=== PATIENT | female | born 2005 | race Caucasian/White ===

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

== ENCOUNTER 2023-01-18 20:36 | Emergency (ER) | payer MEDICAID, SELFPAY ==
[2023-01-18 20:41] VITALS: BP 126/71; PULSE 97; RESP 16; TEMP 36.7; O2SAT 99; BMI 34.4
--- NOTE | 2023-01-18 20:59 | W.ED.FEMALGU ---
HPI - Female Genitourinary General: Chief complaint: Urogenital-Female Stated complaint: vaginal cramping, bleeding Time Seen by Provider: 01/18/23 20:55 History of Present Illness: 17-year-old female comes in today with complaints of pelvic pain with the start of her period. Patient states last menstrual cycle was in September. Patient has been seen by her primary care 2 times and was awaiting a ultrasound next week. Patient reports that she started having vaginal cramping today with mild bleeding. Patient was concerned that she may have an ovarian cyst and has come into the emergency department. Patient appears in mild to moderate pain. Patient appears nontoxic. Patient reports no chronic medical problems. Patient takes no routine medicines except sertraline. Associated symptoms: Deny headache(s) or nausea Review of Systems General: Reports: 10 or more systems reviewed and unremarkable except in HPI and below Const: Denies: fever(s) Card: Denies: chest pain Resp: Denies: dyspnea GI: Reports: diarrhea and constipation; Denies: nausea or vomiting : Reports: vaginal bleeding and pelvic pain Neuro: Denies: headache(s) PFSH ED PFSH: Medical History No pertinent family history Painful orthopaedic hardware Social History Smoking and tobacco status: never smoked Physical Exam Const: COMMON NORMALS: alert HENMT: COMMON NORMALS: normocephalic HEAD & SCALP: normocephalic Neck/C-Spine: COMMON NORMALS: full ROM Resp: COMMON NORMALS: normal respiratory effort and clear to auscultation bilaterally AUSCULTATION: clear to auscultation bilaterally Cardio: COMMON NORMALS: regular rate and regular rhythm RATE: regular rate RHYTHM: regular rhythm GI: COMMON NORMALS: Soft to palpation PALPATION: Yes Soft to palpation : COMMON NORMALS: Yes no CVA tenderness BLADDER/KIDNEY EXAM: Yes no CVA tenderness Back/Pelvis: COMMON NORMALS: no CVA tenderness Extremity: COMMON NORMALS: full ROM Neuro: SENSORIUM/ORIENTATION: Yes alert Skin: COMMON NORMALS: turgor normal GENERAL SKIN EXAM: turgor normal Course Vital Signs: Vital signs: Vital Signs Temperature 98.1 F 01/18/23 20:41 Pulse Rate 60 01/18/23 23:33 Respiratory Rate 17 01/18/23 23:33 Blood Pressure 114/73 01/18/23 23:33 Pulse Oximetry 98 01/18/23 23:33 Oxygen Delivery Me thod Room Air 01/18/23 23:33 MDM - Female Medical Decision Making Patient comes in today for complaints of lower abdominal pain with the start of her period. On exam abdomen soft nontender, bowel sounds are normal. Patient reports low back pain. No CVA tenderness. Vital signs are normal. Differential diagnosis includes but not limited to ovarian cyst, ectopic , dysmenorrhea, miscarriage, urinary tract infection. Laboratory values were unremarkable. Ultrasound the pelvis noted good blood flow to all ovaries with multiple follicles. Patient was given 50 mg of ketorolac with minimal relief of pain she was then also given 1 hydrocodone 5 mg tablet for further pain relief. Patient was prescribed naproxen 500 mg twice a day for pain and discomfort. Patient was recommended to follow-up with primary care or return to the ER for worsening symptoms such as fever or significant increase in blood flow. Patient stated understanding and agreed to plan. Lab Data 01/18/23 21: Radiology Impressions Pelvis Ultrasound 01/18/23 22:21 IMPRESSION: Ovaries demonstrate color blood flow bilaterally with ovarian follicles. Laboratory Results WBC 13.0 10^3/uL (4.5-13.0) 01/18/23: RBC 4.82 10^6/uL (4.1-5.3) 01/18/23: Hgb 13.7 g/dL (11.5-15.3) 01/18/23: Hct 42.7 % (37.0-47.0) 01/18/23 21: MCV 88.6 fl (81-99) 01/18/23 21: MCH 28.4 pg (28.0-34.0) 01/18/23: MCHC 32.1 g/dL (30.0-36.0) 01/18/23: RDW 13.2 % (12.1-15.1) 01/18/23: Plt Count 391 10^3/cmm (130-400) 01/18/23 21: MPV 9.2 fL (7.4-10.4) 01/18/23: Neut % (Auto) 48.0 % 01/18/23 21: Lymph % (Auto) 41.5 % 01/18/23 21: [place] % (Auto) 7.1 % 01/18/23: Eos % (Auto) 2.8 % 01/18/23: Baso % (Auto) 0.4 % 01/18/23: Neut # (Auto) 6.22 10^3/uL (1.8-8.0) 01/18/23: Lymph # (Auto) 5.4 10^3/uL (1.5-6.5) 01/18/23 21: [place] # (Auto) 0.9 10^3/uL (0.2-0.9) 01/18/23: Eos # (Auto) 0.4 10^3/uL (0.0-0.8) 01/18/23: Baso # (Auto) 0.1 10^3/uL (0.0-0.1) 01/18/23: Nucleated RBC % (auto) 0 % 01/18/23: Nucleated RBCs # 0.0 /100WBC 01/18/23 21: HCG, Qual Negative (Negative) 01/18/23 21: Urine Color Yellow (Yellow) 01/18/23 22:02 Urine Appearance Clear (CLEAR) 01/18/23 22:02 Urine pH 5 (5-7) 01/18/23 22:02 Ur Specific [place] 1.020 (1.005-1.030) 01/18/23 22:02 Urine Protein Neg (Negative) 01/18/23 22:02 Urine Glucose (UA) Norm (Normal) 01/18/23 22:02 Urine Ketones Negative (Negative) 01/18/23 22:02 Urine Blood 3+ (Negative) H 01/18/23 22:02 Urine Nitrate Negative (Negative) 01/18/23 22:02 Urine Bilirubin Neg (Negative) 01/18/23 22:02 Urine Urobilinogen Neg mg/dL (Negative) 01/18/23 22:02 Ur Leukocyte Esterase Negative (Negative) 01/18/23 22:02 Urine RBC 5-10 /hpf (0-2) H 01/18/23 22:02 Urine WBC None /hpf (0-5) 01/18/23 22:02 Ur Squamous Epith Cells 0-4 /hpf (0-5) H 01/18/23 22:02 Amorphous Sediment Not Reportable 01/18/23 22:02 Urine Bacteria 2+ /hpf (NONE) H 01/18/23 22:02 Urine Mucus 3+ /hpf 01/18/23 22:02 Discharge Plan Discharge Patient Disposition: Home Clinical Impression: Ovarian cyst Qualifiers: Laterality: bilateral Qualified Code(s): N83.201 - Unspecified ovarian cyst, right side Condition: Stable Prescriptions: New naproxen 500 mg tablet 500 mg PO BID PRN (Reason: pain) Qty: 20 0RF Discharge Orders: Discharge ED (Routine); Ordered 01/18/23 Ordered By: Carlos Henson Referrals: David Zhou DO [Primary Care Provider] - Discharge Diet: Usual diet Discharge Activity: Increase activity as tolerated Patient Instructions: Ovarian Cyst (ED) Activity Restrictions/Additional Instructions: Activity as tolerated. Drink plenty of water and fluids. Use acetaminophen and naproxen to help control pain. Take naproxen 500 mg twice a day for better pain control. Use Tylenol for breakthrough pain. Follow-up with primary care or specialist for further evaluation and treatment. Coding Level of Care Code ED Emergency Crew Supervisor for Edy Reeves
[2023-01-18 21:13] VITALS: BP 129/70
[2023-01-18 21:41] LABS: Basophils # 0.1 10^3/uL (0.0-0.1); Basophils % 0.4 %; Eosinophils # 0.4 10^3/uL (0.0-0.8); Eosinophils % 2.8 %; Hematocrit 42.7 % (37.0-47.0); Hemoglobin 13.7 g/dL (11.5-15.3); Lymphocytes # 5.4 10^3/uL (1.5-6.5); Lymphocytes % 41.5 %; Mean Corpuscular HGB Conc 32.1 g/dL (30.0-36.0); Mean Corpuscular Hemoglobin 28.4 pg (28.0-34.0); Mean Corpuscular Volume 88.6 fl (81-99); Mean Platelet Volume 9.2 fL (7.4-10.4); Monocytes # 0.9 10^3/uL (0.2-0.9); Monocytes % 7.1 %; Neutrophils # 6.22 10^3/uL (1.8-8.0); Nucleated Red Blood Cells % 0 %; Platelet Count 391 10^3/cmm (130-400); Red Blood Count 4.82 10^6/uL (4.1-5.3); Red Cell Distribution Width 13.2 % (12.1-15.1)
[2023-01-18] MEDS: ketorolac 30 mg/mL INJ 15 MG IVP (21:53)
[2023-01-18 22:08] LABS: HCG, Serum Qual Negative (Negative)
[2023-01-18 22:12] LABS: Slide Review Slide Review Perform
[2023-01-18 22:16] LABS: Add Urine Microscopic? YES; Bilirubin Urine Neg (Negative); Blood Urine 3+ (Negative); Glucose Urine UA Norm (Normal); Ketones Urine Negative (Negative); Leukocyte Esterase Urine Negative (Negative); Nitrate Urine Negative (Negative); Protein Urine Neg (Negative); Urine Appearance Clear (CLEAR); Urine Color Yellow (Yellow); Urobilinogen Urine Neg (Negative); pH Urine 5 (5-7)
[2023-01-18 22:17] LABS: Add Urine Culture? No; Bacteria Urine 2+ /hpf; Mucus Urine 3+ /hpf; Squamous Epithelial Cell Urine 0-4 /hpf (0-5)
--- NOTE | 2023-01-18 22:21 | USR_ITS ---
PROCEDURE INFORMATION: Exam: US Nonobstetric Pelvis; Complete Exam date and time: 01/18/2023 10:32 PM Age: 17 years old Clinical indication: Patient HX: Bilateral pelvic pain x 12 hours. Nulligravida. History of irregular menses x 1 yr. Lmp 10/07/2022; Additional info: R/O torsion, ovarian cyst LABS AND CLINICAL REPORTS: Serum Choriogonadotropin (HCG): 0 mIU/mL Last menstrual period start date: 10/07/2022 TECHNIQUE: Imaging protocol: Transabdominal pelvic nonobstetric ultrasound. Complete exam. Real time ultrasound with image documentation. COMPARISON: No relevant prior studies available. FINDINGS: Uterus: Uterus measures 6.7 cm x 5 cm x 3.2 cm. Right ovary/adnexa: Right ovary measures 4.9 cm x 4.2 cm x 2.4 cm. Right ovarian volume is 25.9 mL. Right ovary 2.7 cm dominant follicle with several additional follicles.. Color blood flow seen in the right ovary. Left ovary/adnexa: Left ovary measures 3.9 cm x 2.9 cm x 1.8 cm. Left ovarian volume is 10.8 mL. Color blood flow seen in the left ovary. Several left ovarian follicles. Intraperitoneal space: No intraperitoneal fluid. Urinary bladder: Normal. US/US pelvic complete* [id number] IMPRESSION: Ovaries demonstrate color blood flow bilaterally with ovarian follicles.
[2023-01-18 23:33] VITALS: BP 114/73; PULSE 60; RESP 17; O2SAT 98
[2023-01-18] MEDS: HYDROcodone-acetaminophen 5-325 mg Tablet 1 TAB PO (23:56)
[2023-01-18 23:57] VITALS: BP 114/73; PULSE 64; RESP 18; O2SAT 97
== END 2023-01-18 23:59 | disposition home or self-care (01) ==
PROVIDERS: Emergency Medicine; Emergency Provider Nurse Practitioner Family; PCP Electrodiagnostic Medicine
DX: N83.201 Unspecified ovarian cyst, right side (principal)
CPT/HCPCS: 36415; 76856; 81001; 84703; 85025; 96374; 99284; J1885

== ENCOUNTER 2023-07-23 11:52 | Emergency (ER) | payer SELFPAY ==
[2023-07-23 12:01] VITALS: BP 125/84; PULSE 86; RESP 16; TEMP 37.1; O2SAT 98; BMI 34.4
--- NOTE | 2023-07-23 13:29 | PC.PHAR ---
pt states she dced her zoloft 50mg daily about 3-4 weeks ago ext shows last filled 07/08/23 30d/s
[2023-07-23 13:30] VITALS: BP 106/74; PULSE 76; RESP 16; O2SAT 98
[2023-07-23 15:00] VITALS: BP 121/75; PULSE 81; RESP 18; O2SAT 98
--- NOTE | 2023-07-23 17:34 | W.ED.PREGNAN ---
HPI - General: Chief complaint: OB/Uterine Contractions Stated complaint: abd pain, vaginal bleeding Time Seen by Provider: 07/23/23 12:45 History of Present Illness: This patient is a 17-year-old white female who presents [facility] to the ER with vaginal bleeding. Patient states she woke up with bleeding this morning. She states she is . She had a positive home test about 3 to 4 weeks ago. Her first OB appointment is not until August 01. She has had some pelvic cramping as well. She has no chronic medical problems. No past surgical history. Related Data: : 1 Review of Systems General: Reports: 10 or more systems reviewed and unremarkable except in HPI and below : Reports: vaginal bleeding and pelvic pain PFSH ED PFSH: Medical History No pertinent family history Painful orthopaedic hardware Family History Father Colon cancer Mother Hyperlipidemia Hypertension Diabetes Denies family history of Ovarian cancer Heart disease Breast cancer Uterine cancer Thyroid disease Stroke Social History Smoking and tobacco/nicotine status: never used tobacco/nicotine Female Reproductive History: : 1 Physical Exam Const: COMMON NORMALS: no acute distress, patient oriented x3 and no limitations GENERAL APPEARANCE: cooperative and comfortable HENMT: COMMON NORMALS: normocephalic, atraumatic, Normal nasal mucous membranes and turbinates present, moist oral mucous membranes and oropharynx normal HEAD & SCALP: normal to inspection, normocephalic and atraumatic FACE & SINUS: normal facial exam NOSE: Normal nasal mucous membranes and turbinates present Eye: COMMON NORMALS: Equal, round and reactive pupils present, EOMs intact bilaterally and conjunctivae normal GENERAL EYE: appearance normal, both eyes and all related structures CONJUNCTIVA: Yes conjunctivae normal PUPIL: Yes Equal, round and reactive pupils present Neck/C-Spine: COMMON NORMALS: supple and no JVD Chest: COMMONS NORMALS: normal inspection of the chest Resp: COMMON NORMALS: normal respiratory effort and clear to auscultation bilaterally AUSCULTATION: clear to auscultation bilaterally Cardio: COMMON NORMALS: no JVD, regular rate, regular rhythm, No gallops present (Cardio), No murmurs present (Cardio) and No rub (Cardio) RATE: regular rate RHYTHM: regular rhythm GI: COMMON NORMALS: Normal to inspection, nondistended, normoactive bowel sounds present, Soft to palpation and non-tender AUSCULTATION: Yes normoactive bowel sounds PALPATION: Yes Soft to palpation : COMMON NORMALS: Yes no CVA tenderness BLADDER/KIDNEY EXAM: Yes no CVA tenderness Back/Pelvis: COMMON NORMALS: no CVA tenderness and thoracic and lumbar spine normal to inspection Extremity: COMMON NORMALS: normal to inspection Neuro: COMMON NORMALS: patient oriented x3 and CN's II-XII intact bilaterally Psych: COMMON NORMALS: mental status grossly normal, Normal thought process present and cooperative THOUGHT PROCESS: Normal thought process present Skin: COMMON NORMALS: no rashes or lesions noted, turgor normal and no jaundice GENERAL SKIN EXAM: no rashes or lesions noted and turgor normal Course Vital Signs: Vital signs: Vital Signs Temperature 98.8 F 07/23/23 12:01 Pulse Rate 76 07/23/23 13:30 Respiratory Rate 16 07/23/23 13:30 Blood Pressure 106/74 07/23/23 13:30 Pulse Oximetry 98 07/23/23 13:30 Oxygen Delivery Me thod Room Air 07/23/23 13:30 MDM - OB/Uterine Contractions Medical Decision Making Quantitative hCG was 1. Discussed with patient that she is either not , extremely early or may be she has had a miscarriage. I recommended she follow-up with OB or primary care physician in 2 to 3 days for recheck of quantitative hCG. She was discharged in stable condition. Lab Data Laboratory Results Ser , Semi-Qnt 1.00 mIU/mL 07/23/23 14:15 No radiology studies performed this visit Discharge Plan Discharge Patient Disposition: Home Clinical Impression: Vaginal bleeding Condition: Stable Prescriptions: No Action Multivitamins 28 mg iron- 800 mcg Tablet 2 tab PO BEDTIME Discharge Orders: Discharge ED (Routine); Ordered 07/23/23 Ordered By: Janes Valente Referrals: David Zhou DO [Primary Care Provider] - 1-3 days Patient Instructions: Miscarriage (ED) Coding Level of Care Code ED Aws Solution Architect for Chg Leandro
== END 2023-07-23 15:24 | disposition home or self-care (01) ==
PROVIDERS: Emergency Provider Emergency Medicine; PCP Electrodiagnostic Medicine
DX: N93.9 Abnormal uterine and vaginal bleeding, unspecified (principal)
CPT/HCPCS: 84702; 99283

== ENCOUNTER 2024-12-01 10:47 | Outpatient (CLI) | payer MEDICAID, SELFPAY ==
[2024-12-01 10:50] VITALS: RESP 16; BMI 32.2
[2024-12-01 11:01] VITALS: BP 124/77; PULSE 115
[2024-12-01 11:16] VITALS: BP 113/66; PULSE 102
[2024-12-01 11:20] VITALS: BP 113/66; PULSE 102; RESP 16; O2SAT 98
== END 2024-12-01 11:23 | disposition home or self-care (01) ==
LOC: OPOB 10:48 → OBGYN 10:49
PROVIDERS: Absent Provider Family Medicine; PCP Electrodiagnostic Medicine; Visit Provider Family Medicine
DX: O36.8190 Decreased fetal movements, unspecified trimester, not applicable or unspecified (principal); Z3A.00 Weeks of gestation of pregnancy not specified
CPT/HCPCS: 99211

== ENCOUNTER 2024-12-28 19:56 | Outpatient (CLI) | payer MEDICAID, SELFPAY ==
[2024-12-28 20:12] VITALS: BP 118/67; PULSE 118
[2024-12-28 20:15] VITALS: BMI 33.9
[2024-12-28 20:26] VITALS: BP 113/67; PULSE 91
[2024-12-28 20:41] VITALS: BP 116/75; PULSE 88
[2024-12-28 20:50] VITALS: BP 118/75; PULSE 76; PULSE 78; RESP 16; TEMP 36.3; O2SAT 97
[2024-12-28 20:55] LABS: Nitrazine Paper, PH Negative
== END 2024-12-28 20:55 | disposition home or self-care (01) ==
LOC: OPOB 19:56 → OBGYN 19:57
PROVIDERS: PCP Electrodiagnostic Medicine; Visit Provider Family Medicine
DX: O26.859 Spotting complicating pregnancy, unspecified trimester (principal); Z3A.00 Weeks of gestation of pregnancy not specified; N89.8 Other specified noninflammatory disorders of vagina
CPT/HCPCS: 59025; 83986; 99211

== ENCOUNTER 2025-01-15 18:38 | Observation (INO) | payer MEDICAID, SELFPAY ==
--- OUTSIDE RECORDS SUMMARY | 2020-09-08 03:00 | XMS_ITS | Continuity of Care Document ---
Author Organization [facility] Address [address] [id number] [address] Phone Care Team Providers Care Tool Inspector Name Role Phone Jordan Warren DDS Unavailable Unavailabl e Allergies, Adverse Reactions, Alerts Substance Reaction Status Criticality No Known Allergies Active No Inform ation Medications Medication Instructions Dosage Effective Dates (start - stop) Status Comments ibuprofen 800 mg tablet take 1 tablet by oral route 3 times every day with food 800 MG - Active Anti-inflammator y caused by Oral Surgery, Do not used more than 3000mg per day. Peridex 0.12 % mouthwash place 15 milliliter by mucous membrane route 2 times every day in the mouth (after meals), swish in mouth for 30 seconds then spit out 15.00 milliliter - Active Antimicrobial mouth rinse after Oral Surgery. start using after 2nd day of surgery. clonazepam 1 mg tablet Take 1 (one) tablet 1 (one) hour prior to procedure. - Active Percocet 5 mg-325 mg tablet take 1 (one) tablet by oral route 1 (one) hour prior to procedure. Take 1 (one) tab q6h PRN pain after surgery. - Active Procedures Procedure Date Removal Of Impacted Tooth Completely Bony Removal Of Impacted Tooth Completely Bony Removal Of Impacted Tooth Completely Bony Removal Of Impacted Tooth Completely Bony Non-Intravenous Conscious Sedation Aug-3 EDR Approval Note Limited Oral Evaluation Problem Focused EDR Approval Note Advance Directives Directive Yes / No Effective Date File Name No Information Encounters Encounter Description Practice Location Reason(s) For Visit Diagnoses Date Provider Providers Copied on Encounter [facility], [id number], [id number], tel:[phone] [facility] Encounter for dental exam and cleaning w/o abnormal findings Kelvin Ortega. [address] [place] [address], [id number], [place]. tel:[phone] Referring Provider: Jordan Warren, [address] [place] [address], [facility]. tel:[phone] [facility], [id number], [id number], tel:[phone] [facility] Encounter for dental exam and cleaning w/o abnormal findings Kelvin Ortega. [address] [place] [address], [address], [place]. tel:[phone] Referring Provider: Jordan Warren, [address] [place] [address], [facility]. tel:[phone] Family History Family Member Type Diagnosis Age At Onset No Information Payers Payer name Insurance type Covered libertarian ID Authorramiroa kallieangela(s) D [facility] [id number] Social History Type Description Quantity Date Captured Comments Alcohol Use Details No Caffeine Use Details Unknown Tobacco Use Status No Information Smoking Status No Information Sex Female Sexual Orientation Decline To Specify Gender Identity Female Chief Complaint And Reason For Visit No Information Reason For Referral Reason For Referral No Information History Of Present Illness Encounter Date Complaint History Of Prese nt Illness No Information Functional Status Date Functional Assessmen t No Information Instructions Date Instruction Additional Infor mation Lifestyle education Related to D ental Examination Lifestyle education Related to D ental Examination Assessments Type Assessment Date No Information Patient Care Teams Name Effective Dates (start - stop) Status Members No Information
[2025-01-15] VITALS (7 sets, daily range): BP systolic 102–131; BP diastolic 60–83; PULSE 59–93; RESP 14–17; TEMP 36.7; O2SAT 97–100
--- NOTE | 2025-01-15 18:43 | ECG_ITS ---
[facility] Test Date: 2025-01-15 Pat Name: Humphrey Alvarenga Department: Room: 263 Gender: Female X Ray Physician: : 2005 Requested By: Randell Rivas Order Number: [id number] Mike MD: Quiana Merino M.D. Measurements Intervals [place] Rate: 85 P: 22 VT: 117 QRS: 70 QRSD: 90 T: -10 QT: 327 QTc: 390 Interpretive Statements SINUS RHYTHM WITH SINUS ARRHYTHMIA WITH SHORT VT INTERVAL NONSPECIFIC T-WAVE ABNORMALITY No previous ECG available for comparison Electronically Signed On 01-17-2025 13:55:04 CDT by Quiana Merino M.D. [id number]
--- NOTE | 2025-01-15 19:05 | USR_ITS ---
PROCEDURE INFORMATION: Exam: US Abdomen, Limited; Right Upper Quadrant Exam date and time: 01/15/2025 7:14 PM Age: 19 years old Clinical indication: Abdominal pain; Epigastric; ; Additional info: Ruq and epigastric abd pain, with n/v, PT is also 33wks TECHNIQUE: Imaging protocol: Real time ultrasound of the abdomen with image documentation. Limited exam focused on the right upper quadrant. COMPARISON: US OB >= 14 weeks fetus [id number] 10/14/2024 8:15 AM FINDINGS: Liver: Normal. No masses. Gallbladder: Tiny gallstones, negative Rodriguez's sign, 3 mm wall thickness. Biliary ducts: Normal. No stones. No dilation. Pancreas: Visualized pancreas is unremarkable. Right kidney: Normal. No mass. No hydronephrosis. Aorta within normal limits. US/US abdomen limited [id number] IMPRESSION: Gallstones without definitive evidence of cholecystitis.
[2025-01-15 19:21] LABS: Hematocrit 35.2 % (36-47); Hemoglobin 11.20 g/dL (11.27-16.99); Mean Corpuscular HGB Conc 31.8 g/dL (30-55); Mean Corpuscular Hemoglobin 27.2 pg (27-33); Mean Corpuscular Volume 85.4 fl (85-98); Nucleated Red Blood Cells % 0 %; Platelet Count 405 10^3/cmm (157-399); Red Blood Count 4.12 10^6/uL (3.85-5.65); White Blood Count 13.28 10^3/uL (3.29-11.43)
[2025-01-15 19:39] LABS: Alanine Aminotransferase 10 U/L (0-33); Albumin Level 3.3 g/dL (3.5-5.2); Alkaline Phosphatase 157 U/L (35-105); Anion Gap 15.6 (5-19); Aspartate Amino Transferase 9 U/L (0-32); Blood Urea Nitrogen 8 mg/dL (6-20); Calcium 8.7 mg/dL (8.5-10.5); Carbon Dioxide 24 mmol/L (22-29); Chloride 103 mmol/L (98-107); Creatinine Clr Calc Pharmacy 209.5738; Globulin 3.6 g/dL (1.3-4.6); Glucose 87 mg/dL (65-115); Osmolality Calculated 286 mOsm/kg (285-295); Potassium 3.6 mmol/L (3.5-5.1); Sodium 139 mmol/L (136-145); Total Protein 6.9 g/dL (6.6-8.7)
[2025-01-15] MEDS: ondansetron hcl ODT 4 mg Tab 8 MG PO (19:48)
[2025-01-15 20:20] LABS: Glucose Urine UA Negative (Normal); Nitrate Urine Negative (Negative); Specific Gravity, Urine 1.021 (1.005-1.030)
--- NOTE | 2025-01-15 20:23 | ED_ITS ---
HPI - Abdominal Pain 2 General: Chief Complaint: Abdominal Pain Stated Complaint: chest pain rib pain Time Seen by Provider: 01/15/25 18:50 Source: patient History of Present Illness: [id number] female 33 weeks with upper abdominal pain rates across the back and more in the epigastric and right upper quadrant area. Feels better with pressure anterior right upper quadrant but little bit tender more on the right lateral side. No CVA tenderness. All started today. Has had some nausea vomiting. Related Data Home Medications ?Medication ?Instructions ?Recorded ?Confirmed vit no.95-ferrous 2 tab PO BEDTIME 07/23/23 0 12/28/24 fumarate 28 mg-folic acid 800 mcg tablet ( Multivitamins) Allergies Allergy/AdvReac Type Severity Reaction Status Date / Time latex Allergy ALGY-Rash Verified 01/15/25 18:48 Review of Systems 2 General: Reports: 10 or more systems reviewed and unremarkable except in HPI and below PFSH ED 2 PFSH: Medical History (Updated 01/15/25 @ 23:06 by Randell Rivas MD) No pertinent family history Painful orthopaedic hardware Family History Father Colon cancer Mother Hyperlipidemia Hypertension Diabetes Denies family history of Ovarian cancer Heart disease Breast cancer Uterine cancer Thyroid disease Stroke Social History Smoking and tobacco/nicotine status: never used tobacco/nicotine Female Reproductive History: : 1 Physical Exam 2 Const: COMMON NORMALS: no acute distress, average body habitus, patient oriented x3, healthy appearing, alert and well nourished GENERAL APPEARANCE: well kempt and well developed HENMT: COMMON NORMALS: normocephalic, atraumatic, external ears normal and moist oral mucous membranes HEAD & SCALP: normocephalic and atraumatic E XTERNAL EAR: Yes external ears normal Eye: COMMON NORMALS: Equal, round and reactive pupils present, EOMs intact bilaterally and conjunctivae normal CONJUNCTIVA: Yes conjunctivae normal P UPIL: Yes Equal, round and reactive pupils present Neck/C-Spine: COMMON NORMALS: full ROM, no lymphadenopathy and supple Chest: CHEST: Yes Symmetrical chest wall rise and No Surgical scars present (Chest) Resp: COMMON NORMALS: normal respiratory effort, No retractions, No use of accessory muscles and clear to auscultation bilaterally AUSCULTATION: clear to auscultation bilaterally Cardio: COMMON NORMALS: regular rate, regular rhythm, S1 normal heart sound present, S2 normal heart sound present, No gallops present (Cardio), No clicks present (Cardio), No murmurs present (Cardio) and No rub (Cardio) RATE: r egular rate RHYTHM: regular rhythm HEART SOUNDS: S1 normal heart sound present, S2 normal heart sound present and no murmurs PERIPHERAL PULSES: o ther (Radial pulses 2+ and symmetric) GI: COMMON NORMALS: Soft to palpation and no masses INSPECTION: No abdominal distension PALPATION: Yes Soft to palpation, Yes Tenderness to palpation present (GI) (Discussed in HPI), No Guarding due to palpation present (GI) and No Rebound tenderness present : COMMON NORMALS: Yes no CVA tenderness BLADDER/KIDNEY EXAM: Yes no CVA tenderness Back/Pelvis: COMMON NORMALS: no CVA tenderness Extremity: COMMON NORMALS: normal to inspection, full ROM, capillary refill normal and no clubbing, cyanosis or edema Neuro: COMMON NORMALS: patient oriented x3 SENSORIUM/ORIENTATION: Yes alert Psych: APPEARANCE: Yes well kempt Skin: COMMON NORMALS: no rashes or lesions noted, no wounds, turgor normal and no jaundice GENERAL SKIN EXAM: no rashes or lesions noted and turgor normal Course 2 Reevaluation(s): Reevaluation #1: Patient reexamined and requiring continued pain and nausea treatment. Time: 23:06 Vital Signs: Vital signs: Vital Signs Temperature 98.0 F 01/15/25 18:46 Pulse Rate 59 L 01/15/25 22:30 Respiratory Rate 17 01/15/25 20:57 Blood Pressure 114/65 01/15/25 22:30 Pulse Oximetry 100 01/15/25 22:30 Oxygen Delivery Me thod Room Air 01/15/25 22:30 MDM - Abdominal Pain Medical Decision Making Ultrasound reviewed. Patient with gallstones. Elevated white count. No fever having some nausea vomiting. No classic Rodriguez sign. Patient with continued pain nausea vomiting. Discussed case with Dr. Murray COLLABORATIVE PHYSICIAN. She agrees with admission for cautious observation and continued hydration and antiemetics. Differential Diagnosis Likely abdominal pain Medical Records I reviewed the patient's medical records. Lab Data I reviewed the patient's lab results. 01/15/25 19:11 01/15/25 19:11 Labs/Radiology: Radiology Impressions Abdomen Ultrasound 01/15/25 19:05 IMPRESSION: Gallstones without definitive evidence of cholecystitis. Laboratory Results WBC 13.28 10^3/uL (3.29-11.43) H 01/15/25 19:11 RBC 4.12 10^6/uL (3.85-5.65) 01/15/25 19:11 Hgb 11.20 g/dL (11.27-16.99) L 01/15/25 19:11 Hct 35.2 % (36-47) L 01/15/25 19:11 MCV 85.4 fl (85-98) 01/15/25 19:11 MCH 27.2 pg (27-33) 01/15/25 19:11 MCHC 31.8 g/dL (30-55) 01/15/25 19:11 RDW 13.1 % (12.1-15.1) 01/15/25 19:11 Plt Count 405 10^3/cmm (157-399) H 01/15/25 19:11 MPV 9.3 fL (7.4-10.4) 01/15/25 19:11 Neut % (Auto) 52.1 % 01/15/25 19:11 Lymph % (Auto) 39.1 % 01/15/25 19:11 [place] % (Auto) 7.5 % 01/15/25 19:11 Eos % (Auto) 0.6 % 01/15/25 19:11 Baso % (Auto) 0.2 % 01/15/25 19:11 Neut # (Auto) 6.94 10^3/uL (1.8-7.7) 01/15/25 19:11 Lymph # (Auto) 5.2 10^3/uL (0.8-4.8) H 01/15/25 19:11 [place] # (Auto) 1.0 10^3/uL (0.2-0.9) H 01/15/25 19:11 Eos # (Auto) 0.1 10^3/uL (0.0-0.8) 01/15/25 19:11 Baso # (Auto) 0.0 10^3/uL (0.0-0.1) 01/15/25 19:11 Nucleated RBC % (auto) 0 % 01/15/25 19:11 Nucleated RBCs # 0.0 /100WBC 01/15/25 19:11 Sodium 139 mmol/L (136-145) 01/15/25 19:11 Potassium 3.6 mmol/L (3.5-5.1) 01/15/25 19:11 Chloride 103 mmol/L (98-107) 01/15/25 19:11 Carbon Dioxide 24 mmol/L (22-29) 01/15/25 19:11 Anion Gap 15.6 (5-19) 01/15/25 19:11 BUN 8 mg/dL (6-20) 01/15/25 19:11 Creatinine 0.5 mg/dL (0.5-0.9) 01/15/25 19:11 GFR Calculation 155.7 mL/min (90-130) H 01/15/25 19:11 Glucose 87 mg/dL (65-115) 01/15/25 19:11 Calculated Osmolality 286 mOsm/kg (285-295) 01/15/25 19:11 Calcium 8.7 mg/dL (8.5-10.5) 01/15/25 19:11 Total Bilirubin 0.2 mg/dL (0.15-1.2) 01/15/25 19:11 AST 9 U/L (0-32) 01/15/25 19:11 ALT 10 U/L (0-33) 01/15/25 19:11 Alkaline Phosphatase 157 U/L (35-105) H 01/15/25 19:11 Total Protein 6.9 g/dL (6.6-8.7) 01/15/25 19:11 Albumin 3.3 g/dL (3.5-5.2) L 01/15/25 19:11 Globulin 3.6 g/dL (1.3-4.6) 01/15/25 19:11 Urine Color Yellow (Yellow) 01/15/25 20:00 Urine Appearance Turbid (CLEAR) A 01/15/25 20:00 Urine pH 7.5 (5-7) 01/15/25 20:00 Ur Specific [place] 1.021 (1.005-1.030) 01/15/25 20:00 Urine Protein 1+ (Negative) A 01/15/25 20:00 Urine Glucose (UA) Negative (Normal) 01/15/25 20:00 Urine Ketones Trace (Negative) 01/15/25 20:00 Urine Blood Negative (Negative) 01/15/25 20:00 Urine Nitrate Negative (Negative) 01/15/25 20:00 Urine Bilirubin Negative (Negative) 01/15/25 20:00 Urine Urobilinogen 1.0 mg/dL (Negative) 01/15/25 20:00 Ur Leukocyte Esterase 2+ (Negative) A 01/15/25 20:00 Urine RBC 6-10 /hpf (0-2) 01/15/25 20:00 Urine WBC 51-100 /hpf (0-5) H 01/15/25 20:00 Ur Squamous Epith Cells 11-20 /hpf (0-5) H 01/15/25 20:00 Amorphous Sediment 2+ /hpf 01/15/25 20:00 Urine Bacteria 4+ /hpf (NONE) H 01/15/25 20:00 Hyaline Casts 9.07 /lpf 01/15/25 20:00 All radiology interpretation(s) finalized by discharge Discharge Plan Discharge Patient Disposition: Placed in Observation Clinical Impression: Acute upper abdominal pain, Third trimester , Nausea & vomiting Coding Level of Care Code ED Business Risk Consultant for Edy Reeves
[2025-01-15 20:25] LABS: Add Urine Microscopic? YES
[2025-01-15] MEDS: lidocaine 2% viscous 15 ML, aluminum-mag hydrox-simethicon 30 ML, sucralfate oral liq 1 GM PO (20:51)
[2025-01-15] MEDS: morphine 4 mg/mL SDV 1 mL IVP (20:57)
[2025-01-15] MEDS: cefTRIAXone 2,000 mg SDV 2000 MG IVP (22:29)
[2025-01-15] MEDS: metoclopramide 5 mg/mL SDV 2 mL 10 MG IVP (23:20)
[2025-01-15] MEDS: HYDROmorphone 0.5 MG/0.5 ML INJ IVP (23:21)
[2025-01-16] VITALS (7 sets, daily range): BP systolic 95–126; BP diastolic 55–72; PULSE 61–84; RESP 16–17; TEMP 36.8–37.2; O2SAT 91–98; BMI 34.7
--- NOTE | 2025-01-16 00:20 | PC.NURSE ---
Report called to Airam YOUNG on Med-Surg. All questions and concerns were addressed at time of report.
--- NOTE | 2025-01-16 01:01 | PC.NURSE ---
Heart Tones: Performed in ER by OB staff prior to arriving on the floor.
[2025-01-16] MEDS: ondansetron 2 mg/ML SDV 2 mL 4 MG IVP (02:45)
[2025-01-16 05:25] LABS: Hematocrit 31.9 % (36-47); Hemoglobin 10.20 g/dL (11.27-16.99); Mean Corpuscular HGB Conc 32.0 g/dL (30-55); Mean Corpuscular Hemoglobin 27.7 pg (27-33); Mean Corpuscular Volume 86.7 fl (85-98); Nucleated Red Blood Cells % 0 %; Platelet Count 340 10^3/cmm (157-399); Red Blood Count 3.68 10^6/uL (3.85-5.65); White Blood Count 14.03 10^3/uL (3.29-11.43)
[2025-01-16 05:51] LABS: Alanine Aminotransferase 9 U/L (0-33); Albumin Level 2.6 g/dL (3.5-5.2); Alkaline Phosphatase 143 U/L (35-105); Aspartate Amino Transferase 15 U/L (0-32); Blood Urea Nitrogen 7 mg/dL (6-20); Calcium 8.5 mg/dL (8.5-10.5); Carbon Dioxide 20 mmol/L (22-29); Chloride 103 mmol/L (98-107); Creatinine Clr Calc Pharmacy 261.9673; Globulin 3.4 g/dL (1.3-4.6); Glucose 103 mg/dL (65-115); Osmolality Calculated 280 mOsm/kg (285-295); Sodium 136 mmol/L (136-145); Total Protein 6.0 g/dL (6.6-8.7)
[2025-01-16 05:53] LABS: Anion Gap 16.7 (5-19); Potassium 3.7 mmol/L (3.5-5.1)
--- NOTE | 2025-01-16 12:22 | PM.SDS ---
Short Stay Summary Providers Date of Admit/Discharge: 01/16/25 Attending Provider: Charlene Murray MD Primary Care Provider: David Zhou DO Chief Complaint: chest pain rib pain HPI History of Present Illness Humphrey Alvarenga is a 19 year old female G3, P0 at 33 weeks 4 days gestation who presented to the ER last evening complaining of right upper quadrant and epigastric pain. She states that she had to sample puller on the way to the ER because she had some vomiting and has continued to vomit off and on throughout the evening. She has not had any diarrhea. She was evaluated by the ER physician and had a right upper quadrant ultrasound that was not indicative of cholecystitis. She was admitted last evening for continued pain control, antiemetics, and IV fluids. She has done well with clears and states that she is keeping them down. She states that her pain is a lot better from yesterday. She has not had any diarrhea. She is comfortable with discharge home Review of Systems Narrative: Abdominal pain in the right upper quadrant and epigastric area, no fever no chills, positive vomiting, no diarrhea constipation, positive good movement no contractions no vaginal bleeding no loss of fluid Home Meds/Allergies Home Medications and Allergies Home Medications ?Medication ?Instructions ?Recorded ?Confirmed ?Type vit no.95-ferrous 1 tab PO BEDTIME 07/23/23 01/16/25 History fumarate 28 mg-folic acid 800 mcg tablet ( Multivitamins) Allergies Allergy/AdvReac Type Severity Reaction Status Date / Time latex Allergy ALGY-Rash Verified 01/15/25 18:48 PFSH Acute PFSH: Medical History (Updated 01/15/25 @ 23:06 by Randell Rivas MD) No pertinent family history Painful orthopaedic hardware Family History Father Colon cancer Mother Hyperlipidemia Hypertension Diabetes Denies family history of Ovarian cancer Heart disease Breast cancer Uterine cancer Thyroid disease Stroke Social History Smoking and tobacco/nicotine status: never used tobacco/nicotine Female Reproductive History: : 3 Para: 0 Spontaneous abortions: Yes Other female reproductive history: Patient's BRODIE is 03/02/2027 and she is 33 weeks 4 days gestation. She has not had any complications during this until now.. Vitals/I&O/Wt Last Vital Signs Temp 98.4 F 01/16/25 11:42 Pulse 63 01/16/25 11:42 Resp 17 01/16/25 11:42 BP 108/60 01/16/25 11:42 Pulse Ox 96 01/16/25 11:42 O2 Del Method Room Air 01/16/25 11:42 01/15/25 01/16/25 01/16/25 22:59 06:59 14:59 Intake Total 1000 / 1000 360 / 360 Balance 1000 / 1000 360 / 360 Weight last 48 hrs Weight 98.571 kg Weight 97.522 kg Weight 97.522 kg Physical Exam Narrative: Patient is alert and oriented sitting up in bed smiling and watching TV, heart regular rate and rhythm, lungs clear to auscultation bilaterally, abdomen is gravid and nontender, normal active bowel sounds, she has no right upper quadrant or epigastric tenderness currently. Hospital Course Admission Diagnoses Acute gastritis SSS Data Data Completed and Pending: Completed Studies During Hospitalization Category Date Time Status US abdomen [place] d 61850 Stat Ultrasound 01/15/25 19:05 Completed Discharge Plan Discharge Patient Disposition: Home Condition: Stable Prescriptions: New omeprazole 20 mg capsule,delayed release(DR/EC) 20 mg PO BID Qty: 60 0RF ondansetron 4 mg tablet,disintegrating 4 mg PO TID PRN (Reason: nausea and vomiting) 4 Days Qty: 20 0RF Continued PNV no.95-ferrous fumarate-FA [ Multivitamins] 28 mg iron- 800 mcg Tablet 1 tab PO BEDTIME Referrals: David Zhou DO [Primary Care Provider, [facility]] Discharge Diet: Advance as tolerated Discharge Activity: Resume usual activity Patient Instructions: Opioid Safety, Patient Portal & Tony Instructions Activity Restrictions/Additional Instructions: Follow-up as previously scheduled with Dr. Murray for care, sooner if symptoms worsen or do not resolve. Attestations Medical Necessity Statement*: Need for pain management, IV fluids and close observation for worsening Time Spent in Patient Care*: less than 30 min Quality Metrics Clinical Quality Measures: [ No reported AMI, CVA or VTE this stay] Coding Level of Care Code Acute Code for Chg Fwd
== END 2025-01-16 14:34 | disposition home or self-care (01) ==
LOC: ER 23:11 → MEDSURG 01-16 00:09
PROVIDERS: Admitting Provider Family Medicine; Emergency Provider Emergency Medicine; PCP Electrodiagnostic Medicine; Visit Provider Family Medicine
DX: O21.2 Late vomiting of pregnancy (principal); Z3A.33 33 weeks gestation of pregnancy; R10.11 Right upper quadrant pain; R10.13 Epigastric pain
CPT/HCPCS: 36415; 76705; 80053; 81001; 85025; 93005; 96361; 96374; 96375; 99285; G0378; J0696; J0780; J1171; J2270; J2405; J2765; J7030; J9999; Q0162

== ENCOUNTER 2025-02-09 01:52 | Outpatient (CLI) | payer MEDICAID, SELFPAY ==
[2025-02-09] VITALS (11 sets, daily range): BP systolic 104–111; BP diastolic 57–70; PULSE 51–65; RESP 18; TEMP 35.6–35.8; O2SAT 97–98; BMI 36.1
[2025-02-09] MEDS: ondansetron 2 mg/ML SDV 2 mL 4 MG IVP (02:57)
[2025-02-09] MEDS: pantoprazole 40 mg SDV IVP (03:12)
[2025-02-09 03:47] LABS: Alanine Aminotransferase 45 U/L (0-33); Albumin Level 3.0 g/dL (3.5-5.2); Alkaline Phosphatase 356 U/L (35-105); Anion Gap 14.0 (5-19); Aspartate Amino Transferase 60 U/L (0-32); Blood Urea Nitrogen 7 mg/dL (6-20); Calcium 9.0 mg/dL (8.5-10.5); Carbon Dioxide 25 mmol/L (22-29); Chloride 102 mmol/L (98-107); Creatinine Clr Calc Pharmacy 214.1626; Globulin 3.6 g/dL (1.3-4.6); Glucose 84 mg/dL (65-115); Osmolality Calculated 281 mOsm/kg (285-295); Potassium 4.0 mmol/L (3.5-5.1); Sodium 137 mmol/L (136-145); Total Protein 6.6 g/dL (6.6-8.7)
--- NOTE | 2025-02-09 04:17 | USR_ITS ---
PROCEDURE INFORMATION: Exam: US Abdomen, Limited; Right Upper Quadrant Exam date and time: 02/09/2025 5:10 AM Age: 19 years old Clinical indication: Abdominal pain; Localized; Right upper quadrant (ruq); ; Additional info: Abdominal, epigastric, and back pain; Nausea/vomiting TECHNIQUE: Imaging protocol: Real time ultrasound of the abdomen with image documentation. Limited exam focused on the right upper quadrant. COMPARISON: US abdomen limited 29950 01/15/2025 7:14 PM FINDINGS: Liver: Normal. No masses. Gallbladder: Mildly distended gallbladder containing stones and sludge. Mild gallbladder wall thickening measuring 4 mm. No pericholecystic fluid. Biliary ducts: Normal. No stones. No dilation. Pancreas: Visualized pancreas is unremarkable. Right kidney: Mild right-sided hydronephrosis is present. No stone visualized. US/US gall bladder [id number] IMPRESSION: 1. Cholelithiasis without clear evidence of cholecystitis. Clinical correlation recommended. Further evaluation with HIDA scan should be considered in the adequate clinical setting. 2. Mild right-sided hydronephrosis.
[2025-02-09] MEDS: acetaminophen 1,000 MG/100 ML PIGGYBACK 400 MG IV (04:24)
--- NOTE | 2025-02-09 10:19 | PM.SDS ---
Short Stay Summary Providers Date of Admit/Discharge: 02/09/25 Attending Provider: Charlene Murray MD Primary Care Provider: David Zhou DO Chief Complaint: ABD Pain, Chest Pain, N/V ,Back Pain HPI History of Present Illness Humphrey Alvarenga is a 19 year old female G3, P0 at 37 weeks 0 days gestation who presented last evening complaining of epigastric abdominal pain nausea and vomiting. She had had a similar episode of this and was admitted overnight approximately 3 weeks ago. She was given IV fluids, IV Tylenol, a dose of Zofran along with a proton pump inhibitor. Her pain was slightly improved for couple hours but then worsened again at which time she was given 1 dose of tramadol which seems to have improved it significantly. Liver enzymes were slightly elevated and gallbladder ultrasound revealed slight gallbladder wall thickening but no obvious signs of acute cholecystitis. heart tones have been reactive. This morning the patient is feeling better. She was advised to do clear fluids and then advance to very bland diet as tolerated. Review of Systems Narrative: No fevers chills, no diarrhea, positive nausea, positive vomiting, positive epigastric abdominal pain that radiates to the back. Home Meds/Allergies Home Medications and Allergies Home Medications ?Medication ?Instructions ?Recorded ?Confirmed ?Type vit no.95-ferrous 1 tab PO BEDTIME 07/23/23 02/09/25 History fumarate 28 mg-folic acid 800 mcg tablet ( Multivitamins) Allergies Allergy/AdvReac Type Severity Reaction Status Date / Time latex Allergy ALGY-Rash Verified 01/15/25 18:48 PFSH Acute PFSH: Medical History (Updated 01/15/25 @ 23:06 by Randell Rivas MD) No pertinent family history Painful orthopaedic hardware Family History Father Colon cancer Mother Hyperlipidemia Hypertension Diabetes Denies family history of Ovarian cancer Heart disease Breast cancer Uterine cancer Thyroid disease Stroke Social History Smoking and tobacco/nicotine status: never used tobacco/nicotine Female Reproductive History: : 3 Para: 0 Spontaneous abortions: Yes Vitals/I&O/Wt Last Vital Signs Temp 96.4 F L 02/09/25 04:11 Pulse 52 L 02/09/25 06:14 Resp 18 02/09/25 06:13 BP 110/69 02/09/25 06:14 Pulse Ox 97 02/09/25 06:13 02/08/25 02/09/25 02/09/25 22:59 06:59 14:59 Intake Total 1100 / 1100 Balance 1100 / 1100 Weight last 48 hrs Weight 101.605 kg Physical Exam Narrative: Alert and oriented, sitting up in bed, no acute distress, heart regular rate and rhythm, lungs clear to auscultation bilaterally, abdomen is soft and nontender, abdomen is gravid, bowel sounds are normoactive, extremities have trace edema but no calf tenderness Hospital Course Discharge Summary The patient is much improved. She will be discharged home with some tramadol. She states that she still has Zofran at home if she were to need it. She will likely need a HIDA scan -since she is 37 weeks we may hold off on that until after delivery pending how she does upon discharge. SSS Data Data Completed and Pending: Completed Studies During Hospitalization Category Date Time Status US gall bladder 7 6705 Stat Ultrasound 02/09/25 04:17 Completed Discharge Plan Discharge Patient Disposition: Home Prescriptions: New tramadol 50 mg tablet 50 mg PO Q6H PRN (Reason: pain) Qty: 14 0RF No Action PNV no.95-ferrous fumarate-FA [ Multivitamins] 28 mg iron- 800 mcg Tablet 1 tab PO BEDTIME omeprazole 20 mg capsule,delayed release(DR/EC) 20 mg PO BID Qty: 60 0RF Diet: Advance as tolerated and Clear Liquid Activity Restrictions/Additional Instructions: Patient should maintain a clear liquid diet until this evening when she may advance to bland diet if tolerated. She should keep her regular scheduled OB visit this week. Print Language: [place] Discharge Date/Time: 02/09/25 10:35 Coding Level of Care Code Acute Code for Chg Fwd
== END 2025-02-09 10:55 | disposition home or self-care (01) ==
LOC: OPOB 01:55 → OBGYN 01:56
PROVIDERS: PCP Electrodiagnostic Medicine; Visit Provider Family Medicine
DX: O26.899 Other specified pregnancy related conditions, unspecified trimester (principal); Z3A.00 Weeks of gestation of pregnancy not specified; R11.2 Nausea with vomiting, unspecified; R10.9 Unspecified abdominal pain; R07.9 Chest pain, unspecified; M54.9 Dorsalgia, unspecified
CPT/HCPCS: 36415; 59025; 76705; 80053; 96374; 99211; J0131; J2405; J2470; J7121; J9999

== ENCOUNTER 2025-02-24 20:15 | Inpatient (IN) | payer MEDICAID, SELFPAY ==
[2025-02-24 20:13] VITALS: BMI 35.2
[2025-02-24 20:45] VITALS: BP 123/75; PULSE 86
[2025-02-24 20:45] LABS: Hematocrit 34.6 % (36-47); Hemoglobin 11.00 g/dL (11.27-16.99); Mean Corpuscular HGB Conc 31.8 g/dL (30-55); Mean Corpuscular Hemoglobin 26.3 pg (27-33); Mean Corpuscular Volume 82.6 fl (85-98); Nucleated Red Blood Cells % 0 %; Platelet Count 465 10^3/cmm (157-399); Red Blood Count 4.19 10^6/uL (3.85-5.65); White Blood Count 12.82 10^3/uL (3.29-11.43)
[2025-02-24 21:00] VITALS: BP 125/76; PULSE 82
[2025-02-24 21:15] VITALS: BP 133/80; PULSE 104
[2025-02-24 21:21] LABS: Slide Review Slide Review Perform
[2025-02-24 21:30] VITALS: BP 118/66; PULSE 82
[2025-02-24 21:46] VITALS: BP 119/81; PULSE 75
[2025-02-24 22:56] VITALS: BP 142/88; PULSE 70
[2025-02-25] VITALS (127 sets, daily range): BP systolic 98–146; BP diastolic 51–86; PULSE 42–155; RESP 15–18; TEMP 35.8–36.8; O2SAT 87–100
[2025-02-25] MEDS: ondansetron 2 mg/ML SDV 2 mL 4 MG IVP ×2 (02:12→19:14)
[2025-02-25] MEDS: citric acid-sodium citrate 30 mL UDC PO (10:54)
[2025-02-25] MEDS: metoclopramide 5 mg/mL SDV 2 mL 10 MG IV (10:54)
--- NOTE | 2025-02-25 11:33 | ANES.PAUD2 ---
Pre-Anesthetic Update Pre-Anesthetic Assessment: Date of Surgery/Procedure: 02/25/25 Proposed Procedure: Any changes to Pre-Anesthetic Assessment?: No Last Intake: Intake Last Liquid Date 02/24/25 Last Liquid Time 20:00 Last Solid Date 02/24/25 Last Solid Time 20:00 Labs Last 48hrs: Short CBC 02/24/25 Range/Units 20:30 WBC 12.82 H (3.29-11.43) 10^ 3/uL Hgb 11.00 L (11.27-16.99) g/ dL Hct 34.6 L (36-47) % MCV 82.6 L (85-98) fl Plt Count 465 H (157-399) 10^3/c mm Neut % (Auto) 45.9 % Neut # (Auto) 5.89 (1.8-7.7) 10^3/u L Blood Bank 02/24/25 20:30 Blood Type A Positive Rho(D) Type Rh positive Antibody Screen Negative Vitals: Pulse Rate 47 L 02/25/25 11:25 Pulse Rhythm Regular 02/24/25 20:30 Pulse Strength 3+ Normal 02/24/25 20:30 Respiratory Effort Spontaneous, Non- Labored 02/24/25 20:30 Respiratory Depth Normal 02/24/25 20:30 Respiratory Patter n Normal 02/24/25 20:30 Blood Pressure 122/66 02/25/25 11:25 Pulse Oximetry 98 02/25/25 09:16 Oxygen Delivery Me thod Room Air 02/25/25 05:33 Exam: Pre-Anes Outpt Exam: alert, oriented x 3, clear to auscultation bilaterally and regular rate & rhythm Other Pertinent Information: Other Pertinent Information: with spinal for heart tracing
[2025-02-25] MEDS: ceFAZolin 2,000 mg SDV 2000 MG IVP (11:50)
--- NOTE | 2025-02-25 12:53 | PM.OP ---
Operative Report Date of procedure: February 25, 2025 Pre-op diagnosis: Nonreassuring heart tones Post-op diagnosis: same Procedure done: Primary low-transverse section Specimens removed/disposition: Vertex female infant weight 2935 g, 6 pounds 8 ounces, Apgars 8 and 9 Surgeon: Charlene Murray MD Estimated blood loss (mL): 400 IV fluids (mL): 800 Urine output (mL): 200 Complications: None Procedure: After informed consent the patient was taken to the OR where spinal anesthesia was administered. The spinal anesthesia was not adequate so the patient was then put to sleep. A Pfannenstiel skin incision was made and carried through to the underlying layer of fascia sharply. The fascial incision was extended laterally using the Mayos. The fascia was grasped with Andry clamps and the underlying rectus muscles were dissected off taking care to avoid injury to the underlying tissue. The peritoneum was then entered bluntly. The bladder blade was inserted. The vesicouterine peritoneum was identified and entered sharply using the Metzenbaums. The bladder flap was then created digitally. The bladder blade was then reinserted. Uterine incision was made in a transverse fashion in the lower uterine segment. Amniotic rupture of membranes was performed sharply with thick meconium. The was delivered in vertex presentation with bulb suction of the mouth and naris at delivery. The cord was clamped and cut and the infant was handed to the waiting pediatric team. The placenta was delivered grossly intact and normal to inspection. The uterus was then exteriorized from the abdomen and a dry sponge was used to clear the uterus of clots and debris. The inner lining of the uterus was very meconium stained. The uterine incision was repaired using 0 chromic in a running locked fashion. A second layer of the same suture was used in an imbricating manner. Good hemostasis was obtained. The uterus was then returned to the abdomen. Irrigation was used to clear the gutters of clots and debris. The uterine incision was reinspected for hemostasis. The peritoneum was then reapproximated using 4-0 Vicryl in a running fashion. The subfascial tissue was inspected for hemostasis. The fascia was then reapproximated using 0 Vicryl in a running fashion. The subcutaneous tissue was irrigated and any small bleeders were coagulated using the Bovie. The subfascial tissue was reapproximated using 4-0 Vicryl in a running fashion. The skin was then reapproximated using 4-0 Vicryl in a running fashion on a Lenard needle. Steri-Strips and a pressure bandage were applied and patient went to recovery in good condition. Sponge instrument and needle counts were correct.
--- NOTE | 2025-02-25 13:15 | ANE.PACU2 ---
Inpatient post-anesthesia follow up: Airway intact: Yes Vital signs: Temperature 97.9 F Pulse Rate 49 Respiratory Rate 16 Blood Pressure 101/55 Pulse Oximetry 99 Oxygen Delivery Me thod Room Air Oxygen Flow Rate Fraction of Inspir ed Oxygen Hydration adequate: Yes Nausea and vomiting: No Pain level: 1 Mental status: Baseline
--- NOTE | 2025-02-25 15:49 | PC.NURSE ---
spoke with HUMBERTO Casanova about increased pain/failed spinal. ok to give morphine as ordered, with continuous pulse ox
--- NOTE | 2025-02-25 18:49 | PC.NURSE ---
assisted pt up to bedside chair, katty care performed, pad and gown changed. tolerated well. pt remains sitting up in chair at this time.
--- NOTE | 2025-02-25 20:00 | PC.NURSE ---
Patient up to bathroom with standby assist. Pericare taught and performed; clean peripad applied. Patient ambulated in halls around OB unit x2 with standby assist. Patient tolerated well and returned to room, sitting up in chair.
[2025-02-26 01:13] LABS: Hematocrit 29.1 % (36-47); Hemoglobin 9.00 g/dL (11.27-16.99); Mean Corpuscular HGB Conc 30.9 g/dL (30-55); Mean Corpuscular Hemoglobin 25.9 pg (27-33); Mean Corpuscular Volume 83.9 fl (85-98); Platelet Count 353 10^3/cmm (157-399); Red Blood Count 3.47 10^6/uL (3.85-5.65); White Blood Count 16.35 10^3/uL (3.29-11.43)
[2025-02-26 03:28] VITALS: BP 95/53; PULSE 44; RESP 16; TEMP 36.6; O2SAT 99
[2025-02-26] MEDS: PRENATAL VIT NO.130/IRON/FOLIC 1 EACH TABLET PO (09:14)
[2025-02-26] MEDS: ferrous sulfate EC 325 mg Tablet PO (09:14)
[2025-02-26 09:15] VITALS: BP 101/55; PULSE 49
[2025-02-26] MEDS: HYDROcodone-acetaminophen 5-325 mg Tablet PO (14:01)
--- NOTE | 2025-02-26 16:05 | P.PN_ITS ---
Subjective 2 Subjective: Postop day #1 primary section. The patient is doing well. She is passing flatus. She is ambulating, her pain is controlled. Vitals/I&O/Wt Last Vital Signs Temp 97.9 F 02/26/25 03:28 Pulse 49 L 02/26/25 09:15 Resp 16 02/26/25 03:28 BP 101/55 02/26/25 09:15 Pulse Ox 99 02/26/25 03:28 O2 Del Method Room Air 02/26/25 03:28 02/26/25 02/26/25 02/26/25 06:59 14:59 22:59 Intake Total 1360 / 5220.462 Output Total 600 / 2100 200 / 200 Balance 760 / 3120.462 -200 / -200 Weight last 48 hrs Weight 98.883 kg Weight 98.883 kg Physical Exam 2 Narrative: Alert and oriented, sitting up in bed, heart regular rate and rhythm, lungs clear to auscultation bilaterally, abdomen is soft with appropriate postoperative tenderness, extremities have 1+ edema but no calf tenderness, incision is clean dry and intact with Steri-Strips in place Urinary Catheter Management: [place] Latex Free: Cath Placed During This Visit: yes Urinary Catheter Date of Insertion: 02/25/25 Urinary Catheter Time of Insertion: 11:45 Data 02/26/25 01:00 A&P Assessment and plan 1. Status post primary low transverse section: Routine postoperative and care PDMP PDMP Reviewed: Not Reviewed Attestations 2 Medical Necessity Statement*: Routine postoperative care Coding Level of Care Code Acute Code for Chg Fwd Diagnoses Status post primary low transverse section Z98.891
[2025-02-26 16:06] VITALS: BP 102/55; PULSE 56
[2025-02-26 22:00] VITALS: RESP 16; TEMP 36.8; O2SAT 98
[2025-02-26 22:04] VITALS: BP 111/55; PULSE 62
[2025-02-27 03:45] VITALS: BP 91/53; PULSE 55; O2SAT 97
[2025-02-27 04:00] VITALS: BP 91/53; PULSE 55; RESP 16; TEMP 36.9; O2SAT 97
[2025-02-27] MEDS: HYDROcodone-acetaminophen 5-325 mg Tablet PO (05:06)
[2025-02-27] MEDS: ferrous sulfate EC 325 mg Tablet PO (08:57)
[2025-02-27] MEDS: PRENATAL VIT NO.130/IRON/FOLIC 1 EACH TABLET PO (08:57)
[2025-02-27 09:00] VITALS: BP 123/66; PULSE 83; RESP 16; TEMP 36.4
--- NOTE | 2025-02-27 12:26 | P.DS_ITS ---
Discharge Providers Date of Admission: 02/25/25 07:28 Date of Discharge: February 27, 2025 Attending Provider at Admission: Charlene Murray MD Attending Provider at Discharge: Charlene Murray MD Primary Care Provider: David Zhou DO Diagnoses at Discharge Discharge Diagnosis 1. Status post primary low transverse section: Reason for Visit Reason for Visit: Elective Induction of Labor Hospital Course Hospital Course This is a 19-year-old G1 now P1 who had a primary low-transverse section for nonreassuring heart tones. She has done well post operatively. She is ambulating, tolerating a regular diet, has good pain control, has decreased vaginal bleeding, and is comfortable with discharge home. Physical Exam Narrative: Alert and oriented, heart regular rate and rhythm, lungs clear to auscultation bilaterally, abdomen is soft with appropriate postoperative tenderness, incision is clean dry and intact. Extremities have 1+ edema but no calf tenderness Urinary Catheter Management: [place] Latex Free: Cath Placed During This Visit: yes Urinary Catheter Date of Insertion: 02/25/25 Urinary Catheter Time of Insertion: 11:45 Discharge Data Studies Completed and Pending Pending at discharge Category Date Time Status High Risk PP Hemorrhage Stat Lab 02/25/25 13:49 Received Laboratory Results WBC 16.35 10^3/uL (3.29-11.43) H 02/26/25 01:00 RBC 3.47 10^6/uL (3.85-5.65) L 02/26/25 01:00 Hgb 9.00 g/dL (11.27-16.99) L 02/26/25 01:00 Hct 29.1 % (36-47) L 02/26/25 01:00 MCV 83.9 fl (85-98) L 02/26/25 01:00 MCH 25.9 pg (27-33) L 02/26/25 01:00 MCHC 30.9 g/dL (30-55) 02/26/25 01:00 RDW 14.0 % (12.1-15.1) 02/26/25 01:00 Plt Count 353 10^3/cmm (157-399) 02/26/25 01:00 MPV 10.2 fL (7.4-10.4) 02/26/25 01:00 Neut % (Auto) 45.9 % 02/24/25 20:30 Lymph % (Auto) 47.0 % 02/24/25 20:30 Bledsoe % (Auto) 5.8 % 02/24/25 20:30 Eos % (Auto) 0.8 % 02/24/25 20:30 Baso % (Auto) 0.2 % 02/24/25 20:30 Neut # (Auto) 5.89 10^3/uL (1.8-7.7) 02/24/25 20:30 Lymph # (Auto) 6.0 10^3/uL (0.8-4.8) H 02/24/25 20:30 Bledsoe # (Auto) 0.7 10^3/uL (0.2-0.9) 02/24/25 20:30 Eos # (Auto) 0.1 10^3/uL (0.0-0.8) 02/24/25 20:30 Baso # (Auto) 0.0 10^3/uL (0.0-0.1) 02/24/25 20:30 Nucleated RBC % (auto) 0 % 02/24/25 20:30 Nucleated RBCs # 0.0 /100WBC 02/24/25 20:30 Blood Type A Positive 02/24/25 20:30 Rho(D) Type Rh positive 02/24/25 20:30 Antibody Screen Negative 02/24/25 20:30 Vitals Last Vital Signs Temp 97.5 F L 02/27/25 09:00 Pulse 83 02/27/25 09:00 Resp 16 02/27/25 09:00 BP 123/66 02/27/25 09:00 Pulse Ox 97 02/27/25 04:00 O2 Del Method Room Air 02/27/25 04:00 Discharge Plan Discharge Patient Disposition: Home Condition: Stable Prescriptions: New ibuprofen 800 mg Tablet 800 mg PO TID PRN (Reason: Abdominal Discomfort) Qty: 30 0RF hydrocodone-acetaminophen 5-325 mg Tablet 1 - 2 tab PO Q4H PRN (Reason: Moderate To Severe Pain) Qty: 10 0RF docusate sodium 100 mg Capsule 100 mg PO BID Qty: 60 0RF Continued Tylenol 650 mg PO PRN PRN (Reason: Pain) PNV no.95-ferrous fumarate-FA [ Multivitamins] 28 mg iron- 800 mcg Tablet 1 tab PO BEDTIME omeprazole 20 mg capsule,delayed release(DR/EC) 20 mg PO BID Qty: 60 0RF tramadol 50 mg tablet 50 mg PO Q6H PRN (Reason: pain) Qty: 14 0RF Discharge Order = DC NOW: Discharge Order (Routine); Ordered 02/27/25 Ordered By: Charlene Murray Referrals: Charlene Murray MD [Physician, Family Practice] - 03/03/25 10:15 am Discharge Diet: Usual diet Discharge Activity: Limit activity as instructed Patient Instructions: Depression (DC), Bleeding (DC), Preeclampsia and Eclampsia After Delivery (GEN), Hemorrhage (DC), OB - [place]rev[place], OB Discharge Report, OB Food/Drug Interaction Guide, Opioid Safety, OB Home Care, OB Proud Parent Packet, Patient Portal & Tony Instructions Activity Restrictions/Additional Instructions: No lifting greater than 10 pounds for [address] while taking the narcotic pain medication. Nothing per vagina for 6 weeks. Discharge Attestations Time Spent in Discharge Care*: less than 30 min Quality Metrics Clinical Quality Measures [ No reported AMI, CVA or VTE this stay] Coding Level of Care Code Acute Code for Chg Fwd Diagnoses Status post primary low transverse section Z98.891
[2025-02-27 12:57] VITALS: BP 119/74; PULSE 92
[2025-02-27 13:05] VITALS: BP 119/74; PULSE 92; RESP 16; TEMP 37.2; O2SAT 99
[2025-02-27 13:54] LABS: High Risk PP Hemorrhage BBK Notified
--- NOTE | 2025-04-08 03:19 | PM.OPHPUD ---
Labor & Delivery H&P Update Date of Procedure: 02/25/25 Date H&P Performed: 02/25/25 Admission Diagnosis: Nonreassuring heart tones Planned procedure: Emergent primary section Operation Date: 02/25/25 11:30 Proposed Procedures p Section(Not Applicable) - Charlene Murray MD
== END 2025-02-27 13:35 | disposition home or self-care (01) | DRG 788 ==
LOC: OPOB 02-25 07:26 → OBGYN 02-25 07:27
PROVIDERS: Admitting Provider Family Medicine; PCP Electrodiagnostic Medicine; Visit Provider Family Medicine
PROC: 10D00Z1 Extraction of Products of Conception, Low, Open Approach (ICD-10-PCS; CPT 59514; principal; 2025-02-25 11:30)
DX: O76 Abnormality in fetal heart rate and rhythm complicating labor and delivery (principal); Z3A.39 39 weeks gestation of pregnancy; Z37.0 Single live birth
CPT/HCPCS: 36415; 51702; 59025; 59409; 85025; 85027; 86850; 86900; G0378; J0330; J0690; J1100; J1885; J2274; J2405; J2704; J2765; J3010; J3490; J7030; J7120; J7121; J9999

== ENCOUNTER 2025-05-04 05:08 | Emergency (ER) | payer MEDICAID, SELFPAY ==
--- OUTSIDE RECORDS SUMMARY | 2025-05-04 05:13 | XMS_ITS | Continuity of Care Document ---
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 Plan of Treatment Reminders Order Date Submit Date Provider Last Modified By Organization Details Last Modified Time Details Appointments None record ed. Lab None record ed. Referral None record ed. Procedures None record ed. Surgeries None record ed. Imaging None record ed. Medication Orders None record ed. Patient TargetsNo targets recorded. Patient InstructionsNo instructions recorded. Reason for Referral None Reported. Results Created Date Observation Date Name Description Value Unit Range Abnormal Flag Note LastModifiedBy Organization Detail LastModifiedTime 07/02/1907/02/2024 pregn gila test, urine HCG positi ve Not Available [facility] ([facility]) [address] [place], [address], 07/02/2024 09:58:16 08/06/19 25 08/13/2024 URINA LYSIS , COMPL ETE color YELLOW yellow normal Not Available [facility] [address] [address] [place], [address], 08/14/2024 00:57:32 08/06/19 25 08/13/2024 URINA LYSIS , COMPL ETE appearance TURBID clear abnormal Not Available [facility] [address] [address] [place], [address], 08/14/2024 00:57:32 08/06/19 25 08/13/2024 URINA LYSIS , COMPL ETE specific gravity 1.027 1.001- 1.035 normal Not Available [address], [address], 08/14/2024 00:57:32 08/06/1908/13/2024 URINA LYSIS , COMPL ETE pH 7.5 5.0-8. 0 normal Not Available [address], [address], 08/14/2024 00:57:32 08/06/1908/13/2024 URINA LYSIS , COMPL ETE glucose NEGATI VE negati ve normal Not Available [address], [address], 08/14/2024 00:57:32 08/06/1908/13/2024 URINA LYSIS , COMPL ETE bilirubin NEGATI VE negati ve normal Not Available [address], [address], 08/14/2024 00:57:32 08/06/1908/13/2024 URINA LYSIS , COMPL ETE ketones 1+ negati ve abnormal Not Available [address], [address], 08/14/2024 00:57:32 08/06/1908/13/2024 URINA LYSIS , COMPL ETE occult blood NEGATI VE negati ve normal Not Available [address], [address], 08/14/2024 00:57:32 08/06/1908/13/2024 URINA LYSIS , COMPL ETE protein TRACE negati ve abnormal Not Available [address], [address], 08/14/2024 00:57:32 08/06/1908/13/2024 URINA LYSIS , COMPL ETE nitrite NEGATI VE negati ve normal Not Available [address], [address], 08/14/2024 00:57:32 08/06/1908/13/2024 URINA LYSIS , COMPL ETE leukocyte esterase NEGATI VE negati ve normal Not Available [address], [address], 08/14/2024 00:57:32 08/06/1908/13/2024 URINA LYSIS , COMPL ETE WBC 0-5 /hpf < or = 5 normal Not Available [address], [address], 08/14/2024 00:57:32 08/06/1908/13/2024 URINA LYSIS , COMPL ETE RBC 0-2 /hpf < or = 2 normal Not Available [address], [address], 08/14/2024 00:57:32 08/06/19 25 08/13/2024 URINA LYSIS , COMPL ETE squamous epithelial cells 10-20 /hpf < or = 5 abnormal Not Available [address], [address], 08/14/2024 00:57:32 08/06/1908/13/2024 URINA LYSIS , COMPL ETE bacteria MANY /hpf none seen abnormal Not Available [address], [address], 08/14/2024 00:57:32 08/06/1908/13/2024 URINA LYSIS , COMPL ETE calcium oxalate crystals MANY /hpf none or few abnormal Not Available [address], [address], 08/14/2024 00:57:32 08/06/19 25 08/13/2024 URINA LYSIS , COMPL ETE hyaline cast NONE SEEN /lpf none seen normal Not Available [facility] [address], [address], 08/14/2024 00:57:32 08/06/1908/13/2024 URINA LYSIS , COMPL ETE note This urine was rahel zed for the prese nce of WBC, RBC, bacte hailee, casts , and other forme d eleme nts. Only those eleme nts seen were repor joyce. Not Available [facility] [address], [address], 08/14/2024 00:57:32 08/06/1908/13/2024 CBC (INCL UDES DIFF/ PLT) white blood cell count 11.2 thous and/u L 3.8-10 .8 high Not Available [facility] [address], [address], 08/14/2024 00:57:34 08/06/19 25 08/13/2024 CBC (INCL UDES DIFF/ PLT) red blood cell count 4.52 juan francisco on/uL 3.80-5 .10 normal Not Available [facility] [address], [address], 08/14/2024 00:57:34 08/06/19 25 08/13/2024 CBC (INCL UDES DIFF/ PLT) hemoglobin 13.2 g/dL 11.7-1 5.5 normal Not Available [facility] [address], [address], 08/14/2024 00:57:34 08/06/1908/13/2024 CBC (INCL UDES DIFF/ PLT) hematocrit 40.5 % 35.0-4 5.0 normal Not Available [facility] [address], [address], 08/14/2024 00:57:34 08/06/19 25 08/13/2024 CBC (INCL UDES DIFF/ PLT) MCV 89.6 fL 80.0-1 00.0 normal Not Available [facility] [address], [address], 08/14/2024 00:57:34 08/06/1908/13/2024 CBC (INCL UDES DIFF/ PLT) MCH 29.2 pg 27.0-3 3.0 normal Not Available [facility] [address], [address], 08/14/2024 00:57:34 08/06/1908/13/2024 CBC (INCL UDES DIFF/ PLT) MCHC 32.6 g/dL 32.0-3 6.0 normal For adult s, a sligh t decre ase in the calcu lated MCHC value (in the range of 30 to 32 g/dL) is most likel y not clini doug signi fican t; feli er, it shoul d be inter prete d with cauti on in [facility] n with other red cell akash eters and the patie nt's clini flakita condi tion. Not Available [facility] [address], [address], 08/14/2024 00:57:34 08/06/1908/13/2024 CBC (INCL UDES DIFF/ PLT) RDW 12.6 % 11.0-1 5.0 normal Not Available [facility] [address], [address], 08/14/2024 00:57:34 08/06/1908/13/2024 CBC (INCL UDES DIFF/ PLT) platelet count 447 thous and/u L 140-40 0 high Not Available [facility] [address], [address], 08/14/2024 00:57:34 08/06/1908/13/2024 CBC (INCL UDES DIFF/ PLT) MPV 9.8 fL 7.5-12 .5 normal Not Available [facility] [address], [address], 08/14/2024 00:57:34 08/06/19 25 08/13/2024 CBC (INCL UDES DIFF/ PLT) absolute neutrophils 7325 cells /uL 1500-7 800 normal Not Available [address], [address], 08/14/2024 00:57:34 08/06/19 25 08/13/2024 CBC (INCL UDES DIFF/ PLT) absolute lymphocytes 3091 cells /uL 850-39 00 normal Not Available [facility] [address], [address], 08/14/2024 00:57:34 08/06/1908/13/2024 CBC (INCL UDES DIFF/ PLT) absolute monocytes 594 cells /uL 200-95 0 normal Not Available [facility] [address], [address], 08/14/2024 00:57:34 08/06/19 25 08/13/2024 CBC (INCL UDES DIFF/ PLT) absolute eosinophils 157 cells /uL 15-500 normal Not Available [address], [address], 08/14/2024 00:57:34 08/06/19 25 08/13/2024 CBC (INCL UDES DIFF/ PLT) absolute basophils 34 cells /uL 0-200 normal Not Available [facility] [address], [address], 08/14/2024 00:57:34 08/06/19 25 08/13/2024 CBC (INCL UDES DIFF/ PLT) neutrophils 65.4 % normal Not Available [address], [address], 08/14/2024 00:57:34 08/06/19 25 08/13/2024 CBC (INCL UDES DIFF/ PLT) lymphocytes 27.6 % normal Not Available [facility] [address], [place], [address], 08/14/2024 00:57:34 08/06/1908/13/2024 CBC (INCL UDES DIFF/ PLT) monocytes 5.3 % normal Not Available [facility] [address], [address], 08/14/2024 00:57:34 08/06/1908/13/2024 CBC (INCL UDES DIFF/ PLT) eosinophils 1.4 % normal Not Available [facility] [address], [address], 08/14/2024 00:57:34 08/06/1908/13/2024 CBC (INCL UDES DIFF/ PLT) basophils 0.3 % normal Not Available [address], [address], 08/14/2024 00:57:34 08/06/1908/13/2024 HEPAT ITIS B SURFA CE ANTIG EN W/REF L CONFI RM hepatitis B surface antigen NON-RE ACTIVE non-re active normal For addit ional infor dave batres e refer to http: //[facility] lomeli.que stdia gnost ics.c om/fa q/FAQ (This link is being provi ded for infor nina russ/ educa karen l purpo ses only. ) Not Available [address], [address], 08/14/2024 00:57:35 08/06/1908/13/2024 HEPAT ITIS C AB W/REF L TO HCV RNA, QN, PCR hepatitis C antibody NON-RE ACTIVE non-re active normal HCV antib veronica was non-r eacti ve. There is no labor atory evide nce of HCV infec tion. In most cases , no furth er actio n is requi red. Howev er, if recen t HCV expos ure is suspe cted, a test for HCV RNA (test code 90797 ) is sugjaja fowler. For addit ional infor nina n pleas e refer to http: //[facility] urbinaia diamond ics.c om/fa q/FAQ 22v1 (This link is being provi ded for infor matio nal/ educa karen l purpo ses only. ) Not Available [facility] [address] [address] [place], [address], 08/14/2024 00:57:36 08/06/1908/13/2024 RUBEL LA AB (IGG) , IMMUN E STATU S rubella Ab (IgG), immune status 3.61 index normal Index Inter preta tion ----- ----- ----- ---- <0.90 Not consi stent with immun ity 0.90- 0.99 Equiv ocal > or = 1.00 Consi stent with immun ity The prese nce of rubel la IgG antib veronica sugge sts immun izati on or past or curre nt infec tion with rubel la virus . Not Available [facility] [address] [address] [place], [address], 08/14/2024 00:57:37 08/06/1908/13/2024 HIV 1/2 ANTIG EN/AN TIBOD Y,FOU RTH GENER ATION W/RFL HIV Ag/Ab, 4TH gen NON-RE ACTIVE non-re active normal HIV-1 antig en and HIV-1 /HIV- 2 antib odies were not detec joyce. There is no labor atory evide nce of HIV infec tion. PLEAS E NOTE: This infor nina n has been discl osed to you from recor ds whose confi denti ality may be prote cted by state law. If your state requi res such prote ction , then the state law prohi bits you from lucía payne any furth er discl osure of the infor matio n witho ut the speci fic writt en conse nt of the perso n to whom it perta ins, or as other mccoy permi tted by law. A gener al autho marilee ion for the relea se of medic al or other infor seunjude lomeli is NOT suffi cient for this purpo se. For addit ional infor nina lomeli pleas e refer to http: //[facility] ics.c om/fa q/FAQ 106 (This link is being provi ded for infor matjude nal/ educa karen l purpo ses only. ) The perfo rmanc e of this assay has not been clini doug valid ated in patie nts less than 2 years old. Not Available [facility] [address] [address] [place], [address], 08/14/2024 00:57:37 08/06/1908/13/2024 QNATA L(R) ADVAN FLOR number of fetuses? 1 Not Available [facility] [address] [place], [address], 08/14/2024 00:57:39 08/06/1908/13/2024 QNATA L(R) ADVAN FLOR advanced maternal age? NO Not Available [facility] [address] [address] [place], [address], 08/14/2024 00:57:39 08/06/1908/13/2024 QNATA L(R) ADVAN FLOR abnormal ella? NO Not Available [facility] [address] [address] [place], [address], 08/14/2024 00:57:39 08/06/1908/13/2024 QNATA L(R) ADVAN FLOR abnormal US? NO Not Available [facility] [address] [address] [place], [address], 08/14/2024 00:57:39 08/06/1908/13/2024 QNATA L(R) ADVAN FLOR personal/fam history? NO Not Available [facility] [address] [address] [place], [address], 08/14/2024 00:57:39 08/06/19 25 08/13/2024 QNATA L(R) ADVAN FLOR interpretati on SEE NOTE This speci men showe d an expec joyce repre senta tion of chrom osome 21, 18, and 13 mater ial. See Gregorio mays below . Not Available [address], [address], 08/14/2024 00:57:39 08/06/19 25 08/13/2024 QNATA L(R) ADVAN FLOR trisomy 21 (T21) NEGATI VE Not Available [address], [address], 08/14/2024 00:57:39 08/06/19 25 08/13/2024 QNATA L(R) ADVAN FLOR trisomy 18 (T18) NEGATI VE Not Available [address], [address], 08/14/2024 00:57:39 08/06/19 25 08/13/2024 QNATA L(R) ADVAN FLOR trisomy 13 (T13) NEGATI VE Not Available [address], [address], 08/14/2024 00:57:39 08/06/19 25 08/13/2024 QNATA L(R) ADVAN FLOR Y chromosome NOT DETECT ED Not Available [address], [address], 08/14/2024 00:57:39 08/06/19 25 08/13/2024 QNATA L(R) ADVAN FLOR Y chr. interpretati on SEE NOTE Consi stent with a femal e fetus . Not Available [address], [address], 08/14/2024 00:57:39 08/06/1908/13/2024 QNATA L(R) ADVAN FLOR sex chromosome NO ANEUPL OIDY Not Available [address], [address], 08/14/2024 00:57:39 08/06/1908/13/2024 QNATA L(R) ADVAN FLOR sex chromosome interp SEE NOTE No appar ent abnor malit y was detec joyce. See Limi tatio ns below . Not Available [address], [address], 08/14/2024 00:57:39 08/06/1908/13/2024 QNATA L(R) ADVAN FLOR microdeletio n NOT DETECT ED Not Available [address], [address], 08/14/2024 00:57:39 08/06/1908/13/2024 QNATA L(R) ADVAN FLOR microdeletio n interp SEE NOTE No appar ent abnor malit y was detec joyce. See Limi tatio ns below . Not Available [address], [address], 08/14/2024 00:57:39 08/06/1908/13/2024 QNATA L(R) ADVAN FLOR gestational age(in weeks) 10 Not Available [address], [address], 08/14/2024 00:57:39 08/06/1908/13/2024 QNATA L(R) ADVAN FLOR gestational age (in days) 2 Not Available [address], [address], 08/14/2024 00:57:39 08/06/1908/13/2024 QNATA L(R) ADVAN FLOR fraction 17.15% Not Available [address] [place], [address], 08/14/2024 00:57:39 08/06/1908/13/2024 QNATA L(R) ADVAN FLOR laboratory comments SEE NOTE Labor atory testi ng super vised and resul ts monit ored by Joshua Paniagua, Ph.D. , FACMG , HCLD, CGMB. Not Available [facility] [address] [place], [address], 08/14/2024 00:57:39 08/06/1908/13/2024 QNATA L(R) ADVAN FLOR limitations SEE NOTE QNata l(R) Advan flor is a cell- free DNA scree jett test that scree ns for incre ased risk of certa in chrom osoma l abnor malit ies that may cause defec ts, inclu ding Triso my 21 (Down syndr ome), Triso my 18, Triso my 13, and certa in sex chrom osome abnor malit ies (i.e. , 45,X, 47,XX Y, 47,XX X, and 47,XY Y), as well as sex. In addit ion, if selec joyce as an optio n, QNata l(R) Advan flor can scree n for certa in micro delet ions (i.e. , 22q, 5p, 1p36, 15q, 11q, 8q, and 4p) that may cause defec ts. This test does not asses s the risk of abnor malit ies such as neura l tube defec ts or ventr al wall defec ts and shoul d not be consi dered in isola tion from other clini flakita findi ngs and labor atory test resul ts. QNata l(R) Advan flor has been valid ated in [place] pregn ancie s for the triso mies and sex chrom osome abnor malit ies liste d above , as well as for micro delet ions, and for the deter minat ion of sex. Sex chrom osome aneup loidy rahel sis is only perfo rmed in [place] pregn ancie s. This scree jett test has also been valid ated in twin pregn ancie s for the triso mies liste d above and for micro delet ions, but not for the sex chrom osome abnor malit ies due to limit ed data. This scree jett test has not been valid ated in highe r order pregn ancie s (more than two) becau se limit ed data is avail able. Sex chrom osoma l aneup loidy resul ts issue d for pregn ancie s confi rmed to be of multi ple gesta tions are not valid and shoul d be disre gardnubia d. Micro delet ion scree jett is limit ed to the speci fied micro delet ion regio ns (see Meth odolo gy ). The Y chrom osome is rahel zed for the deter minat ion of sex. The sensi tivit y and speci ficit y of sex deter minat ion rahel sis may be less than that of the Triso my 21, 18, and 13 rahel sis and this deter minat ion can be confo unded by vanis micki twin syndr ome in pregn ancie s that were origi edenilson multi ple gesta tion pregn ancie s. It shoul d be noted that QNata l(R) Advan flor is a quant itati ve rahel sis of mater nal and place ntal cfDNA . As a resul t, the accur acy of scree jett resul ts may be affec joyce by the prese nce of chrom osome abnor malit ies or micro delet ions that are mater nal or confi rg place ntal in origi n. Not Available [facility] [employer] [address] [address], [place], [address], 08/14/2024 00:57:39 08/06/1908/13/2024 QNATA L(R) ADVAN FLOR specificatio ns SEE NOTE Sensi tivit y Speci ficit y T21 >99.9 % >99.9 % T18 >99.9 % >99.9 % T13 >99.9 % >99.9 % Accur acy Y >99.9 % Perfo rmanc e of the QNata l Advan flor labor atory -deve loped test (LDT) has been deter mined based on inter nal rahel tical asses sment . Not Available [facility] [address] [place], [address], 08/14/2024 00:57:39 08/06/19 25 08/13/2024 QNATA L(R) ADVAN FLOR methodology SEE NOTE Circu latin g cell- free (cf) DNA was isola joyce from plasm a follo wed by detec tion on a massi vely paral lel seque ncing platf orm. Bioin forma tic rahel sis was perfo rmed to deter mine the repre senta tion of chrom osome s 21, 18, 13, X and Y in circu latin g cell- free DNA. The repre senta tion of seque nces from the criti flakita regio ns invol simon in 1p36 micro delet ion syndr ome (1p36 ), San- Timothy hhorn syndr ome (4p), Cri-d u-malcom t syndr ome (5p), Angela r-Mariselae dedra syndr ome (8q), Henry sen syndr ome (11q) , Sony r Willi syndr ome/A ngelm an syndr ome (15q) , and DiGeo rge syndr ome (22q) is evalu ated for the detec tion of micro delet ions if reque sted. Perfo rmanc e jace cteri stics refer to the rahel tical perfo rmanc e of this scree jett test. This scree jett test is perfo rmed pursu ant to a licen se agree ment with Seque nom Labor atori es. QNata l Advan flor is a labor atory devel oped test that has been devel oped and valid ated, pursu ant to the Clini flakita Labor atory Impro vemen ts Amend ments of 1987 (CLIA ), and as such it has not been revie wed by FDA. Not Available [facility] [address] [place], [address], 08/14/2024 00:57:39 08/06/1908/13/2024 RPR (DX) W/REF L TITER AND T. PALLI DUM AB, IA RPR (DX) w/refl titer and confirmatory testing NON-RE ACTIVE non-re active normal No labor atory evide nce of syphi lis. If recen t expos ure is suspe cted, submi t a new sampl e in 2-4 weeks . Not Available [address] [place], [address], 08/14/2024 00:57:40 08/06/1908/13/2024 ANTIB VERONICA SCREE N, RBC W/REF L ID, TITER AND AG antibody screen, RBC w/refl id, titer and Ag NO ANTIBO DIES DETECT ED normal Refer ence range No antib odies detec joyce This assay is a scree jett test for the detec tion of red blood cell antib odies . The test is not to be used for pretr ansfu abhi scree jett or for the medic al manag ement of an alloi mmuni zed pregn gila. Not Available [facility] [address] [address] [place], [address], 08/14/2024 00:57:41 08/06/1908/13/2024 ABO GROUP AND RH TYPE ABO group A Not Available [facility] [address] [address] [place], [address], 08/14/2024 00:57:42 08/06/1908/13/2024 ABO GROUP AND RH TYPE Rh type RH(D) POSITI VE For addit ional infor dave batres e refer to http: //[facility] sanabriaQue stDia gnost ics.c om/fa q/FAQ 111 (This link is being provi ded for infor nina russ/ educa karen l purpo ses only. ) Not Available [facility] [address] [address] [place], [address], 08/14/2024 00:57:42 08/06/1908/13/2024 DRUG MONIT OR, PANEL 1, SCREE N, URINE amphetamines NEGATI VE NG/mL <500 See Note A See Note A Not Available [facility] [address], [place], [address], 08/14/2024 00:57:42 08/06/1908/13/2024 DRUG MONIT OR, PANEL 1, SCREE N, URINE barbiturates NEGATI VE NG/mL <300 See Note A See Note A Not Available [facility] [address] [address], [place], [address], 08/14/2024 00:57:42 08/06/1908/13/2024 DRUG MONIT OR, PANEL 1, SCREE N, URINE benzodiazepi karan NEGATI VE NG/mL <100 See Note A See Note A Not Available [facility] [address] [address] [address], [place], [address], 08/14/2024 00:57:42 08/06/1908/13/2024 DRUG MONIT OR, PANEL 1, SCREE N, URINE cocaine metabolite NEGATI VE NG/mL <150 See Note A See Note A Not Available [facility] [address] [address], [place], [address], 08/14/2024 00:57:42 08/06/1908/13/2024 DRUG MONIT OR, PANEL 1, SCREE N, URINE marijuana metabolite POSITI VE NG/mL <20 abnormal See Note A See Note A Not Available [facility] [address] [address] [address], [place], [address], 08/14/2024 00:57:42 08/06/1908/13/2024 DRUG MONIT OR, PANEL 1, SCREE N, URINE methadone metabolite NEGATI VE NG/mL <100 See Note A See Note A Not Available [facility] [address] [address] [address], [place], [address], 08/14/2024 00:57:42 08/06/1908/13/2024 DRUG MONIT OR, PANEL 1, SCREE N, URINE opiates NEGATI VE NG/mL <100 See Note A See Note A Not Available [address] [address] [address], [place], [address], 08/14/2024 00:57:42 08/06/1908/13/2024 DRUG MONIT OR, PANEL 1, SCREE N, URINE oxycodone NEGATI VE NG/mL <100 See Note A See Note A Not Available [address] [address] [address], [place], [address], 08/14/2024 00:57:42 08/06/1908/13/2024 DRUG MONIT OR, PANEL 1, SCREE N, URINE phencyclidin e NEGATI VE NG/mL <25 See Note A See Note A Not Available [address] [address] [address], [place], [address], 08/14/2024 00:57:42 08/06/1908/13/2024 DRUG MONIT OR, PANEL 1, SCREE N, URINE creatinine 186.9 mg/dL > or = 20.0 Not Available [address] [address] , [place], [address], 08/14/2024 00:57:42 08/06/1908/13/2024 DRUG MONIT OR, PANEL 1, SCREE N, URINE pH 7.5 4.5-9. 0 Not Available [address] [address] [address] , [place], [address], 08/14/2024 00:57:42 08/06/1908/13/2024 DRUG MONIT OR, PANEL 1, SCREE N, URINE oxidant NEGATI VE mcg/m L <200 Not Available [address] [address] [address], [place], [address], 08/14/2024 00:57:42 08/06/1908/13/2024 DRUG MONIT ORING TEMPL ATE notes and comments This drug testi ng is for medic al treat ment only. Rahel sis was perfo rmed as non-f orens ic testi ng and these resul ts shoul d be used only by [facility] provi ders to rende r diagn osis or treat ment, or to monit or progr ess of medic al condi tions . Note A: The resul ts are presu mptiv e; based only on stacye jett velazquez ds, and they have not been confi rmed by a defin itive metho d. [facility] Provi ders needi ng Inter preta tion rita tance , pleas e conta ct us at 1.877 .40.R XTOX (1.87 [phone] ) M-F, 8am to 10pm EST Not Available [address] [address] [place], [address], 08/14/2024 00:57:44 08/06/1908/13/2024 CULTU RE, URINE , ROUTI NE culture, urine, routine SEE NOTE CULTU RE, URINE , ROUTI NE Micro Numbe r: [id number] Test Statu s: Final Speci men Sourc e: Urine Speci men Quali ty: Adequ ate Resul t: Mixed genit al misael isola joyce. These super ficia l bacte hailee are not indic ative of a urina ry tract infec tion. No furth er organ ism ident ifica tion is warra nted on this speci men. If clini doug indic ated, recol lect clean -catc h, mid-s tream urine and trans zonia immed iatel y to Urine Cultu re Trans port Tube. Not Available [address] [address] [place], [address], 08/14/2024 00:57:44 08/07/1908/08/2024 SURES WAB(R ) ADVAN FLOR VAGIN ITIS PLUS, TMA sureswab(R) adv bacterial vaginosis (bv), tma NEGATI VE negati ve normal Not Available [facility] [id number] [place] [address], [address], 08/08/2024 18:38:48 08/07/19 25 08/08/2024 SURES WAB(R ) ADVAN FLOR VAGIN ITIS PLUS, TMA karly species NOT DETECT ED not detect ed normal Not Available [facility] [address], [id number], 08/08/2024 18:38:48 08/07/19 25 08/08/2024 SURES WAB(R ) ADVAN FLOR VAGIN ITIS PLUS, TMA karly glabrata NOT DETECT ED not detect ed normal Ibeth da speci es C. albic ans, C. tropi calis , C. parap am[place] is, and/o r C. dubli niens is can be detec joyce, but not diffe renti ated, in the Ibeth da spp. resul t. Not Available [facility] - [address], [id number], 08/08/2024 18:38:48 08/07/19 25 08/08/2024 SURES WAB(R ) ADVAN FLOR VAGIN ITIS PLUS, TMA trichomonas vaginalis (TV), tma NOT DETECT ED not detect ed normal Not Available [facility] [address], [id number], 08/08/2024 18:38:48 08/07/19 25 08/08/2024 SURES WAB(R ) ADVAN FLOR VAGIN ITIS PLUS, TMA chlamydia trachomatis RNA, tma, urogenital NOT DETECT ED not detect ed normal Not Available [facility] - [address], [address], 08/08/2024 18:38:48 08/07/19 25 08/08/2024 SURES WAB(R ) ADVAN FLOR VAGIN ITIS PLUS, TMA neisseria gonorrhoeae RNA, tma, urogenital NOT DETECT ED not detect ed normal For addit ional infor dave batres e refer to https ://ed ucati on.qu estdi agnos tics. com/f aq/FA Q154 (This link is being provi ded for infor nina n/ vincenzo fall purpo ses only. ) Not Available [employer] [id number] [address] , [place], [address], 08/08/2024 18:38:48 12/03/19 25 12/02/2024 CBC WBC 8.8 x10 4.0-10 .5 Not Available [facility] [address] [facility], [place], [address], 12/02/2024 11:47:45 12/03/19 25 12/02/2024 CBC RBC 3.66 x10 3.50-5 .50 Not Available [facility] [address] [facility], [place], [address], 12/02/2024 11:47:45 12/03/19 25 12/02/2024 CBC HGB 11.1 g/dL 12.0-1 6.0 low Not Available [facility] [address] [facility], [place], [address], 12/02/2024 11:47:45 12/03/19 25 12/02/2024 CBC HCT 32.9 % 37.0-4 7.0 low Not Available [facility] [address] [facility], [place], [address], 12/02/2024 11:47:45 12/03/19 25 12/02/2024 CBC MCV 89.8 fL 80.0-9 9.9 Not Available [facility] [address] [facility], [place], [address], 12/02/2024 11:47:45 12/03/19 25 12/02/2024 CBC MCH 30.4 pg 27.0-3 2.0 Not Available [facility] [address] [facility], [place], [address], 12/02/2024 11:47:45 12/03/19 25 12/02/2024 CBC MCHC 33.8 g/dL 32.0-3 6.0 Not Available [facility] [address] [facility], [place], [address], 12/02/2024 11:47:45 12/03/19 25 12/02/2024 CBC RDW 13.7 % 11.5-1 4.5 Not Available [facility] [address] [facility], [place], [address], 12/02/2024 11:47:45 12/03/19 25 12/02/2024 CBC plt 330.0 x10 140.0- 451.0 Not Available [facility] [address] [facility], [place], [address], 12/02/2024 11:47:45 12/03/19 25 12/02/2024 CBC lymphocytes % 50.1 % 20.0-5 0.0 high Not Available [facility] [address] [facility], [place], [address], 12/02/2024 11:47:45 12/03/19 25 12/02/2024 CBC granulcytes % 41.8 % 30.0-7 0.0 Not Available [facility] [address] [facility], [place], [address], 12/02/2024 11:47:45 12/03/19 25 12/02/2024 CBC monocytes % 7.3 % 2.0-16 .0 Not Available [facility] [address] [facility], [place], [address], 12/02/2024 11:47:45 12/03/19 25 12/02/2024 CBC granulcytes# 3.7 x10 Not Esthela ilable [facility] [address] [facility], [place], [address], 12/02/2024 11:47:45 12/03/19 25 12/02/2024 CBC lymphocytes # 4.4 x10 Not Available [facility] [address] [facility], [place], [address], 12/02/2024 11:47:45 12/03/19 25 12/02/2024 CBC monocytes # 0.6 x10 Not Avai lable [facility] [address] [facility] [address], [place], [address], 12/02/2024 11:47:45 12/03/19 25 12/02/2024 GLUCO SE SCREE N glucose screen 111.0 mg/dL Not Available [facility] [address] [facility], [place], [address], 12/02/2024 12:07:41 01/28/20 25 01/30/2025 STREP TOCOC CUS, GROUP B CULTU RE streptococcu s, group B culture SEE NOTE STREP TOCOC CUS, GROUP B CULTU RE Micro Numbe r: [id number] Test Statu s: Final Speci men Sourc e: Vagin al/an orect al Speci men Quali ty: Adequ ate Resul t: No group B Strep tococ cus isola joyce Note per CDC guide lines optim al recov candace is achie simon by swabb ing both the lower vagin a and rectu m (thro ugh the anal sphin cter) . Not Available [facility] [id number] [address], [place], [address], 01/30/2025 09:33:23 07/23/19 25 07/22/2024 US, obste tric, 1st trime ster No observ ation record ed. [email or web address] Not Available 07/25 16:33:11 10/16/19 25 10/14/2024 US, obste tric, mater nal evalu ation + anato my No observ ation record ed. [email or web address] [facility] ([facility]) [address] [place], [address], 10/15/2024 12:31:45 02/10/20 25 02/09/2025 lab* No observ ation record ed. [email or web address] [facility] [address] [place], [address], 02/11/2025 14:01:59 02/12/20 25 02/04/2025 US, obste tric, follo w-up No observ ation record ed. [email or web address] [facility] ([facility]) [address] [place], [address], 02/11/2025 14:29:29 Result Notes None recorded. Problems Name Problem SNOMED Code Status Onset Date Resolution Date Notes Provider Name and Address Organization Details Recorded Time Irregular periods 73417546 Active [address] [facility] 5 15:06:25 60999138 Completed 202403/03/2025 PAUL MONZON [facility] 11:18:12 Mixed anxiety and depressive disorder 532897292 Active [address] [facility] 5 09:56:54 Problem Notes None recorded. Procedures Surgical History Date Name Laterality Status Provider Name and Address Organization Details Recorded Time section completed PAUL MONZON [facility] 03/03/2025 11:20:58 open reduction of fracture of radius and ulna completed PAUL MONZON [facility] 07/02/2024 09:55:43 Imaging Results None recorded. Procedure Notes None recorded. Medical Equipment None Reported. Allergies No known drug allergies Medications Name Sig Start Date Stop Date Status Note LastModified by Organization Details LastModified Time ondansetr on HCl 4 mg tablet Take 1 tablet 3 times a day by oral route for 60 days. 03/03 completed Not Available Not Available Not Available sulfameth oxazole 800 mg-trimet hoprim 160 mg tablet TAKE 1 TABLET BY MOUTH TWICE A DAY FOR 10 DAYS 07/02 completed Not Available Not Available Not Available cephalexi n 500 mg capsule Take 1 capsule every 12 hours by oral route for 7 days. 12/06 completed Not Available Not Available Not Available sertralin e 25 mg tablet Take 1 tablet every day by oral route in the morning for 30 days. 02/02 completed Not Available Not Available Not Available sertralin e 50 mg tablet TAKE 1 TABLET BY MOUTH EVERY DAY 07/02 completed Not Available Not Available Not Available 03/03 completed Not Available Not Available Not Available Estarylla 0.25 mg-0.035 mg tablet daily 05/16 completed DM/sd; Recorded 04/26/20 11:42AM by Joni De Paz DO, Office Visit; Refill Quantity : 84; Tablet; Not Available Not Available Not Available Rexulti 1 mg tablet 07/11 completed Not Available Not Available Not Available Vitals Date Recorded Body height Body mass index (BMI) Body weight Body temperature Oxygen saturation Heart rate Systolic And Diastolic Provider Name and Address Organization Details Last Updated DateTime 5 170.18 cm 29.4 kg/m2 94978.3 7 g 98.4 [degF] 98 % 73 /min 122/72 mm[Hg] BRADLEY LINO [facility] 5 15:21:32 Social History None recorded. Functional Status None recorded. Mental Status None recorded. Family History Relationship Description Onset Age of this Age Resolved Age Notes LastModified by Organization Details LastModified Time Mother Diabetes mellitus [email or web address] Not available 06/13 09:52:41 Mother Hypertensive disorder [email or web address] Not available 06/13 09:52:51 Sister Gestational diabetes mellitus [email or web address] Not available 06/13 09:53:03 Medical History Condition Response Coronary Artery Disease N Gout N Other N Blood Diseases N Kidney Stones N Hyperthyroidism N Breast Cancer N Blood Transfusion N Hypothyroidism N Lung Disease N COPD N Depression Y Developmental or Behavioral Disorders N Defects or Inherited Disease N Breast Problem N Difficulty Swallowing N Anesthesia Complications N Meniere's disease N Anxiety Disorder Y Muscle, Joint, or Bone Problems N Vision or Eye Problems N Arthritis N Polyps N Infertility N Cancer N Varicosities N Stroke N Endometriosis N Bladder or Kidney Problems N High Cholesterol N Liver Disease N Fibromyalgia N Headaches N Kidney Disease N Allergies/Hayfever N Heart Problems N Ear or Hearing Problems N Hospitalizations N Thyroid Problems N GI Problems N ADD/ADHD N Skin Problems N Eating Disorder N Anemia N Constipation N Mental Illness N Ovarian Cancer N Diabetes N Bedwetting N Seizures/Epilepsy N Tuberculosis N Eczema N Diverticulitis N Abuse/Domestic Violence N Asthma N Reflux/GERD N Hepatitis N Heart Disease N Pulmonary Embolism N Pre-Eclampsia N Hypertension N Chronic Ear Infections N Osteoporosis N Chicken Pox N Autism Spectrum Disorder (ASD) N Thrombophilias N Gynecological History Statement/Question Response Date of Last Pap Smear Obstetrics History GPAL:G 3 P 1 0 2 1 Type Value Full Term 1 Spontaneous 2 Living 1 Total 3 Immunizations Vaccine Type Date Status Note Provider Nam e and Address Organization Details Recorded Time HPV9 [address] [facility] 02/03/2023 13:00:05 HPV9 [address] [facility], Shikha 02/03/2023 13:00:05 IPV [address] [facility], NikCCrow 02/03/2023 13:00:05 IPV [address] [facility], Shikha 02/03/2023 13:00:05 IPV [address] [facility] Shikha 02/03/2023 13:00:05 IPV [address] [facility] 02/03/2023 13:00:05 MMR 5 completed Gunjan Mirella null, [facility] 02/03/2023 13:00:05 MMR 9 completed Gunjan Mirella null, [facility] 02/03/2023 13:00:05 pneumococcal conjugate PCV 7 5 completed Gunjan Mirella null, [facility] 02/03/2023 13:00:05 pneumococcal conjugate PCV 7 4 completed Gunjan Mirella teague, [facility] 02/03/2023 13:00:05 pneumococcal conjugate PCV 7 4 completed Gunjan teague, [facility] 02/03/2023 13:00:06 Tdap 7 completed Gunjan Mirella teague, [facility] 02/03/2023 13:00:06 varicella 5 completed Gunjan teague, [facility] 02/03/2023 13:00:06 varicella 9 completed Gunjan teague, [facility] 02/03/2023 13:00:06 Hep B, adolescent or pediatric 5 completed Gunjan Mirella null, [facility] 02/03/2023 13:00:06 Hep B, adolescent or pediatric 4 completed Gunjan Mirella null, [facility] 02/03/2023 13:00:06 Hep B, adolescent or pediatric 4 completed Gunjan teague, [facility] 02/03/2023 13:00:06 Hep A, ped/adol, 2 dose 8 completed Gunjan Mirella null, [facility] 02/03/2023 13:00:06 Hep A, ped/adol, 2 dose 7 completed Gunjan Mirella null, [facility] 02/03/2023 13:00:06 Hib (PRP-T) 5 completed Gunjan Mirella null, [facility] 02/03/2023 13:00:06 Hib (PRP-T) 4 completed Gunjan Mirella null, [facility] 02/03/2023 13:00:06 Hib (PRP-T) 4 completed Gunjan Mirella null, [facility] 02/03/2023 13:00:06 meningococcal MCV4P 7 completed Gunjan Mirella null, [facility] 02/03/2023 13:00:06 DTaP 5 completed Gunjan Mirella null, [facility] 02/03/2023 13:00:06 DTaP 4 completed Gunjan Mirella null, [facility] 02/03/2023 13:00:06 DTaP 9 completed Gunjan Mirella null, [facility] 02/03/2023 13:00:06 DTaP 4 completed Gunjan Mirella null, [facility] 02/03/2023 13:00:06 meningococcal conjugate quadrivalent, MenACWY-TT (MCV4) 3 completed Not Available [facility] 04/28/2025 16:52:51 meningococcal B, OMV 3 completed Not Available [facility] 04/28/2025 16:52:51 meningococcal B, OMV 4 completed Not Available [facility] 04/28/2025 16:52:51 RSV, bivalent, protein subunit RSVpreF, diluent reconstituted, 0.5 mL, PF 5 completed Not Available [facility] 04/28/2025 16:52:51 Tdap 5 completed Not Available [facility] 04/28/2025 16:52:51 Past Encounters Encounter ID Performer Location Encounter Start Date Encounter Closed Date Diagnosis/Indication Diagnosis SNOMED-CT Code Diagnosis ICD10 Code Diagnosis IMO Codes Diagnosis Note [id number] Charlene Murray MD [facility] ([facility]) [address] [place] [address] [id number] 5 03/03/2025 11:08:49 03/06/2025 04:08:56 state 73876254 Z39.2 [id number] Charlene Murray MD [facility] ([facility]) [address] [place] [address] [phone] 03/13/2025 15:39:59 03/17/2025 16:15:58 Skin lesion 89730193 L98.9 [id number] The patient's incision is healing as expected. She has a 2 mm raw spot on the left aspect that does not appear to have any signs of infection. She was advised to run hydrogen peroxide over the area twice daily and follow-up if worsening or not improved [id number] Charlene Murray MD [facility] ([facility]) [address] [place] [address] [phone] 5 03/24/2025 15:17:36 03/26/2025 09:19:37 care status 001345271 Z39.2 [id number] declines control Disorder of skin 8726213 5 L76.82 [id number] despite pt report it appears improved to me, no drainge expressed, pinpoint opening. Health Concerns Section Related Observation LastModified by Organization Detai ls LastModified Time None Recorded Concern Status LastModified by Organization Details LastModified Time None Recorded Payers Encounter Date Sequence Insurance Name Policy Number Policy Eason Covered Member ID Eason Member ID Guarantor Name 03/24/2025 1 [facility] PLAN-[place] (MEDICAID REPLACEMENT - HMO) SHEMAR Alvarenga [id number] Humphrey Alvarenga Notes Date Note Type Note Provider Name and Address Organization Details Recorded Time text/html VisitReported by PatientHPIFor onset/timing, patient reportsdate of delivery: (02/25/2025). For quality, patient reportsprimary c/s. For context, patient reportsno complicationsandgood support from partner/family. For associated symptoms, patient reportsno abnormal bleeding,no constipation,no problems, andnormal mood. For contraception plan, patient reportsdeclines contraception.ROS as noted in the HPI she thinks the incicison opened a little bit moreleaking more than it was....it is still clearshe does not think it is infected Charlene Murray MD [address] [place] [address], [phone], [facility], [facility] 03/24/2025 17:15:30 OBGyn Episode Ob Episode Information Episode Created Date Number of Fetuses Patient Bloodtype Patient rh Status Prepregnancy Weight lbs Domestic Partner Domestic Partner Phone Father Name Road Oiler Status 07/02/19 25 1 A Positive Leroy Christiano CLOSED Fetus Data First Name Last Name Admitted to NICU Weight (g) Sex Living Outcome Pediatric Complications Fetus ID Race Codes Race Delivery Type 2948.34 8 F Full Term [id number] Marky Calculation Initial Marky Date Initial Exam Date Initial Exam Provider Initial Ultrasound Date Last Menstrual Period Date Ultra Sound Weeks Gestation 03/02/2025 07/02/2024 07/22/2024 05/26/2024 8 Eighteen To Twenty Week Marky Update Ultra Sound Date Fundal Height At Umbil Quickening Date Ultra Sound Latest Weeks Gestation Final Marky Confirmed By Final Marky Confirmed Date Final Marky Date Ultra Sound Latest Days Gestation 0 [email or web address] 09/02/2024 03/02/20 25 0 Pre- Flowsheet Flowsheet Date 07/02/2024 Blank Score Blood Edema Fundus Height Fundus Units Glucose Ketones Leukocytes Nitrite Labor Signs Protein Cervic Dilation Cervic Effacement Cervic Station Type Weight in lbs Pre/Post Dialysis Refused Weight 194.993017351131 BP Diastolic BP Location Tested BP Systolic BP Type 70 115 Fetus Heart Rate Present Fetus Movement Comments Flowsheet Date 07/22/2024 Blank Score Blood Edema Fundus Height Fundus Units Glucose Ketones Leukocytes Nitrite Labor Signs Protein Cervic Dilation Cervic Effacement Cervic Station Type Weight in lbs Pre/Post Dialysis Refused BP Diastolic BP Location Tested BP Systolic BP Type Fetus Heart Rate Present Fetus Movement Comments Flowsheet Date 08/06/2024 Blank Score Blood Edema Fundus Height Fundus Units Glucose Ketones Leukocytes Nitrite Labor Signs Protein Cervic Dilation Cervic Effacement Cervic Station Type Weight in lbs Pre/Post Dialysis Refused With clothes 191.025631173993 BP Diastolic BP Location Tested BP Systolic BP Type 76 L arm 118 sitting Fetus Heart Rate Present Fetus Movement Comments Flowsheet Date 09/02/2024 Blank Score Blood Edema Fundus Height Fundus Units Glucose Ketones Leukocytes Nitrite Labor Signs Protein Cervic Dilation Cervic Effacement Cervic Station none trace trace Type Weight in lbs Pre/Post Dialysis Refused Weight 192.259679899890 BP Diastolic BP Location Tested BP Systolic BP Type 70 115 Fetus Heart Rate Present A 150 Fetus Movement Comments Cramping on her left side fo r 24 hours. Still having it. No BC after . Flowsheet Date 10/03/2024 Blank Score Blood Edema Fundus Height Fundus Units Glucose Ketones Leukocytes Nitrite Labor Signs Protein Cervic Dilation Cervic Effacement Cervic Station 19 cm none none neg Type Weight in lbs Pre/Post Dialysis Refused Weight 196.783356932976 BP Diastolic BP Location Tested BP Systolic BP Type 70 115 Fetus Heart Rate Present A 140 Fetus Movement A Yes Comments Baby girl, Mary Ann Barth. No BC after baby is born. UDS +MJ. Flowsheet Date 10/14/2024 Blank Score Blood Edema Fundus Height Fundus Units Glucose Ketones Leukocytes Nitrite Labor Signs Protein Cervic Dilation Cervic Effacement Cervic Station Type Weight in lbs Pre/Post Dialysis Refused BP Diastolic BP Location Tested BP Systolic BP Type Fetus Heart Rate Present Fetus Movement Comments Flowsheet Date 10/28/2024 Blank Score Blood Edema Fundus Height Fundus Units Glucose Ketones Leukocytes Nitrite Labor Signs Protein Cervic Dilation Cervic Effacement Cervic Station 23 cm none trace trace Type Weight in lbs Pre/Post Dialysis Refused Weight 202.042276666141 BP Diastolic BP Location Tested BP Systolic BP Type 60 115 Fetus Heart Rate Present A 145 Fetus Movement A Yes Comments hemal wnl, gtt next, Having h eadaches and heartburn. Flowsheet Date 12/09/2024 Blank Score Blood Edema Fundus Height Fundus Units Glucose Ketones Leukocytes Nitrite Labor Signs Protein Cervic Dilation Cervic Effacement Cervic Station 31 cm none trace Negative trace Type Weight in lbs Pre/Post Dialysis Refused With clothes 208.528082555190 BP Diastolic BP Location Tested BP Systolic BP Type 64 L arm 112 sitting Fetus Heart Rate Present A 145 Fetus Movement A Yes Comments kick counts handout, 111/11. 1 Flowsheet Date 12/24/2024 Blank Score Blood Edema Fundus Height Fundus Units Glucose Ketones Leukocytes Nitrite Labor Signs Protein Cervic Dilation Cervic Effacement Cervic Station Type Weight in lbs Pre/Post Dialysis Refused BP Diastolic BP Location Tested BP Systolic BP Type Fetus Heart Rate Present Fetus Movement Comments Flowsheet Date 12/30/2024 Blank Score Blood Edema Fundus Height Fundus Units Glucose Ketones Leukocytes Nitrite Labor Signs Protein Cervic Dilation Cervic Effacement Cervic Station 35 cm none none Negative neg Type Weight in lbs Pre/Post Dialysis Refused Weight 212.137611770339 BP Diastolic BP Location Tested BP Systolic BP Type 70 115 Fetus Heart Rate Present A 140 Fetus Movement A Yes Comments epidural consult, baby meds, Went to OB Monday12/28/24 for some spotting. Flowsheet Date 01/13/2025 Blank Score Blood Edema Fundus Height Fundus Units Glucose Ketones Leukocytes Nitrite Labor Signs Protein Cervic Dilation Cervic Effacement Cervic Station 36 cm none trace Negative trace Type Weight in lbs Pre/Post Dialysis Refused Weight 216.288903159978 BP Diastolic BP Location Tested BP Systolic BP Type 80 127 Fetus Heart Rate Present A 140 Fetus Movement A Yes Comments RSV and TDAP RX given today. Flowsheet Date 01/27/2025 Blank Score Blood Edema Fundus Height Fundus Units Glucose Ketones Leukocytes Nitrite Labor Signs Protein Cervic Dilation Cervic Effacement Cervic Station 40 cm none 1+ Negative trace Type Weight in lbs Pre/Post Dialysis Refused Weight 219.110596776993 BP Diastolic BP Location Tested BP Systolic BP Type 60 100 Fetus Heart Rate Present A 150 Fetus Movement A Yes Comments Cytotec and GBS done today. Flowsheet Date 02/04/2025 Blank Score Blood Edema Fundus Height Fundus Units Glucose Ketones Leukocytes Nitrite Labor Signs Protein Cervic Dilation Cervic Effacement Cervic Station Type Weight in lbs Pre/Post Dialysis Refused BP Diastolic BP Location Tested BP Systolic BP Type Fetus Heart Rate Present Fetus Movement Comments Flowsheet Date 02/06/2025 Blank Score Blood Edema Fundus Height Fundus Units Glucose Ketones Leukocytes Nitrite Labor Signs Protein Cervic Dilation Cervic Effacement Cervic Station trace 40 cm none trace Negative trace Type Weight in lbs Pre/Post Dialysis Refused Weight 224.514446276633 BP Diastolic BP Location Tested BP Systolic BP Type 70 118 Fetus Heart Rate Present A 145 Fetus Movement A Yes Comments GBS neg, u/s 02/04 - EFW 74%, VICTORIA 17.7, Dr. Murray for peds. Flowsheet Date 02/13/2025 Blank Score Blood Edema Fundus Height Fundus Units Glucose Ketones Leukocytes Nitrite Labor Signs Protein Cervic Dilation Cervic Effacement Cervic Station 1+ 38 cm none trace Negative trace Type Weight in lbs Pre/Post Dialysis Refused Weight 228.846076914278 BP Diastolic BP Location Tested BP Systolic BP Type 70 120 Fetus Heart Rate Present A 145 Fetus Movement A Yes Comments considering induction at 39 due to distance from hospital, No BC after . Flowsheet Date 02/19/2025 Blank Score Blood Edema Fundus Height Fundus Units Glucose Ketones Leukocytes Nitrite Labor Signs Protein Cervic Dilation Cervic Effacement Cervic Station 37 cm none trace Negative trace Type Weight in lbs Pre/Post Dialysis Refused With clothes 219.614255638681 BP Diastolic BP Location Tested BP Systolic BP Type 84 L arm 142 sitting 88 118 Fetus Heart Rate Present A 140 Fetus Movement A Yes Comments Wants to schdule and inducti on today Flowsheet Date 03/03/2025 Blank Score Blood Edema Fundus Height Fundus Units Glucose Ketones Leukocytes Nitrite Labor Signs Protein Cervic Dilation Cervic Effacement Cervic Station Type Weight in lbs Pre/Post Dialysis Refused Weight 203.057772105007 BP Diastolic BP Location Tested BP Systolic BP Type 83 130 Fetus Heart Rate Present Fetus Movement Comments Menstrual History Last Menstrual Date Menses Monthly On Bcp Conception Prior Menses Frequency Hcg Plus Date Menarche Onset Age 1205/26/2024 false Genetic Screening And Infection History Question Response Note Patient's Age Will Be 35 Yea rs Or Older At Estimated Date of Delivery false Thalassemia (Vincentian, Turkish, Mediterranean, Or Background): MCV < 80 false Neural Tube Defect (Meningom yelocele, Spina Bifida, Or Anencephaly) false Congenital Heart Defect false Down Syndrome false Lyndon-Sachs (eg, Holiness, Cajun, Kosovan-[place]) f alse Andrei Disease false Sickle Cell Disease Or Trait () false Hemophilia Or Other Blood Disorders false Muscular Dystrophy false Cystic Fibrosis false [place]'s Chorea false Intellectual Disability/Autism false If Yes, Was Person Tested For Fragile X? false Other Inherited Genetic Or Chromosomal Disorder false Maternal Metabolic Disorder (eg, Type 1 Diabetes, PKU) false Patient Or Baby's Father Had A Child With Defects Not Listed Above false Recurrent Loss, Or A Stillbirth true 2 miscarriages in 2023. Medications (including Suppl ements, Vitamins, Herbs, OTC Drugs), Illicit/Recreational Drugs, Alcohol false If Yes, Agent(s) And Strength/Dosage false Any Other Genetic History false Live With Someone With TB Or Exposed To TB false Patient Or Partner Has History Of Genital Herpes false Rash Or Viral Illness Since Last Menstrual Perio d false History Of STD, Gonorrhea, Chlamydia, HPV, Syphi lis false Other Infection History false History of HIV false History of Hepatitis false Prior GBS-infected child false Hemoglobinopathy Or Carrier false Other Structural Defect false Recent Travel History Outside of Country false Mental Retardation/Autism false Delivery Information Delivery Date Delivery Type Labor Anesthesia Weeks Gestation Incision Type Labor Labor Length Hrs Delivered By Post Complications Tubal Sterilization Discharge Date Comments 5 39.2 false Discharge Information Feeding Method Contraceptive Method Maternal HG B and HCT Levels
--- OUTSIDE RECORDS SUMMARY | 2025-05-04 05:13 | XMS_ITS | Continuity of Care Document ---
Author Organization DANTE Manish [facility], LNgozi, [facility] ([facility]) Address [address] [place] [address] Care Team Providers Care Breaker Oiler Name Role Phone JONI DE PAZ Primary [...] test, urine HCG positi ve Not Available [facility] ([facility]) [address] [place], [address], 07/02/2024 09:58:16 08/06/19 25 08/13/2024 URINA LYSIS , COMPL ETE color YELLOW yellow normal Not Available [facility] [address] [address] [place], [address], 08/14/2024 00:57:32 08/06/19 25 08/13/2024 URINA LYSIS , COMPL ETE appearance TURBID clear abnormal Not Available [facility] [address] [address] [place], [address], 08/14/2024 00:57:32 08/06/19 25 08/13/2024 URINA LYSIS , COMPL ETE specific gravity 1.027 1.001- 1.035 normal Not Available [address], [address], 08/14/2024 00:57:32 08/06/1908/13/2024 URINA LYSIS , COMPL ETE pH 7.5 5.0-8. 0 normal Not Available [address], [address], 08/14/2024 00:57:32 08/06/1908/13/2024 URINA LYSIS , COMPL ETE glucose NEGATI VE negati ve normal Not Available [address], [address], 08/14/2024 00:57:32 08/06/1908/13/2024 URINA LYSIS , COMPL ETE bilirubin NEGATI VE negati ve normal Not Available [address], [address], 08/14/2024 00:57:32 08/06/1908/13/2024 URINA LYSIS , COMPL ETE ketones 1+ negati ve abnormal Not Available [address], [address], 08/14/2024 00:57:32 08/06/1908/13/2024 URINA LYSIS , COMPL ETE occult blood NEGATI VE negati ve normal Not Available [address], [address], 08/14/2024 00:57:32 08/06/1908/13/2024 URINA LYSIS , COMPL ETE protein TRACE negati ve abnormal Not Available [address], [address], 08/14/2024 00:57:32 08/06/1908/13/2024 URINA LYSIS , COMPL ETE nitrite NEGATI VE negati ve normal Not Available [address], [address], 08/14/2024 00:57:32 08/06/1908/13/2024 URINA LYSIS , COMPL ETE leukocyte esterase NEGATI VE negati ve normal Not Available [address], [address], 08/14/2024 00:57:32 08/06/1908/13/2024 URINA LYSIS , COMPL ETE WBC 0-5 /hpf < or = 5 normal Not Available [address], [address], 08/14/2024 00:57:32 08/06/1908/13/2024 URINA LYSIS , COMPL ETE RBC 0-2 /hpf < or = 2 normal Not Available [address], [address], 08/14/2024 00:57:32 08/06/19 25 08/13/2024 URINA LYSIS , COMPL ETE squamous epithelial cells 10-20 /hpf < or = 5 abnormal Not Available [address], [address], 08/14/2024 00:57:32 08/06/1908/13/2024 URINA LYSIS , COMPL ETE bacteria MANY /hpf none seen abnormal Not Available [address], [address], 08/14/2024 00:57:32 08/06/1908/13/2024 URINA LYSIS , COMPL ETE calcium oxalate crystals MANY /hpf none or few abnormal Not Available [address], [address], 08/14/2024 00:57:32 08/06/19 25 08/13/2024 URINA LYSIS , COMPL ETE hyaline cast NONE SEEN /lpf none seen normal Not Available [facility] [address], [address], 08/14/2024 00:57:32 08/06/1908/13/2024 URINA LYSIS , COMPL ETE note This urine was rahel zed for the prese nce of WBC, RBC, bacte hailee, casts , and other forme d eleme nts. Only those eleme nts seen were repor joyce. Not Available [facility] [address], [address], 08/14/2024 00:57:32 08/06/1908/13/2024 CBC (INCL UDES DIFF/ PLT) white blood cell count 11.2 thous and/u L 3.8-10 .8 high Not Available [facility] [address], [address], 08/14/2024 00:57:34 08/06/19 25 08/13/2024 CBC (INCL UDES DIFF/ PLT) red blood cell count 4.52 juan francisco on/uL 3.80-5 .10 normal Not Available [facility] [address], [address], 08/14/2024 00:57:34 08/06/19 25 08/13/2024 CBC (INCL UDES DIFF/ PLT) hemoglobin 13.2 g/dL 11.7-1 5.5 normal Not Available [facility] [address], [address], 08/14/2024 00:57:34 08/06/1908/13/2024 CBC (INCL UDES DIFF/ PLT) hematocrit 40.5 % 35.0-4 5.0 normal Not Available [facility] [address], [address], 08/14/2024 00:57:34 08/06/19 25 08/13/2024 CBC (INCL UDES DIFF/ PLT) MCV 89.6 fL 80.0-1 00.0 normal Not Available [facility] [address], [address], 08/14/2024 00:57:34 08/06/1908/13/2024 CBC (INCL UDES DIFF/ PLT) MCH 29.2 pg 27.0-3 3.0 normal Not Available [facility] [address], [address], 08/14/2024 00:57:34 08/06/1908/13/2024 CBC (INCL UDES DIFF/ PLT) MCHC 32.6 g/dL 32.0-3 6.0 normal For adult s, a sligh t decre ase in the calcu lated MCHC value (in the range of 30 to 32 g/dL) is most likel y not clini doug signi fican t; feli er, it shoul d be inter prete d with [facility] with other red cell akash eters and the patie nt's clini flakita condi tion. Not Available [facility] [address], [address], 08/14/2024 00:57:34 08/06/1908/13/2024 CBC (INCL UDES DIFF/ PLT) RDW 12.6 % 11.0-1 5.0 normal Not Available [facility] [address], [address], 08/14/2024 00:57:34 08/06/1908/13/2024 CBC (INCL UDES DIFF/ PLT) platelet count 447 thous and/u L 140-40 0 high Not Available [facility] [address], [address], 08/14/2024 00:57:34 08/06/1908/13/2024 CBC (INCL UDES DIFF/ PLT) MPV 9.8 fL 7.5-12 .5 normal Not Available [facility] [address], [address], 08/14/2024 00:57:34 08/06/19 25 08/13/2024 CBC (INCL UDES DIFF/ PLT) absolute neutrophils 7325 cells /uL 1500-7 800 normal Not Available [address], [address], 08/14/2024 00:57:34 08/06/19 25 08/13/2024 CBC (INCL UDES DIFF/ PLT) absolute lymphocytes 3091 cells /uL 850-39 00 normal Not Available [facility] [address], [address], 08/14/2024 00:57:34 08/06/1908/13/2024 CBC (INCL UDES DIFF/ PLT) absolute monocytes 594 cells /uL 200-95 0 normal Not Available [facility] [address], [address], 08/14/2024 00:57:34 08/06/19 25 08/13/2024 CBC (INCL UDES DIFF/ PLT) absolute eosinophils 157 cells /uL 15-500 normal Not Available [address], [address], 08/14/2024 00:57:34 08/06/19 25 08/13/2024 CBC (INCL UDES DIFF/ PLT) absolute basophils 34 cells /uL 0-200 normal Not Available [facility] [address], [address], 08/14/2024 00:57:34 08/06/19 25 08/13/2024 CBC (INCL UDES DIFF/ PLT) neutrophils 65.4 % normal Not Available [address], [address], 08/14/2024 00:57:34 08/06/19 25 08/13/2024 CBC (INCL UDES DIFF/ PLT) lymphocytes 27.6 % normal Not Available [facility] [address], [place], [address], 08/14/2024 00:57:34 08/06/1908/13/2024 CBC (INCL UDES DIFF/ PLT) monocytes 5.3 % normal Not Available [facility] [address], [address], 08/14/2024 00:57:34 08/06/1908/13/2024 CBC (INCL UDES DIFF/ PLT) eosinophils 1.4 % normal Not Available [facility] [address], [address], 08/14/2024 00:57:34 08/06/1908/13/2024 CBC (INCL UDES DIFF/ PLT) basophils 0.3 % normal Not Available [address], [address], 08/14/2024 00:57:34 08/06/1908/13/2024 HEPAT ITIS B SURFA CE ANTIG EN W/REF L CONFI RM hepatitis B surface antigen NON-RE ACTIVE non-re active normal For addit ional infor dave batres e refer to http: //[facility] lomeli.que stdia gnost ics.c om/fa q/FAQ (This link is being provi ded for infor nina russ/ educa karen l purpo ses only. ) Not Available [address], [address], 08/14/2024 00:57:35 08/06/1908/13/2024 HEPAT ITIS C AB [...] a test for HCV RNA (test code 82326 ) is sugjaja fowler. For addit ional infor nina n pleas e refer to http: //jc urbinaia diamond ics.c om/fa q/FAQ 22v1 (This link is being provi ded for infor matio nal/ educa karen l purpo ses only. ) Not Available [facility] [address] [address] [place], [address], 08/14/2024 00:57:36 08/06/1908/13/2024 RUBEL LA AB (IGG) [...] with rubel la virus . Not Available [facility] [address] [address] [place], [address], 08/14/2024 00:57:37 08/06/1908/13/2024 HIV 1/2 ANTIG EN/AN [...] nina lomeli pleas e refer to http: //[facility] fields ics.c om/fa q/FAQ 106 (This link is being provi ded for infor matjude nal/ educa karen l purpo ses only. ) The perfo rmanc e of this assay has not been clini doug valid ated in patie nts less than 2 years old. Not Available [facility] [address] [address] [place], [address], 08/14/2024 00:57:37 08/06/1908/13/2024 QNATA L(R) ADVAN FLOR number of fetuses? 1 Not Available [facility] [address] [place], [address], 08/14/2024 00:57:39 08/06/1908/13/2024 QNATA L(R) ADVAN FLOR advanced maternal age? NO Not Available [facility] [address] [address] [place], [address], 08/14/2024 00:57:39 08/06/1908/13/2024 QNATA L(R) ADVAN FLOR abnormal ella? NO Not Available [facility] [address] [address] [place], [address], 08/14/2024 00:57:39 08/06/1908/13/2024 QNATA L(R) ADVAN FLOR abnormal US? NO Not Available [facility] [address] [address] [place], [address], 08/14/2024 00:57:39 08/06/1908/13/2024 QNATA L(R) ADVAN FLOR personal/fam history? NO Not Available [facility] [address] [address] [place], [address], 08/14/2024 00:57:39 08/06/19 25 08/13/2024 QNATA L(R) ADVAN FLOR interpretati on SEE NOTE This speci men showe d an expec joyce repre senta tion of chrom osome 21, 18, and 13 mater ial. See Gregorio mays below . Not Available [address], [address], 08/14/2024 00:57:39 08/06/19 25 08/13/2024 QNATA L(R) ADVAN FLOR trisomy 21 (T21) NEGATI VE Not Available [address], [address], 08/14/2024 00:57:39 08/06/19 25 08/13/2024 QNATA L(R) ADVAN FLOR trisomy 18 (T18) NEGATI VE Not Available [address], [address], 08/14/2024 00:57:39 08/06/19 25 08/13/2024 QNATA L(R) ADVAN FLOR trisomy 13 (T13) NEGATI VE Not Available [address], [address], 08/14/2024 00:57:39 08/06/19 25 08/13/2024 QNATA L(R) ADVAN FLOR Y chromosome NOT DETECT ED Not Available [address], [address], 08/14/2024 00:57:39 08/06/19 25 08/13/2024 QNATA L(R) ADVAN FLOR Y chr. interpretati on SEE NOTE Consi stent with a femal e fetus . Not Available [address], [address], 08/14/2024 00:57:39 08/06/1908/13/2024 QNATA L(R) ADVAN FLOR sex chromosome NO ANEUPL OIDY Not Available [address], [address], 08/14/2024 00:57:39 08/06/1908/13/2024 QNATA L(R) ADVAN FLOR sex chromosome interp SEE NOTE No appar ent abnor malit y was detec joyce. See Limi tatio ns below . Not Available [address], [address], 08/14/2024 00:57:39 08/06/1908/13/2024 QNATA L(R) ADVAN FLOR microdeletio n NOT DETECT ED Not Available [address], [address], 08/14/2024 00:57:39 08/06/1908/13/2024 QNATA L(R) ADVAN FLOR microdeletio n interp SEE NOTE No appar ent abnor malit y was detec joyec. See Limi tatio ns below . Not Available [address], [address], 08/14/2024 00:57:39 08/06/1908/13/2024 QNATA L(R) ADVAN FLOR gestational age(in weeks) 10 Not Available [address], [address], 08/14/2024 00:57:39 08/06/1908/13/2024 QNATA L(R) ADVAN FLOR gestational age (in days) 2 Not Available [address], [address], 08/14/2024 00:57:39 08/06/1908/13/2024 QNATA L(R) ADVAN FLOR fraction 17.15% Not Available [address] [place], [address], 08/14/2024 00:57:39 08/06/1908/13/2024 QNATA L(R) ADVAN FLOR laboratory comments SEE NOTE Labor atory testi ng super vised and resul ts monit ored by Joshua Paniagua, Ph.D. , FACMG , HCLD, CGMB. Not Available [facility] [address] [place], [address], 08/14/2024 00:57:39 08/06/1908/13/2024 QNATA L(R) ADVAN FLOR [...] place ntal in origi n. Not Available [facility] [employer] [facility] [address] [address], [place], [address], 08/14/2024 00:57:39 08/06/1908/13/2024 QNATA L(R) ADVAN FLOR [...] rahel tical asses sment . Not Available [facility] [address] [place], [address], 08/14/2024 00:57:39 08/06/19 25 08/13/2024 QNATA L(R) [...] been revie wed by FDA. Not Available [facility] [address] [place], [address], 08/14/2024 00:57:39 08/06/1908/13/2024 RPR (DX) W/REF L TITER AND T. PALLI DUM AB, IA RPR (DX) w/refl titer and confirmatory testing NON-RE ACTIVE non-re active normal No labor atory evide nce of syphi lis. If recen t expos ure is suspe cted, submi t a new sampl e in 2-4 weeks . Not Available [address] [place], [address], 08/14/2024 00:57:40 08/06/1908/13/2024 ANTIB VERONICA SCREE N, [...] alloi mmuni zed pregn gila. Not Available [facility] [address] [address] [place], [address], 08/14/2024 00:57:41 08/06/1908/13/2024 ABO GROUP AND RH TYPE ABO group A Not Available [facility] [address] [address] [place], [address], 08/14/2024 00:57:42 08/06/1908/13/2024 ABO GROUP AND RH TYPE Rh type RH(D) POSITI VE For addit ional infor dave batres e refer to http: //jc sanabriaQue stDia gnost ics.c om/fa q/FAQ 111 (This link is being provi ded for infor nina russ/ educa karen l purpo ses only. ) Not Available [facility] [address] [address] [place], [address], 08/14/2024 00:57:42 08/06/1908/13/2024 DRUG MONIT OR, PANEL 1, SCREE N, URINE amphetamines NEGATI VE NG/mL <500 See Note A See Note A Not Available [facility] [address] [address] [address], [place], [address], 08/14/2024 00:57:42 08/06/1908/13/2024 DRUG MONIT OR, PANEL 1, SCREE N, URINE barbiturates NEGATI VE NG/mL <300 See Note A See Note A Not Available [facility] [address] [address] [address], [place], [address], 08/14/2024 00:57:42 08/06/1908/13/2024 DRUG MONIT OR, PANEL 1, SCREE N, URINE benzodiazepi karan NEGATI VE NG/mL <100 See Note A See Note A Not Available [facility] [address] [address] [address], [place], [address], 08/14/2024 00:57:42 08/06/1908/13/2024 DRUG MONIT OR, PANEL 1, SCREE N, URINE cocaine metabolite NEGATI VE NG/mL <150 See Note A See Note A Not Available [facility] [address] [address] [address], [place], [address], 08/14/2024 00:57:42 08/06/1908/13/2024 DRUG MONIT OR, PANEL 1, SCREE N, URINE marijuana metabolite POSITI VE NG/mL <20 abnormal See Note A See Note A Not Available [facility] [address] [address] [address], [place], [address], 08/14/2024 00:57:42 08/06/1908/13/2024 DRUG MONIT OR, PANEL 1, SCREE N, URINE methadone metabolite NEGATI VE NG/mL <100 See Note A See Note A Not Available [facility] [address] [address] [address], [place], [address], 08/14/2024 00:57:42 08/06/1908/13/2024 DRUG MONIT OR, PANEL 1, SCREE N, URINE opiates NEGATI VE NG/mL <100 See Note A See Note A Not Available [address] [address] [address], [place], [address], 08/14/2024 00:57:42 08/06/1908/13/2024 DRUG MONIT OR, PANEL 1, SCREE N, URINE oxycodone NEGATI VE NG/mL <100 See Note A See Note A Not Available [address] [address] [address], [place], [address], 08/14/2024 00:57:42 08/06/1908/13/2024 DRUG MONIT OR, PANEL 1, SCREE N, URINE phencyclidin e NEGATI VE NG/mL <25 See Note A See Note A Not Available [address] [address] [address], [place], [address], 08/14/2024 00:57:42 08/06/1908/13/2024 DRUG MONIT OR, PANEL 1, SCREE N, URINE creatinine 186.9 mg/dL > or = 20.0 Not Available [address] [address] [address] , [place], [address], 08/14/2024 00:57:42 08/06/1908/13/2024 DRUG MONIT OR, PANEL 1, SCREE N, URINE pH 7.5 4.5-9. 0 Not Available [address] [address] [address] , [place], [address], 08/14/2024 00:57:42 08/06/1908/13/2024 DRUG MONIT OR, PANEL 1, SCREE N, URINE oxidant NEGATI VE mcg/m L <200 Not Available [address] [address] [address], [place], [address], 08/14/2024 00:57:42 08/06/1908/13/2024 DRUG MONIT ORING TEMPL ATE notes and comments This drug testi ng is for medic al treat ment only. Rahel sis was perfo rmed as non-f orens ic testi ng and these resul ts shoul d be used only by [facility]alt [facility] provi ders to rende r diagn osis or treat ment, or to monit or progr ess of medic al condi tions . Note A: The resul ts are presu mptiv e; based only on stacye jett velazquez ds, and they have not been confi rmed by a defin itive metho d. Healt [facility] Provi ders needi ng Inter preta tion rita tance , pleas e conta ct us at 1.877 .40.R XTOX (1.87 [phone] ) M-F, 8am to 10pm EST Not Available [address] [address] [place], [address], 08/14/2024 00:57:44 08/06/1908/13/2024 CULTU RE, URINE , ROUTI NE culture, urine, routine SEE NOTE CULTU RE, URINE , ROUTI NE Micro Numbe r: [id number] Test Statu s: Final Speci men [...] Cultu re Trans port Tube. Not Available [address] [address] [place], [address], 08/14/2024 00:57:44 08/07/1908/08/2024 SURES WAB(R ) ADVAN FLOR VAGIN ITIS PLUS, TMA sureswab(R) adv bacterial vaginosis (bv), tma NEGATI VE negati ve normal Not Available [facility] [address] [place] [address], [address], 08/08/2024 18:38:48 08/07/19 25 08/08/2024 SURES WAB(R ) ADVAN FLOR VAGIN ITIS PLUS, TMA karly species NOT DETECT ED not detect ed normal Not Available [facility] [address], [address], 08/08/2024 18:38:48 08/07/19 25 08/08/2024 SURES WAB(R [...] resul t. Not Available [facility] [address], [address], 08/08/2024 18:38:48 08/07/19 25 08/08/2024 SURES WAB(R ) ADVAN FLOR VAGIN ITIS PLUS, TMA trichomonas vaginalis (TV), tma NOT DETECT ED not detect ed normal Not Available [facility] [address], [address], 08/08/2024 18:38:48 08/07/19 25 08/08/2024 SURES WAB(R ) ADVAN FLOR VAGIN ITIS PLUS, TMA chlamydia trachomatis RNA, tma, urogenital NOT DETECT ED not detect ed normal Not Available [facility] [address], [address], 08/08/2024 18:38:48 08/07/19 25 08/08/2024 SURES WAB(R ) ADVAN FLOR VAGIN ITIS PLUS, TMA neisseria gonorrhoeae RNA, tma, urogenital NOT DETECT ED not detect ed normal For addit ional infor dave batres e refer to https ://ed ucati on.qu estdi agnos tics. com/f aq/FA Q154 (This link is being provi ded for infor nina n/ vincenzo fall purpo ses only. ) Not Available [facility] [address] [address] , [place], [address], 08/08/2024 18:38:48 12/03/19 25 12/02/2024 CBC WBC 8.8 x10 4.0-10 .5 Not Available [facility] [address] [facility] [address], [place], [address], 12/02/2024 11:47:45 12/03/19 25 12/02/2024 CBC RBC 3.66 x10 3.50-5 .50 Not Available [facility] [address] [facility] [address], [place], [address], 12/02/2024 11:47:45 12/03/19 25 12/02/2024 CBC HGB 11.1 g/dL 12.0-1 6.0 low Not Available [facility] [address] [facility] [address], [place], [address], 12/02/2024 11:47:45 12/03/19 25 12/02/2024 CBC HCT 32.9 % 37.0-4 7.0 low Not Available [facility] [address] [facility] [address], [place], [address], 12/02/2024 11:47:45 12/03/19 25 12/02/2024 CBC MCV 89.8 fL 80.0-9 9.9 Not Available [facility] [address] [facility] [address], [place], [address], 12/02/2024 11:47:45 12/03/19 25 12/02/2024 CBC MCH 30.4 pg 27.0-3 2.0 Not Available [facility] [address] [facility] [address], [place], [address], 12/02/2024 11:47:45 12/03/19 25 12/02/2024 CBC MCHC 33.8 g/dL 32.0-3 6.0 Not Available [facility] [address] [facility] [address], [place], [address], 12/02/2024 11:47:45 12/03/19 25 12/02/2024 CBC RDW 13.7 % 11.5-1 4.5 Not Available [facility] [address] [facility] [address], [place], [address], 12/02/2024 11:47:45 12/03/19 25 12/02/2024 CBC plt 330.0 x10 140.0- 451.0 Not Available [facility] [address] [place] [address] [facility] [address], [place], [address], 12/02/2024 11:47:45 12/03/19 25 12/02/2024 CBC lymphocytes % 50.1 % 20.0-5 0.0 high Not Available [facility] [address] [facility] [address], [place], [address], 12/02/2024 11:47:45 12/03/19 25 12/02/2024 CBC granulcytes % 41.8 % 30.0-7 0.0 Not Available [facility] [address] [facility] [address], [place], [address], 12/02/2024 11:47:45 12/03/19 25 12/02/2024 CBC monocytes % 7.3 % 2.0-16 .0 Not Available [facility] [address] [facility] [address], [place], [address], 12/02/2024 11:47:45 12/03/19 25 12/02/2024 CBC granulcytes# 3.7 x10 Not Esthela ilable [facility] [address] [facility] [address], [place], [address], 12/02/2024 11:47:45 12/03/19 25 12/02/2024 CBC lymphocytes # 4.4 x10 Not Available [facility] [address] [facility] [address], [place], [address], 12/02/2024 11:47:45 12/03/19 25 12/02/2024 CBC monocytes # 0.6 x10 Not Avai lable [facility] [address] [facility] [address], [place], [address], 12/02/2024 11:47:45 12/03/19 25 12/02/2024 GLUCO SE SCREE N glucose screen 111.0 mg/dL Not Available [facility] [address] [facility] [address], [place], [address], 12/02/2024 12:07:41 01/28/20 25 01/30/2025 STREP TOCOC CUS, GROUP B CULTU RE streptococcu s, group B culture SEE NOTE STREP TOCOC CUS, GROUP B CULTU RE Micro Numbe r: [id number] Test Statu s: Final Speci men Sourc e: Vagin al/an orect al Speci men Quali ty: Adequ ate Resul t: No group B Strep tococ cus isola joyce Note per CDC guide lines optim al recov candace is achie simon by swabb ing both the lower vagin a and rectu m (thro ugh the anal sphin cter) . Not Available [facility] [address] [address], [place], [address], 01/30/2025 09:33:23 07/23/19 25 07/22/2024 US, obste tric, 1st trime ster No observ ation record ed. [email or web address] Not Available 07/25 16:33:11 10/16/19 25 10/14/2024 US, obste tric, mater nal evalu ation + anato my No observ ation record ed. [email or web address] [facility] ([facility]) [address] [place], [address], 10/15/2024 12:31:45 02/10/20 25 02/09/2025 lab* No observ ation record ed. [email or web address] [facility] [address] [place], [address], 02/11/2025 14:01:59 02/12/20 25 02/04/2025 US, obste tric, follo w-up No observ ation record ed. [email or web address] [facility] ([facility]) [address] [place], [address], 02/11/2025 14:29:29 Result Notes None recorded. Problems Name Problem SNOMED Code Status Onset Date Resolution Date Notes Provider Name and Address Organization Details Recorded Time Irregular periods 57509208 Active 2022 BRADLEY teague [facility] 5 15:06:25 11953914 Completed 202403/03/2025 PAUL MONZON [facility] 11:18:12 Mixed anxiety and depressive disorder 168665043 Active 2024 PAUL teague [facility] 5 09:56:54 Problem Notes None recorded. Procedures Surgical History Date Name Laterality Status Provider Name and Address Organization Details Recorded Time section completed PAUL MONZON [facility] 03/03/2025 11:20:58 open reduction of fracture of radius and ulna completed PAUL MONZON [facility] 07/02/2024 09:55:43 Imaging Results None [...] Not Available Not Available Not Available Vitals None Recorded Social History None recorded. Functional Status None recorded. Mental Status None recorded. Family History Relationship Description Onset Age of this Age Resolved Age Notes LastModified by Organization Details LastModified Time Mother Diabetes mellitus Not available 06/13 09:52:41 Mother Hypertensive disorder [email or web address] Not available 06/13 09:52:51 Sister Gestational diabetes mellitus [email or web address] Not available 06/13 09:53:03 Medical History Condition Response Coronary Artery Disease N Other N Gout N Kidney Stones N Blood Diseases N Hyperthyroidism N Breast Cancer N Blood Transfusion N Hypothyroidism N Lung Disease N COPD N Depression Y Defects or Inherited Disease N Developmental or Behavioral Disorders N Breast Problem N Difficulty Swallowing N Anesthesia Complications N Meniere's disease N Anxiety Disorder Y Muscle, Joint, or Bone Problems N Vision or Eye Problems N Arthritis N Infertility N Polyps N Cancer N Stroke N Varicosities N Endometriosis N Bladder or Kidney Problems [...] N Heart Disease N Pulmonary Embolism N Chronic Ear Infections N Pre-Eclampsia N Hypertension N Chicken Pox N Autism Spectrum Disorder (ASD) N Osteoporosis N Thrombophilias N Gynecological History Statement/Question Response Date of Last Pap Smear Obstetrics History GPAL:G 3 P 1 0 2 1 Type Value Full Term 1 Spontaneous 2 Living 1 Total 3 Immunizations Vaccine Type Date Status Note Provider Nam e and Address Organization Details Recorded Time HPV9 8 completed Gunjan teague [facility] 02/03/2023 13:00:05 HPV9 7 completed Gunjan teague [facility] 02/03/2023 13:00:05 IPV 5 completed Gunjan teague [facility] 02/03/2023 13:00:05 IPV 4 completed Gunjan teague [facility] 02/03/2023 13:00:05 IPV 9 completed Gunjan teague [facility] 02/03/2023 13:00:05 IPV 4 completed Gunjan teague [facility] 02/03/2023 13:00:05 MMR 5 completed Gunjan teague [facility] 02/03/2023 13:00:05 MMR 9 completed Gunjan teague [facility] 02/03/2023 13:00:05 pneumococcal conjugate PCV 7 5 completed Gunjan teague, [facility] 02/03/2023 13:00:05 pneumococcal conjugate PCV 7 4 completed Gunjan Mirella teague, [facility] 02/03/2023 13:00:05 pneumococcal conjugate PCV 7 4 completed Gunjan teague, [facility] 02/03/2023 13:00:06 Tdap 7 completed Gunjan teague, [facility] 02/03/2023 13:00:06 varicella 5 completed Gunjan teague, [facility] 02/03/2023 13:00:06 varicella 9 completed Gunjan teague, [facility] 02/03/2023 13:00:06 Hep B, adolescent or pediatric 5 completed Gunjan teague, [facility] 02/03/2023 13:00:06 Hep B, adolescent or pediatric 4 completed Gunjan teague, [facility] 02/03/2023 13:00:06 Hep B, adolescent or pediatric 4 completed Gunjan teague, [facility] 02/03/2023 13:00:06 Hep A, ped/adol, 2 dose 8 completed Gunjan teague, [facility] 02/03/2023 13:00:06 Hep A, ped/adol, 2 dose 7 completed Gunjan teague, [facility] 02/03/2023 13:00:06 Hib (PRP-T) 5 completed Gunjan Mirella null, [facility] 02/03/2023 13:00:06 Hib (PRP-T) 4 completed Gunjan Mirella null, [facility] 02/03/2023 13:00:06 Hib (PRP-T) 4 completed Gunjan Mirella null, [facility] 02/03/2023 13:00:06 meningococcal MCV4P 7 completed Gunjan Mirella null, [facility] 02/03/2023 13:00:06 DTaP 5 completed Gunjan Mirella null, [facility] 02/03/2023 13:00:06 DTaP 4 completed Gunjan Mirella null, [facility] 02/03/2023 13:00:06 DTaP 9 completed Gunjan Mirella null, [facility] 02/03/2023 13:00:06 DTaP 4 completed Gunjan Mirella null, [facility] 02/03/2023 13:00:06 meningococcal conjugate quadrivalent, MenACWY-TT (MCV4) 3 completed Not Available [facility] 04/28/2025 16:52:51 meningococcal B, OMV 3 completed Not Available [facility] 04/28/2025 16:52:51 meningococcal B, OMV 4 completed Not Available [facility] 04/28/2025 16:52:51 RSV, bivalent, protein subunit RSVpreF, diluent reconstituted, 0.5 mL, PF 5 completed Not Available [facility] 04/28/2025 16:52:51 Tdap 5 completed Not Available [facility] 04/28/2025 16:52:51 Past Encounters Encounter ID Performer Location Encounter Start Date Encounter Closed Date Diagnosis/Indication Diagnosis SNOMED-CT Code Diagnosis ICD10 Code Diagnosis IMO Codes Diagnosis Note [id number] Charlene Murray MD [facility] ([facility]) [address] [place] [address] [phone] 01/13/2025 11:52:37 01/13/2025 14:19:23 Gestation period, 33 weeks 35035762 Z3A.33 1201701 Multigravida 526791105 Z 34.83 [id number] Charlene Murray MD [facility] ([facility]) [address] [place] [address] [phone] 5 01/27/2025 10:53:40 01/28/2025 10:38:27 Gestation period, 35 weeks 29008052 Z3A.35 8330172 Multigravida 353282787 Z 34.83 22389772 Fundal hei ght high for dates 417372087 Z34.90 17900032 [id number] Charlene Murray MD [facility] ([facility]) [address] [place] [address] [phone] 5 02/04/2025 11:45:55 02/04/2025 13:19:34 Health Concerns Section Related Observation LastModified by Organization Detai ls LastModified Time None Recorded Concern Status LastModified by Organization Details LastModified Time None Recorded Payers Encounter Date Sequence Insurance Name Policy Number Policy Eason Covered Member ID Eason Member ID Guarantor Name 02/04/2025 1 [facility] SHEMAR Alvarenga [id number] Humphrey Alvarenga OBGyn Episode Ob Episode Information Episode Created Date Number of Fetuses Patient Bloodtype Patient rh Status Prepregnancy Weight lbs Domestic Partner Domestic Partner Phone Father Name Nail Feeder Status 07/02/19 25 1 A Positive Leroy [...] Gestation 0 [email or web address] 09/02/2024 03/02/20 25 0 Pre-jani Flowsheet Flowsheet Date 07/02/2024 Blank Score Blood Edema Fundus Height Fundus Units Glucose Ketones Leukocytes Nitrite Labor Signs Protein Cervic Dilation Cervic Effacement Cervic Station Type Weight in lbs Pre/Post Dialysis Refused Weight 194.381980949335 BP Diastolic BP Location Tested BP Systolic [...] in lbs Pre/Post Dialysis Refused With clothes 191.350309800368 BP Diastolic BP Location Tested BP Systolic BP Type 76 L arm 118 sitting Fetus Heart Rate Present Fetus Movement Comments Flowsheet Date 09/02/2024 Blank Score Blood Edema Fundus Height Fundus Units Glucose Ketones Leukocytes Nitrite Labor Signs Protein Cervic Dilation Cervic Effacement Cervic Station none trace trace Type Weight in lbs Pre/Post Dialysis Refused Weight 192.233942754374 BP Diastolic BP Location Tested BP Systolic [...] Weight in lbs Pre/Post Dialysis Refused Weight 196.427617083259 BP Diastolic BP Location Tested BP Systolic [...] Weight in lbs Pre/Post Dialysis Refused Weight 202.440434593880 BP Diastolic BP Location Tested BP Systolic [...] in lbs Pre/Post Dialysis Refused With clothes 208.341594506403 BP Diastolic BP Location Tested BP Systolic [...] Weight in lbs Pre/Post Dialysis Refused Weight 212.504554957101 BP Diastolic BP Location Tested BP Systolic [...] Weight in lbs Pre/Post Dialysis Refused Weight 216.319009451331 BP Diastolic BP Location Tested BP Systolic [...] Weight in lbs Pre/Post Dialysis Refused Weight 219.106179951989 BP Diastolic BP Location Tested BP Systolic [...] Weight in lbs Pre/Post Dialysis Refused Weight 224.745454962953 BP Diastolic BP Location Tested BP Systolic [...] Weight in lbs Pre/Post Dialysis Refused Weight 228.939841654725 BP Diastolic BP Location Tested BP Systolic [...] in lbs Pre/Post Dialysis Refused With clothes 219.795772501849 BP Diastolic BP Location Tested BP Systolic [...] Weight in lbs Pre/Post Dialysis Refused Weight 203.208857195416 BP Diastolic BP Location Tested BP Systolic BP Type 83 130 Fetus Heart Rate Present Fetus Movement Comments Menstrual History Last Menstrual Date Menses Monthly On Bcp Conception Prior Menses Frequency Hcg Plus Date Menarche Onset Age 1205/26/2024 false Genetic Screening And Infection History Question Response Note Patient's Age Will Be 35 Yea rs Or Older At Estimated Date of Delivery false Thalassemia (Yakut, Kazakh, Mediterranean, Or Background): MCV < 80 false Neural Tube Defect (Meningom yelocele, Spina Bifida, Or Anencephaly) false Congenital Heart Defect false Down Syndrome false Lyndon-Sachs (eg, Catholic, Cajun, Hebrew-[place]) f alse Andrei Disease false Sickle Cell Disease Or Trait () false Hemophilia Or Other Blood Disorders false Muscular Dystrophy false Cystic Fibrosis false Jesus's Chorea false Intellectual Disability/Autism false If Yes, [...]
--- OUTSIDE RECORDS SUMMARY | 2025-05-04 05:13 | XMS_ITS | Continuity of Care Document ---
Author Organization DANTE Manish Cadena [facility] Stephanie, LNgozi, [facility] ([facility]) Address [address] [place] [address] Care Team Providers Care Surgeon Partner Name Role Phone JONI DE PAZ Primary [...] test, urine HCG positi ve Not Available [facility] ([facility]) [address] [place], [address], 07/02/2024 09:58:16 08/06/19 25 08/13/2024 URINA LYSIS , COMPL ETE color YELLOW yellow normal Not Available [facility] [address] [address] [place], [address], 08/14/2024 00:57:32 08/06/19 25 08/13/2024 URINA LYSIS , COMPL ETE appearance TURBID clear abnormal Not Available [facility] [address] [address] [place], [address], 08/14/2024 00:57:32 08/06/19 25 08/13/2024 URINA LYSIS , COMPL ETE specific gravity 1.027 1.001- 1.035 normal Not Available [address], [address], 08/14/2024 00:57:32 08/06/1908/13/2024 URINA LYSIS , COMPL ETE pH 7.5 5.0-8. 0 normal Not Available [address], [address], 08/14/2024 00:57:32 08/06/1908/13/2024 URINA LYSIS , COMPL ETE glucose NEGATI VE negati ve normal Not Available [address], [address], 08/14/2024 00:57:32 08/06/1908/13/2024 URINA LYSIS , COMPL ETE bilirubin NEGATI VE negati ve normal Not Available [address], [address], 08/14/2024 00:57:32 08/06/1908/13/2024 URINA LYSIS , COMPL ETE ketones 1+ negati ve abnormal Not Available [address], [address], 08/14/2024 00:57:32 08/06/1908/13/2024 URINA LYSIS , COMPL ETE occult blood NEGATI VE negati ve normal Not Available [address], [address], 08/14/2024 00:57:32 08/06/1908/13/2024 URINA LYSIS , COMPL ETE protein TRACE negati ve abnormal Not Available [address], [address], 08/14/2024 00:57:32 08/06/1908/13/2024 URINA LYSIS , COMPL ETE nitrite NEGATI VE negati ve normal Not Available [address], [address], 08/14/2024 00:57:32 08/06/1908/13/2024 URINA LYSIS , COMPL ETE leukocyte esterase NEGATI VE negati ve normal Not Available [address], [address], 08/14/2024 00:57:32 08/06/1908/13/2024 URINA LYSIS , COMPL ETE WBC 0-5 /hpf < or = 5 normal Not Available [address], [address], 08/14/2024 00:57:32 08/06/1908/13/2024 URINA LYSIS , COMPL ETE RBC 0-2 /hpf < or = 2 normal Not Available [address], [address], 08/14/2024 00:57:32 08/06/19 25 08/13/2024 URINA LYSIS , COMPL ETE squamous epithelial cells 10-20 /hpf < or = 5 abnormal Not Available [address], [address], 08/14/2024 00:57:32 08/06/1908/13/2024 URINA LYSIS , COMPL ETE bacteria MANY /hpf none seen abnormal Not Available [address], [address], 08/14/2024 00:57:32 08/06/1908/13/2024 URINA LYSIS , COMPL ETE calcium oxalate crystals MANY /hpf none or few abnormal Not Available [address], [address], 08/14/2024 00:57:32 08/06/19 25 08/13/2024 URINA LYSIS , COMPL ETE hyaline cast NONE SEEN /lpf none seen normal Not Available [facility] [address], [address], 08/14/2024 00:57:32 08/06/1908/13/2024 URINA LYSIS , COMPL ETE note This urine was rahel zed for the prese nce of WBC, RBC, bacte hailee, casts , and other forme d eleme nts. Only those eleme nts seen were repor joyce. Not Available [facility] [address], [address], 08/14/2024 00:57:32 08/06/1908/13/2024 CBC (INCL UDES DIFF/ PLT) white blood cell count 11.2 thous and/u L 3.8-10 .8 high Not Available [facility] [address], [address], 08/14/2024 00:57:34 08/06/19 25 08/13/2024 CBC (INCL UDES DIFF/ PLT) red blood cell count 4.52 juan francisco on/uL 3.80-5 .10 normal Not Available [facility] [address], [address], 08/14/2024 00:57:34 08/06/19 25 08/13/2024 CBC (INCL UDES DIFF/ PLT) hemoglobin 13.2 g/dL 11.7-1 5.5 normal Not Available [facility] [address], [address], 08/14/2024 00:57:34 08/06/1908/13/2024 CBC (INCL UDES DIFF/ PLT) hematocrit 40.5 % 35.0-4 5.0 normal Not Available [facility] [address], [address], 08/14/2024 00:57:34 08/06/19 25 08/13/2024 CBC (INCL UDES DIFF/ PLT) MCV 89.6 fL 80.0-1 00.0 normal Not Available [facility] [address], [address], 08/14/2024 00:57:34 08/06/1908/13/2024 CBC (INCL UDES DIFF/ PLT) MCH 29.2 pg 27.0-3 3.0 normal Not Available [facility] [address], [address], 08/14/2024 00:57:34 08/06/1908/13/2024 CBC (INCL UDES DIFF/ PLT) MCHC 32.6 g/dL 32.0-3 6.0 normal For adult s, a sligh t decre ase in the calcu lated MCHC value (in the range of 30 to 32 g/dL) is most likel y not clini doug signi fican t; feli er, it shoul d be inter prete d with cauti on in [facility] n with other red cell akash eters and the patie nt's clini flakita condi tion. Not Available [facility] [address], [address], 08/14/2024 00:57:34 08/06/1908/13/2024 CBC (INCL UDES DIFF/ PLT) RDW 12.6 % 11.0-1 5.0 normal Not Available [employer] [address], [address], 08/14/2024 00:57:34 08/06/1908/13/2024 CBC (INCL UDES DIFF/ PLT) platelet count 447 thous and/u L 140-40 0 high Not Available [facility] [address], [address], 08/14/2024 00:57:34 08/06/1908/13/2024 CBC (INCL UDES DIFF/ PLT) MPV 9.8 fL 7.5-12 .5 normal Not Available [facility] [address], [address], 08/14/2024 00:57:34 08/06/19 25 08/13/2024 CBC (INCL UDES DIFF/ PLT) absolute neutrophils 7325 cells /uL 1500-7 800 normal Not Available [address], [address], 08/14/2024 00:57:34 08/06/19 25 08/13/2024 CBC (INCL UDES DIFF/ PLT) absolute lymphocytes 3091 cells /uL 850-39 00 normal Not Available [facility] [address], [address], 08/14/2024 00:57:34 08/06/1908/13/2024 CBC (INCL UDES DIFF/ PLT) absolute monocytes 594 cells /uL 200-95 0 normal Not Available [facility] [address], [address], 08/14/2024 00:57:34 08/06/19 25 08/13/2024 CBC (INCL UDES DIFF/ PLT) absolute eosinophils 157 cells /uL 15-500 normal Not Available [address], [address], 08/14/2024 00:57:34 08/06/19 25 08/13/2024 CBC (INCL UDES DIFF/ PLT) absolute basophils 34 cells /uL 0-200 normal Not Available [facility] [address], [address], 08/14/2024 00:57:34 08/06/19 25 08/13/2024 CBC (INCL UDES DIFF/ PLT) neutrophils 65.4 % normal Not Available [address], [address], 08/14/2024 00:57:34 08/06/19 25 08/13/2024 CBC (INCL UDES DIFF/ PLT) lymphocytes 27.6 % normal Not Available [facility] [address], [place], [address], 08/14/2024 00:57:34 08/06/1908/13/2024 CBC (INCL UDES DIFF/ PLT) monocytes 5.3 % normal Not Available [facility] [address], [address], 08/14/2024 00:57:34 08/06/1908/13/2024 CBC (INCL UDES DIFF/ PLT) eosinophils 1.4 % normal Not Available [facility] [address], [address], 08/14/2024 00:57:34 08/06/1908/13/2024 CBC (INCL UDES DIFF/ PLT) basophils 0.3 % normal Not Available [address], [address], 08/14/2024 00:57:34 08/06/1908/13/2024 HEPAT ITIS B SURFA CE ANTIG EN W/REF L CONFI RM hepatitis B surface antigen NON-RE ACTIVE non-re active normal For addit ional infor dave batres e refer to http: //[facility] lomeli.que stdia gnost ics.c om/fa q/FAQ (This link is being provi ded for infor nina russ/ educa karen l purpo ses only. ) Not Available [address], [address], 08/14/2024 00:57:35 08/06/1908/13/2024 HEPAT ITIS C AB [...] a test for HCV RNA (test code 41791 ) is sugjaja fowler. For addit ional infor nina n pleas e refer to http: //jc urbinaia diamond ics.c om/fa q/FAQ 22v1 (This link is being provi ded for infor matio nal/ educa karen l purpo ses only. ) Not Available [facility] [address] [address] [place], [address], 08/14/2024 00:57:36 08/06/1908/13/2024 RUBEL LA AB (IGG) [...] with rubel la virus . Not Available [facility] [address] [address] [place], [address], 08/14/2024 00:57:37 08/06/1908/13/2024 HIV 1/2 ANTIG EN/AN [...] nina lomeli pleas e refer to http: //[facility] fields ics.c om/fa q/FAQ 106 (This link is being provi ded for infor matjude nal/ educa karen l purpo ses only. ) The perfo rmanc e of this assay has not been clini doug valid ated in patie nts less than 2 years old. Not Available [facility] [address] [address] [place], [address], 08/14/2024 00:57:37 08/06/1908/13/2024 QNATA L(R) ADVAN FLOR number of fetuses? 1 Not Available [facility] [address] [place], [address], 08/14/2024 00:57:39 08/06/1908/13/2024 QNATA L(R) ADVAN FLOR advanced maternal age? NO Not Available [facility] [address] [address] [place], [address], 08/14/2024 00:57:39 08/06/1908/13/2024 QNATA L(R) ADVAN FLOR abnormal ella? NO Not Available [facility] [address] [address] [place], [address], 08/14/2024 00:57:39 08/06/1908/13/2024 QNATA L(R) ADVAN FLOR abnormal US? NO Not Available [facility] [address] [address] [place], [address], 08/14/2024 00:57:39 08/06/1908/13/2024 QNATA L(R) ADVAN FLOR personal/fam history? NO Not Available [facility] [address] [address] [place], [address], 08/14/2024 00:57:39 08/06/19 25 08/13/2024 QNATA L(R) ADVAN FLOR interpretati on SEE NOTE This speci men showe d an expec joyce repre senta tion of chrom osome 21, 18, and 13 mater ial. See Gregorio mays below . Not Available [address], [address], 08/14/2024 00:57:39 08/06/19 25 08/13/2024 QNATA L(R) ADVAN FLOR trisomy 21 (T21) NEGATI VE Not Available [address], [address], 08/14/2024 00:57:39 08/06/19 25 08/13/2024 QNATA L(R) ADVAN FLOR trisomy 18 (T18) NEGATI VE Not Available [address], [address], 08/14/2024 00:57:39 08/06/19 25 08/13/2024 QNATA L(R) ADVAN FLOR trisomy 13 (T13) NEGATI VE Not Available [address], [address], 08/14/2024 00:57:39 08/06/19 25 08/13/2024 QNATA L(R) ADVAN FLOR Y chromosome NOT DETECT ED Not Available [address], [address], 08/14/2024 00:57:39 08/06/19 25 08/13/2024 QNATA L(R) ADVAN FLOR Y chr. interpretati on SEE NOTE Consi stent with a femal e fetus . Not Available [address], [address], 08/14/2024 00:57:39 08/06/1908/13/2024 QNATA L(R) ADVAN FLOR sex chromosome NO ANEUPL OIDY Not Available [address], [address], 08/14/2024 00:57:39 08/06/1908/13/2024 QNATA L(R) ADVAN FLOR sex chromosome interp SEE NOTE No appar ent abnor malit y was detec joyce. See Limi tatio ns below . Not Available [address], [address], 08/14/2024 00:57:39 08/06/1908/13/2024 QNATA L(R) ADVAN FLOR microdeletio n NOT DETECT ED Not Available [address], [address], 08/14/2024 00:57:39 08/06/1908/13/2024 QNATA L(R) ADVAN FLOR microdeletio n interp SEE NOTE No appar ent abnor malit y was detec joyce. See Limi tatio ns below . Not Available [address], [address], 08/14/2024 00:57:39 08/06/1908/13/2024 QNATA L(R) ADVAN FLOR gestational age(in weeks) 10 Not Available [address], [address], 08/14/2024 00:57:39 08/06/1908/13/2024 QNATA L(R) ADVAN FLOR gestational age (in days) 2 Not Available [address], [address], 08/14/2024 00:57:39 08/06/1908/13/2024 QNATA L(R) ADVAN FLOR fraction 17.15% Not Available [address] [place], [address], 08/14/2024 00:57:39 08/06/1908/13/2024 QNATA L(R) ADVAN FLOR laboratory comments SEE NOTE Labor atory testi ng super vised and resul ts monit ored by Joshua Paniagua, Ph.D. , FACMG , HCLD, CGMB. Not Available [facility] [address] [place], [address], 08/14/2024 00:57:39 08/06/1908/13/2024 QNATA L(R) ADVAN FLOR [...] place ntal in origi n. Not Available [facility] [address], [place], [address], 08/14/2024 00:57:39 08/06/1908/13/2024 QNATA L(R) ADVAN FLOR [...] rahel tical asses sment . Not Available [facility] [address] [place], [address], 08/14/2024 00:57:39 08/06/19 25 08/13/2024 QNATA L(R) [...] been revie wed by FDA. Not Available [facility] [address] [place], [address], 08/14/2024 00:57:39 08/06/1908/13/2024 RPR (DX) W/REF L TITER AND T. PALLI DUM AB, IA RPR (DX) w/refl titer and confirmatory testing NON-RE ACTIVE non-re active normal No labor atory evide nce of syphi lis. If recen t expos ure is suspe cted, submi t a new sampl e in 2-4 weeks . Not Available [address] [place], [address], 08/14/2024 00:57:40 08/06/1908/13/2024 ANTIB VERONICA SCREE N, [...] alloi mmuni zed pregn gila. Not Available [employer] [address] [address] [place], [address], 08/14/2024 00:57:41 08/06/1908/13/2024 ABO GROUP AND RH TYPE ABO group A Not Available [employer] [address] [address] [place], [address], 08/14/2024 00:57:42 08/06/1908/13/2024 ABO GROUP AND RH TYPE Rh type RH(D) POSITI VE For addit ional infor dave batres e refer to http: //jc sanabriaQue stDia gnost ics.c om/fa q/FAQ 111 (This link is being provi ded for infor nina russ/ educa karen l purpo ses only. ) Not Available [facility] [address] [address] [place], [address], 08/14/2024 00:57:42 08/06/1908/13/2024 DRUG MONIT OR, PANEL 1, SCREE N, URINE amphetamines NEGATI VE NG/mL <500 See Note A See Note A Not Available [facility] [address], [place], [address], 08/14/2024 00:57:42 08/06/1908/13/2024 DRUG MONIT OR, PANEL 1, SCREE N, URINE barbiturates NEGATI VE NG/mL <300 See Note A See Note A Not Available [facility] [address], [place], [address], 08/14/2024 00:57:42 08/06/1908/13/2024 DRUG MONIT OR, PANEL 1, SCREE N, URINE benzodiazepi karan NEGATI VE NG/mL <100 See Note A See Note A Not Available [facility] [address], [place], [address], 08/14/2024 00:57:42 08/06/1908/13/2024 DRUG MONIT OR, PANEL 1, SCREE N, URINE cocaine metabolite NEGATI VE NG/mL <150 See Note A See Note A Not Available [facility] [address], [place], [address], 08/14/2024 00:57:42 08/06/1908/13/2024 DRUG MONIT OR, PANEL 1, SCREE N, URINE marijuana metabolite POSITI VE NG/mL <20 abnormal See Note A See Note A Not Available [facility] [address], [place], [address], 08/14/2024 00:57:42 08/06/1908/13/2024 DRUG MONIT OR, PANEL 1, SCREE N, URINE methadone metabolite NEGATI VE NG/mL <100 See Note A See Note A Not Available [facility] [address], [place], [address], 08/14/2024 00:57:42 08/06/1908/13/2024 DRUG MONIT OR, PANEL 1, SCREE N, URINE opiates NEGATI VE NG/mL <100 See Note A See Note A Not Available [address], [place], [address], 08/14/2024 00:57:42 08/06/1908/13/2024 DRUG MONIT OR, PANEL 1, SCREE N, URINE oxycodone NEGATI VE NG/mL <100 See Note A See Note A Not Available [address], [place], [address], 08/14/2024 00:57:42 08/06/1908/13/2024 DRUG MONIT OR, PANEL 1, SCREE N, URINE phencyclidin e NEGATI VE NG/mL <25 See Note A See Note A Not Available [address], [place], [address], 08/14/2024 00:57:42 08/06/1908/13/2024 DRUG MONIT OR, PANEL 1, SCREE N, URINE creatinine 186.9 mg/dL > or = 20.0 Not Available [address] , [place], [address], 08/14/2024 00:57:42 08/06/1908/13/2024 DRUG MONIT OR, PANEL 1, SCREE N, URINE pH 7.5 4.5-9. 0 Not Available [address] , [place], [address], 08/14/2024 00:57:42 08/06/1908/13/2024 DRUG MONIT OR, PANEL 1, SCREE N, URINE oxidant NEGATI VE mcg/m L <200 Not Available [address], [place], [address], 08/14/2024 00:57:42 08/06/1908/13/2024 DRUG MONIT ORING TEMPL ATE notes and comments This drug testi ng is for medic al treat ment only. Rahel sis was perfo rmed as non-f orens ic testi ng and these resul ts shoul d be used only by [facility] prov[facility] d[facility] to rende r diagn osis or treat ment, or to monit or progr ess of medic al condi tions . Note A: The resul ts are presu mptiv e; based only on stacye jett velazquez ds, and they have not been confi rmed by a defin itive metho d. [facility] Provi ders needi ng Inter preta tion rita tance , pleas e conta ct us at 1.877 .40.R XTOX (1.87 [phone] .[phone] ) M-F, 8am to 10pm EST Not Available [address] [address] [place], [address], 08/14/2024 00:57:44 08/06/1908/13/2024 CULTU RE, URINE , ROUTI NE culture, urine, routine SEE NOTE CULTU RE, URINE , ROUTI NE Micro Numbe r: [id number] Test Statu s: Final Speci men [...] -catc h, mid-s tream urine and trans znoia immed iatel y to Urine Cultu re Trans port Tube. Not Available [address] [address] [place], [address], 08/14/2024 00:57:44 08/07/1908/08/2024 SURES WAB(R ) ADVAN FLOR VAGIN ITIS PLUS, TMA sureswab(R) adv bacterial vaginosis (bv), tma NEGATI VE negati ve normal Not Available [facility] [place] [address] [place] [address], [address], 08/08/2024 18:38:48 08/07/19 25 08/08/2024 SURES WAB(R ) ADVAN FLOR VAGIN ITIS PLUS, TMA karly species NOT DETECT ED not detect ed normal Not Available [facility] [address], [address], 08/08/2024 18:38:48 08/07/19 25 08/08/2024 SURES WAB(R [...] t. Not Available [facility] [address], [address], 08/08/2024 18:38:48 08/07/19 25 08/08/2024 SURES WAB(R ) ADVAN FLOR VAGIN ITIS PLUS, TMA trichomonas vaginalis (TV), tma NOT DETECT ED not detect ed normal Not Available [facility] [address], [address], 08/08/2024 18:38:48 08/07/19 25 08/08/2024 SURES WAB(R ) ADVAN FLOR VAGIN ITIS PLUS, TMA chlamydia trachomatis RNA, tma, urogenital NOT DETECT ED not detect ed normal Not Available [facility] [address], [address], 08/08/2024 18:38:48 08/07/19 25 08/08/2024 SURES WAB(R ) ADVAN FLOR VAGIN ITIS PLUS, TMA neisseria gonorrhoeae RNA, tma, urogenital NOT DETECT ED not detect ed normal For addit ional infor dave batres e refer to https ://ed ucati on.qu estdi agnos tics. com/f aq/FA Q154 (This link is being provi ded for infor nina n/ vincenzo fall purpo ses only. ) Not Available [employer] [facility] [address] , [place], [address], 08/08/2024 18:38:48 12/03/19 25 12/02/2024 CBC WBC 8.8 x10 4.0-10 .5 Not Available [facility] [address] [facility] [address], [place], [address], 12/02/2024 11:47:45 12/03/19 25 12/02/2024 CBC RBC 3.66 x10 3.50-5 .50 Not Available [facility] [address] [facility] [address], [place], [address], 12/02/2024 11:47:45 12/03/19 25 12/02/2024 CBC HGB 11.1 g/dL 12.0-1 6.0 low Not Available [facility] [address] [facility] [address], [place], [address], 12/02/2024 11:47:45 12/03/19 25 12/02/2024 CBC HCT 32.9 % 37.0-4 7.0 low Not Available [facility] [address] [facility] [address], [place], [address], 12/02/2024 11:47:45 12/03/19 25 12/02/2024 CBC MCV 89.8 fL 80.0-9 9.9 Not Available [facility] [address] [facility] [address], [place], [address], 12/02/2024 11:47:45 12/03/19 25 12/02/2024 CBC MCH 30.4 pg 27.0-3 2.0 Not Available [facility] [address] [facility] [address], [place], [address], 12/02/2024 11:47:45 12/03/19 25 12/02/2024 CBC MCHC 33.8 g/dL 32.0-3 6.0 Not Available [facility] [address] [facility] [address], [place], [address], 12/02/2024 11:47:45 12/03/19 25 12/02/2024 CBC RDW 13.7 % 11.5-1 4.5 Not Available [facility] [address] [facility] [address], [place], [address], 12/02/2024 11:47:45 12/03/19 25 12/02/2024 CBC plt 330.0 x10 140.0- 451.0 Not Available [facility] [address] [place] [address] [facility] [address], [place], [address], 12/02/2024 11:47:45 12/03/19 25 12/02/2024 CBC lymphocytes % 50.1 % 20.0-5 0.0 high Not Available [facility] [address] [place] [address] [facility] [address], [place], [address], 12/02/2024 11:47:45 12/03/19 25 12/02/2024 CBC granulcytes % 41.8 % 30.0-7 0.0 Not Available [facility] [address] [place] [address] [facility] [address], [place], [address], 12/02/2024 11:47:45 12/03/19 25 12/02/2024 CBC monocytes % 7.3 % 2.0-16 .0 Not Available [facility] [address] [facility] [address], [place], [address], 12/02/2024 11:47:45 12/03/19 25 12/02/2024 CBC granulcytes# 3.7 x10 Not Esthela ilable [facility] [address] [facility] [address], [place], [address], 12/02/2024 11:47:45 12/03/19 25 12/02/2024 CBC lymphocytes # 4.4 x10 Not Available [facility] [address] [facility] [address], [place], [address], 12/02/2024 11:47:45 12/03/19 25 12/02/2024 CBC monocytes # 0.6 x10 Not Avai lable [facility] [address] [facility] [address], [place], [address], 12/02/2024 11:47:45 12/03/19 25 12/02/2024 GLUCO SE SCREE N glucose screen 111.0 mg/dL Not Available [facility] [address] [facility] [address], [place], [address], 12/02/2024 12:07:41 01/28/20 25 01/30/2025 STREP TOCOC CUS, GROUP B CULTU RE streptococcu s, group B culture SEE NOTE STREP TOCOC CUS, GROUP B CULTU RE Micro Numbe r: [id number] Test Statu s: Final Speci men Sourc e: Vagin al/an orect al Speci men Quali ty: Adequ ate Resul t: No group B Strep tococ cus isola joyce Note per CDC guide lines optim al recov candace is achie simon by swabb ing both the lower vagin a and rectu m (thro ugh the anal sphin cter) . Not Available [facility] [address], [place], [address], 01/30/2025 09:33:23 07/23/19 25 07/22/2024 US, obste tric, 1st trime ster No observ ation record ed. [email or web address] Not Available 07/25 16:33:11 10/16/19 25 10/14/2024 US, obste tric, mater nal evalu ation + anato my No observ ation record ed. [email or web address] [facility] ([facility] [address] [place], [address], 10/15/2024 12:31:45 02/10/20 25 02/09/2025 lab* No observ ation record ed. [email or web address] [facility] [address] [place], [address], 02/11/2025 14:01:59 02/12/20 25 02/04/2025 US, obste tric, follo w-up No observ ation record ed. [email or web address] [facility] ([facility]) [address] [place], [address], 02/11/2025 14:29:29 Result Notes None recorded. Problems Name Problem SNOMED Code Status Onset Date Resolution Date Notes Provider Name and Address Organization Details Recorded Time Irregular periods 05563706 Active 2022 BRADLEY teague [facility] 5 15:06:25 68872715 Completed 202403/03/2025 PAUL MONZON [facility] 11:18:12 Mixed anxiety and depressive disorder 732697429 Active 2024 PAUL teague [facility] 5 09:56:54 Problem Notes None recorded. Procedures Surgical History Date Name Laterality Status Provider Name and Address Organization Details Recorded Time section completed PAUL MONZON [facility] 03/03/2025 11:20:58 open reduction of fracture of radius and ulna completed PAUL MONZON [facility] 07/02/2024 09:55:43 Imaging Results None recorded. [...] Details Last Updated DateTime 5 170.18 cm 31.8 kg/m2 31754.2 5 g 98.1 [degF] 98 % 70 /min 130/83 mm[Hg] PAUL MONZON [facility] 5 11:19:41 Social History None recorded. Functional Status None recorded. Mental Status None recorded. Family History Relationship Description Onset Age of this Age Resolved Age Notes LastModified by Organization Details LastModified Time Mother Diabetes mellitus [email or web address] Not available 06/13 09:52:41 Mother Hypertensive disorder Not available 06/13 09:52:51 Sister Gestational diabetes mellitus [email or web address] Not available 06/13 09:53:03 Medical History Condition Response Coronary Artery Disease N Other N Gout N Kidney Stones N Blood Diseases N Hyperthyroidism N Breast Cancer N Blood Transfusion N Depression Y Hypothyroidism N Lung Disease N COPD N Developmental or Behavioral Disorders N Defects or Inherited Disease N Breast Problem N Difficulty Swallowing N Anesthesia Complications N Anxiety Disorder Y Meniere's disease N Muscle, Joint, or Bone Problems N Vision [...] Recorded Time HPV9 8 completed Gunjan teague [facility], [facility] 02/03/2023 13:00:05 HPV9 7 completed Gunjan teague [facility], [facility] 02/03/2023 13:00:05 IPV 5 completed Gunjan teague [facility], OrinLCrowCCrow 02/03/2023 13:00:05 IPV 4 completed Gunjan teague [facility], Shikha 02/03/2023 13:00:05 IPV 9 completed Gunjan teague [facility], OrinLHeriberto 02/03/2023 13:00:05 IPV 4 completed Gunjan teague [facility] 02/03/2023 13:00:05 MMR 5 completed Gunjan Vu null, [facility] 02/03/2023 13:00:05 MMR 9 completed Gunjan Vu null, [facility] 02/03/2023 13:00:05 pneumococcal conjugate PCV 7 5 completed Gunjan Mirella null, [facility] 02/03/2023 13:00:05 pneumococcal conjugate PCV 7 4 completed Gunjan teague, [facility] 02/03/2023 13:00:05 pneumococcal conjugate PCV 7 4 completed Gunjan teague, [facility] 02/03/2023 13:00:06 Tdap 7 completed Gunjan teague, [facility] 02/03/2023 13:00:06 varicella 5 completed Gunjan teague, [facility] 02/03/2023 13:00:06 varicella 9 completed Gunjan teague, [facility] 02/03/2023 13:00:06 Hep B, adolescent or pediatric 5 completed Gunjan Mirella null, [facility] 02/03/2023 13:00:06 Hep B, adolescent or pediatric 4 completed Gunjan teague, [facility] 02/03/2023 13:00:06 Hep B, adolescent or pediatric 4 completed Gunjan teague, [facility] 02/03/2023 13:00:06 Hep A, ped/adol, 2 dose 8 completed Gunjan Mirella null, [facility] 02/03/2023 13:00:06 Hep A, ped/adol, 2 dose 7 completed Gunjan Mirella null, [facility] 02/03/2023 13:00:06 Hib (PRP-T) 5 completed Gunjan Mirella null, [facility] 02/03/2023 13:00:06 Hib (PRP-T) 4 completed Gunjan Mirella null, [facility] 02/03/2023 13:00:06 Hib (PRP-T) 4 completed Gunjan Mirella null, [facility] 02/03/2023 13:00:06 meningococcal MCV4P 7 completed Gunjan Mirella null, [facility] 02/03/2023 13:00:06 DTaP 5 completed Gunjan Mirella null, [facility] 02/03/2023 13:00:06 DTaP 4 completed Gunjan Mirella null, [facility] 02/03/2023 13:00:06 DTaP 9 completed Gunjan Mirella null, [facility] 02/03/2023 13:00:06 DTaP 4 completed Gunjan Mirella null, [facility] 02/03/2023 13:00:06 meningococcal conjugate quadrivalent, MenACWY-TT (MCV4) 3 completed Not Available [facility] 04/28/2025 16:52:51 meningococcal B, OMV 3 completed Not Available [facility] 04/28/2025 16:52:51 meningococcal B, OMV 4 completed Not Available [facility] 04/28/2025 16:52:51 RSV, bivalent, protein subunit RSVpreF, diluent reconstituted, 0.5 mL, PF 5 completed Not Available [facility] 04/28/2025 16:52:51 Tdap 5 completed Not Available [facility] 04/28/2025 16:52:51 Past Encounters Encounter ID Performer Location Encounter Start Date Encounter Closed Date Diagnosis/Indication Diagnosis SNOMED-CT Code Diagnosis ICD10 Code Diagnosis IMO Codes Diagnosis Note [id number] Charlene Murray MD [facility] ([facility]) [address] [place] [address] 5 02/04/2025 11:45:55 02/04/2025 13:19:34 [id number] Charlene Murray MD [facility]) [address] [place] [address] 5 02/06/2025 13:49:17 02/11/2025 16:26:33 Gestation period, 36 weeks 12543337 Z3A.36 9669999 Multigravida 782170901 Z 34.83 [id number] Charlene Murray MD [facility] ([facility]) [address] [place] [address] 5 02/13/2025 11:06:50 02/17/2025 14:59:19 Gestation period, 37 weeks 04912039 Z3A.37 9242524 Multigravida 916571584 Z 34.83 [id number] Charlene Murray MD [facility] ([facility]) [address] [place], [place] [address] 02/19/2025 13:52:41 03/03/2025 09:50:47 Gestation period, 38 weeks 03080612 Z3A.38 [id number] Multigravida 759073011 Z 34.83 [id number] Charlene Murray MD [facility] ([facility]) [address] [place], [place] [address] 03/03/2025 11:08:49 03/06/2025 04:08:56 state [id number] Z39.2 114224 Health Concerns Section Related Observation LastModified by Organization Detai ls LastModified Time None Recorded Concern Status LastModified by Organization Details LastModified Time None Recorded Payers Encounter Date Sequence Insurance Name Policy Number Policy Eason Covered Member ID Eason Member ID Guarantor Name 03/03/2025 1 [facility] (MEDICAID REPLACEMENT - HMO) SHEMAR Yin Adryan Alvarenga [id number] Humphrey Alvarenga Notes Date Note Type Note Provider Name and Address Organization Details Recorded Time 5 text/html VisitReported by PatientHPIFor associated symptoms, patient reportspelvic painbut reportsno abnormal bleeding,no constipation,no problems, andnormal mood. For quality, patient reportsprimary c/s. For context, patient reportsno complicationsandgood support from partner/family. For contraception plan, patient reportsdeclines contraception.ROS as noted in the HPI doing well, no issues Charlene Murray MD [address] [place] [address], [phone], [facility] 03/03/2025 11:44:44 OBGyn Episode Ob Episode Information Episode Created Date Number of Fetuses Patient Bloodtype Patient rh Status Prepregnancy Weight lbs Domestic Partner Domestic Partner Phone Father Name Feeder Driver Status 07/02/19 25 1 A Positive Leroy [...] Weight in lbs Pre/Post Dialysis Refused Weight 194.463245071030 BP Diastolic BP Location Tested BP Systolic [...] in lbs Pre/Post Dialysis Refused With clothes 191.889608141928 BP Diastolic BP Location Tested BP Systolic BP Type 76 L arm 118 sitting Fetus Heart Rate Present Fetus Movement Comments Flowsheet Date 09/02/2024 Blank Score Blood Edema Fundus Height Fundus Units Glucose Ketones Leukocytes Nitrite Labor Signs Protein Cervic Dilation Cervic Effacement Cervic Station none trace trace Type Weight in lbs Pre/Post Dialysis Refused Weight 192.768601660320 BP Diastolic BP Location Tested BP Systolic [...] Weight in lbs Pre/Post Dialysis Refused Weight 196.864999208042 BP Diastolic BP Location Tested BP Systolic [...] Weight in lbs Pre/Post Dialysis Refused Weight 202.217300224886 BP Diastolic BP Location Tested BP Systolic [...] in lbs Pre/Post Dialysis Refused With clothes 208.280799846906 BP Diastolic BP Location Tested BP Systolic [...] Weight in lbs Pre/Post Dialysis Refused Weight 212.859038725381 BP Diastolic BP Location Tested BP Systolic [...] Weight in lbs Pre/Post Dialysis Refused Weight 216.725713900705 BP Diastolic BP Location Tested BP Systolic [...] Weight in lbs Pre/Post Dialysis Refused Weight 219.989172174764 BP Diastolic BP Location Tested BP Systolic [...] Weight in lbs Pre/Post Dialysis Refused Weight 224.289394810747 BP Diastolic BP Location Tested BP Systolic [...] Weight in lbs Pre/Post Dialysis Refused Weight 228.896124771213 BP Diastolic BP Location Tested BP Systolic [...] in lbs Pre/Post Dialysis Refused With clothes 219.519976934351 BP Diastolic BP Location Tested BP Systolic [...] Weight in lbs Pre/Post Dialysis Refused Weight 203.805098235282 BP Diastolic BP Location Tested BP Systolic BP Type 83 130 Fetus Heart Rate Present Fetus Movement Comments Menstrual History Last Menstrual Date Menses Monthly On Bcp Conception Prior Menses Frequency Hcg Plus Date Menarche Onset Age 1205/26/2024 false Genetic Screening And Infection History Question Response Note Patient's Age Will Be 35 Yea rs Or Older At Estimated Date of Delivery false Thalassemia (Maori, Korean, Mediterranean, Or Background): MCV < 80 false Neural Tube Defect (Meningom yelocele, Spina Bifida, Or Anencephaly) false Congenital Heart Defect false Down Syndrome false Lyndon-Sachs (eg, Methodist, Cajun, Mongolian-Uruguayan) f alse Andrei Disease false Sickle Cell [...]
--- OUTSIDE RECORDS SUMMARY | 2025-05-04 05:13 | XMS_ITS | Continuity of Care Document ---
Author Organization DANTE Manish Cadena [facility] Stephanie, LNgozi, [facility] ([facility]) Address [address] [place] [address] Care Team Providers Care Senior Civil Engineer Name Role Phone JONI DE PAZ Primary [...] test, urine HCG positi ve Not Available [facility] ([facility]) [address] [place], [address], 07/02/2024 09:58:16 08/06/19 25 08/13/2024 URINA LYSIS , COMPL ETE color YELLOW yellow normal Not Available [facility] [address] [address] [place], [address], 08/14/2024 00:57:32 08/06/19 25 08/13/2024 URINA LYSIS , COMPL ETE appearance TURBID clear abnormal Not Available [facility] [address] [address] [place], [address], 08/14/2024 00:57:32 08/06/19 25 08/13/2024 URINA LYSIS , COMPL ETE specific gravity 1.027 1.001- 1.035 normal Not Available [address], [address], 08/14/2024 00:57:32 08/06/1908/13/2024 URINA LYSIS , COMPL ETE pH 7.5 5.0-8. 0 normal Not Available [address], [address], 08/14/2024 00:57:32 08/06/1908/13/2024 URINA LYSIS , COMPL ETE glucose NEGATI VE negati ve normal Not Available [address], [address], 08/14/2024 00:57:32 08/06/1908/13/2024 URINA LYSIS , COMPL ETE bilirubin NEGATI VE negati ve normal Not Available [address], [address], 08/14/2024 00:57:32 08/06/1908/13/2024 URINA LYSIS , COMPL ETE ketones 1+ negati ve abnormal Not Available [address], [address], 08/14/2024 00:57:32 08/06/1908/13/2024 URINA LYSIS , COMPL ETE occult blood NEGATI VE negati ve normal Not Available [address], [address], 08/14/2024 00:57:32 08/06/1908/13/2024 URINA LYSIS , COMPL ETE protein TRACE negati ve abnormal Not Available [address], [address], 08/14/2024 00:57:32 08/06/1908/13/2024 URINA LYSIS , COMPL ETE nitrite NEGATI VE negati ve normal Not Available [address], [address], 08/14/2024 00:57:32 08/06/1908/13/2024 URINA LYSIS , COMPL ETE leukocyte esterase NEGATI VE negati ve normal Not Available [address], [address], 08/14/2024 00:57:32 08/06/1908/13/2024 URINA LYSIS , COMPL ETE WBC 0-5 /hpf < or = 5 normal Not Available [address], [address], 08/14/2024 00:57:32 08/06/1908/13/2024 URINA LYSIS , COMPL ETE RBC 0-2 /hpf < or = 2 normal Not Available [address], [address], 08/14/2024 00:57:32 08/06/19 25 08/13/2024 URINA LYSIS , COMPL ETE squamous epithelial cells 10-20 /hpf < or = 5 abnormal Not Available [address], [address], 08/14/2024 00:57:32 08/06/1908/13/2024 URINA LYSIS , COMPL ETE bacteria MANY /hpf none seen abnormal Not Available [address], [address], 08/14/2024 00:57:32 08/06/1908/13/2024 URINA LYSIS , COMPL ETE calcium oxalate crystals MANY /hpf none or few abnormal Not Available [address], [address], 08/14/2024 00:57:32 08/06/19 25 08/13/2024 URINA LYSIS , COMPL ETE hyaline cast NONE SEEN /lpf none seen normal Not Available [facility] [address], [address], 08/14/2024 00:57:32 08/06/1908/13/2024 URINA LYSIS , COMPL ETE note This urine was rahel zed for the prese nce of WBC, RBC, bacte hailee, casts , and other forme d eleme nts. Only those eleme nts seen were repor joyce. Not Available [facility] [address], [address], 08/14/2024 00:57:32 08/06/1908/13/2024 CBC (INCL UDES DIFF/ PLT) white blood cell count 11.2 thous and/u L 3.8-10 .8 high Not Available [facility] [address], [address], 08/14/2024 00:57:34 08/06/19 25 08/13/2024 CBC (INCL UDES DIFF/ PLT) red blood cell count 4.52 juan francisco on/uL 3.80-5 .10 normal Not Available [facility] [address], [address], 08/14/2024 00:57:34 08/06/19 25 08/13/2024 CBC (INCL UDES DIFF/ PLT) hemoglobin 13.2 g/dL 11.7-1 5.5 normal Not Available [facility] [address], [address], 08/14/2024 00:57:34 08/06/1908/13/2024 CBC (INCL UDES DIFF/ PLT) hematocrit 40.5 % 35.0-4 5.0 normal Not Available [facility] [address], [address], 08/14/2024 00:57:34 08/06/19 25 08/13/2024 CBC (INCL UDES DIFF/ PLT) MCV 89.6 fL 80.0-1 00.0 normal Not Available [facility] [address], [address], 08/14/2024 00:57:34 08/06/1908/13/2024 CBC (INCL UDES DIFF/ PLT) MCH 29.2 pg 27.0-3 3.0 normal Not Available [facility] [address], [address], 08/14/2024 00:57:34 08/06/1908/13/2024 CBC (INCL UDES DIFF/ PLT) MCHC 32.6 g/dL 32.0-3 6.0 normal For adult s, a sligh t decre ase in the calcu lated MCHC value (in the range of 30 to 32 g/dL) is most likel y not clini doug signi fican t; feli er, it shoul d be inter prete d with cauti on in [facility] n with other red cell akash eters and the patie nt's clini flakita condi tion. Not Available [facility] [address], [address], 08/14/2024 00:57:34 08/06/1908/13/2024 CBC (INCL UDES DIFF/ PLT) RDW 12.6 % 11.0-1 5.0 normal Not Available [facility] [address], [address], 08/14/2024 00:57:34 08/06/1908/13/2024 CBC (INCL UDES DIFF/ PLT) platelet count 447 thous and/u L 140-40 0 high Not Available [facility] [address], [address], 08/14/2024 00:57:34 08/06/1908/13/2024 CBC (INCL UDES DIFF/ PLT) MPV 9.8 fL 7.5-12 .5 normal Not Available [facility] [address], [address], 08/14/2024 00:57:34 08/06/19 25 08/13/2024 CBC (INCL UDES DIFF/ PLT) absolute neutrophils 7325 cells /uL 1500-7 800 normal Not Available [address], [address], 08/14/2024 00:57:34 08/06/19 25 08/13/2024 CBC (INCL UDES DIFF/ PLT) absolute lymphocytes 3091 cells /uL 850-39 00 normal Not Available [facility] [address], [address], 08/14/2024 00:57:34 08/06/1908/13/2024 CBC (INCL UDES DIFF/ PLT) absolute monocytes 594 cells /uL 200-95 0 normal Not Available [facility] [address], [address], 08/14/2024 00:57:34 08/06/19 25 08/13/2024 CBC (INCL UDES DIFF/ PLT) absolute eosinophils 157 cells /uL 15-500 normal Not Available [address], [address], 08/14/2024 00:57:34 08/06/19 25 08/13/2024 CBC (INCL UDES DIFF/ PLT) absolute basophils 34 cells /uL 0-200 normal Not Available [facility] [address], [address], 08/14/2024 00:57:34 08/06/19 25 08/13/2024 CBC (INCL UDES DIFF/ PLT) neutrophils 65.4 % normal Not Available [address], [address], 08/14/2024 00:57:34 08/06/19 25 08/13/2024 CBC (INCL UDES DIFF/ PLT) lymphocytes 27.6 % normal Not Available [facility] [address], [place], [address], 08/14/2024 00:57:34 08/06/1908/13/2024 CBC (INCL UDES DIFF/ PLT) monocytes 5.3 % normal Not Available [facility] [address], [address], 08/14/2024 00:57:34 08/06/1908/13/2024 CBC (INCL UDES DIFF/ PLT) eosinophils 1.4 % normal Not Available [facility] [address], [address], 08/14/2024 00:57:34 08/06/1908/13/2024 CBC (INCL UDES DIFF/ PLT) basophils 0.3 % normal Not Available [address], [address], 08/14/2024 00:57:34 08/06/1908/13/2024 HEPAT ITIS B SURFA CE ANTIG EN W/REF L CONFI RM hepatitis B surface antigen NON-RE ACTIVE non-re active normal For addit ional infor dave batres e refer to http: //[facility] lomeli.que stdia gnost ics.c om/fa q/FAQ (This link is being provi ded for infor nina russ/ educa karen l purpo ses only. ) Not Available [address], [address], 08/14/2024 00:57:35 08/06/1908/13/2024 HEPAT ITIS C AB [...] a test for HCV RNA (test code 94023 ) is sugjaja fowler. For addit ional infor nina n pleas e refer to http: //jc urbinaia diamond ics.c om/fa q/FAQ 22v1 (This link is being provi ded for infor matio nal/ educa karen l purpo ses only. ) Not Available [facility] [address] [address] [place], [address], 08/14/2024 00:57:36 08/06/1908/13/2024 RUBEL LA AB (IGG) [...] with rubel la virus . Not Available [facility] [address] [address] [place], [address], 08/14/2024 00:57:37 08/06/1908/13/2024 HIV 1/2 ANTIG EN/AN [...] nina lomeli pleas e refer to http: //[facility] fields ics.c om/fa q/FAQ 106 (This link is being provi ded for infor matjude nal/ educa karen l purpo ses only. ) The perfo rmanc e of this assay has not been clini doug valid ated in patie nts less than 2 years old. Not Available [facility] [address] [address] [place], [address], 08/14/2024 00:57:37 08/06/1908/13/2024 QNATA L(R) ADVAN FLOR number of fetuses? 1 Not Available [facility] [address] [place], [address], 08/14/2024 00:57:39 08/06/1908/13/2024 QNATA L(R) ADVAN FLOR advanced maternal age? NO Not Available [facility] [address] [address] [place], [address], 08/14/2024 00:57:39 08/06/1908/13/2024 QNATA L(R) ADVAN FLOR abnormal ella? NO Not Available [facility] [address] [address] [place], [address], 08/14/2024 00:57:39 08/06/1908/13/2024 QNATA L(R) ADVAN FLOR abnormal US? NO Not Available [facility] [address] [address] [place], [address], 08/14/2024 00:57:39 08/06/1908/13/2024 QNATA L(R) ADVAN FLOR personal/fam history? NO Not Available [facility] [address] [address] [place], [address], 08/14/2024 00:57:39 08/06/19 25 08/13/2024 QNATA L(R) ADVAN FLOR interpretati on SEE NOTE This speci men showe d an expec joyce repre senta tion of chrom osome 21, 18, and 13 mater ial. See Gregorio mays below . Not Available [address], [address], 08/14/2024 00:57:39 08/06/19 25 08/13/2024 QNATA L(R) ADVAN FLOR trisomy 21 (T21) NEGATI VE Not Available [address], [address], 08/14/2024 00:57:39 08/06/19 25 08/13/2024 QNATA L(R) ADVAN FLOR trisomy 18 (T18) NEGATI VE Not Available [address], [address], 08/14/2024 00:57:39 08/06/19 25 08/13/2024 QNATA L(R) ADVAN FLOR trisomy 13 (T13) NEGATI VE Not Available [address], [address], 08/14/2024 00:57:39 08/06/19 25 08/13/2024 QNATA L(R) ADVAN FLOR Y chromosome NOT DETECT ED Not Available [address], [address], 08/14/2024 00:57:39 08/06/19 25 08/13/2024 QNATA L(R) ADVAN FLOR Y chr. interpretati on SEE NOTE Consi stent with a femal e fetus . Not Available [address], [address], 08/14/2024 00:57:39 08/06/1908/13/2024 QNATA L(R) ADVAN FLOR sex chromosome NO ANEUPL OIDY Not Available [address], [address], 08/14/2024 00:57:39 08/06/1908/13/2024 QNATA L(R) ADVAN FLOR sex chromosome interp SEE NOTE No appar ent abnor malit y was detec joyce. See Limi tatio ns below . Not Available [address], [address], 08/14/2024 00:57:39 08/06/1908/13/2024 QNATA L(R) ADVAN FLOR microdeletio n NOT DETECT ED Not Available [address], [address], 08/14/2024 00:57:39 08/06/1908/13/2024 QNATA L(R) ADVAN FLOR microdeletio n interp SEE NOTE No appar ent abnor malit y was detec joyce. See Limi tatio ns below . Not Available [address], [address], 08/14/2024 00:57:39 08/06/1908/13/2024 QNATA L(R) ADVAN FLOR gestational age(in weeks) 10 Not Available [address], [address], 08/14/2024 00:57:39 08/06/1908/13/2024 QNATA L(R) ADVAN FLOR gestational age (in days) 2 Not Available [address], [address], 08/14/2024 00:57:39 08/06/1908/13/2024 QNATA L(R) ADVAN FLOR fraction 17.15% Not Available [address] [place], [address], 08/14/2024 00:57:39 08/06/1908/13/2024 QNATA L(R) ADVAN FLOR laboratory comments SEE NOTE Labor atory testi ng super vised and resul ts monit ored by Joshua Paniagua, Ph.D. , FACMG , HCLD, CGMB. Not Available [facility] [address] [place], [address], 08/14/2024 00:57:39 08/06/1908/13/2024 QNATA L(R) ADVAN FLOR [...] place ntal in origi n. Not Available [facility] [address] [address], [place], [address], 08/14/2024 00:57:39 08/06/1908/13/2024 QNATA L(R) ADVAN FLOR [...] rahel tical asses sment . Not Available [facility] [address] [place], [address], 08/14/2024 00:57:39 08/06/19 25 08/13/2024 QNATA L(R) [...] been revie wed by FDA. Not Available [facility] [address] [place], [address], 08/14/2024 00:57:39 08/06/1908/13/2024 RPR (DX) W/REF L TITER AND T. PALLI DUM AB, IA RPR (DX) w/refl titer and confirmatory testing NON-RE ACTIVE non-re active normal No labor atory evide nce of syphi lis. If recen t expos ure is suspe cted, submi t a new sampl e in 2-4 weeks . Not Available [address] [place], [address], 08/14/2024 00:57:40 08/06/1908/13/2024 ANTIB VERONICA SCREE N, [...] alloi mmuni zed pregn gila. Not Available [facility] [address] [address] [place], [address], 08/14/2024 00:57:41 08/06/1908/13/2024 ABO GROUP AND RH TYPE ABO group A Not Available [facility] [address] [address] [place], [address], 08/14/2024 00:57:42 08/06/1908/13/2024 ABO GROUP AND RH TYPE Rh type RH(D) POSITI VE For addit ional infor dave batres e refer to http: //jc sanabriaQue stDia gnost ics.c om/fa q/FAQ 111 (This link is being provi ded for infor nina russ/ educa karen l purpo ses only. ) Not Available [facility] [address] [address] [place], [address], 08/14/2024 00:57:42 08/06/1908/13/2024 DRUG MONIT OR, PANEL 1, SCREE N, URINE amphetamines NEGATI VE NG/mL <500 See Note A See Note A Not Available [facility] [address] [address] [address], [place], [address], 08/14/2024 00:57:42 08/06/1908/13/2024 DRUG MONIT OR, PANEL 1, SCREE N, URINE barbiturates NEGATI VE NG/mL <300 See Note A See Note A Not Available [facility] [address] [address] [address], [place], [address], 08/14/2024 00:57:42 08/06/1908/13/2024 DRUG MONIT OR, PANEL 1, SCREE N, URINE benzodiazepi karan NEGATI VE NG/mL <100 See Note A See Note A Not Available [facility] [address] [address] [address], [place], [address], 08/14/2024 00:57:42 08/06/1908/13/2024 DRUG MONIT OR, PANEL 1, SCREE N, URINE cocaine metabolite NEGATI VE NG/mL <150 See Note A See Note A Not Available [facility] [address] [address] [address], [place], [address], 08/14/2024 00:57:42 08/06/1908/13/2024 DRUG MONIT OR, PANEL 1, SCREE N, URINE marijuana metabolite POSITI VE NG/mL <20 abnormal See Note A See Note A Not Available [facility] [address] [address] [address], [place], [address], 08/14/2024 00:57:42 08/06/1908/13/2024 DRUG MONIT OR, PANEL 1, SCREE N, URINE methadone metabolite NEGATI VE NG/mL <100 See Note A See Note A Not Available [facility] [address] [address] [address], [place], [address], 08/14/2024 00:57:42 08/06/1908/13/2024 DRUG MONIT OR, PANEL 1, SCREE N, URINE opiates NEGATI VE NG/mL <100 See Note A See Note A Not Available [address] [address] [address], [place], [address], 08/14/2024 00:57:42 08/06/1908/13/2024 DRUG MONIT OR, PANEL 1, SCREE N, URINE oxycodone NEGATI VE NG/mL <100 See Note A See Note A Not Available [address] [address] [address], [place], [address], 08/14/2024 00:57:42 08/06/1908/13/2024 DRUG MONIT OR, PANEL 1, SCREE N, URINE phencyclidin e NEGATI VE NG/mL <25 See Note A See Note A Not Available [address] [address] [address], [place], [address], 08/14/2024 00:57:42 08/06/1908/13/2024 DRUG MONIT OR, PANEL 1, SCREE N, URINE creatinine 186.9 mg/dL > or = 20.0 Not Available [address] [address] [address] , [place], [address], 08/14/2024 00:57:42 08/06/1908/13/2024 DRUG MONIT OR, PANEL 1, SCREE N, URINE pH 7.5 4.5-9. 0 Not Available [address] [address] [address] , [place], [address], 08/14/2024 00:57:42 08/06/1908/13/2024 DRUG MONIT OR, PANEL 1, SCREE N, URINE oxidant NEGATI VE mcg/m L <200 Not Available [address] [address] [address], [place], [address], 08/14/2024 00:57:42 08/06/1908/13/2024 DRUG MONIT ORING TEMPL ATE notes and comments This drug testi ng is for medic al treat ment only. Rahel sis was perfo rmed as non-f orens ic testi ng and these resul ts shoul d be used only by [facility] provi ders to rende r diagn osis or treat ment, or to monit or progr ess of medic al condi tions . Note A: The resul ts are presu mptiv e; based only on stacye jett velazquez ds, and they have not been confi rmed by a defin itive metho d. [facility] Provi ders needi ng Inter preta tion rita tance , pleas e conta ct us at 1.877 .40.R XTOX (1.87 7.407 .9869 ) M-F, 8am to 10pm EST Not Available [address] [address] [place], [address], 08/14/2024 00:57:44 08/06/1908/13/2024 CULTU RE, URINE , ROUTI NE culture, urine, routine SEE NOTE CULTU RE, URINE , ROUTI NE Micro Numbe r: [id number] Test Statu s: Final Speci men [...] Trans port Tube. Not Available [address] [address] [place], [address], 08/14/2024 00:57:44 08/07/1908/08/2024 SURES WAB(R ) ADVAN FLOR VAGIN ITIS PLUS, TMA sureswab(R) adv bacterial vaginosis (bv), tma NEGATI VE negati ve normal Not Available [facility] [place] [address] [place] [address], [address], 08/08/2024 18:38:48 08/07/19 25 08/08/2024 SURES WAB(R ) ADVAN FLOR VAGIN ITIS PLUS, TMA karly species NOT DETECT ED not detect ed normal Not Available [facility] [address], [address], 08/08/2024 18:38:48 08/07/19 25 08/08/2024 SURES WAB(R [...] resul t. Not Available [facility] [address], [address], 08/08/2024 18:38:48 08/07/19 25 08/08/2024 SURES WAB(R ) ADVAN FLOR VAGIN ITIS PLUS, TMA trichomonas vaginalis (TV), tma NOT DETECT ED not detect ed normal Not Available [facility] [address], [address], 08/08/2024 18:38:48 08/07/19 25 08/08/2024 SURES WAB(R ) ADVAN FLOR VAGIN ITIS PLUS, TMA chlamydia trachomatis RNA, tma, urogenital NOT DETECT ED not detect ed normal Not Available [facility] [address], [address], 08/08/2024 18:38:48 08/07/19 25 08/08/2024 SURES WAB(R ) ADVAN FLOR VAGIN ITIS PLUS, TMA neisseria gonorrhoeae RNA, tma, urogenital NOT DETECT ED not detect ed normal For addit ional infor dave batres e refer to https ://ed ucati on.qu estdi agnos tics. com/f aq/FA Q154 (This link is being provi ded for infor nina n/ vincenzo fall purpo ses only. ) Not Available [facility] [address] [address] , [place], [address], 08/08/2024 18:38:48 12/03/19 25 12/02/2024 CBC WBC 8.8 x10 4.0-10 .5 Not Available [facility] [address] [facility] [address], [place], [address], 12/02/2024 11:47:45 12/03/19 25 12/02/2024 CBC RBC 3.66 x10 3.50-5 .50 Not Available [facility] [address] [facility], [place], [address], 12/02/2024 11:47:45 12/03/19 25 12/02/2024 CBC HGB 11.1 g/dL 12.0-1 6.0 low Not Available [facility] [address] [facility] [address] [facility] [address], [place], [address], 12/02/2024 11:47:45 12/03/19 25 12/02/2024 CBC HCT 32.9 % 37.0-4 7.0 low Not Available [facility] [address] [facility] [address] [facility] [address], [place], [address], 12/02/2024 11:47:45 12/03/19 25 12/02/2024 CBC MCV 89.8 fL 80.0-9 9.9 Not Available [facility] [address] [facility] [address] [facility], [place], [address], 12/02/2024 11:47:45 12/03/19 25 12/02/2024 CBC MCH 30.4 pg 27.0-3 2.0 Not Available [facility] [address] [facility] [address], [place], [address], 12/02/2024 11:47:45 12/03/19 25 12/02/2024 CBC MCHC 33.8 g/dL 32.0-3 6.0 Not Available [facility] [address] [facility] [address], [place], [address], 12/02/2024 11:47:45 12/03/19 25 12/02/2024 CBC RDW 13.7 % 11.5-1 4.5 Not Available [facility] [address] [facility] [address] [facility] [address], [place], [address], 12/02/2024 11:47:45 12/03/19 25 12/02/2024 CBC plt 330.0 x10 140.0- 451.0 Not Available [facility] [address] [place] [facility], [place], [address], 12/02/2024 11:47:45 12/03/19 25 12/02/2024 CBC lymphocytes % 50.1 % 20.0-5 0.0 high Not Available [facility] [address] [place] [facility] [address], [place], [address], 12/02/2024 11:47:45 12/03/19 25 12/02/2024 CBC granulcytes % 41.8 % 30.0-7 0.0 Not Available [facility] [address] [place] [facility] [address], [place], [address], 12/02/2024 11:47:45 12/03/19 25 12/02/2024 CBC monocytes % 7.3 % 2.0-16 .0 Not Available [facility] [address] [facility] [facility] [address], [place], [address], 12/02/2024 11:47:45 12/03/19 25 12/02/2024 CBC granulcytes# 3.7 x10 Not Esthela ilable [facility] [address] [facility] 1, [place], [address], 12/02/2024 11:47:45 12/03/19 25 12/02/2024 CBC lymphocytes # 4.4 x10 Not Available [facility] [address] [facility] [address], [place], [address], 12/02/2024 11:47:45 12/03/19 25 12/02/2024 CBC monocytes # 0.6 x10 Not Avai lable [facility] [address] [facility] [address], [place], [address], 12/02/2024 11:47:45 12/03/19 25 12/02/2024 GLUCO SE SCREE N glucose screen 111.0 mg/dL Not Available [facility] [address] [facility] [address], [place], [address], 12/02/2024 12:07:41 01/28/20 25 01/30/2025 STREP TOCOC CUS, GROUP B CULTU RE streptococcu s, group B culture SEE NOTE STREP TOCOC CUS, GROUP B CULTU RE Micro Numbe r: [id number] Test Statu s: Final Speci men Sourc e: Vagin al/an orect al Speci men Quali ty: Adequ ate Resul t: No group B Strep tococ cus isola joyce Note per CDC guide lines optim al recov candace is achie simon by swabb ing both the lower vagin a and rectu m (thro ugh the anal sphin cter) . Not Available [facility] [address], [place], [address], 01/30/2025 09:33:23 07/23/19 25 07/22/2024 US, obste tric, 1st trime ster No observ ation record ed. [email or web address] Not Available 07/25 16:33:11 10/16/19 25 10/14/2024 US, obste tric, mater nal evalu ation + anato my No observ ation record ed. [email or web address] [facility] ([facility]) [address] [place], [address], 10/15/2024 12:31:45 02/10/20 25 02/09/2025 lab* No observ ation record ed. [email or web address] [facility] [address] [place], [address], 02/11/2025 14:01:59 02/12/20 25 02/04/2025 US, obste tric, follo w-up No observ ation record ed. [email or web address] [facility] ([facility]) [address] [place], [address], 02/11/2025 14:29:29 Result Notes None recorded. Problems Name Problem SNOMED Code Status Onset Date Resolution Date Notes Provider Name and Address Organization Details Recorded Time Irregular periods 61809119 Active 2022 BRADLEY teague [facility] 5 15:06:25 [id number] Completed 202403/03/2025 PAUL MONZON [facility] 11:18:12 Mixed anxiety and depressive disorder 456675018 Active 2024 PAUL teague [facility] 5 09:56:54 Problem Notes None recorded. Procedures Surgical History Date Name Laterality Status Provider Name and Address Organization Details Recorded Time section completed PAUL MONZON [facility] 03/03/2025 11:20:58 open reduction of fracture of radius and ulna completed PAUL MONZON [facility] 07/02/2024 09:55:43 Imaging Results None [...] Details Last Updated DateTime 5 170.18 cm 35.1 kg/m2 957121. 69 g 98.1 [degF] 99 % 103 /min 118/70 mm[Hg] PAUL MONZON [facility] 5 13:57:00 Social History None recorded. Functional Status None recorded. Mental Status None recorded. Family History Relationship Description Onset Age of this Age Resolved Age Notes LastModified by Organization Details LastModified Time Mother Diabetes mellitus [email or web address] Not available 06/13 09:52:41 Mother Hypertensive disorder [email or web address] Not available 06/13 09:52:51 Sister Gestational diabetes mellitus [email or web address] Not available 06/13 09:53:03 Medical History Condition Response Coronary Artery Disease N Other N Gout N Kidney Stones N Blood Diseases N Hyperthyroidism N Breast Cancer N Blood Transfusion N Depression Y COPD N Lung Disease N Hypothyroidism N Developmental or Behavioral Disorders N Defects or Inherited Disease N Breast Problem N Difficulty Swallowing N Anesthesia Complications N Meniere's disease N Anxiety Disorder Y Muscle, Joint, or Bone Problems N Vision or Eye Problems N Arthritis N Polyps N Infertility N Cancer N Varicosities N Stroke N Endometriosis N Bladder or Kidney Problems N High Cholesterol N Liver Disease N Headaches N Fibromyalgia N Kidney Disease N Allergies/Hayfever N Heart [...] Recorded Time HPV9 8 completed Gunjan teague [facility] 02/03/2023 13:00:05 HPV9 7 completed Gunjan teague [facility] 02/03/2023 13:00:05 IPV 5 completed Gunjan teague [facility] 02/03/2023 13:00:05 IPV 4 completed Gunjan teague [facility] 02/03/2023 13:00:05 IPV 9 completed Gunjan teague [facility] 02/03/2023 13:00:05 IPV 4 sacha teague [facility] 02/03/2023 13:00:05 MMR 5 completed Gunjan Mirella null, [facility] 02/03/2023 13:00:05 MMR 9 completed Gunjan Mirella null, [facility] 02/03/2023 13:00:05 pneumococcal conjugate PCV 7 5 completed Gunjan Mirella null, [facility] 02/03/2023 13:00:05 pneumococcal conjugate PCV 7 4 completed Gunjan Vu null, [facility] 02/03/2023 13:00:05 pneumococcal conjugate PCV 7 4 completed Gunjan teague, [facility] 02/03/2023 13:00:06 Tdap 7 completed Gunjan Mirella null, [facility] 02/03/2023 13:00:06 varicella 5 completed Gunjan teague, [facility] 02/03/2023 13:00:06 varicella 9 completed Gunjan teague, [facility] 02/03/2023 13:00:06 Hep B, adolescent or pediatric 5 completed Gunjan Mirella null, [facility] 02/03/2023 13:00:06 Hep B, adolescent or pediatric 4 completed Gunjan Vu null, [facility] 02/03/2023 13:00:06 Hep B, adolescent or pediatric 4 completed Gunjan teague, [facility] 02/03/2023 13:00:06 Hep A, ped/adol, 2 dose 8 completed Gunjan Mirella null, [facility] 02/03/2023 13:00:06 Hep A, ped/adol, 2 dose 7 completed Gunjan Mirella null, [facility] 02/03/2023 13:00:06 Hib (PRP-T) 5 completed Gunjan Mirella null, [facility] 02/03/2023 13:00:06 Hib (PRP-T) 4 completed Gunjan Mirella null, [facility] 02/03/2023 13:00:06 Hib (PRP-T) 4 completed Gunjan Mirella null, [facility] 02/03/2023 13:00:06 meningococcal MCV4P 7 completed Gunjan Mirella null, [facility] 02/03/2023 13:00:06 DTaP 5 completed Gunjan Mirella null, [facility] 02/03/2023 13:00:06 DTaP 4 completed Gunjan Mirella null, [facility] 02/03/2023 13:00:06 DTaP 9 completed Gunjan Mirella null, [facility] 02/03/2023 13:00:06 DTaP 4 completed Gunjan Mirella null, [facility] 02/03/2023 13:00:06 meningococcal conjugate quadrivalent, MenACWY-TT (MCV4) 3 completed Not Available [facility] 04/28/2025 16:52:51 meningococcal B, OMV 3 completed Not Available [facility] 04/28/2025 16:52:51 meningococcal B, OMV 4 completed Not Available [facility] 04/28/2025 16:52:51 RSV, bivalent, protein subunit RSVpreF, diluent reconstituted, 0.5 mL, PF 5 completed Not Available [facility] 04/28/2025 16:52:51 Tdap 5 completed Not Available [facility] 04/28/2025 16:52:51 Past Encounters Encounter ID Performer Location Encounter Start Date Encounter Closed Date Diagnosis/Indication Diagnosis SNOMED-CT Code Diagnosis ICD10 Code Diagnosis IMO Codes Diagnosis Note [id number] Charlene Murray MD [facility] ([facility]) [address] [place] [address] [phone] 5 01/13/2025 11:52:37 01/13/2025 14:19:23 Gestation period, 33 weeks 54395265 Z3A.33 [id number] Multigravida 437477231 Z 34.83 [id number] Charlene Murray MD [facility] ([facility]) [address] [place] [address] [phone] 01/27/2025 10:53:40 01/28/2025 10:38:27 Gestation period, 35 weeks 56155391 Z3A.35 3652231 Multigravida 808909360 Z 34.83 41639400 Fundal hei ght high for dates 769434926 Z34.90 [id number] Charlene Murray MD [facility] ([facility]) [address] [place] [address] [phone] 5 02/04/2025 11:45:55 02/04/2025 13:19:34 [id number] Charlene Murray MD [facility]) [address] [place] [address] [phone] 02/06/2025 13:49:17 02/11/2025 16:26:33 Gestation period, 36 weeks 91227335 Z3A.36 4893487 Multigravida 912524262 Z 34.83 [id number] Health Concerns Section Related Observation LastModified by Organization Detai ls LastModified Time None Recorded Concern Status LastModified by Organization Details LastModified Time None Recorded Payers Encounter Date Sequence Insurance Name Policy Number Policy Eason Covered Member ID Eason Member ID Guarantor Name 02/06/2025 1 [facility] (MEDICAID REPLACEMENT - HMO) JESSICAGERALDINE Humphrey Alvarenga [id number] Humphrey Alvarenga Notes Date Note Type Note Provider Name and Address Organization Details Recorded Time 02/06/2025 text/html jr ob routineRep orted by PatientHPIFor associated symptoms, patient reportsheadachebut reportsno abdominal pain,no cramping,no contractions,normal movement,no bleeding,no nausea,no emesis,no edema, andno dizziness.ROS as noted in the HPI Charlene Murray MD [address] [place] [address], [phone], [facility] 02/06/2025 14:22:52 OBGyn Episode Ob Episode Information Episode Created Date Number of Fetuses Patient Bloodtype Patient rh Status Prepregnancy Weight lbs Domestic Partner Domestic Partner Phone Father Name [employer] Architect Status 07/02/19 25 1 A Positive Leroy [...] Weight in lbs Pre/Post Dialysis Refused Weight 194.560151268029 BP Diastolic BP Location Tested BP Systolic [...] in lbs Pre/Post Dialysis Refused With clothes 191.342982019725 BP Diastolic BP Location Tested BP Systolic BP Type 76 L arm 118 sitting Fetus Heart Rate Present Fetus Movement Comments Flowsheet Date 09/02/2024 Blank Score Blood Edema Fundus Height Fundus Units Glucose Ketones Leukocytes Nitrite Labor Signs Protein Cervic Dilation Cervic Effacement Cervic Station none trace trace Type Weight in lbs Pre/Post Dialysis Refused Weight 192.665769142464 BP Diastolic BP Location Tested BP Systolic [...] Weight in lbs Pre/Post Dialysis Refused Weight 196.130569077566 BP Diastolic BP Location Tested BP Systolic [...] Weight in lbs Pre/Post Dialysis Refused Weight 202.438830292380 BP Diastolic BP Location Tested BP Systolic [...] in lbs Pre/Post Dialysis Refused With clothes 208.637990309921 BP Diastolic BP Location Tested BP Systolic [...] Weight in lbs Pre/Post Dialysis Refused Weight 212.000955896870 BP Diastolic BP Location Tested BP Systolic [...] Weight in lbs Pre/Post Dialysis Refused Weight 216.718703864258 BP Diastolic BP Location Tested BP Systolic [...] Weight in lbs Pre/Post Dialysis Refused Weight 219.008675789801 BP Diastolic BP Location Tested BP Systolic [...] Weight in lbs Pre/Post Dialysis Refused Weight 224.709943244908 BP Diastolic BP Location Tested BP Systolic [...] Weight in lbs Pre/Post Dialysis Refused Weight 228.903860203554 BP Diastolic BP Location Tested BP Systolic [...] in lbs Pre/Post Dialysis Refused With clothes 219.203183230350 BP Diastolic BP Location Tested BP Systolic [...] Weight in lbs Pre/Post Dialysis Refused Weight 203.881922348698 BP Diastolic BP Location Tested BP Systolic BP Type 83 130 Fetus Heart Rate Present Fetus Movement Comments Menstrual History Last Menstrual Date Menses Monthly On Bcp Conception Prior Menses Frequency Hcg Plus Date Menarche Onset Age 1205/26/2024 false Genetic Screening And Infection History Question Response Note Patient's Age Will Be 35 Yea rs Or Older At Estimated Date of Delivery false Thalassemia (Estonian, Lao, Mediterranean, Or Background): MCV < 80 false Neural Tube Defect (Meningom yelocele, Spina Bifida, Or Anencephaly) false Congenital Heart Defect false Down Syndrome false Lyndon-Sachs (eg, Yazidism, Cajun, Irish-[place]) f alse Andrei Disease false Sickle Cell Disease Or Trait () false Hemophilia Or Other Blood Disorders false Muscular Dystrophy false Cystic Fibrosis false Spencer's Chorea false Intellectual Disability/Autism false If Yes, [...]
--- OUTSIDE RECORDS SUMMARY | 2025-05-04 05:13 | XMS_ITS | Continuity of Care Document ---
Author Organization DANTE Manish Cadena [facility] Stephanie, LNgozi, [facility] (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) [address] [place], [address], 07/02/2024 09:58:16 08/06/19 25 08/13/2024 URINA LYSIS , COMPL ETE color YELLOW yellow normal Not Available [facility] [address] [address] [place], [address], 08/14/2024 00:57:32 08/06/19 25 08/13/2024 URINA LYSIS , COMPL ETE appearance TURBID clear abnormal Not Available [facility] [address] [address] [place], [address], 08/14/2024 00:57:32 08/06/19 25 08/13/2024 URINA LYSIS , COMPL ETE specific gravity 1.027 1.001- 1.035 normal Not Available [address], [address], 08/14/2024 00:57:32 08/06/1908/13/2024 URINA LYSIS , COMPL ETE pH 7.5 5.0-8. 0 normal Not Available [address], [address], 08/14/2024 00:57:32 08/06/1908/13/2024 URINA LYSIS , COMPL ETE glucose NEGATI VE negati ve normal Not Available [address], [address], 08/14/2024 00:57:32 08/06/1908/13/2024 URINA LYSIS , COMPL ETE bilirubin NEGATI VE negati ve normal Not Available [address], [address], 08/14/2024 00:57:32 08/06/1908/13/2024 URINA LYSIS , COMPL ETE ketones 1+ negati ve abnormal Not Available [address], [address], 08/14/2024 00:57:32 08/06/1908/13/2024 URINA LYSIS , COMPL ETE occult blood NEGATI VE negati ve normal Not Available [address], [address], 08/14/2024 00:57:32 08/06/1908/13/2024 URINA LYSIS , COMPL ETE protein TRACE negati ve abnormal Not Available [address], [address], 08/14/2024 00:57:32 08/06/1908/13/2024 URINA LYSIS , COMPL ETE nitrite NEGATI VE negati ve normal Not Available [address], [address], 08/14/2024 00:57:32 08/06/1908/13/2024 URINA LYSIS , COMPL ETE leukocyte esterase NEGATI VE negati ve normal Not Available [address], [address], 08/14/2024 00:57:32 08/06/1908/13/2024 URINA LYSIS , COMPL ETE WBC 0-5 /hpf < or = 5 normal Not Available [address], [address], 08/14/2024 00:57:32 08/06/1908/13/2024 URINA LYSIS , COMPL ETE RBC 0-2 /hpf < or = 2 normal Not Available [address], [address], 08/14/2024 00:57:32 08/06/19 25 08/13/2024 URINA LYSIS , COMPL ETE squamous epithelial cells 10-20 /hpf < or = 5 abnormal Not Available [address], [address], 08/14/2024 00:57:32 08/06/1908/13/2024 URINA LYSIS , COMPL ETE bacteria MANY /hpf none seen abnormal Not Available [address], [address], 08/14/2024 00:57:32 08/06/1908/13/2024 URINA LYSIS , COMPL ETE calcium oxalate crystals MANY /hpf none or few abnormal Not Available [address], [address], 08/14/2024 00:57:32 08/06/19 25 08/13/2024 URINA LYSIS , COMPL ETE hyaline cast NONE SEEN /lpf none seen normal Not Available [facility] [address], [address], 08/14/2024 00:57:32 08/06/1908/13/2024 URINA LYSIS , COMPL ETE note This urine was rahel zed for the prese nce of WBC, RBC, bacte hailee, casts , and other forme d eleme nts. Only those eleme nts seen were repor joyce. Not Available [facility] [address], [address], 08/14/2024 00:57:32 08/06/1908/13/2024 CBC (INCL UDES DIFF/ PLT) white blood cell count 11.2 thous and/u L 3.8-10 .8 high Not Available [facility] [address], [address], 08/14/2024 00:57:34 08/06/19 25 08/13/2024 CBC (INCL UDES DIFF/ PLT) red blood cell count 4.52 juan francisco on/uL 3.80-5 .10 normal Not Available [facility] [address], [address], 08/14/2024 00:57:34 08/06/19 25 08/13/2024 CBC (INCL UDES DIFF/ PLT) hemoglobin 13.2 g/dL 11.7-1 5.5 normal Not Available [facility] [address], [address], 08/14/2024 00:57:34 08/06/1908/13/2024 CBC (INCL UDES DIFF/ PLT) hematocrit 40.5 % 35.0-4 5.0 normal Not Available [facility] [address], [address], 08/14/2024 00:57:34 08/06/19 25 08/13/2024 CBC (INCL UDES DIFF/ PLT) MCV 89.6 fL 80.0-1 00.0 normal Not Available [facility] [address], [address], 08/14/2024 00:57:34 08/06/1908/13/2024 CBC (INCL UDES DIFF/ PLT) MCH 29.2 pg 27.0-3 3.0 normal Not Available [facility] [address], [address], 08/14/2024 00:57:34 08/06/1908/13/2024 CBC (INCL UDES DIFF/ PLT) MCHC 32.6 g/dL 32.0-3 6.0 normal For adult s, a sligh t decre ase in the calcu lated MCHC value (in the range of 30 to 32 g/dL) is most likel y not clini doug signi fican t; feli er, it shoul d be inter prete d with cauti on in [facility] n with other red cell akash eters and the patie nt's clini flakita condi tion. Not Available [facility] [address], [address], 08/14/2024 00:57:34 08/06/1908/13/2024 CBC (INCL UDES DIFF/ PLT) RDW 12.6 % 11.0-1 5.0 normal Not Available [facility] [address], [address], 08/14/2024 00:57:34 08/06/1908/13/2024 CBC (INCL UDES DIFF/ PLT) platelet count 447 thous and/u L 140-40 0 high Not Available [facility] [address], [address], 08/14/2024 00:57:34 08/06/1908/13/2024 CBC (INCL UDES DIFF/ PLT) MPV 9.8 fL 7.5-12 .5 normal Not Available [facility] [address], [address], 08/14/2024 00:57:34 08/06/19 25 08/13/2024 CBC (INCL UDES DIFF/ PLT) absolute neutrophils 7325 cells /uL 1500-7 800 normal Not Available [address], [address], 08/14/2024 00:57:34 08/06/19 25 08/13/2024 CBC (INCL UDES DIFF/ PLT) absolute lymphocytes 3091 cells /uL 850-39 00 normal Not Available [facility] [address], [address], 08/14/2024 00:57:34 08/06/1908/13/2024 CBC (INCL UDES DIFF/ PLT) absolute monocytes 594 cells /uL 200-95 0 normal Not Available [facility] [address], [address], 08/14/2024 00:57:34 08/06/19 25 08/13/2024 CBC (INCL UDES DIFF/ PLT) absolute eosinophils 157 cells /uL 15-500 normal Not Available [address], [address], 08/14/2024 00:57:34 08/06/19 25 08/13/2024 CBC (INCL UDES DIFF/ PLT) absolute basophils 34 cells /uL 0-200 normal Not Available [facility] [address], [address], 08/14/2024 00:57:34 08/06/19 25 08/13/2024 CBC (INCL UDES DIFF/ PLT) neutrophils 65.4 % normal Not Available [address], [address], 08/14/2024 00:57:34 08/06/19 25 08/13/2024 CBC (INCL UDES DIFF/ PLT) lymphocytes 27.6 % normal Not Available [facility] [address], [place], [address], 08/14/2024 00:57:34 08/06/1908/13/2024 CBC (INCL UDES DIFF/ PLT) monocytes 5.3 % normal Not Available [facility] [address], [address], 08/14/2024 00:57:34 08/06/1908/13/2024 CBC (INCL UDES DIFF/ PLT) eosinophils 1.4 % normal Not Available [facility] [address], [address], 08/14/2024 00:57:34 08/06/1908/13/2024 CBC (INCL UDES DIFF/ PLT) basophils 0.3 % normal Not Available [address], [address], 08/14/2024 00:57:34 08/06/1908/13/2024 HEPAT ITIS B SURFA CE ANTIG EN W/REF L CONFI RM hepatitis B surface antigen NON-RE ACTIVE non-re active normal For addit ional infor dave batres e refer to http: //[facility] lomeli.que stdia gnost ics.c om/fa q/FAQ (This link is being provi ded for infor nina russ/ educa karen l purpo ses only. ) Not Available [address], [address], 08/14/2024 00:57:35 08/06/1908/13/2024 HEPAT ITIS C AB [...] a test for HCV RNA (test code 93004 ) is sugjaja fowler. For addit ional infor nina n pleas e refer to http: //cj urbinaia diamond ics.c om/fa q/FAQ 22v1 (This link is being provi ded for infor matio nal/ educa karen l purpo ses only. ) Not Available [facility] [address] [address] [place], [address], 08/14/2024 00:57:36 08/06/1908/13/2024 RUBEL LA AB (IGG) [...] with rubel la virus . Not Available [facility] [address] [address] [place], [address], 08/14/2024 00:57:37 08/06/1908/13/2024 HIV 1/2 ANTIG EN/AN [...] nina lomeli pleas e refer to http: //[facility] fields ics.c om/fa q/FAQ 106 (This link is being provi ded for infor matjude nal/ educa karen l purpo ses only. ) The perfo rmanc e of this assay has not been clini doug valid ated in patie nts less than 2 years old. Not Available [facility] [address] [address] [place], [address], 08/14/2024 00:57:37 08/06/1908/13/2024 QNATA L(R) ADVAN FLOR number of fetuses? 1 Not Available [facility] [address] [place], [address], 08/14/2024 00:57:39 08/06/1908/13/2024 QNATA L(R) ADVAN FLOR advanced maternal age? NO Not Available [facility] [address] [address] [place], [address], 08/14/2024 00:57:39 08/06/1908/13/2024 QNATA L(R) ADVAN FLOR abnormal ella? NO Not Available [facility] [address] [address] [place], [address], 08/14/2024 00:57:39 08/06/1908/13/2024 QNATA L(R) ADVAN FLOR abnormal US? NO Not Available [facility] [address] [address] [place], [address], 08/14/2024 00:57:39 08/06/1908/13/2024 QNATA L(R) ADVAN FLOR personal/fam history? NO Not Available [facility] [address] [address] [place], [address], 08/14/2024 00:57:39 08/06/19 25 08/13/2024 QNATA L(R) ADVAN FLOR interpretati on SEE NOTE This speci men showe d an expec joyce repre senta tion of chrom osome 21, 18, and 13 mater ial. See Gregorio mays below . Not Available [address], [address], 08/14/2024 00:57:39 08/06/19 25 08/13/2024 QNATA L(R) ADVAN FLOR trisomy 21 (T21) NEGATI VE Not Available [address], [address], 08/14/2024 00:57:39 08/06/19 25 08/13/2024 QNATA L(R) ADVAN FLOR trisomy 18 (T18) NEGATI VE Not Available [address], [address], 08/14/2024 00:57:39 08/06/19 25 08/13/2024 QNATA L(R) ADVAN FLOR trisomy 13 (T13) NEGATI VE Not Available [address], [address], 08/14/2024 00:57:39 08/06/19 25 08/13/2024 QNATA L(R) ADVAN FLOR Y chromosome NOT DETECT ED Not Available [address], [address], 08/14/2024 00:57:39 08/06/19 25 08/13/2024 QNATA L(R) ADVAN FLOR Y chr. interpretati on SEE NOTE Consi stent with a femal e fetus . Not Available [address], [address], 08/14/2024 00:57:39 08/06/1908/13/2024 QNATA L(R) ADVAN FLOR sex chromosome NO ANEUPL OIDY Not Available [address], [address], 08/14/2024 00:57:39 08/06/1908/13/2024 QNATA L(R) ADVAN FLOR sex chromosome interp SEE NOTE No appar ent abnor malit y was detec joyce. See Limi tatio ns below . Not Available [address], [address], 08/14/2024 00:57:39 08/06/1908/13/2024 QNATA L(R) ADVAN FLOR microdeletio n NOT DETECT ED Not Available [address], [address], 08/14/2024 00:57:39 08/06/1908/13/2024 QNATA L(R) ADVAN FLOR microdeletio n interp SEE NOTE No appar ent abnor malit y was detec joyce. See Limi tatio ns below . Not Available [address], [address], 08/14/2024 00:57:39 08/06/1908/13/2024 QNATA L(R) ADVAN FLOR gestational age(in weeks) 10 Not Available [address], [address], 08/14/2024 00:57:39 08/06/1908/13/2024 QNATA L(R) ADVAN FLOR gestational age (in days) 2 Not Available [address], [address], 08/14/2024 00:57:39 08/06/1908/13/2024 QNATA L(R) ADVAN FLOR fraction 17.15% Not Available [address] [place], [address], 08/14/2024 00:57:39 08/06/1908/13/2024 QNATA L(R) ADVAN FLOR laboratory comments SEE NOTE Labor atory testi ng super vised and resul ts monit ored by Joshua Paniagua, Ph.D. , FACMG , HCLD, CGMB. Not Available [facility] [address] [place], [address], 08/14/2024 00:57:39 08/06/1908/13/2024 QNATA L(R) ADVAN FLOR [...] place ntal in origi n. Not Available [facility] [address] [address], [place], [address], 08/14/2024 00:57:39 08/06/1908/13/2024 QNATA L(R) ADVAN FLOR [...] rahel tical asses sment . Not Available [facility] [address] [place], [address], 08/14/2024 00:57:39 08/06/19 25 08/13/2024 QNATA L(R) [...] been revie wed by FDA. Not Available [facility] [address] [place], [address], 08/14/2024 00:57:39 08/06/1908/13/2024 RPR (DX) W/REF L TITER AND T. PALLI DUM AB, IA RPR (DX) w/refl titer and confirmatory testing NON-RE ACTIVE non-re active normal No labor atory evide nce of syphi lis. If recen t expos ure is suspe cted, submi t a new sampl e in 2-4 weeks . Not Available [address] [place], [address], 08/14/2024 00:57:40 08/06/1908/13/2024 ANTIB VERONICA SCREE N, [...] alloi mmuni zed pregn gila. Not Available [facility] [address] [address] [place], [address], 08/14/2024 00:57:41 08/06/1908/13/2024 ABO GROUP AND RH TYPE ABO group A Not Available [facility] [address] [address] [place], [address], 08/14/2024 00:57:42 08/06/1908/13/2024 ABO GROUP AND RH TYPE Rh type RH(D) POSITI VE For addit ional infor dave batres e refer to http: //jc sanabriaQue stDia gnost ics.c om/fa q/FAQ 111 (This link is being provi ded for infor nina russ/ educa karen l purpo ses only. ) Not Available [facility] [address] [address] [place], [address], 08/14/2024 00:57:42 08/06/1908/13/2024 DRUG MONIT OR, PANEL 1, SCREE N, URINE amphetamines NEGATI VE NG/mL <500 See Note A See Note A Not Available [facility] [address] [address] [address], [place], [address], 08/14/2024 00:57:42 08/06/1908/13/2024 DRUG MONIT OR, PANEL 1, SCREE N, URINE barbiturates NEGATI VE NG/mL <300 See Note A See Note A Not Available [facility] [address] [address] [address], [place], [address], 08/14/2024 00:57:42 08/06/1908/13/2024 DRUG MONIT OR, PANEL 1, SCREE N, URINE benzodiazepi karan NEGATI VE NG/mL <100 See Note A See Note A Not Available [facility] [address] [address] [address], [place], [address], 08/14/2024 00:57:42 08/06/1908/13/2024 DRUG MONIT OR, PANEL 1, SCREE N, URINE cocaine metabolite NEGATI VE NG/mL <150 See Note A See Note A Not Available [facility] [address] [address] [address], [place], [address], 08/14/2024 00:57:42 08/06/1908/13/2024 DRUG MONIT OR, PANEL 1, SCREE N, URINE marijuana metabolite POSITI VE NG/mL <20 abnormal See Note A See Note A Not Available [facility] [address] [address] [address], [place], [address], 08/14/2024 00:57:42 08/06/1908/13/2024 DRUG MONIT OR, PANEL 1, SCREE N, URINE methadone metabolite NEGATI VE NG/mL <100 See Note A See Note A Not Available [facility] [address] [address] [address], [place], [address], 08/14/2024 00:57:42 08/06/1908/13/2024 DRUG MONIT OR, PANEL 1, SCREE N, URINE opiates NEGATI VE NG/mL <100 See Note A See Note A Not Available [address] [address] [address], [place], [address], 08/14/2024 00:57:42 08/06/1908/13/2024 DRUG MONIT OR, PANEL 1, SCREE N, URINE oxycodone NEGATI VE NG/mL <100 See Note A See Note A Not Available [address] [address] [address], [place], [address], 08/14/2024 00:57:42 08/06/1908/13/2024 DRUG MONIT OR, PANEL 1, SCREE N, URINE phencyclidin e NEGATI VE NG/mL <25 See Note A See Note A Not Available [address] [address], [place], [address], 08/14/2024 00:57:42 08/06/1908/13/2024 DRUG MONIT OR, PANEL 1, SCREE N, URINE creatinine 186.9 mg/dL > or = 20.0 Not Available [address] [address] , [place], [address], 08/14/2024 00:57:42 08/06/1908/13/2024 DRUG MONIT OR, PANEL 1, SCREE N, URINE pH 7.5 4.5-9. 0 Not Available [address] , [place], [address], 08/14/2024 00:57:42 08/06/1908/13/2024 DRUG MONIT OR, PANEL 1, SCREE N, URINE oxidant NEGATI VE mcg/m L <200 Not Available [address], [place], [address], 08/14/2024 00:57:42 08/06/1908/13/2024 DRUG MONIT ORING TEMPL ATE notes and comments This drug testi ng is for medic al treat ment only. Rahel sis was perfo rmed as non-f orens ic testi ng and these resul ts shoul d be used only by [facility] prov[facility] ders to rende r diagn osis or treat ment, or to monit or progr ess of medic al condi tions . Note A: The resul ts are presu mptiv e; based only on stacye jett velazquez ds, and they have not been confi rmed by a defin itive metho d. [facility] Provi ders needi ng Inter preta tion rita tance , pleas e conta ct us at 1.877 .40.R XTOX (1.87 7.407 .9869 ) M-F, 8am to 10pm EST Not Available [address] [address] [place], [address], 08/14/2024 00:57:44 08/06/1908/13/2024 CULTU RE, URINE , ROUTI NE culture, urine, routine SEE NOTE CULTU RE, URINE , ROUTI NE Micro Numbe r: [id number] Test Statu s: Final Speci men [...] Cultu re Trans port Tube. Not Available [address] [address] [place], [address], 08/14/2024 00:57:44 08/07/1908/08/2024 SURES WAB(R ) ADVAN FLOR VAGIN ITIS PLUS, TMA sureswab(R) adv bacterial vaginosis (bv), tma NEGATI VE negati ve normal Not Available [facility] [address] [place] [address], [address], 08/08/2024 18:38:48 08/07/19 25 08/08/2024 SURES WAB(R ) ADVAN FLOR VAGIN ITIS PLUS, TMA karly species NOT DETECT ED not detect ed normal Not Available [facility] [address], [address], 08/08/2024 18:38:48 08/07/19 25 08/08/2024 SURES WAB(R [...] resul t. Not Available [facility] [address], [address], 08/08/2024 18:38:48 08/07/19 25 08/08/2024 SURES WAB(R ) ADVAN FLOR VAGIN ITIS PLUS, TMA trichomonas vaginalis (TV), tma NOT DETECT ED not detect ed normal Not Available [facility] [address], [address], 08/08/2024 18:38:48 08/07/19 25 08/08/2024 SURES WAB(R ) ADVAN FLOR VAGIN ITIS PLUS, TMA chlamydia trachomatis RNA, tma, urogenital NOT DETECT ED not detect ed normal Not Available [facility] [address], [address], 08/08/2024 18:38:48 08/07/19 25 08/08/2024 SURES WAB(R ) ADVAN FLOR VAGIN ITIS PLUS, TMA neisseria gonorrhoeae RNA, tma, urogenital NOT DETECT ED not detect ed normal For addit ional infor dave batres e refer to https ://ed ucati on.qu estdi agnos tics. com/f aq/FA Q154 (This link is being provi ded for infor nina n/ vincenzo fall purpo ses only. ) Not Available [facility] [address] [address] , [place], [address], 08/08/2024 18:38:48 12/03/19 25 12/02/2024 CBC WBC 8.8 x10 4.0-10 .5 Not Available [facility] [address] [facility] [address], [place], [address], 12/02/2024 11:47:45 12/03/19 25 12/02/2024 CBC RBC 3.66 x10 3.50-5 .50 Not Available [facility] [address] [facility] [address], [place], [address], 12/02/2024 11:47:45 12/03/19 25 12/02/2024 CBC HGB 11.1 g/dL 12.0-1 6.0 low Not Available [facility] [address] [facility] [address], [place], [address], 12/02/2024 11:47:45 12/03/19 25 12/02/2024 CBC HCT 32.9 % 37.0-4 7.0 low Not Available [facility] [address] [facility] [address], [place], [address], 12/02/2024 11:47:45 12/03/19 25 12/02/2024 CBC MCV 89.8 fL 80.0-9 9.9 Not Available [facility] [address] [facility] [address], [place], [address], 12/02/2024 11:47:45 12/03/19 25 12/02/2024 CBC MCH 30.4 pg 27.0-3 2.0 Not Available [facility] [address] [facility] 1, [place], [address], 12/02/2024 11:47:45 12/03/19 25 12/02/2024 CBC MCHC 33.8 g/dL 32.0-3 6.0 Not Available [facility] [address] [facility] 1, [place], [address], 12/02/2024 11:47:45 12/03/19 25 12/02/2024 CBC RDW 13.7 % 11.5-1 4.5 Not Available [facility] [address] [facility] [address], [place], [address], 12/02/2024 11:47:45 12/03/19 25 12/02/2024 CBC plt 330.0 x10 140.0- 451.0 Not Available [facility] [address] [place] [facility] 1, [place], [address], 12/02/2024 11:47:45 12/03/19 25 12/02/2024 CBC lymphocytes % 50.1 % 20.0-5 0.0 high Not Available [facility] [address] [place] [facility] 1, [place], [address], 12/02/2024 11:47:45 12/03/19 25 12/02/2024 CBC granulcytes % 41.8 % 30.0-7 0.0 Not Available [facility] [address] [place] [facility] 1, [place], [address], 12/02/2024 11:47:45 12/03/19 25 12/02/2024 CBC monocytes % 7.3 % 2.0-16 .0 Not Available [facility] [address] [facility] 1, [place], [address], 12/02/2024 11:47:45 12/03/19 25 12/02/2024 CBC granulcytes# 3.7 x10 Not Esthela ilable [facility] [address] [facility] 1, [place], [address], 12/02/2024 11:47:45 12/03/19 25 12/02/2024 CBC lymphocytes # 4.4 x10 Not Available [facility] [address] [facility] [address], [place], [address], 12/02/2024 11:47:45 12/03/19 25 12/02/2024 CBC monocytes # 0.6 x10 Not Avai lable [facility] [address] [facility] 1, [place], [address], 12/02/2024 11:47:45 12/03/19 25 12/02/2024 GLUCO SE SCREE N glucose screen 111.0 mg/dL Not Available [facility] [address] [facility] [address], [place], [address], 12/02/2024 12:07:41 01/28/20 25 01/30/2025 STREP TOCOC CUS, GROUP B CULTU RE streptococcu s, group B culture SEE NOTE STREP TOCOC CUS, GROUP B CULTU RE Micro Numbe r: [id number] Test Statu s: Final Speci men Sourc e: Vagin al/an orect al Speci men Quali ty: Adequ ate Resul t: No group B Strep tococ cus isola joyce Note per CDC guide lines optim al recov candace is achie simon by swabb ing both the lower vagin a and rectu m (thro ugh the anal sphin cter) . Not Available [facility] [address], [place], [address], 01/30/2025 09:33:23 07/23/19 25 07/22/2024 US, obste tric, 1st trime ster No observ ation record ed. [email or web address] Not Available 07/25 16:33:11 10/16/19 25 10/14/2024 US, obste tric, mater nal evalu ation + anato my No observ ation record ed. [email or web address] [facility] ([facility]) [address] [place], [address], 10/15/2024 12:31:45 02/10/20 25 02/09/2025 lab* No observ ation record ed. [email or web address] [facility] [address] [place], [address], 02/11/2025 14:01:59 02/12/20 25 02/04/2025 US, obste tric, follo w-up No observ ation record ed. [email or web address] [facility] ([facility]) [address] [place], [address], 02/11/2025 14:29:29 Result Notes None recorded. Problems Name Problem SNOMED Code Status Onset Date Resolution Date Notes Provider Name and Address Organization Details Recorded Time Irregular periods 18748516 Active 2022 BRADLEY teague [facility] 5 15:06:25 [id number] Completed 202403/03/2025 PAUL MONZON [facility] 11:18:12 Mixed anxiety and depressive disorder 347436628 Active 2024 PAUL teague [facility] 5 09:56:54 Problem Notes None recorded. Procedures Surgical History Date Name Laterality Status Provider Name and Address Organization Details Recorded Time section completed PAUL MONZON [facility] 03/03/2025 11:20:58 open reduction of fracture of radius and ulna completed PAUL MONZON [facility] 07/02/2024 09:55:43 Imaging Results None [...] Updated DateTime 5 170.18 cm 31.8 kg/m2 11202.2 5 g 97.8 [degF] 98 % 82 /min 132/78 mm[Hg] BRADLEY LINO [facility] 15:51:12 Social History None recorded. Functional Status None recorded. Mental Status None recorded. Family History Relationship Description Onset Age of this Age Resolved Age Notes LastModified by Organization Details LastModified Time Mother Diabetes mellitus [email or web address] Not available 06/13 09:52:41 Mother Hypertensive disorder [email or web address] Not available 06/13 09:52:51 Sister Gestational diabetes mellitus [email or web address] Not available 06/13 09:53:03 Medical History Condition [...] Recorded Time HPV9 8 completed Gunjan teague [facility], [facility] 02/03/2023 13:00:05 HPV9 7 completed Gunjan teague [facility], Shikha 02/03/2023 13:00:05 IPV 5 completed Gunjan teague [facility], NikCCrow 02/03/2023 13:00:05 IPV 4 completed Gunjan teague [facility], Shikha 02/03/2023 13:00:05 IPV 9 completed Gunjan tegaue [facility], Shikha 02/03/2023 13:00:05 IPV 4 sacha teague [facility] 02/03/2023 13:00:05 MMR 5 completed Gunjan Mirella null, [facility] 02/03/2023 13:00:05 MMR 9 completed Gunjan Mirella null, [facility] 02/03/2023 13:00:05 pneumococcal conjugate PCV 7 5 completed Gunjan Mirella null, [facility] 02/03/2023 13:00:05 pneumococcal conjugate PCV 7 4 completed Gunjan Mirella teague, [facility] 02/03/2023 13:00:05 pneumococcal conjugate PCV 7 4 completed Gunjan teague, [facility] 02/03/2023 13:00:06 Tdap 7 completed Gunjan Mirella teague, [facility] 02/03/2023 13:00:06 varicella 5 completed Gunjan teague, [facility] 02/03/2023 13:00:06 varicella 9 completed Gunjan teague, [facility] 02/03/2023 13:00:06 Hep B, adolescent or pediatric 5 completed Gunjan Mirella null, [facility] 02/03/2023 13:00:06 Hep B, adolescent or pediatric 4 completed Gunjan Mirella null, [facility] 02/03/2023 13:00:06 Hep B, adolescent or pediatric 4 completed Gunjan teague, [facility] 02/03/2023 13:00:06 Hep A, ped/adol, 2 dose 8 completed Gunjan Mirella null, [facility] 02/03/2023 13:00:06 Hep A, ped/adol, 2 dose 7 completed Gunjan Mirella null, [facility] 02/03/2023 13:00:06 Hib (PRP-T) 5 completed Gunjan Mirella null, [facility] 02/03/2023 13:00:06 Hib (PRP-T) 4 completed Gunjan Mirella null, [facility] 02/03/2023 13:00:06 Hib (PRP-T) 4 completed Gunjan Mirella null, [facility] 02/03/2023 13:00:06 meningococcal MCV4P 7 completed Gunjan Mirella null, [facility] 02/03/2023 13:00:06 DTaP 5 completed Gunjan Mirella null, [facility] 02/03/2023 13:00:06 DTaP 4 completed Gunjan Mirella null, [facility] 02/03/2023 13:00:06 DTaP 9 completed Gunjan Mirella null, [facility] 02/03/2023 13:00:06 DTaP 4 completed Gunjan Mirella null, [facility] 02/03/2023 13:00:06 meningococcal conjugate quadrivalent, MenACWY-TT (MCV4) 3 completed Not Available [facility] 04/28/2025 16:52:51 meningococcal B, OMV 3 completed Not Available [facility] 04/28/2025 16:52:51 meningococcal B, OMV 4 completed Not Available [facility] 04/28/2025 16:52:51 RSV, bivalent, protein subunit RSVpreF, diluent reconstituted, 0.5 mL, PF 5 completed Not Available [facility] 04/28/2025 16:52:51 Tdap 5 completed Not Available [facility] 04/28/2025 16:52:51 Past Encounters Encounter ID Performer Location Encounter Start Date Encounter Closed Date Diagnosis/Indication Diagnosis SNOMED-CT Code Diagnosis ICD10 Code Diagnosis IMO Codes Diagnosis Note [id number] Charlene Murray MD [facility] ([facility]) [address] [place] [address] [phone] 02/13/2025 11:06:50 02/17/2025 14:59:19 Gestation period, 37 weeks 08549852 Z3A.37 [id number] Multigravida 832208106 Z 34.83 [id number] Charlene Murray MD [facility] ([facility]) [address] [place] [address] [phone] 02/19/2025 13:52:41 03/03/2025 09:50:47 Gestation period, 38 weeks 82209771 Z3A.38 8212715 Multigravida 364313781 Z 34.83 [id number] Charlene Murray MD [facility] ([facility]) [address] [place] [address] [phone] 03/03/2025 11:08:49 03/06/2025 04:08:56 state 64014445 Z39.2 [id number] Charlene Murray MD [facility] ([facility]) [address] [place] [address] [phone] 03/13/2025 15:39:59 03/17/2025 16:15:58 Skin lesion 73862147 L98.9 39893 The patient's incision is healing as expected. She has a 2 mm raw spot on the left aspect that does not appear to have any signs of infection. She was advised to run hydrogen peroxide over the area twice daily and follow-up if worsening or not improved Health Concerns Section Related Observation LastModified by Organization Detai ls LastModified Time None Recorded Concern Status LastModified by Organization Details LastModified Time None Recorded Payers Encounter Date Sequence Insurance Name Policy Number Policy Eason Covered Member ID Eason Member ID Guarantor Name 03/13/2025 1 [employer] [place] ([place] - [place]MO) SHEMAR Humphrey Alvarenga [id number] Humphrey Alvarenga Notes Date Note Type Note Provider Name and Address Organization Details Recorded Time 03/13/2025 text/html started last eveningShe noticed there was a little opening on 1 edge of the incisionIt is not more painful Charlene Murray MD [address] [place] [address], [phone], [facility], [facility] 03/13/2025 16:22:34 OBGyn Episode Ob Episode Information Episode Created Date Number of Fetuses Patient Bloodtype Patient rh Status Prepregnancy Weight lbs Domestic Partner Domestic Partner Phone Father Name Medical Insurance Claims Specialist Status 07/02/19 25 1 A Positive Leroy [...] Weight in lbs Pre/Post Dialysis Refused Weight 194.765834998148 BP Diastolic BP Location Tested BP Systolic [...] in lbs Pre/Post Dialysis Refused With clothes 191.378446959523 BP Diastolic BP Location Tested BP Systolic BP Type 76 L arm 118 sitting Fetus Heart Rate Present Fetus Movement Comments Flowsheet Date 09/02/2024 Blank Score Blood Edema Fundus Height Fundus Units Glucose Ketones Leukocytes Nitrite Labor Signs Protein Cervic Dilation Cervic Effacement Cervic Station none trace trace Type Weight in lbs Pre/Post Dialysis Refused Weight 192.192851174614 BP Diastolic BP Location Tested BP Systolic [...] Weight in lbs Pre/Post Dialysis Refused Weight 196.487023472917 BP Diastolic BP Location Tested BP Systolic [...] Weight in lbs Pre/Post Dialysis Refused Weight 202.409879544071 BP Diastolic BP Location Tested BP Systolic [...] in lbs Pre/Post Dialysis Refused With clothes 208.059223556828 BP Diastolic BP Location Tested BP Systolic BP Type 64 L arm 112 sitting Fetus Heart Rate Present A 145 Fetus Movement A Yes Comments regis felxi handout, 111/11. 1 Flowsheet Date 12/24/2024 Blank [...] Weight in lbs Pre/Post Dialysis Refused Weight 212.349579678502 BP Diastolic BP Location Tested BP Systolic [...] Weight in lbs Pre/Post Dialysis Refused Weight 216.748414759881 BP Diastolic BP Location Tested BP Systolic [...] Weight in lbs Pre/Post Dialysis Refused Weight 219.481499647470 BP Diastolic BP Location Tested BP Systolic [...] Weight in lbs Pre/Post Dialysis Refused Weight 224.168761048361 BP Diastolic BP Location Tested BP Systolic [...] Weight in lbs Pre/Post Dialysis Refused Weight 228.667313030168 BP Diastolic BP Location Tested BP Systolic [...] in lbs Pre/Post Dialysis Refused With clothes 219.286737146274 BP Diastolic BP Location Tested BP Systolic [...] Weight in lbs Pre/Post Dialysis Refused Weight 203.271700601723 BP Diastolic BP Location Tested BP Systolic BP Type 83 130 Fetus Heart Rate Present Fetus Movement Comments Menstrual History Last Menstrual Date Menses Monthly On Bcp Conception Prior Menses Frequency Hcg Plus Date Menarche Onset Age 1205/26/2024 false Genetic Screening And Infection History Question Response Note Patient's Age Will Be 35 Yea rs Or Older At Estimated Date of Delivery false Thalassemia (Kyrgyz, Nepalese, Mediterranean, Or Background): MCV < 80 false Neural Tube Defect (Meningom yelocele, Spina Bifida, Or Anencephaly) false Congenital Heart Defect false Down Syndrome false Lyndon-Sachs (eg, Temple, Cajun, German-Ravenel) f alse Andrei Disease false Sickle Cell Disease Or Trait () false Hemophilia Or Other Blood Disorders false Muscular Dystrophy false Cystic Fibrosis false Saline's Chorea false Intellectual Disability/Autism false If Yes, [...]
--- OUTSIDE RECORDS SUMMARY | 2025-05-04 05:13 | XMS_ITS | Continuity of Care Document ---
Author Organization DANTE Manish Cadena [facility] Stephanie, LNgozi, [facility] ([facility]) Address [address] [place] [address] Care Team Providers Care Exhibits Curator Name Role Phone JONI DE PAZ Primary [...] urine HCG positi ve Not Available [facility] ([facility]) [address] [place], [address], 07/02/2024 09:58:16 08/06/19 25 08/13/2024 URINA LYSIS , COMPL ETE color YELLOW yellow normal Not Available [facility] [address] [address] [place], [address], 08/14/2024 00:57:32 08/06/19 25 08/13/2024 URINA LYSIS , COMPL ETE appearance TURBID clear abnormal Not Available [facility] [address] [address] [place], [address], 08/14/2024 00:57:32 08/06/19 25 08/13/2024 URINA LYSIS , COMPL ETE specific gravity 1.027 1.001- 1.035 normal Not Available [address], [address], 08/14/2024 00:57:32 08/06/1908/13/2024 URINA LYSIS , COMPL ETE pH 7.5 5.0-8. 0 normal Not Available [address], [address], 08/14/2024 00:57:32 08/06/1908/13/2024 URINA LYSIS , COMPL ETE glucose NEGATI VE negati ve normal Not Available [address], [address], 08/14/2024 00:57:32 08/06/1908/13/2024 URINA LYSIS , COMPL ETE bilirubin NEGATI VE negati ve normal Not Available [address], [address], 08/14/2024 00:57:32 08/06/1908/13/2024 URINA LYSIS , COMPL ETE ketones 1+ negati ve abnormal Not Available [address], [address], 08/14/2024 00:57:32 08/06/1908/13/2024 URINA LYSIS , COMPL ETE occult blood NEGATI VE negati ve normal Not Available [address], [address], 08/14/2024 00:57:32 08/06/1908/13/2024 URINA LYSIS , COMPL ETE protein TRACE negati ve abnormal Not Available [address], [address], 08/14/2024 00:57:32 08/06/1908/13/2024 URINA LYSIS , COMPL ETE nitrite NEGATI VE negati ve normal Not Available [address], [address], 08/14/2024 00:57:32 08/06/1908/13/2024 URINA LYSIS , COMPL ETE leukocyte esterase NEGATI VE negati ve normal Not Available [address], [address], 08/14/2024 00:57:32 08/06/1908/13/2024 URINA LYSIS , COMPL ETE WBC 0-5 /hpf < or = 5 normal Not Available [address], [address], 08/14/2024 00:57:32 08/06/1908/13/2024 URINA LYSIS , COMPL ETE RBC 0-2 /hpf < or = 2 normal Not Available [address], [address], 08/14/2024 00:57:32 08/06/19 25 08/13/2024 URINA LYSIS , COMPL ETE squamous epithelial cells 10-20 /hpf < or = 5 abnormal Not Available [address], [address], 08/14/2024 00:57:32 08/06/1908/13/2024 URINA LYSIS , COMPL ETE bacteria MANY /hpf none seen abnormal Not Available [address], [address], 08/14/2024 00:57:32 08/06/1908/13/2024 URINA LYSIS , COMPL ETE calcium oxalate crystals MANY /hpf none or few abnormal Not Available [address], [address], 08/14/2024 00:57:32 08/06/19 25 08/13/2024 URINA LYSIS , COMPL ETE hyaline cast NONE SEEN /lpf none seen normal Not Available [facility] [address], [address], 08/14/2024 00:57:32 08/06/1908/13/2024 URINA LYSIS , COMPL ETE note This urine was rahel zed for the prese nce of WBC, RBC, bacte hailee, casts , and other forme d eleme nts. Only those eleme nts seen were repor joyce. Not Available [facility] [address], [address], 08/14/2024 00:57:32 08/06/1908/13/2024 CBC (INCL UDES DIFF/ PLT) white blood cell count 11.2 thous and/u L 3.8-10 .8 high Not Available [facility] [address], [address], 08/14/2024 00:57:34 08/06/19 25 08/13/2024 CBC (INCL UDES DIFF/ PLT) red blood cell count 4.52 juan francisco on/uL 3.80-5 .10 normal Not Available [facility] [address], [address], 08/14/2024 00:57:34 08/06/19 25 08/13/2024 CBC (INCL UDES DIFF/ PLT) hemoglobin 13.2 g/dL 11.7-1 5.5 normal Not Available [facility] [address], [address], 08/14/2024 00:57:34 08/06/1908/13/2024 CBC (INCL UDES DIFF/ PLT) hematocrit 40.5 % 35.0-4 5.0 normal Not Available [facility] [address], [address], 08/14/2024 00:57:34 08/06/19 25 08/13/2024 CBC (INCL UDES DIFF/ PLT) MCV 89.6 fL 80.0-1 00.0 normal Not Available [facility] [address], [address], 08/14/2024 00:57:34 08/06/1908/13/2024 CBC (INCL UDES DIFF/ PLT) MCH 29.2 pg 27.0-3 3.0 normal Not Available [facility] [address], [address], 08/14/2024 00:57:34 08/06/1908/13/2024 CBC (INCL UDES DIFF/ PLT) MCHC 32.6 g/dL 32.0-3 6.0 normal For adult s, a sligh t decre ase in the calcu lated MCHC value (in the range of 30 to 32 g/dL) is most likel y not clini doug signi fican t; feli er, it shoul d be inter prete d with cauti on in [facility] n with other red cell akash eters and the patie nt's clini flakita condi tion. Not Available [facility] [address], [address], 08/14/2024 00:57:34 08/06/1908/13/2024 CBC (INCL UDES DIFF/ PLT) RDW 12.6 % 11.0-1 5.0 normal Not Available [facility] [address], [address], 08/14/2024 00:57:34 08/06/1908/13/2024 CBC (INCL UDES DIFF/ PLT) platelet count 447 thous and/u L 140-40 0 high Not Available [facility] [address], [address], 08/14/2024 00:57:34 08/06/1908/13/2024 CBC (INCL UDES DIFF/ PLT) MPV 9.8 fL 7.5-12 .5 normal Not Available [facility] [address], [address], 08/14/2024 00:57:34 08/06/19 25 08/13/2024 CBC (INCL UDES DIFF/ PLT) absolute neutrophils 7325 cells /uL 1500-7 800 normal Not Available [address], [address], 08/14/2024 00:57:34 08/06/19 25 08/13/2024 CBC (INCL UDES DIFF/ PLT) absolute lymphocytes 3091 cells /uL 850-39 00 normal Not Available [facility] [address], [address], 08/14/2024 00:57:34 08/06/1908/13/2024 CBC (INCL UDES DIFF/ PLT) absolute monocytes 594 cells /uL 200-95 0 normal Not Available [facility] [address], [address], 08/14/2024 00:57:34 08/06/19 25 08/13/2024 CBC (INCL UDES DIFF/ PLT) absolute eosinophils 157 cells /uL 15-500 normal Not Available [address], [address], 08/14/2024 00:57:34 08/06/19 25 08/13/2024 CBC (INCL UDES DIFF/ PLT) absolute basophils 34 cells /uL 0-200 normal Not Available [facility] [address], [address], 08/14/2024 00:57:34 08/06/19 25 08/13/2024 CBC (INCL UDES DIFF/ PLT) neutrophils 65.4 % normal Not Available [address], [address], 08/14/2024 00:57:34 08/06/19 25 08/13/2024 CBC (INCL UDES DIFF/ PLT) lymphocytes 27.6 % normal Not Available [facility] [address], [place], [address], 08/14/2024 00:57:34 08/06/1908/13/2024 CBC (INCL UDES DIFF/ PLT) monocytes 5.3 % normal Not Available [facility] [address], [address], 08/14/2024 00:57:34 08/06/1908/13/2024 CBC (INCL UDES DIFF/ PLT) eosinophils 1.4 % normal Not Available [facility] [address], [address], 08/14/2024 00:57:34 08/06/1908/13/2024 CBC (INCL UDES DIFF/ PLT) basophils 0.3 % normal Not Available [address], [address], 08/14/2024 00:57:34 08/06/1908/13/2024 HEPAT ITIS B SURFA CE ANTIG EN W/REF L CONFI RM hepatitis B surface antigen NON-RE ACTIVE non-re active normal For addit ional infor dave batres e refer to http: //[facility] lomeli.que stdia gnost ics.c om/fa q/FAQ (This link is being provi ded for infor nina russ/ educa karen l purpo ses only. ) Not Available [address], [address], 08/14/2024 00:57:35 08/06/1908/13/2024 HEPAT ITIS C AB [...] a test for HCV RNA (test code 64765 ) is sugjaja fowler. For addit ional infor nina n pleas e refer to http: //jc urbinaia diamond ics.c om/fa q/FAQ 22v1 (This link is being provi ded for infor matio nal/ educa karen l purpo ses only. ) Not Available [facility] [address] [address] [place], [address], 08/14/2024 00:57:36 08/06/1908/13/2024 RUBEL LA AB (IGG) [...] with rubel la virus . Not Available [facility] [address] [address] [place], [address], 08/14/2024 00:57:37 08/06/1908/13/2024 HIV 1/2 ANTIG EN/AN [...] nina lomeli pleas e refer to http: //[facility] fields ics.c om/fa q/FAQ 106 (This link is being provi ded for infor matjude nal/ educa karen l purpo ses only. ) The perfo rmanc e of this assay has not been clini doug valid ated in patie nts less than 2 years old. Not Available [facility] [address] [address] [place], [address], 08/14/2024 00:57:37 08/06/1908/13/2024 QNATA L(R) ADVAN FLOR number of fetuses? 1 Not Available [facility] [address] [place], [address], 08/14/2024 00:57:39 08/06/1908/13/2024 QNATA L(R) ADVAN FLOR advanced maternal age? NO Not Available [facility] [address] [address] [place], [address], 08/14/2024 00:57:39 08/06/1908/13/2024 QNATA L(R) ADVAN FLOR abnormal ella? NO Not Available [facility] [address] [address] [place], [address], 08/14/2024 00:57:39 08/06/1908/13/2024 QNATA L(R) ADVAN FLOR abnormal US? NO Not Available [facility] [address] [address] [place], [address], 08/14/2024 00:57:39 08/06/1908/13/2024 QNATA L(R) ADVAN FLOR personal/fam history? NO Not Available [facility] [address] [address] [place], [address], 08/14/2024 00:57:39 08/06/19 25 08/13/2024 QNATA L(R) ADVAN FLOR interpretati on SEE NOTE This speci men showe d an expec joyce repre senta tion of chrom osome 21, 18, and 13 mater ial. See Gregorio mays below . Not Available [address], [address], 08/14/2024 00:57:39 08/06/19 25 08/13/2024 QNATA L(R) ADVAN FLOR trisomy 21 (T21) NEGATI VE Not Available [address], [address], 08/14/2024 00:57:39 08/06/19 25 08/13/2024 QNATA L(R) ADVAN FLOR trisomy 18 (T18) NEGATI VE Not Available [address], [address], 08/14/2024 00:57:39 08/06/19 25 08/13/2024 QNATA L(R) ADVAN FLOR trisomy 13 (T13) NEGATI VE Not Available [address], [address], 08/14/2024 00:57:39 08/06/19 25 08/13/2024 QNATA L(R) ADVAN FLOR Y chromosome NOT DETECT ED Not Available [address], [address], 08/14/2024 00:57:39 08/06/19 25 08/13/2024 QNATA L(R) ADVAN FLOR Y chr. interpretati on SEE NOTE Consi stent with a femal e fetus . Not Available [address], [address], 08/14/2024 00:57:39 08/06/1908/13/2024 QNATA L(R) ADVAN FLOR sex chromosome NO ANEUPL OIDY Not Available [address], [address], 08/14/2024 00:57:39 08/06/1908/13/2024 QNATA L(R) ADVAN FLOR sex chromosome interp SEE NOTE No appar ent abnor malit y was detec joyce. See Limi tatio ns below . Not Available [address], [address], 08/14/2024 00:57:39 08/06/1908/13/2024 QNATA L(R) ADVAN FLOR microdeletio n NOT DETECT ED Not Available [address], [address], 08/14/2024 00:57:39 08/06/1908/13/2024 QNATA L(R) ADVAN FLOR microdeletio n interp SEE NOTE No appar ent abnor malit y was detec joyce. See Limi tatio ns below . Not Available [address], [address], 08/14/2024 00:57:39 08/06/1908/13/2024 QNATA L(R) ADVAN FLOR gestational age(in weeks) 10 Not Available [address], [address], 08/14/2024 00:57:39 08/06/1908/13/2024 QNATA L(R) ADVAN FLOR gestational age (in days) 2 Not Available [address], [address], 08/14/2024 00:57:39 08/06/1908/13/2024 QNATA L(R) ADVAN FLOR fraction 17.15% Not Available [address] [place], [address], 08/14/2024 00:57:39 08/06/1908/13/2024 QNATA L(R) ADVAN FLOR laboratory comments SEE NOTE Labor atory testi ng super vised and resul ts monit ored by Joshua Paniagua, Ph.D. , FACMG , HCLD, CGMB. Not Available [facility] [address] [place], [address], 08/14/2024 00:57:39 08/06/1908/13/2024 QNATA L(R) ADVAN FLOR [...] as sex. In addit ion, if selec ojyce as an optio n, QNata l(R) Advan [...] place ntal in origi n. Not Available [facility] [address], [place], [address], 08/14/2024 00:57:39 08/06/1908/13/2024 QNATA L(R) ADVAN FLOR [...] rahel tical asses sment . Not Available [facility] [address] [place], [address], 08/14/2024 00:57:39 08/06/19 25 08/13/2024 QNATA L(R) [...] been revie wed by FDA. Not Available [facility] [address] [place], [address], 08/14/2024 00:57:39 08/06/1908/13/2024 RPR (DX) W/REF L TITER AND T. PALLI DUM AB, IA RPR (DX) w/refl titer and confirmatory testing NON-RE ACTIVE non-re active normal No labor atory evide nce of syphi lis. If recen t expos ure is suspe cted, submi t a new sampl e in 2-4 weeks . Not Available [address] [place], [address], 08/14/2024 00:57:40 08/06/1908/13/2024 ANTIB VERONICA SCREE N, [...] alloi mmuni zed pregn gila. Not Available [facility] [address] [address] [place], [address], 08/14/2024 00:57:41 08/06/1908/13/2024 ABO GROUP AND RH TYPE ABO group A Not Available [facility] [address] [address] [place], [address], 08/14/2024 00:57:42 08/06/1908/13/2024 ABO GROUP AND RH TYPE Rh type RH(D) POSITI VE For addit ional infor dave batres e refer to http: //jc sanabriaQue stDia gnost ics.c om/fa q/FAQ 111 (This link is being provi ded for infor nina russ/ educa karen l purpo ses only. ) Not Available [facility] [address] [address] [place], [address], 08/14/2024 00:57:42 08/06/1908/13/2024 DRUG MONIT OR, PANEL 1, SCREE N, URINE amphetamines NEGATI VE NG/mL <500 See Note A See Note A Not Available [facility] [address], [place], [address], 08/14/2024 00:57:42 08/06/1908/13/2024 DRUG MONIT OR, PANEL 1, SCREE N, URINE barbiturates NEGATI VE NG/mL <300 See Note A See Note A Not Available [facility] [address], [place], [address], 08/14/2024 00:57:42 08/06/1908/13/2024 DRUG MONIT OR, PANEL 1, SCREE N, URINE benzodiazepi karan NEGATI VE NG/mL <100 See Note A See Note A Not Available [facility] [address] [address], [place], [address], 08/14/2024 00:57:42 08/06/1908/13/2024 DRUG MONIT OR, PANEL 1, SCREE N, URINE cocaine metabolite NEGATI VE NG/mL <150 See Note A See Note A Not Available [facility] [address] [address] [address], [place], [address], 08/14/2024 00:57:42 08/06/1908/13/2024 DRUG MONIT OR, PANEL 1, SCREE N, URINE marijuana metabolite POSITI VE NG/mL <20 abnormal See Note A See Note A Not Available [facility] [address], [place], [address], 08/14/2024 00:57:42 08/06/1908/13/2024 DRUG MONIT OR, PANEL 1, SCREE N, URINE methadone metabolite NEGATI VE NG/mL <100 See Note A See Note A Not Available [facility] [address] [address], [place], [address], 08/14/2024 00:57:42 08/06/1908/13/2024 DRUG MONIT OR, PANEL 1, SCREE N, URINE opiates NEGATI VE NG/mL <100 See Note A See Note A Not Available [address] [address] [address], [place], [address], 08/14/2024 00:57:42 08/06/1908/13/2024 DRUG MONIT OR, PANEL 1, SCREE N, URINE oxycodone NEGATI VE NG/mL <100 See Note A See Note A Not Available [address] [address] [address], [place], [address], 08/14/2024 00:57:42 08/06/1908/13/2024 DRUG MONIT OR, PANEL 1, SCREE N, URINE phencyclidin e NEGATI VE NG/mL <25 See Note A See Note A Not Available [address] [address] [address], [place], [address], 08/14/2024 00:57:42 08/06/1908/13/2024 DRUG MONIT OR, PANEL 1, SCREE N, URINE creatinine 186.9 mg/dL > or = 20.0 Not Available [address] , [place], [address], 08/14/2024 00:57:42 08/06/1908/13/2024 DRUG MONIT OR, PANEL 1, SCREE N, URINE pH 7.5 4.5-9. 0 Not Available [address] [address] , [place], [address], 08/14/2024 00:57:42 08/06/1908/13/2024 DRUG MONIT OR, PANEL 1, SCREE N, URINE oxidant NEGATI VE mcg/m L <200 Not Available [address], [place], [address], 08/14/2024 00:57:42 08/06/1908/13/2024 DRUG MONIT ORING TEMPL ATE notes and comments This drug testi ng is for medic al treat ment only. Rahel sis was perfo rmed as non-f orens ic testi ng and these resul ts shoul d be used only by [facility] provi ders to rende r diagn osis or treat ment, or to monit or progr ess of medic al condi tions . Note A: The resul ts are presu mptiv e; based only on stacye jett velazquez ds, and they have not been confi rmed by a defin itive metho d. [facility] Provi ders needi ng Inter preta tion rita tance , pleas e conta ct us at 1.877 .40.R XTOX (1.87 [phone] ) M-F, 8am to 10pm EST Not Available [address] [address] [place], [address], 08/14/2024 00:57:44 08/06/1908/13/2024 CULTU RE, URINE , ROUTI NE culture, urine, routine SEE NOTE CULTU RE, URINE , ROUTI NE Micro Numbe r: [id number] Test Statu s: Final Speci men [...] Cultu re Trans port Tube. Not Available [address] [address] [place], [address], 08/14/2024 00:57:44 08/07/1908/08/2024 SURES WAB(R ) ADVAN FLOR VAGIN ITIS PLUS, TMA sureswab(R) adv bacterial vaginosis (bv), tma NEGATI VE negati ve normal Not Available [facility] [address] [place] [address], [address], 08/08/2024 18:38:48 08/07/19 25 08/08/2024 SURES WAB(R ) ADVAN FLOR VAGIN ITIS PLUS, TMA karly species NOT DETECT ED not detect ed normal Not Available [facility] [address], [address], 08/08/2024 18:38:48 08/07/19 25 08/08/2024 SURES WAB(R [...] resul t. Not Available [facility] [address], [address], 08/08/2024 18:38:48 08/07/19 25 08/08/2024 SURES WAB(R ) ADVAN FLOR VAGIN ITIS PLUS, TMA trichomonas vaginalis (TV), tma NOT DETECT ED not detect ed normal Not Available [facility] [address], [address], 08/08/2024 18:38:48 08/07/19 25 08/08/2024 SURES WAB(R ) ADVAN FLOR VAGIN ITIS PLUS, TMA chlamydia trachomatis RNA, tma, urogenital NOT DETECT ED not detect ed normal Not Available [facility] [address], [address], 08/08/2024 18:38:48 08/07/19 25 08/08/2024 SURES WAB(R ) ADVAN FLOR VAGIN ITIS PLUS, TMA neisseria gonorrhoeae RNA, tma, urogenital NOT DETECT ED not detect ed normal For addit ional infor dave batres e refer to https ://ed ucati on.qu estdi agnos tics. com/f aq/FA Q154 (This link is being provi ded for infor nina n/ vincenzo fall purpo ses only. ) Not Available [facility] [address] [address] , [place], [address], 08/08/2024 18:38:48 12/03/19 25 12/02/2024 CBC WBC 8.8 x10 4.0-10 .5 Not Available [facility] [address] [facility], [place], [address], 12/02/2024 11:47:45 12/03/19 25 12/02/2024 CBC RBC 3.66 x10 3.50-5 .50 Not Available [facility] [address] [facility], [place], [address], 12/02/2024 11:47:45 12/03/19 25 12/02/2024 CBC HGB 11.1 g/dL 12.0-1 6.0 low Not Available [facility] [address] [facility], [place], [address], 12/02/2024 11:47:45 12/03/19 25 12/02/2024 CBC HCT 32.9 % 37.0-4 7.0 low Not Available [facility] [address] [facility], [place], [address], 12/02/2024 11:47:45 12/03/19 25 12/02/2024 CBC MCV 89.8 fL 80.0-9 9.9 Not Available [facility] [address] [facility], [place], [address], 12/02/2024 11:47:45 12/03/19 25 12/02/2024 CBC MCH 30.4 pg 27.0-3 2.0 Not Available [facility] [address] [facility], [place], [address], 12/02/2024 11:47:45 12/03/19 25 12/02/2024 CBC MCHC 33.8 g/dL 32.0-3 6.0 Not Available [facility] [address] [facility], [place], [address], 12/02/2024 11:47:45 12/03/19 25 12/02/2024 CBC RDW 13.7 % 11.5-1 4.5 Not Available [facility] [address] [facility], [place], [address], 12/02/2024 11:47:45 12/03/19 25 12/02/2024 CBC plt 330.0 x10 140.0- 451.0 Not Available [facility] [address] [place] [address] [facility], [place], [address], 12/02/2024 11:47:45 12/03/19 25 12/02/2024 CBC lymphocytes % 50.1 % 20.0-5 0.0 high Not Available [facility] [address] [place] [address] [facility], [place], [address], 12/02/2024 11:47:45 12/03/19 25 12/02/2024 CBC granulcytes % 41.8 % 30.0-7 0.0 Not Available [facility] [address] [place] [address] [facility], [place], [address], 12/02/2024 11:47:45 12/03/19 25 12/02/2024 CBC monocytes % 7.3 % 2.0-16 .0 Not Available [facility] [address] [facility], [place], [address], 12/02/2024 11:47:45 12/03/19 25 12/02/2024 CBC granulcytes# 3.7 x10 Not Esthela ilable [facility] [address] [facility], [place], [address], 12/02/2024 11:47:45 12/03/19 25 12/02/2024 CBC lymphocytes # 4.4 x10 Not Available [facility] [address] [facility], [place], [address], 12/02/2024 11:47:45 12/03/19 25 12/02/2024 CBC monocytes # 0.6 x10 Not Avai lable [facility] [address] [facility], [place], [address], 12/02/2024 11:47:45 12/03/19 25 12/02/2024 GLUCO SE SCREE N glucose screen 111.0 mg/dL Not Available [facility] [address] [facility], [place], [address], 12/02/2024 12:07:41 01/28/20 25 01/30/2025 STREP TOCOC CUS, GROUP B CULTU RE streptococcu s, group B culture SEE NOTE STREP TOCOC CUS, GROUP B CULTU RE Micro Numbe r: [id number] Test Statu s: Final Speci men Sourc e: Vagin al/an orect al Speci men Quali ty: Adequ ate Resul t: No group B Strep tococ cus isola joyce Note per CDC guide lines optim al recov candace is achie simon by swabb ing both the lower vagin a and rectu m (thro ugh the anal sphin cter) . Not Available [facility] [address], [place], [address], 01/30/2025 09:33:23 07/23/19 25 07/22/2024 US, obste tric, 1st trime ster No observ ation record ed. [email or web address] Not Available 07/25 16:33:11 10/16/19 25 10/14/2024 US, obste tric, mater nal evalu ation + anato my No observ ation record ed. [email or web address] [facility] ([facility] [address] [place], [address], 10/15/2024 12:31:45 02/10/20 25 02/09/2025 lab* No observ ation record ed. [facility] [address] [place], [address], 02/11/2025 14:01:59 02/12/20 25 02/04/2025 [place], obste tric, follo w-up No observ ation record ed. [email or web address] [facility] ([facility]) [address] [place], [address], 02/11/2025 14:29:29 Result Notes None recorded. Problems Name Problem SNOMED Code Status Onset Date Resolution Date Notes Provider Name and Address Organization Details Recorded Time Irregular periods 19912642 Active 2022 BRADLEY teague [facility] 5 15:06:25 05289205 Completed 202403/03/2025 PAUL MONZON [facility] 11:18:12 Mixed anxiety and depressive disorder 618644737 Active 2024 PAUL teague [facility] 5 09:56:54 Problem Notes None recorded. Procedures Surgical History Date Name Laterality Status Provider Name and Address Organization Details Recorded Time section completed PAUL MONZON [facility] 03/03/2025 11:20:58 open reduction of fracture of radius and ulna completed PAUL MONZON [facility] 07/02/2024 09:55:43 Imaging Results None [...] Details Last Updated DateTime 5 170.18 cm 35.7 kg/m2 674691. 06 g 97.7 [degF] 98 % 72 /min 120/70 mm[Hg] [facility] 11:18:19 Social History None recorded. Functional Status None recorded. Mental Status None recorded. Family History Relationship Description Onset Age of this Age Resolved Age Notes LastModified by Organization Details LastModified Time Mother Diabetes mellitus [email or web address] Not available 06/13 09:52:41 Mother Hypertensive disorder [id number] Not available 06/13 09:52:51 Sister Gestational diabetes mellitus Not available 06/13 09:53:03 Medical History Condition [...] Recorded Time HPV9 8 completed Gunjan teague [facility] 02/03/2023 13:00:05 HPV9 7 completed Gnujan teague [facility], Shikha 02/03/2023 13:00:05 IPV 5 completed Gunjan teague [facility], NikCCrow 02/03/2023 13:00:05 IPV 4 completed Gunjan teague [facility] 02/03/2023 13:00:05 IPV 9 completed Gunjan teague [facility] 02/03/2023 13:00:05 IPV 4 sacha teague [facility] 02/03/2023 13:00:05 MMR 5 completed Gunjan Mirella null, [facility] 02/03/2023 13:00:05 MMR 9 completed Gunjan Mirella null, [facility] 02/03/2023 13:00:05 pneumococcal conjugate PCV 7 5 completed Gunjan Mirella null, [facility] 02/03/2023 13:00:05 pneumococcal conjugate PCV 7 4 completed Gunjan Mirella teague, [facility] 02/03/2023 13:00:05 pneumococcal conjugate PCV 7 4 completed Gunjan teague, [facility] 02/03/2023 13:00:06 Tdap 7 completed Gunjan Mierlla teague, [facility] 02/03/2023 13:00:06 varicella 5 completed Gunjan teague, [facility] 02/03/2023 13:00:06 varicella 9 completed Gunjan teague, [facility] 02/03/2023 13:00:06 Hep B, adolescent or pediatric 5 completed Gunjan Mirella null, [facility] 02/03/2023 13:00:06 Hep B, adolescent or pediatric 4 completed Gunjan Mirella null, [facility] 02/03/2023 13:00:06 Hep B, adolescent or pediatric 4 completed Gunjan teague, [facility] 02/03/2023 13:00:06 Hep A, ped/adol, 2 dose 8 completed Gunjan Mirella null, [facility] 02/03/2023 13:00:06 Hep A, ped/adol, 2 dose 7 completed Gunjan Mirella null, [facility] 02/03/2023 13:00:06 Hib (PRP-T) 5 completed Gunjan Mirella null, [facility] 02/03/2023 13:00:06 Hib (PRP-T) 4 completed Gunjan Mirella null, [facility] 02/03/2023 13:00:06 Hib (PRP-T) 4 completed Gunjan Mirella null, [facility] 02/03/2023 13:00:06 meningococcal MCV4P 7 completed Gunjan Mirella null, [facility] 02/03/2023 13:00:06 DTaP 5 completed Gunjan Mirella null, [facility] 02/03/2023 13:00:06 DTaP 4 completed Gunjan Mirella null, [facility] 02/03/2023 13:00:06 DTaP 9 completed Gunjan Mirella null, [facility] 02/03/2023 13:00:06 DTaP 4 completed Gunjan Mirella null, [facility] 02/03/2023 13:00:06 meningococcal conjugate quadrivalent, MenACWY-TT (MCV4) 3 completed Not Available [facility] 04/28/2025 16:52:51 meningococcal B, OMV 3 completed Not Available [facility] 04/28/2025 16:52:51 meningococcal B, OMV 4 completed [facility] 16:52:51 RSV, bivalent, protein subunit RSVpreF, diluent reconstituted, 0.5 mL, PF 5 completed Not [facility] 04/28/[facility]25 16:52:51 Tdap 5 completed Not Available [facility] 04/28/2025 16:52:51 Past Encounters Encounter ID Performer Location Encounter Start Date Encounter Closed Date Diagnosis/Indication Diagnosis SNOMED-CT Code Diagnosis ICD10 Code Diagnosis IMO Codes Diagnosis Note [id number] Charlene Murray MD [facility] ([facility]) [address] [place] [id number] 5 01/13/2025 11:52:37 01/13/2025 14:19:23 Gestation period, 33 weeks 59457031 Z3A.33 3406105 Multigravida 550296620 Z 34.83 [id number] Charlene Murray MD [facility] ([facility]) [address] [place] [phone] 5 01/27/2025 10:53:40 01/28/2025 10:38:27 Gestation period, 35 weeks 06841790 Z3A.35 3793058 Multigravida 375916675 Z 34.83 09104114 Fundal hei ght high for dates 553308185 Z34.90 [id number] Charlene Murray MD [facility] ([facility]) [address] [place] [address] [phone] 5 02/04/2025 11:45:55 02/04/2025 13:19:34 [id number] Charlene Murray MD [facility] ([facility]) [address] [place] [phone] 5 02/06/2025 13:49:17 02/11/2025 16:26:33 Gestation period, 36 weeks 03407209 Z3A.36 7529842 Multigravida 434846693 Z 34.83 [id number] Charlene Murray MD [facility]) [address] [place] [phone] 5 02/13/2025 11:06:50 02/17/2025 14:59:19 Gestation period, 37 weeks 95058321 Z3A.37 9563508 Multigravida 714637181 Z 34.83 [id number] Health Concerns Section Related Observation LastModified by Organization Detai ls LastModified Time None Recorded Concern Status LastModified by Organization Details LastModified Time None Recorded Payers Encounter Date Sequence Insurance Name Policy Number Policy Eason Covered Member ID Eason Member ID Guarantor Name 02/13/2025 1 [facility] (MEDICAID REPLACEMENT - HMO) SHEMAR Alvarenga [id number] Humphrey Alvarenga Notes Date Note Type Note Provider Name and Address Organization Details Recorded Time 02/14/20 25 text/htm l jr ob routineReported by PatientHPIFor associated symptoms, patient reportsedemaandheadachebut reportsno abdominal pain,no cramping,no contractions,normal movement,no bleeding,no nausea,no emesis, andno dizziness.ROS as noted in the HPI Charlene Murray MD [address] [place] [address], [phone], [facility] 02/13/[facility]25 11:54:32 OBGyn Episode Ob Episode Information Episode Created Date Number of Fetuses Patient Bloodtype Patient rh Status Prepregnancy Weight lbs Domestic Partner Domestic Partner Phone Father Name Steward/Stewardess Banquet Status 07/02/19 1 A Positive Leroy Christiano CLOSED Fetus [...] Weight in lbs Pre/Post Dialysis Refused Weight 194.358096128255 BP Diastolic BP Location Tested BP Systolic [...] in lbs Pre/Post Dialysis Refused With clothes 191.987686532993 BP Diastolic BP Location Tested BP Systolic BP Type 76 L arm 118 sitting Fetus Heart Rate Present Fetus Movement Comments Flowsheet Date 09/02/2024 Blank Score Blood Edema Fundus Height Fundus Units Glucose Ketones Leukocytes Nitrite Labor Signs Protein Cervic Dilation Cervic Effacement Cervic Station none trace trace Type Weight in lbs Pre/Post Dialysis Refused Weight 192.981834276932 BP Diastolic BP Location Tested BP Systolic [...] Weight in lbs Pre/Post Dialysis Refused Weight 196.273575630171 BP Diastolic BP Location Tested BP Systolic [...] Weight in lbs Pre/Post Dialysis Refused Weight 202.472637791308 BP Diastolic BP Location Tested BP Systolic [...] in lbs Pre/Post Dialysis Refused With clothes 208.319835448963 BP Diastolic BP Location Tested BP Systolic [...] Weight in lbs Pre/Post Dialysis Refused Weight 212.825996389586 BP Diastolic BP Location Tested BP Systolic [...] Weight in lbs Pre/Post Dialysis Refused Weight 216.905776077614 BP Diastolic BP Location Tested BP Systolic [...] Weight in lbs Pre/Post Dialysis Refused Weight 219.240072943347 BP Diastolic BP Location Tested BP Systolic [...] Weight in lbs Pre/Post Dialysis Refused Weight 224.025505805823 BP Diastolic BP Location Tested BP Systolic [...] Weight in lbs Pre/Post Dialysis Refused Weight 228.314277649410 BP Diastolic BP Location Tested BP Systolic [...] in lbs Pre/Post Dialysis Refused With clothes 219.658655794776 BP Diastolic BP Location Tested BP Systolic [...] Weight in lbs Pre/Post Dialysis Refused Weight 203.817275549525 BP Diastolic BP Location Tested BP Systolic BP Type 83 130 Fetus Heart Rate Present Fetus Movement Comments Menstrual History Last Menstrual Date Menses Monthly On Bcp Conception Prior Menses Frequency Hcg Plus Date Menarche Onset Age 1205/26/2024 false Genetic Screening And Infection History Question Response Note Patient's Age Will Be 35 Yea rs Or Older At Estimated Date of Delivery false Thalassemia (Burundian, Syriac, Mediterranean, Or Background): MCV < 80 false Neural Tube Defect (Meningom yelocele, Spina Bifida, Or Anencephaly) false Congenital Heart Defect false Down Syndrome false Lyndon-Sachs (eg, Yazidi, Cajun, [place]ican-Culpeper) f alse Andrei Disease false Sickle Cell Disease Or Trait () false Hemophilia Or Other Blood Disorders false Muscular Dystrophy false Cystic Fibrosis false [place]'s Chorea false Intellectual Disability/Autism false If Yes, [...]
--- OUTSIDE RECORDS SUMMARY | 2025-05-04 05:13 | XMS_ITS | Continuity of Care Document ---
Author Organization DANTE Man[facility] Stephanie, LNgozi, [facility] ([facility]) Address [address] [place] [address] Care Team Providers [employer] Name Role Phone JONI DE PAZ Primary [...] test, urine HCG positi ve Not Available [facility] ([facility]) [address] [place], [address], 07/02/2024 09:58:16 08/06/19 25 08/13/2024 URINA LYSIS , COMPL ETE color YELLOW yellow normal Not Available [facility] [address] [address] [place], [address], 08/14/2024 00:57:32 08/06/19 25 08/13/2024 URINA LYSIS , COMPL ETE appearance TURBID clear abnormal Not Available [facility] [address] [address] [place], [address], 08/14/2024 00:57:32 08/06/19 25 08/13/2024 URINA LYSIS , COMPL ETE specific gravity 1.027 1.001- 1.035 normal Not Available [address], [address], 08/14/2024 00:57:32 08/06/1908/13/2024 URINA LYSIS , COMPL ETE pH 7.5 5.0-8. 0 normal Not Available [address], [address], 08/14/2024 00:57:32 08/06/1908/13/2024 URINA LYSIS , COMPL ETE glucose NEGATI VE negati ve normal Not Available [address], [address], 08/14/2024 00:57:32 08/06/1908/13/2024 URINA LYSIS , COMPL ETE bilirubin NEGATI VE negati ve normal Not Available [address], [address], 08/14/2024 00:57:32 08/06/1908/13/2024 URINA LYSIS , COMPL ETE ketones 1+ negati ve abnormal Not Available [address], [address], 08/14/2024 00:57:32 08/06/1908/13/2024 URINA LYSIS , COMPL ETE occult blood NEGATI VE negati ve normal Not Available [address], [address], 08/14/2024 00:57:32 08/06/1908/13/2024 URINA LYSIS , COMPL ETE protein TRACE negati ve abnormal Not Available [address], [address], 08/14/2024 00:57:32 08/06/1908/13/2024 URINA LYSIS , COMPL ETE nitrite NEGATI VE negati ve normal Not Available [address], [address], 08/14/2024 00:57:32 08/06/1908/13/2024 URINA LYSIS , COMPL ETE leukocyte esterase NEGATI VE negati ve normal Not Available [address], [address], 08/14/2024 00:57:32 08/06/1908/13/2024 URINA LYSIS , COMPL ETE WBC 0-5 /hpf < or = 5 normal Not Available [address], [address], 08/14/2024 00:57:32 08/06/1908/13/2024 URINA LYSIS , COMPL ETE RBC 0-2 /hpf < or = 2 normal Not Available [address], [address], 08/14/2024 00:57:32 08/06/19 25 08/13/2024 URINA LYSIS , COMPL ETE squamous epithelial cells 10-20 /hpf < or = 5 abnormal Not Available [address], [address], 08/14/2024 00:57:32 08/06/1908/13/2024 URINA LYSIS , COMPL ETE bacteria MANY /hpf none seen abnormal Not Available [address], [address], 08/14/2024 00:57:32 08/06/1908/13/2024 URINA LYSIS , COMPL ETE calcium oxalate crystals MANY /hpf none or few abnormal Not Available [address], [address], 08/14/2024 00:57:32 08/06/19 25 08/13/2024 URINA LYSIS , COMPL ETE hyaline cast NONE SEEN /lpf none seen normal Not Available [facility] [address], [address], 08/14/2024 00:57:32 08/06/1908/13/2024 URINA LYSIS , COMPL ETE note This urine was rahel zed for the prese nce of WBC, RBC, bacte hailee, casts , and other forme d eleme nts. Only those eleme nts seen were repor joyce. Not Available [facility] [address], [address], 08/14/2024 00:57:32 08/06/1908/13/2024 CBC (INCL UDES DIFF/ PLT) white blood cell count 11.2 thous and/u L 3.8-10 .8 high Not Available [facility] [address], [address], 08/14/2024 00:57:34 08/06/19 25 08/13/2024 CBC (INCL UDES DIFF/ PLT) red blood cell count 4.52 juan francisco on/uL 3.80-5 .10 normal Not Available [facility] [address], [address], 08/14/2024 00:57:34 08/06/19 25 08/13/2024 CBC (INCL UDES DIFF/ PLT) hemoglobin 13.2 g/dL 11.7-1 5.5 normal Not Available [facility] [address], [address], 08/14/2024 00:57:34 08/06/1908/13/2024 CBC (INCL UDES DIFF/ PLT) hematocrit 40.5 % 35.0-4 5.0 normal Not Available [facility] [address], [address], 08/14/2024 00:57:34 08/06/19 25 08/13/2024 CBC (INCL UDES DIFF/ PLT) MCV 89.6 fL 80.0-1 00.0 normal Not Available [facility] [address], [address], 08/14/2024 00:57:34 08/06/1908/13/2024 CBC (INCL UDES DIFF/ PLT) MCH 29.2 pg 27.0-3 3.0 normal Not Available [facility] [address], [address], 08/14/2024 00:57:34 08/06/1908/13/2024 CBC (INCL UDES DIFF/ PLT) MCHC 32.6 g/dL 32.0-3 6.0 normal For adult s, a sligh t decre ase in the calcu lated MCHC value (in the range of 30 to 32 g/dL) is most likel y not clini doug signi fican t; feli er, it shoul d be inter prete d with cauti on in [facility] with other red cell akash eters and the patie nt's clini flakita condi tion. Not Available [facility] [address], [address], 08/14/2024 00:57:34 08/06/1908/13/2024 CBC (INCL UDES DIFF/ PLT) RDW 12.6 % 11.0-1 5.0 normal Not Available [facility] [address], [address], 08/14/2024 00:57:34 08/06/1908/13/2024 CBC (INCL UDES DIFF/ PLT) platelet count 447 thous and/u L 140-40 0 high Not Available [facility] [address], [address], 08/14/2024 00:57:34 08/06/1908/13/2024 CBC (INCL UDES DIFF/ PLT) MPV 9.8 fL 7.5-12 .5 normal Not Available [facility] [address], [address], 08/14/2024 00:57:34 08/06/19 25 08/13/2024 CBC (INCL UDES DIFF/ PLT) absolute neutrophils 7325 cells /uL 1500-7 800 normal Not Available [address], [address], 08/14/2024 00:57:34 08/06/19 25 08/13/2024 CBC (INCL UDES DIFF/ PLT) absolute lymphocytes 3091 cells /uL 850-39 00 normal Not Available [facility] [address], [address], 08/14/2024 00:57:34 08/06/1908/13/2024 CBC (INCL UDES DIFF/ PLT) absolute monocytes 594 cells /uL 200-95 0 normal Not Available [facility] [address], [address], 08/14/2024 00:57:34 08/06/19 25 08/13/2024 CBC (INCL UDES DIFF/ PLT) absolute eosinophils 157 cells /uL 15-500 normal Not Available [address], [address], 08/14/2024 00:57:34 08/06/19 25 08/13/2024 CBC (INCL UDES DIFF/ PLT) absolute basophils 34 cells /uL 0-200 normal Not Available [facility] [address], [address], 08/14/2024 00:57:34 08/06/19 25 08/13/2024 CBC (INCL UDES DIFF/ PLT) neutrophils 65.4 % normal Not Available [address], [address], 08/14/2024 00:57:34 08/06/19 25 08/13/2024 CBC (INCL UDES DIFF/ PLT) lymphocytes 27.6 % normal Not Available [facility] [address], [place], [address], 08/14/2024 00:57:34 08/06/1908/13/2024 CBC (INCL UDES DIFF/ PLT) monocytes 5.3 % normal Not Available [facility] [address], [address], 08/14/2024 00:57:34 08/06/1908/13/2024 CBC (INCL UDES DIFF/ PLT) eosinophils 1.4 % normal Not Available [facility] [address], [address], 08/14/2024 00:57:34 08/06/1908/13/2024 CBC (INCL UDES DIFF/ PLT) basophils 0.3 % normal Not Available [address], [address], 08/14/2024 00:57:34 08/06/1908/13/2024 HEPAT ITIS B SURFA CE ANTIG EN W/REF L CONFI RM hepatitis B surface antigen NON-RE ACTIVE non-re active normal For addit ional infor dave batres e refer to http: //[facility] lomeli.que stdia gnost ics.c om/fa q/FAQ (This link is being provi ded for infor nina russ/ educa karen l purpo ses only. ) Not Available [address], [address], 08/14/2024 00:57:35 08/06/1908/13/2024 HEPAT ITIS C AB [...] a test for HCV RNA (test code 77760 ) is sugjaja fowler. For addit ional infor nina n pleas e refer to http: //jc urbinaia diamond ics.c om/fa q/FAQ 22v1 (This link is being provi ded for infor matio nal/ educa karen l purpo ses only. ) Not Available [facility] [address] [address] [place], [address], 08/14/2024 00:57:36 08/06/1908/13/2024 RUBEL LA AB (IGG) [...] with rubel la virus . Not Available [facility] [address] [address] [place], [address], 08/14/2024 00:57:37 08/06/1908/13/2024 HIV 1/2 ANTIG EN/AN [...] nina lomeli pleas e refer to http: //[facility] fields ics.c om/fa q/FAQ 106 (This link is being provi ded for infor matjude nal/ educa karen l purpo ses only. ) The perfo rmanc e of this assay has not been clini doug valid ated in patie nts less than 2 years old. Not Available [facility] [address] [address] [place], [address], 08/14/2024 00:57:37 08/06/1908/13/2024 QNATA L(R) ADVAN FLOR number of fetuses? 1 Not Available [facility] [address] [place], [address], 08/14/2024 00:57:39 08/06/1908/13/2024 QNATA L(R) ADVAN FLOR advanced maternal age? NO Not Available [facility] [address] [address] [place], [address], 08/14/2024 00:57:39 08/06/1908/13/2024 QNATA L(R) ADVAN FLOR abnormal ella? NO Not Available [facility] [address] [address] [place], [address], 08/14/2024 00:57:39 08/06/1908/13/2024 QNATA L(R) ADVAN FLOR abnormal US? NO Not Available [facility] [address] [address] [place], [address], 08/14/2024 00:57:39 08/06/1908/13/2024 QNATA L(R) ADVAN FLOR personal/fam history? NO Not Available [facility] [address] [address] [place], [address], 08/14/2024 00:57:39 08/06/19 25 08/13/2024 QNATA L(R) ADVAN FLOR interpretati on SEE NOTE This speci men showe d an expec joyce repre senta tion of chrom osome 21, 18, and 13 mater ial. See Gregorio mays below . Not Available [address], [address], 08/14/2024 00:57:39 08/06/19 25 08/13/2024 QNATA L(R) ADVAN FLOR trisomy 21 (T21) NEGATI VE Not Available [address], [address], 08/14/2024 00:57:39 08/06/19 25 08/13/2024 QNATA L(R) ADVAN FLOR trisomy 18 (T18) NEGATI VE Not Available [address], [address], 08/14/2024 00:57:39 08/06/19 25 08/13/2024 QNATA L(R) ADVAN FLOR trisomy 13 (T13) NEGATI VE Not Available [address], [address], 08/14/2024 00:57:39 08/06/19 25 08/13/2024 QNATA L(R) ADVAN FLOR Y chromosome NOT DETECT ED Not Available [address], [address], 08/14/2024 00:57:39 08/06/19 25 08/13/2024 QNATA L(R) ADVAN FLOR Y chr. interpretati on SEE NOTE Consi stent with a femal e fetus . Not Available [address], [address], 08/14/2024 00:57:39 08/06/1908/13/2024 QNATA L(R) ADVAN FLOR sex chromosome NO ANEUPL OIDY Not Available [address], [address], 08/14/2024 00:57:39 08/06/1908/13/2024 QNATA L(R) ADVAN FLOR sex chromosome interp SEE NOTE No appar ent abnor malit y was detec joyce. See Limi tatio ns below . Not Available [address], [address], 08/14/2024 00:57:39 08/06/1908/13/2024 QNATA L(R) ADVAN FLOR microdeletio n NOT DETECT ED Not Available [address], [address], 08/14/2024 00:57:39 08/06/1908/13/2024 QNATA L(R) ADVAN FLOR microdeletio n interp SEE NOTE No appar ent abnor malit y was detec joyce. See Limi tatio ns below . Not Available [address], [address], 08/14/2024 00:57:39 08/06/1908/13/2024 QNATA L(R) ADVAN FLOR gestational age(in weeks) 10 Not Available [address], [address], 08/14/2024 00:57:39 08/06/1908/13/2024 QNATA L(R) ADVAN LFOR gestational age (in days) 2 Not Available [address], [address], 08/14/2024 00:57:39 08/06/1908/13/2024 QNATA L(R) ADVAN FLOR fraction 17.15% Not Available [address] [place], [address], 08/14/2024 00:57:39 08/06/1908/13/2024 QNATA L(R) ADVAN FLOR laboratory comments SEE NOTE Labor atory testi ng super vised and resul ts monit ored by Joshua Paniagua, Ph.D. , FACMG , HCLD, CGMB. Not Available [facility] [address] [place], [address], 08/14/2024 00:57:39 08/06/1908/13/2024 QNATA L(R) ADVAN FLOR [...] place ntal in origi n. Not Available [facility] [address] [address] [address], [place], [address], 08/14/2024 00:57:39 08/06/1908/13/2024 QNATA L(R) ADVAN FLOR [...] rahel tical asses sment . Not Available [facility] [address] [address] [place], [address], 08/14/2024 00:57:39 08/06/19 25 08/13/2024 QNATA L(R) [...] been revie wed by FDA. Not Available [facility] [address] [address] [place], [address], 08/14/2024 00:57:39 08/06/1908/13/2024 RPR (DX) W/REF L TITER AND T. PALLI DUM AB, IA RPR (DX) w/refl titer and confirmatory testing NON-RE ACTIVE non-re active normal No labor atory evide nce of syphi lis. If recen t expos ure is suspe cted, submi t a new sampl e in 2-4 weeks . Not Available [address] [place], [address], 08/14/2024 00:57:40 08/06/1908/13/2024 ANTIB VERONICA SCREE N, [...] alloi mmuni zed pregn gila. Not Available [facility] [address] [address] [place], [address], 08/14/2024 00:57:41 08/06/1908/13/2024 ABO GROUP AND RH TYPE ABO group A Not Available [facility] [address] [address] [place], [address], 08/14/2024 00:57:42 08/06/1908/13/2024 ABO GROUP AND RH TYPE Rh type RH(D) POSITI VE For addit ional infor dave batres e refer to http: //jc sanabriaQue stDia gnost ics.c om/fa q/FAQ 111 (This link is being provi ded for infor nina russ/ educa karen l purpo ses only. ) Not Available [facility] [address] [address] [place], [address], 08/14/2024 00:57:42 08/06/1908/13/2024 DRUG MONIT OR, PANEL 1, SCREE N, URINE amphetamines NEGATI VE NG/mL <500 See Note A See Note A Not Available [facility] [address] [address] [address], [place], [address], 08/14/2024 00:57:42 08/06/1908/13/2024 DRUG MONIT OR, PANEL 1, SCREE N, URINE barbiturates NEGATI VE NG/mL <300 See Note A See Note A Not Available [facility] [address], [place], [address], 08/14/2024 00:57:42 08/06/1908/13/2024 DRUG MONIT OR, PANEL 1, SCREE N, URINE benzodiazepi karan NEGATI VE NG/mL <100 See Note A See Note A Not Available [facility] [address] [address], [place], [address], 08/14/2024 00:57:42 08/06/1908/13/2024 DRUG MONIT OR, PANEL 1, SCREE N, URINE cocaine metabolite NEGATI VE NG/mL <150 See Note A See Note A Not Available [facility] [address] [address] [address], [place], [address], 08/14/2024 00:57:42 08/06/1908/13/2024 DRUG MONIT OR, PANEL 1, SCREE N, URINE marijuana metabolite POSITI VE NG/mL <20 abnormal See Note A See Note A Not Available [facility] [address] [address], [place], [address], 08/14/2024 00:57:42 08/06/1908/13/2024 DRUG MONIT OR, PANEL 1, SCREE N, URINE methadone metabolite NEGATI VE NG/mL <100 See Note A See Note A Not Available [facility] [address] [address], [place], [address], 08/14/2024 00:57:42 08/06/1908/13/2024 DRUG MONIT OR, PANEL 1, SCREE N, URINE opiates NEGATI VE NG/mL <100 See Note A See Note A Not Available [address] [address] [address], [place], [address], 08/14/2024 00:57:42 08/06/1908/13/2024 DRUG MONIT OR, PANEL 1, SCREE N, URINE oxycodone NEGATI VE NG/mL <100 See Note A See Note A Not Available [address] [address] [address], [place], [address], 08/14/2024 00:57:42 08/06/1908/13/2024 DRUG MONIT OR, PANEL 1, SCREE N, URINE phencyclidin e NEGATI VE NG/mL <25 See Note A See Note A Not Available [address] [address] [address], [place], [address], 08/14/2024 00:57:42 08/06/1908/13/2024 DRUG MONIT OR, PANEL 1, SCREE N, URINE creatinine 186.9 mg/dL > or = 20.0 Not Available [address] [address] , [place], [address], 08/14/2024 00:57:42 08/06/1908/13/2024 DRUG MONIT OR, PANEL 1, SCREE N, URINE pH 7.5 4.5-9. 0 Not Available [address] [address] [address] , [place], [address], 08/14/2024 00:57:42 08/06/1908/13/2024 DRUG MONIT OR, PANEL 1, SCREE N, URINE oxidant NEGATI VE mcg/m L <200 Not Available [address] [address], [place], [address], 08/14/2024 00:57:42 08/06/1908/13/2024 DRUG MONIT ORING TEMPL ATE notes and comments This drug testi ng is for medic al treat ment only. Rahel sis was perfo rmed as non-f orens ic testi ng and these resul ts shoul d be used only by [facility] prov[facility] ders to rende r diagn osis or treat ment, or to monit or progr ess of medic al condi tions . Note A: The resul ts are presu mptiv e; based only on stacye jett velazquez ds, and they have not been confi rmed by a defin itive metho d. [facility] Provi ders needi ng Inter preta tion rita tance , pleas e conta ct us at 1.877 .40.R XTOX (1.87 [phone] ) M-F, 8am to 10pm EST Not Available [address] [address] [place], [address], 08/14/2024 00:57:44 08/06/1908/13/2024 CULTU RE, URINE , ROUTI NE culture, urine, routine SEE NOTE CULTU RE, URINE , ROUTI NE Micro Numbe r: [id number] Test Statu s: Final Speci men [...] Cultu re Trans port Tube. Not Available [address] [address] [place], [address], 08/14/2024 00:57:44 08/07/1908/08/2024 SURES WAB(R ) ADVAN FLOR VAGIN ITIS PLUS, TMA sureswab(R) adv bacterial vaginosis (bv), tma NEGATI VE negati ve normal Not Available [facility] [place] [address] [place] [address], [address], 08/08/2024 18:38:48 08/07/19 25 08/08/2024 SURES WAB(R ) ADVAN FLOR VAGIN ITIS PLUS, TMA karly species NOT DETECT ED not detect ed normal Not Available [facility] [address], [address], 08/08/2024 18:38:48 08/07/19 25 08/08/2024 SURES WAB(R [...] resul t. Not Available [facility] [address], [address], 08/08/2024 18:38:48 08/07/19 25 08/08/2024 SURES WAB(R ) ADVAN FLOR VAGIN ITIS PLUS, TMA trichomonas vaginalis (TV), tma NOT DETECT ED not detect ed normal Not Available [facility] [address], [address], 08/08/2024 18:38:48 08/07/19 25 08/08/2024 SURES WAB(R ) ADVAN FLOR VAGIN ITIS PLUS, TMA chlamydia trachomatis RNA, tma, urogenital NOT DETECT ED not detect ed normal Not Available [facility] [address], [address], 08/08/2024 18:38:48 08/07/19 25 08/08/2024 SURES WAB(R ) ADVAN FLOR VAGIN ITIS PLUS, TMA neisseria gonorrhoeae RNA, tma, urogenital NOT DETECT ED not detect ed normal For addit ional infor dave batres e refer to https ://ed ucati on.qu estdi agnos tics. com/f aq/FA Q154 (This link is being provi ded for infor nina n/ vincenzo fall purpo ses only. ) Not Available [facility] [address] [address] , [place], [address], 08/08/2024 18:38:48 12/03/19 25 12/02/2024 CBC WBC 8.8 x10 4.0-10 .5 Not Available [facility] [address] [facility] [address], [place], [address], 12/02/2024 11:47:45 12/03/19 25 12/02/2024 CBC RBC 3.66 x10 3.50-5 .50 Not Available [facility] [address] [facility] [address], [place], [address], 12/02/2024 11:47:45 12/03/19 25 12/02/2024 CBC HGB 11.1 g/dL 12.0-1 6.0 low Not Available [facility] [address] [facility] [address], [place], [address], 12/02/2024 11:47:45 12/03/19 25 12/02/2024 CBC HCT 32.9 % 37.0-4 7.0 low Not Available [facility] [address] [facility] [address], [place], [address], 12/02/2024 11:47:45 12/03/19 25 12/02/2024 CBC MCV 89.8 fL 80.0-9 9.9 Not Available [facility] [address] [facility] [address], [place], [address], 12/02/2024 11:47:45 12/03/19 25 12/02/2024 CBC MCH 30.4 pg 27.0-3 2.0 Not Available [facility] [address] [facility] [address], [place], [address], 12/02/2024 11:47:45 12/03/19 25 12/02/2024 CBC MCHC 33.8 g/dL 32.0-3 6.0 Not Available [facility] [address] [facility] [address], [place], [address], 12/02/2024 11:47:45 12/03/19 25 12/02/2024 CBC RDW 13.7 % 11.5-1 4.5 Not Available [facility] [address] [facility] [address], [place], [address], 12/02/2024 11:47:45 12/03/19 25 12/02/2024 CBC plt 330.0 x10 140.0- 451.0 Not Available [facility] [address] [place] [address] [facility] [address], [place], [address], 12/02/2024 11:47:45 12/03/19 25 12/02/2024 CBC lymphocytes % 50.1 % 20.0-5 0.0 high Not Available [facility] [address] [place] [address] [facility], [place], [address], 12/02/2024 11:47:45 12/03/19 25 12/02/2024 CBC granulcytes % 41.8 % 30.0-7 0.0 Not Available [facility] [address] [place] [address] [facility], [place], [address], 12/02/2024 11:47:45 12/03/19 25 12/02/2024 CBC monocytes % 7.3 % 2.0-16 .0 Not Available [facility] [address] [facility], [place], [address], 12/02/2024 11:47:45 12/03/19 25 12/02/2024 CBC granulcytes# 3.7 x10 Not Esthela ilable [facility] [address] [facility] 1, [place], [address], 12/02/2024 11:47:45 12/03/19 25 12/02/2024 CBC lymphocytes # 4.4 x10 Not Available [facility] [address] [facility] [address], [place], [address], 12/02/2024 11:47:45 12/03/19 25 12/02/2024 CBC monocytes # 0.6 x10 Not Avai lable [facility] [address] [facility] [address], [place], [address], 12/02/2024 11:47:45 12/03/19 25 12/02/2024 GLUCO SE SCREE N glucose screen 111.0 mg/dL Not Available [facility] [address] [facility] [address], [place], [address], 12/02/2024 12:07:41 01/28/20 25 01/30/2025 STREP TOCOC CUS, GROUP B CULTU RE streptococcu s, group B culture SEE NOTE STREP TOCOC CUS, GROUP B CULTU RE Micro Numbe r: [id number] Test Statu s: Final Speci men Sourc e: Vagin al/an orect al Speci men Quali ty: Adequ ate Resul t: No group B Strep tococ cus isola joyce Note per CDC guide lines optim al recov candace is achie simon by swabb ing both the lower vagin a and rectu m (thro ugh the anal sphin cter) . Not Available [facility] [address], [place], [address], 01/30/2025 09:33:23 07/23/19 25 07/22/2024 US, obste tric, 1st trime ster No observ ation record ed. [email or web address] Not Available 07/25 16:33:11 10/16/19 25 10/14/2024 US, obste tric, mater nal evalu ation + anato my No observ ation record ed. [email or web address] [facility] ([facility]) [address] [place], [address], 10/15/2024 12:31:45 02/10/20 25 02/09/2025 lab* No observ ation record ed. [email or web address] [facility] [address] [place], [address], 02/11/2025 14:01:59 02/12/20 25 02/04/2025 US, obste tric, follo w-up No observ ation record ed. [email or web address] [facility] ([facility]) [address] [place], [address], 02/11/2025 14:29:29 Result Notes None recorded. Problems Name Problem SNOMED Code Status Onset Date Resolution Date Notes Provider Name and Address Organization Details Recorded Time Irregular periods 95100656 Active 2022 BRADLEY teague [facility] 5 15:06:25 30164560 Completed 202403/03/2025 PAUL MONZON [facility] 11:18:12 Mixed anxiety and depressive disorder 762825254 Active 2024 PAUL teague [facility] 5 09:56:54 Problem Notes None recorded. Procedures Surgical History Date Name Laterality Status Provider Name and Address Organization Details Recorded Time section completed PAUL MONZON [facility] 03/03/2025 11:20:58 open reduction of fracture of radius and ulna completed PAUL MONZON [facility] 07/02/2024 09:55:43 Imaging Results None [...] Not Available Not Available Vitals Date Recorded Systolic And Diastolic Provider Name and Address Organization Details Last Updated DateTime 02/19/2025 118/88 mm[Hg] PAUL MONZON [facility] 02/19/2025 14:28:16 Date Recorded Body height Body mass index (BMI) Body weight Body temperature Oxygen saturation Heart rate Systolic And Diastolic Provider Name and Address Organization Details Last Updated DateTime 170.18 cm 34.3 kg/m2 63894.7 3 g 96.9 [degF] 99 % 127 /min 142/84 mm[Hg] BRADLEY LINO [facility] 14:07:31 Social History None recorded. Functional Status None recorded. Mental Status None recorded. Family History Relationship Description Onset Age of this Age Resolved Age Notes LastModified by Organization Details LastModified Time Mother Diabetes mellitus [email or web address] Not available 06/13 09:52:41 Mother Hypertensive disorder [email or web address] Not available 06/13 09:52:51 Sister Gestational diabetes mellitus [email or web address] Not available 06/13 09:53:03 Medical History Condition Response Coronary Artery Disease N Gout N Other N Blood Diseases N Kidney Stones N Hyperthyroidism N Blood Transfusion N Breast Cancer N COPD N Lung Disease N Hypothyroidism N Depression Y Defects or Inherited Disease [...] Recorded Time HPV9 [facility] 13:00:05 HPV9 7 [facility] 13:00:05 IPV 5 [facility] 13:00:05 IPV 4 [facility] 13:00:05 IPV 9 completed Gunjan Mirella null, [facility] 02/03/2023 13:00:05 IPV 4 completed Gunjan Mirella null, [facility] 02/03/2023 13:00:05 MMR 5 completed Gunjan Mirella null, [facility] 02/03/2023 13:00:05 MMR 9 completed Gunjan Mirella null, [facility] 02/03/2023 13:00:05 pneumococcal conjugate PCV 7 5 completed Gunjan Mirella null, [facility] 02/03/2023 13:00:05 pneumococcal conjugate PCV 7 4 completed Gunjan Mirella null, [facility] 02/03/2023 13:00:05 pneumococcal conjugate PCV 7 4 completed Gunjan Mirella null, [facility] 02/03/2023 13:00:06 Tdap 7 completed Gunjan Mirella null, [facility] 02/03/2023 13:00:06 varicella 5 completed Gunjan Mirella null, [facility] 02/03/2023 13:00:06 varicella 9 completed Gunjan Mirella null, [facility] 02/03/2023 13:00:06 Hep B, adolescent or pediatric 5 completed Gunjan Mirella null, [facility] 02/03/2023 13:00:06 Hep B, adolescent or pediatric 4 completed Gunjan Mirella null, [facility] 02/03/2023 13:00:06 Hep B, adolescent or pediatric 4 completed Gunjan Mirella [facility], [facility] 02/03/2023 13:00:06 Hep A, ped/adol, 2 dose 8 completed Gunjan Mirella null, [facility] 02/03/2023 13:00:06 Hep A, ped/adol, 2 dose 7 completed Gunjan Mirella null, [facility] 02/03/2023 13:00:06 Hib (PRP-T) 5 completed Gunjancuate Vu [facility] 02/03/2023 13:00:06 Hib (PRP-T) 4 completed Gunjancuate Vu [facility] 02/03/2023 13:00:06 Hib (PRP-T) 4 completed Gunjancuate Vu [facility] 02/03/2023 13:00:06 meningococcal MCV4P 7 completed Gunjancuate Vu [facility] 02/03/2023 13:00:06 DTaP 5 completed Gunjancuate Vu [facility] 02/03/2023 13:00:06 DTaP 4 completed Gunjancuate Vu [facility] 02/03/2023 13:00:06 DTaP 9 completed Gunjancuate Vu [facility] 02/03/2023 13:00:06 DTaP 4 completed Gunajncuate Vu [facility] 02/03/2023 13:00:06 meningococcal conjugate quadrivalent, MenACWY-TT (MCV4) 3 completed Not Available [facility] 04/28/2025 16:52:51 meningococcal B, OMV 3 completed Not Available [facility] 04/28/2025 16:52:51 meningococcal B, OMV 4 completed Not Available [facility] 04/28/2025 16:52:51 RSV, bivalent, protein subunit RSVpreF, diluent reconstituted, 0.5 mL, PF 5 completed Not Available [facility] 04/28/2025 16:52:51 Tdap 5 completed Not Available [facility] 04/28/2025 16:52:51 Past Encounters Encounter ID Performer Location Encounter Start Date Encounter Closed Date Diagnosis/Indication Diagnosis SNOMED-CT Code Diagnosis ICD10 Code Diagnosis IMO Codes Diagnosis Note [id number] Charlene Murray MD [facility] ([facility]) [address] [place], [place] [phone] 01/27/2025 10:53:40 01/28/2025 10:38:27 Gestation period, 35 weeks 84653041 Z3A.35 5271928 Multigravida 510067459 Z 34.83 15861943 Fundal hei ght high for dates 209440186 Z34.90 [id number] Charlene Murray MD [facility] ([facility]) [address] [place], [place] [address] 02/04/2025 11:45:55 02/04/2025 13:19:34 [id number] Charlene Murray MD [facility] ([facility]) [address] [place], [place] [phone] 02/06/2025 13:49:17 02/11/2025 16:26:33 Gestation period, 36 weeks 72357930 Z3A.36 4436256 Multigravida 677352630 Z 34.83 09376187 [id number] Charlene Murray MD [facility] ([facility]) [address] [place], [place] [phone] 02/13/2025 11:06:50 02/17/2025 14:59:19 Gestation period, 37 weeks 56633882 Z3A.37 9209397 Multigravida 758734598 Z 34.83 12806954 [id number] Charlnee Murray MD [facility] ([facility]) [address] [place] [address] 02/19/2025 13:52:41 03/03/2025 09:50:47 Gestation period, 38 weeks 07030036 Z3A.38 5605000 Multigravida 315570876 Z 34.83 [id number] Health Concerns Section Related Observation LastModified by Organization Detai ls LastModified Time None Recorded Concern Status LastModified by Organization Details LastModified Time None Recorded Payers Encounter Date Sequence Insurance Name Policy Number Policy Eason Covered Member ID Eason Member ID Guarantor Name 02/19/2025 1 [facility] (MEDICAID REPLACEMENT - HMO) SHEMAR Alvarenga [id number] Humphrey Alvarenga Notes Date Note Type Note Provider Name and Address Organization Details Recorded Time 02/19/2025 text/html jr ob routineRep orted by PatientHPIFor associated symptoms, patient reportsheadachebut reportsno abdominal pain,no cramping,no contractions,normal movement,no bleeding,no dysuria,no frequency,no nausea,no emesis,no constipation,no edema,no visual changes, andno dizziness. Charlene Murray MD [address] [place] [address], [id number], [facility], [facility] 03/02/2025 12:57:35 OBGyn Episode Ob Episode Information Episode Created Date Number of Fetuses Patient Bloodtype Patient rh Status Prepregnancy Weight lbs Domestic Partner Domestic Partner Phone Father Name Tape Coater Status 07/02/19 25 1 A Positive Leroy [...] Weight in lbs Pre/Post Dialysis Refused Weight 194.282296569032 BP Diastolic BP Location Tested BP Systolic [...] in lbs Pre/Post Dialysis Refused With clothes 191.459661395230 BP Diastolic BP Location Tested BP Systolic BP Type 76 L arm 118 sitting Fetus Heart Rate Present Fetus Movement Comments Flowsheet Date 09/02/2024 Blank Score Blood Edema Fundus Height Fundus Units Glucose Ketones Leukocytes Nitrite Labor Signs Protein Cervic Dilation Cervic Effacement Cervic Station none trace trace Type Weight in lbs Pre/Post Dialysis Refused Weight 192.095882653169 BP Diastolic BP Location Tested BP Systolic [...] Weight in lbs Pre/Post Dialysis Refused Weight 196.634890203833 BP Diastolic BP Location Tested BP Systolic [...] Weight in lbs Pre/Post Dialysis Refused Weight 202.519087992995 BP Diastolic BP Location Tested BP Systolic [...] in lbs Pre/Post Dialysis Refused With clothes 208.363644754876 BP Diastolic BP Location Tested BP Systolic [...] Weight in lbs Pre/Post Dialysis Refused Weight 212.687564491108 BP Diastolic BP Location Tested BP Systolic [...] Weight in lbs Pre/Post Dialysis Refused Weight 216.294917907481 BP Diastolic BP Location Tested BP Systolic [...] Weight in lbs Pre/Post Dialysis Refused Weight 219.941731434974 BP Diastolic BP Location Tested BP Systolic [...] Weight in lbs Pre/Post Dialysis Refused Weight 224.894333878536 BP Diastolic BP Location Tested BP Systolic [...] Weight in lbs Pre/Post Dialysis Refused Weight 228.128750010550 BP Diastolic BP Location Tested BP Systolic [...] in lbs Pre/Post Dialysis Refused With clothes 219.747304222664 BP Diastolic BP Location Tested BP Systolic [...] Weight in lbs Pre/Post Dialysis Refused Weight 203.798673495817 BP Diastolic BP Location Tested BP Systolic BP Type 83 130 Fetus Heart Rate Present Fetus Movement Comments Menstrual History Last Menstrual Date Menses Monthly On Bcp Conception Prior Menses Frequency Hcg Plus Date Menarche Onset Age 1205/26/2024 false Genetic Screening And Infection History Question Response Note Patient's Age Will Be 35 Yea rs Or Older At Estimated Date of Delivery false Thalassemia (Portuguese, Hungarian, Mediterranean, Or Background): MCV < 80 false Neural Tube Defect (Meningom yelocele, Spina Bifida, Or Anencephaly) false Congenital Heart Defect false Down Syndrome false Ylndon-Sachs (eg, Temple, Cajun, Anguillan-Faroese) f alse Andrei Disease false Sickle Cell [...]
--- OUTSIDE RECORDS SUMMARY | 2025-05-04 05:13 | XMS_ITS | Continuity of Care Document ---
Author Organization [facility] - [facility] Stephanie, LCrowLHeriberto, [facility] ([facility]) Address [address] [place] [address] Care Team Providers Care Rn International Name Role Phone JONI DE PAZ Primary Care Provider Unavailabl e Assessment No assessment recorded. Plan of Treatment Reminders Order Date Submit Date Provider Last Modified By Organization Details Last Modified Time Details Appointments None recorded. Lab streptococc us group A Ag screen 2024 025 LUCY [facility] ([facility]), [address] [place], [address], 12:43:48 Referral None recorded. Procedures None recorded. Surgeries None recorded. Imaging None recorded. Medication Orders None recorded. Patient TargetsNo targets recorded. Patient Instructions Encounter Date Encounter Id Patient Instructions Last Modified By Organization Details Last Modified Time 04/02/2025 [id number] - Follow up with the results of the strep test. - Use [id number] medicine to ease symptoms if needed. - Stay hydrated and get plenty of rest. - If you feel worse or start to feel ear pain, call us right away. [email or web address] Not available 04/02/2025 11:22:45 [email or web address] Not available 2024 11:39:56 Reason for Referral None Reported. Results Created Date Observation Date Name Description Value Unit Range Abnormal Flag Note LastModifiedBy Organization Detail LastModifiedTime 07/02/19 25 07/02/2024 pregn gila test, urine HCG positi ve Not Available [facility] ([facility]) [address] [place], [address], 07/02/2024 09:58:16 08/06/1908/13/2024 URINA LYSIS , COMPL ETE color YELLOW yellow normal Not Available [address], [address], 08/14/2024 00:57:32 08/06/1908/13/2024 URINA LYSIS , COMPL ETE appearance TURBID clear abnormal Not Available [facility] [address], [address], 08/14/2024 00:57:32 08/06/1908/13/2024 URINA LYSIS , COMPL ETE specific gravity 1.027 1.001- 1.035 normal Not Available [address], [address], 08/14/2024 00:57:32 08/06/1908/13/2024 URINA LYSIS , COMPL ETE pH 7.5 5.0-8. 0 normal Not Available [address], [address], 08/14/2024 00:57:32 08/06/1908/13/2024 URINA LYSIS , COMPL ETE glucose NEGATI VE negati ve normal Not Available [address], [address], 08/14/2024 00:57:32 08/06/1908/13/2024 URINA LYSIS , COMPL ETE bilirubin NEGATI VE negati ve normal Not Available [address], [address], 08/14/2024 00:57:32 08/06/1908/13/2024 URINA LYSIS , COMPL ETE ketones 1+ negati ve abnormal Not Available [address], [address], 08/14/2024 00:57:32 08/06/1908/13/2024 URINA LYSIS , COMPL ETE occult blood NEGATI VE negati ve normal Not Available [address], [address], 08/14/2024 00:57:32 08/06/1908/13/2024 URINA LYSIS , COMPL ETE protein TRACE negati ve abnormal Not Available [address], [address], 08/14/2024 00:57:32 08/06/1908/13/2024 URINA LYSIS , COMPL ETE nitrite NEGATI VE negati ve normal Not Available [address], [address], 08/14/2024 00:57:32 08/06/1908/13/2024 URINA LYSIS , COMPL ETE leukocyte esterase NEGATI VE negati ve normal Not Available [address], [address], 08/14/2024 00:57:32 08/06/1908/13/2024 URINA LYSIS , COMPL ETE WBC 0-5 /hpf < or = 5 normal Not Available [address], [address], 08/14/2024 00:57:32 08/06/1908/13/2024 URINA LYSIS , COMPL ETE RBC 0-2 /hpf < or = 2 normal Not Available [facility] [address], [address], 08/14/2024 00:57:32 08/06/1908/13/2024 URINA LYSIS , COMPL ETE squamous epithelial cells 10-20 /hpf < or = 5 abnormal Not Available [address], [address], 08/14/2024 00:57:32 08/06/1908/13/2024 URINA LYSIS , COMPL ETE bacteria MANY /hpf none seen abnormal Not Available [address], [address], 08/14/2024 00:57:32 08/06/1908/13/2024 URINA LYSIS , COMPL ETE calcium oxalate crystals MANY /hpf none or few abnormal Not Available [facility] [address], [address], 08/14/2024 00:57:32 08/06/19 25 08/13/2024 URINA LYSIS , COMPL ETE hyaline cast NONE SEEN /lpf none seen normal Not Available [address], [address], 08/14/2024 00:57:32 08/06/1908/13/2024 URINA LYSIS , COMPL ETE note This urine was rahel zed for the prese nce of WBC, RBC, bacte hailee, casts , and other forme d eleme nts. Only those eleme nts seen were repor joyce. Not Available [address], [address], 08/14/2024 00:57:32 08/06/19 25 08/13/2024 CBC (INCL UDES DIFF/ PLT) white blood cell count 11.2 thous and/u L 3.8-10 .8 high Not Available [address], [address], 08/14/2024 00:57:34 08/06/1908/13/2024 CBC (INCL UDES DIFF/ PLT) red blood cell count 4.52 juan francisco on/uL 3.80-5 .10 normal Not Available [address], [address], 08/14/2024 00:57:34 08/06/19 25 08/13/2024 CBC (INCL UDES DIFF/ PLT) hemoglobin 13.2 g/dL 11.7-1 5.5 normal Not Available [address], [address], 08/14/2024 00:57:34 08/06/1908/13/2024 CBC (INCL UDES DIFF/ PLT) hematocrit 40.5 % 35.0-4 5.0 normal Not Available [address], [address], 08/14/2024 00:57:34 08/06/19 25 08/13/2024 CBC (INCL UDES DIFF/ PLT) MCV 89.6 fL 80.0-1 00.0 normal Not Available [address], [address], 08/14/2024 00:57:34 08/06/1908/13/2024 CBC (INCL UDES DIFF/ PLT) MCH 29.2 pg 27.0-3 3.0 normal Not Available [address], [address], 08/14/2024 00:57:34 08/06/1908/13/2024 CBC (INCL UDES DIFF/ PLT) MCHC 32.6 g/dL 32.0-3 6.0 normal For adult s, a sligh t decre ase in the calcu lated MCHC value (in the range of 30 to 32 g/dL) is most likel y not clini doug signi rox t; feli er, it shoul d be inter prete d with cauti on in corre latio n with other red cell akash eters and the patie nt's clini flakita condi tion. Not Available [address], [address], 08/14/2024 00:57:34 08/06/1908/13/2024 CBC (INCL UDES DIFF/ PLT) RDW 12.6 % 11.0-1 5.0 normal Not Available [address], [address], 08/14/2024 00:57:34 08/06/1908/13/2024 CBC (INCL UDES DIFF/ PLT) platelet count 447 thous and/u L 140-40 0 high Not Available [address], [address], 08/14/2024 00:57:34 08/06/19 25 08/13/2024 CBC (INCL UDES DIFF/ PLT) MPV 9.8 fL 7.5-12 .5 normal Not Available [address], [address], 08/14/2024 00:57:34 08/06/1908/13/2024 CBC (INCL UDES DIFF/ PLT) absolute neutrophils 7325 cells /uL 1500-7 800 normal Not Available [address], [address], 08/14/2024 00:57:34 08/06/19 25 08/13/2024 CBC (INCL UDES DIFF/ PLT) absolute lymphocytes 3091 cells /uL 850-39 00 normal Not Available [address], [address], 08/14/2024 00:57:34 08/06/19 25 08/13/2024 CBC (INCL UDES DIFF/ PLT) absolute monocytes 594 cells /uL 200-95 0 normal Not Available [address], [address], 08/14/2024 00:57:34 08/06/19 25 08/13/2024 CBC (INCL UDES DIFF/ PLT) absolute eosinophils 157 cells /uL 15-500 normal Not Available [address], [address], 08/14/2024 00:57:34 08/06/19 25 08/13/2024 CBC (INCL UDES DIFF/ PLT) absolute basophils 34 cells /uL 0-200 normal Not Available [address], [address], 08/14/2024 00:57:34 08/06/1908/13/2024 CBC (INCL UDES DIFF/ PLT) neutrophils 65.4 % normal Not Available [address], [address], 08/14/2024 00:57:34 08/06/1908/13/2024 CBC (INCL UDES DIFF/ PLT) lymphocytes 27.6 % normal Not Available [address], [address], 08/14/2024 00:57:34 08/06/1908/13/2024 CBC (INCL UDES DIFF/ PLT) monocytes 5.3 % normal Not Available [address], [address], 08/14/2024 00:57:34 08/06/1908/13/2024 CBC (INCL UDES DIFF/ PLT) eosinophils 1.4 % normal Not Available [address], [address], 08/14/2024 00:57:34 08/06/1908/13/2024 CBC (INCL UDES DIFF/ PLT) basophils 0.3 % normal Not Available [address], [address], 08/14/2024 00:57:34 08/06/1908/13/2024 HEPAT ITIS B SURFA CE ANTIG EN W/REF L CONFI RM hepatitis B surface antigen NON-RE ACTIVE non-re active normal For addit ional infor dave batres e refer to http: //[facility] lomeli.que stdia gnost ics.c om/fa q/FAQ (This link is being provi ded for infor matio nal/ educa karen l purpo ses only. ) Not Available [facility] [address] [address] [place], [address], 08/14/2024 00:57:35 08/06/1908/13/2024 HEPAT ITIS C AB [...] a test for HCV RNA (test code 47334 ) is sugge sted. For addit ional infor nina lomeli pleas e refer to http: //[facility] wallis stdia gnost ics.c om/fa q/FAQ 22v1 (This link is being provi ded for infor matio nal/ educa karen l purpo ses only. ) Not Available [facility] [address] [address] [place], [address], 08/14/2024 00:57:36 08/06/1908/13/2024 RUBEL LA AB (IGG) [...] with rubel la virus . Not Available [facility] [address] [address] [place], [address], 08/14/2024 00:57:37 08/06/1908/13/2024 HIV 1/2 ANTIG EN/AN TIBOD Y,FOU RTH GENER ATION W/RFL HIV Ag/Ab, 4TH gen NON-RE ACTIVE non-re active normal HIV-1 antig en and HIV-1 /HIV- 2 antib odies were not detec joyce. There is no labor atory evide nce of HIV infec tion. PLEAS E NOTE: This infor matio n has been discl osed to you [...] se of medic al or other infor matio n is NOT suffi cient for this purpo se. For addit ional infor matio n pleas e refer to http: //[facility].george stdia gnost ics.c om/fa q/FAQ 106 (This link is being provi ded for infor matio nal/ educa karen l purpo ses only. ) The perfo rmanc e of this assay has not been clini doug valid ated in patie nts less than 2 years old. Not Available [facility] [address], [address], 08/14/2024 00:57:37 08/06/1908/13/2024 QNATA L(R) ADVAN FLOR number of fetuses? 1 Not Available [facility] [address], [address], 08/14/2024 00:57:39 08/06/1908/13/2024 QNATA L(R) ADVAN FLOR advanced maternal age? NO Not Available [facility] [address], [address], 08/14/2024 00:57:39 08/06/19 25 08/13/2024 QNATA L(R) ADVAN FLOR abnormal ella? NO Not Available [facility] [address] [address] [place], [address], 08/14/2024 00:57:39 08/06/1908/13/2024 QNATA L(R) ADVAN FLOR abnormal US? NO Not Available [facility] [address] [address] [place], [address], 08/14/2024 00:57:39 08/06/1908/13/2024 QNATA L(R) ADVAN FLOR personal/fam history? NO Not Available [facility] [address] , [place], [address], 08/14/2024 00:57:39 08/06/1908/13/2024 QNATA L(R) ADVAN FLOR interpretati on SEE NOTE This speci men showe d an expec joyce repre senta tion of chrom osome 21, 18, and 13 mater ial. See Gregorio mays below . Not Available [address] [address] [place], [address], 08/14/2024 00:57:39 08/06/1908/13/2024 QNATA L(R) ADVAN FLOR trisomy 21 (T21) NEGATI VE Not Available [facility] [address] [address] [place], [address], 08/14/2024 00:57:39 08/06/19 25 08/13/2024 QNATA L(R) ADVAN FLOR trisomy 18 (T18) NEGATI VE Not Available [facility] [address] [address] [place], [address], 08/14/2024 00:57:39 08/06/19 25 08/13/2024 QNATA L(R) ADVAN FLOR trisomy 13 (T13) NEGATI VE Not Available [facility] [address] [address] [place], [address], 08/14/2024 00:57:39 08/06/1908/13/2024 QNATA L(R) ADVAN FLOR Y chromosome NOT DETECT ED Not Available [address], [address], 08/14/2024 00:57:39 08/06/1908/13/2024 QNATA L(R) ADVAN FLOR Y chr. interpretati on SEE NOTE Consi stent with a femal e fetus . Not Available [address], [place], [address], 08/14/2024 00:57:39 08/06/1908/13/2024 QNATA L(R) ADVAN FLOR sex chromosome NO ANEUPL OIDY Not Available [address], [address], 08/14/2024 00:57:39 08/06/1908/13/2024 QNATA L(R) ADVAN FLOR sex chromosome interp SEE NOTE No appar ent abnor malit y was detec joyce. See Limi tatio ns below . Not Available [address], [address], 08/14/2024 00:57:39 08/06/19 25 08/13/2024 QNATA L(R) ADVAN FLOR microdeletio n NOT DETECT ED Not Available [address], [address], 08/14/2024 00:57:39 08/06/1908/13/2024 QNATA L(R) ADVAN FLOR microdeletio n interp SEE NOTE No appar ent abnor malit y was detec joyce. See Limi tatio ns below . Not Available [address], [address], 08/14/2024 00:57:39 08/06/19 25 08/13/2024 QNATA L(R) ADVAN FLOR gestational age(in weeks) 10 Not Available [facility] [address] [address] [place], [address], 08/14/2024 00:57:39 08/06/1908/13/2024 QNATA L(R) ADVAN FLOR gestational age (in days) 2 Not Available [facility] [address] [address] [place], [address], 08/14/2024 00:57:39 08/06/19 25 08/13/2024 QNATA L(R) ADVAN FLOR fraction 17.15% Not Available [facility] [address] [address] [place], [address], 08/14/2024 00:57:39 08/06/1908/13/2024 QNATA L(R) ADVAN FLOR laboratory comments SEE NOTE Labor atory testi ng super vised and resul ts monit ored by Joshua Paniagua, Ph.D. , FACMG , HCLD, CGMB. Not Available [facility] [address] [address] [place], [address], 08/14/2024 00:57:39 08/06/1908/13/2024 QNATA L(R) ADVAN FLOR [...] not valid and shoul d be disre thomas mendoza. Micro delet ion scree jett is limit [...] place ntal in origi n. Not Available [facility] [address] [place], [address], 08/14/2024 00:57:39 08/06/1908/13/2024 QNATA L(R) ADVAN FLOR [...] rahel tical asses sment . Not Available [address] [address] [place], [address], 08/14/2024 00:57:39 08/06/1908/13/2024 QNATA L(R) ADVAN FLOR methodology SEE NOTE [...] senta tion of seque nces from the crikallie serranoio ns invol simon in 1p36 micro delet ion syndr ome (1p36 ), Marcia cameron syndr ome (4p), Zoya stockton t syndr ome (5p), Julio César fourniern syndr ome (8q), Henry ness syndr ome (11q) , Sony izquierdo Willi syndr ome/A ngelm an syndr ome (15q) , and Caydeneo rge syndr ome (22q) is evalu ated for the detec tion of micro delet ions if reque sted. Perfo rmanc e jace cteri stics refer to the rahel tical perfo rmanc e of this scree jett test. This scree jett test is perfo rmed pursu ant to a licen se agree ment with [facility] es. Sujata fall Advan flor is a labor atory devel oped test that has been devel oped and valid ated, pursu ant to the Clini flakita Labor atory Impro vemen ts Amend ments of 1987 (CLIA ), and as such it has not been revie wed by FDA. Not Available [facility] [address] [address] [place], [address], 08/14/2024 00:57:39 08/06/1908/13/2024 RPR (DX) W/REF L TITER AND T. PALLI DUM AB, IA RPR (DX) w/refl titer and confirmatory testing NON-RE ACTIVE non-re active normal No labor atory evide nce of syphi lis. If recen t expos ure is suspe cted, submi t a new sampl e in 2-4 weeks . Not Available [facility] [address] [address] [place], [address], 08/14/2024 00:57:40 08/06/1908/13/2024 ANTIB VERONICA SCREE N, [...] alloi mmuni zed pregn gila. Not Available [facility] [address] [address] [place], [address], 08/14/2024 00:57:41 08/06/1908/13/2024 ABO GROUP AND RH TYPE ABO group A Not Available [facility] [address] [address] [address], [place], [address], 08/14/2024 00:57:42 08/06/1908/13/2024 ABO GROUP AND RH TYPE Rh type RH(D) POSITI VE For addit ional infor dave batres e refer to http: //[facility] Gandhiia gnost ics.c om/fa q/FAQ 111 (This link is being provi ded for infor nina russ/ educmyesha fall purpo ses only. ) Not Available [facility] [address] [address] [address], [place], [address], 08/14/2024 00:57:42 08/06/1908/13/2024 DRUG MONIT OR, PANEL 1, SCREE N, URINE amphetamines NEGATI VE NG/mL <500 See Note A See Note A Not Available [facility] [address] [address] [address], [place], [address], 08/14/2024 00:57:42 08/06/1908/13/2024 DRUG MONIT OR, PANEL 1, SCREE N, URINE barbiturates NEGATI VE NG/mL <300 See Note A See Note A Not Available [facility] [address] [address] [address], [place], [address], 08/14/2024 00:57:42 08/06/1908/13/2024 DRUG MONIT OR, PANEL 1, SCREE N, URINE benzodiazepi karan NEGATI VE NG/mL <100 See Note A See Note A Not Available [facility] [address] [address] [address], [place], [address], 08/14/2024 00:57:42 08/06/1908/13/2024 DRUG MONIT OR, PANEL 1, SCREE N, URINE cocaine metabolite NEGATI VE NG/mL <150 See Note A See Note A Not Available [facility] [address] [address] [address], [place], [address], 08/14/2024 00:57:42 08/06/19 08/13/2024 DRUG MONIT OR, PANEL 1, SCREE N, URINE marijuana metabolite POSITI VE NG/mL <20 abnormal See Note A See Note A Not Available [facility] [address] [address] [address], [place], [address], 08/14/2024 00:57:42 08/06/1908/13/2024 DRUG MONIT OR, PANEL 1, SCREE N, URINE methadone metabolite NEGATI VE NG/mL <100 See Note A See Note A Not Available [address] [address] [address], [place], [address], 08/14/2024 00:57:42 08/06/1908/13/2024 DRUG MONIT OR, PANEL 1, SCREE N, URINE opiates NEGATI VE NG/mL <100 See Note A See Note A Not Available [facility] [address] [address] [address], [place], [address], 08/14/2024 00:57:42 08/06/1908/13/2024 DRUG MONIT OR, PANEL 1, SCREE N, URINE oxycodone NEGATI VE NG/mL <100 See Note A See Note A Not Available [address] [address] [address], [place], [address], 08/14/2024 00:57:42 08/06/1908/13/2024 DRUG MONIT OR, PANEL 1, SCREE N, URINE phencyclidin e NEGATI VE NG/mL <25 See Note A See Note A Not Available [address] [address] [address], [place], [address], 08/14/2024 00:57:42 08/06/1908/13/2024 DRUG MONIT OR, PANEL 1, SCREE N, URINE creatinine 186.9 mg/dL > or = 20.0 Not Available [address] [address] [address], [place], [address], 08/14/2024 00:57:42 08/06/1908/13/2024 DRUG MONIT OR, PANEL 1, SCREE N, URINE pH 7.5 4.5-9. 0 Not Available [facility] [address] [address] [address] , [place], [address], 08/14/2024 00:57:42 08/06/1908/13/2024 DRUG MONIT OR, PANEL 1, SCREE N, URINE oxidant NEGATI VE mcg/m L <200 Not Available [facility] [address] [address] [address] , [place], [address], 08/14/2024 00:57:42 08/06/1908/13/2024 DRUG MONIT ORING TEMPL ATE notes and comments This drug testi ng is for medic al treat ment only. Rahel sis was perfo rmed as non-f orens ic testi ng and these resul ts shoul d be used only by healt hcare provi ders to rende r diagn osis or treat ment, or to monit or progr ess of medic al condi tions . Note A: The resul ts are presu mptiv e; based only on romina velazquez ds, and they have not been confi rmed by a defin itive caroline mendoza. Healt hcare Provi ders needi ng Inter preta tion rita dave galo e conta ct us at 1.877 .40.R XTOX (1.87 [phone] ) M-F, 8am to 10pm EST Not Available [address] [address] [address] , [place], [address], 08/14/2024 00:57:44 08/06/1908/13/2024 CULTU RE, URINE , ROUTI NE culture, urine, routine SEE NOTE CULTU RE, URINE , ROUTI NE Micro Numbe r: [id number] Test Statu s: Final Speci men [...] Cultu re Trans port Tube. Not Available [facility] [address], [address], 08/14/2024 00:57:44 08/07/1908/08/2024 SURES WAB(R ) ADVAN FLOR VAGIN ITIS PLUS, TMA sureswab(R) adv bacterial vaginosis (bv), tma NEGATI VE negati ve normal Not Available [facility] - [address], [address], 08/08/2024 18:38:48 08/07/19 25 08/08/2024 SURES WAB(R ) ADVAN FLOR VAGIN ITIS PLUS, TMA karly species NOT DETECT ED not detect ed normal Not Available [facility] [address], [address], 08/08/2024 18:38:48 08/07/19 25 08/08/2024 SURES WAB(R ) ADVAN FLOR VAGIN ITIS PLUS, TMA karly glabrata NOT DETECT ED not detect ed normal Ibeth da speci es C. albic ans, C. tropi calis , C. parap america is, and/o r C. dubli niens is can be detec joyce, but not diffe renti ated, in the Ibeth da spp. resul t. Not Available [facility] [address], [address], 08/08/2024 18:38:48 08/07/19 25 08/08/2024 SURES WAB(R ) ADVAN FLOR VAGIN ITIS PLUS, TMA trichomonas vaginalis (TV), tma NOT DETECT ED not detect ed normal Not Available [facility] [address], [address], 08/08/2024 18:38:48 08/07/19 25 08/08/2024 SURES WAB(R ) ADVAN FLOR VAGIN ITIS PLUS, TMA chlamydia trachomatis RNA, tma, urogenital NOT DETECT ED not detect ed normal Not Available [facility] [address] [address] [place], [address], 08/08/2024 18:38:48 08/07/19 25 08/08/2024 SURES WAB(R ) ADVAN FLOR VAGIN ITIS PLUS, TMA neisseria gonorrhoeae RNA, tma, urogenital NOT DETECT ED not detect ed normal For addit ional infor dave batres refer to https ://ed ucati on.KangaDo/f aq/FA Q154 (This link is being provi ded for julito lomeli/ vincenzo montes ses only. ) Not Available [facility] [address] [address] [place], [address], 08/08/2024 18:38:48 12/03/19 25 12/02/2024 CBC WBC 8.8 x10 4.0-10 .5 Not Available [facility] [address], [address], 12/02/2024 11:47:45 12/03/19 25 12/02/2024 CBC RBC 3.66 x10 3.50-5 .50 Not Available [facility] [address] [address], [place], [address], 12/02/2024 11:47:45 12/03/19 25 12/02/2024 CBC HGB 11.1 g/dL 12.0-1 6.0 low Not Available [facility] [address] [address], [place], [address], 12/02/2024 11:47:45 12/03/19 25 12/02/2024 CBC HCT 32.9 % 37.0-4 7.0 low Not Available [facility] [address] [facility], [place], [address], 12/02/2024 11:47:45 12/03/19 25 12/02/2024 CBC MCV 89.8 fL 80.0-9 9.9 Not Available [facility] [address] [facility], [place], [address], 12/02/2024 11:47:45 12/03/19 25 12/02/2024 CBC MCH 30.4 pg 27.0-3 2.0 Not Available [facility] [address] [facility], [place], [address], 12/02/2024 11:47:45 12/03/19 25 12/02/2024 CBC MCHC 33.8 g/dL 32.0-3 6.0 Not Available [facility] [address] [facility], [place], [address], 12/02/2024 11:47:45 12/03/19 25 12/02/2024 CBC RDW 13.7 % 11.5-1 4.5 Not Available [facility] [address] [place] [facility], [place], [address], 12/02/2024 11:47:45 12/03/19 25 12/02/2024 CBC plt 330.0 x10 140.0- 451.0 Not Available [facility] [address] [facility], [place], [address], 12/02/2024 11:47:45 12/03/19 25 12/02/2024 CBC lymphocytes % 50.1 % 20.0-5 0.0 high Not Available [facility] [address] [facility], [place], [address], 12/02/2024 11:47:45 12/03/19 25 12/02/2024 CBC granulcytes % 41.8 % 30.0-7 0.0 Not Available [place] [address] [address], [place], [address], 12/02/2024 11:47:45 12/03/19 25 12/02/2024 CBC monocytes % 7.3 % 2.0-16 .0 Not Available [place] [address] [address], [place], [address], 12/02/2024 11:47:45 12/03/19 25 12/02/2024 CBC granulcytes# 3.7 x10 Not Esthela ilable [place] [address] [address], [place], [address], 12/02/2024 11:47:45 12/03/19 25 12/02/2024 CBC lymphocytes # 4.4 x10 Not Available [address] [address], [place], [address], 12/02/2024 11:47:45 12/03/19 25 12/02/2024 CBC monocytes # 0.6 x10 Not Avai lable [place] [address] [address], [place], [address], 12/02/2024 11:47:45 12/03/19 25 12/02/2024 GLUCO SE SCREE N glucose screen 111.0 mg/dL Not Available [address] [address], [place], [address], 12/02/2024 12:07:41 01/28/20 25 01/30/2025 STREP TOCOC CUS, GROUP B CULTU RE streptococcu s, group B culture SEE NOTE STREP TOCOC CUS, GROUP B CULTU RE Micro Numbe r: [id number] Test Statu s: Final Speci men Sourc e: Vagin al/an orect al Speci men Quali ty: Adequ ate Resul t: No group B Strep tococ cus isola joyce Note per CDC guide lines optim al recov candace is achie simon by swabb ing both the lower vagin a and rectu m (thro ugh the anal sphin cter) . Not Available [facility] [address] [place], [address], 01/30/2025 09:33:23 04/02/20 25 04/02/2025 strep tococ cus group A Ag scree n Strep negati ve Not Available [facility] ([facility]) [address] [place], [address], 04/02/2025 11:30:43 07/23/19 25 07/22/2024 US, obste tric, 1st trime ster No observ ation record ed. [email or web address] Not Available 07/25 16:33:11 10/16/19 25 10/14/2024 US, obste tric, mater nal evalu ation + anato my No observ ation record ed. [email or web address] [facility] ([facility]) [address] [place], [address], 10/15/2024 12:31:45 02/10/20 25 02/09/2025 lab* No observ ation record ed. [facility] [address] [place], [address], 02/11/2025 14:01:59 02/12/20 25 02/04/2025 US, obste tric, follo w-up No observ ation record ed. [email or web address] [facility] ([facility]) [address] [place], [address], 02/11/2025 14:29:29 Result Notes None recorded. Problems Name Problem SNOMED Code Status Onset Date Resolution Date Notes Provider Name and Address Organization Details Recorded Time Irregular periods 34382781 Active 2022 BRADLEY teague [place] - [facility] 15:06:25 51935501 Completed 202403/03/2025 [facility]12 Mixed anxiety and depressive disorder 164637848 Active 2024 [facility] 09:56[facility]54 Problem Notes None recorded. Procedures Surgical History Date Name Laterality Status Provider Name and Address Organization Details Recorded Time section completed [facility]/03[facility]2025 11:20:58 open reduction of fracture of radius and ulna completed [facility] 07/02/2024 09:55:43 Imaging Results None recorded. Procedure [...] Updated DateTime 5 170.18 cm 29.4 kg/m2 85019.3 7 g 97.8 [degF] 97 % 114 /min 120/68 mm[Hg] [facility], [facility] 10:53:23 Social History None recorded. Functional Status None recorded. Mental Status None recorded. Family History Relationship Description Onset Age of this Age Resolved Age Notes LastModified by Organization Details LastModified Time Mother Diabetes mellitus [email or web address] Not available 06/13 09:52:41 Mother Hypertensive disorder [email or web address] Not available 06/13 09:52:51 Sister Gestational diabetes mellitus [email or web address] Not available 06/13 09:53:03 Medical History Condition [...] Details Recorded Time HPV9 8 completed Gunjan teague, [facility] 02/03/2023 13:00:05 HPV9 7 completed Gunjan teague, [facility] 02/03/2023 13:00:05 IPV 5 completed Gunjan Vu null, [facility] 02/03/2023 13:00:05 IPV 4 completed Gunjan teague, [facility] 02/03/2023 13:00:05 [facility] 13:00:05 IPV 4 completed Gunjan teague, [facility] 02/03/2023 13:00:05 MMR 5 completed Gunjan teague, [facility] 02/03/2023 13:00:05 [facility] 9 [facility] 13:00:05 pneumococcal conjugate PCV 7 5 completed Gunjan teague, [facility] 02/03/2023 13:00:05 pneumococcal conjugate PCV 7 4 completed Gunjan teague, [facility] 02/03/2023 13:00:05 pneumococcal conjugate PCV 7 4 completed Gunjan teague, [facility] 02/03/2023 13:00:06 Tdap 7 completed Gunjan teague [facility] 02/03/2023 13:00:06 varicella 5 completed Gunjan Mirella null, [facility] 02/03/2023 13:00:06 varicella 9 completed Gunjan Mirella null, [facility] 02/03/2023 13:00:06 Hep B, adolescent or pediatric 5 completed Gunjan Mirella null, [facility] 02/03/2023 13:00:06 Hep B, adolescent or pediatric 4 completed Gunjan Mirella null, [facility] 02/03/2023 13:00:06 Hep B, adolescent or pediatric 4 completed Gunjancuate Vu null, [facility] 02/03/2023 13:00:06 Hep A, ped/adol, 2 dose 8 completed Gunjan Mirella null, [facility] 02/03/2023 13:00:06 Hep A, ped/adol, 2 dose 7 completed Gunjancuate Vu null, [facility] 02/03/2023 13:00:06 Hib (PRP-T) 5 completed Gunjan teague, [facility] 02/03/2023 13:00:06 Hib (PRP-T) 4 completed Gunjancuate Vu null, [facility] 02/03/2023 13:00:06 Hib (PRP-T) 4 completed Gunjancuate Vu null, [facility] 02/03/2023 13:00:06 meningococcal MCV4P 7 completed Gunjancuate teague, [facility] 02/03/2023 13:00:06 DTaP 5 completed Gunjan Vu null, [facility] 02/03/2023 13:00:06 DTaP 4 completed Gunjan Mirella null, [facility] 02/03/2023 13:00:06 DTaP 9 completed Gunjan Vu null, [facility] 02/03/2023 13:00:06 DTaP 4 completed Gunjan Vu null, [facility] 02/03/2023 13:00:06 meningococcal conjugate quadrivalent, MenACWY-TT (MCV4) 3 completed Not Available [facility] 04/28/2025 16:52:51 meningococcal B, OMV 3 completed Not Available [facility] 04/28/2025 16:52:51 meningococcal B, OMV 4 [...] ICD10 Code Diagnosis IMO Codes Diagnosis Note [id number] Charlene Murray MD [facility] ([facility]) [address] [place] [phone] 03/03/2025 11:08:49 03/06/2025 04:08:56 state 56972095 Z39.2 [id number] Charlene Murray MD [facility] ([facility]) [address] [place] [address] 03/13/2025 15:39:59 03/17/2025 16:15:58 Skin lesion 43388695 L98.9 [id number] The patient's incision is healing as expected. She has a 2 mm raw spot on the left aspect that does not appear to have any signs of infection. She was advised to run hydrogen peroxide over the area twice daily and follow-up if worsening or not improved [id number] Charlene Murray MD [facility] ([facility]) [address] [place] [phone] 03/24/2025 15:17:36 03/26/2025 09:19:37 care status [id number] Z39.2 [id number] declines control Disorder of skin 7826441 5 L76.82 [id number] despite pt report it appears improved to me, no drainge expressed, pinpoint opening. [id number] Charlene Murray MD [facility] ([facility]) [address] [place] [phone] 04/02/2025 10:48:29 04/07/2025 13:52:54 Viral upper respiratory tract infection 856508945 J06.9 [id number] Health Concerns Section Related Observation LastModified by Organization Detai ls LastModified Time None Recorded Concern Status LastModified by Organization Details LastModified Time None Recorded Payers Encounter Date Sequence Insurance Name Policy Number Policy Eason Covered Member ID Eason Member ID Guarantor Name 04/02/2025 1 [facility] (MEDICAID REPLACEMENT - HMO) SHEMAR Alvarenga [id number] Humphrey Alvarenga Notes Date Note Type Note Provider Name and Address Organization Details Recorded Time 04/02/2025 text/html Sore ThroatRepor joyce by PatientHPIFor associated symptoms, patient reportsfever,cough, andheadachebut reportsno nauseaandno vomiting. For location, patient reportsbilateral. For duration, patient reportsstarted 3 day(s) ago. The patient is a 19-year-old female presenting with sore throat and congestion. Symptoms commenced with a sore throat around Monday, persisting for two days before congestion became apparent. Headache is also noted. Patient denies experiencing ear pain or pressure. There is no prior medical management sought for these symptoms. Charlene Murray MD [address] [place] [address], [phone], [facility] 04/07/2025 11:40:29 OBGyn Episode Ob Episode Information Episode Created Date Number of Fetuses Patient Bloodtype Patient rh Status Prepregnancy Weight lbs Domestic Partner Domestic Partner Phone Father Name Senior Structural Engineer Status 07/02/19 1 A Positive Leroy Christiano [...] Weight in lbs Pre/Post Dialysis Refused Weight 194.767722740381 BP Diastolic BP Location Tested BP Systolic [...] in lbs Pre/Post Dialysis Refused With clothes 191.847539114158 BP Diastolic BP Location Tested BP Systolic BP Type 76 L arm 118 sitting Fetus Heart Rate Present Fetus Movement Comments Flowsheet Date 09/02/2024 Blank Score Blood Edema Fundus Height Fundus Units Glucose Ketones Leukocytes Nitrite Labor Signs Protein Cervic Dilation Cervic Effacement Cervic Station none trace trace Type Weight in lbs Pre/Post Dialysis Refused Weight 192.728206467174 BP Diastolic BP Location Tested BP Systolic [...] Weight in lbs Pre/Post Dialysis Refused Weight 196.145781505852 BP Diastolic BP Location Tested BP Systolic [...] Weight in lbs Pre/Post Dialysis Refused Weight 202.720347056229 BP Diastolic BP Location Tested BP Systolic [...] in lbs Pre/Post Dialysis Refused With clothes 208.482125314359 BP Diastolic BP Location Tested BP Systolic [...] Weight in lbs Pre/Post Dialysis Refused Weight 212.335563797541 BP Diastolic BP Location Tested BP Systolic [...] Weight in lbs Pre/Post Dialysis Refused Weight 216.980960021673 BP Diastolic BP Location Tested BP Systolic [...] Weight in lbs Pre/Post Dialysis Refused Weight 219.121228401876 BP Diastolic BP Location Tested BP Systolic [...] Weight in lbs Pre/Post Dialysis Refused Weight 224.282625198787 BP Diastolic BP Location Tested BP Systolic [...] Weight in lbs Pre/Post Dialysis Refused Weight 228.739859353839 BP Diastolic BP Location Tested BP Systolic [...] in lbs Pre/Post Dialysis Refused With clothes 219.354973912661 BP Diastolic BP Location Tested BP Systolic [...] Weight in lbs Pre/Post Dialysis Refused Weight 203.566347309001 BP Diastolic BP Location Tested BP Systolic BP Type 83 130 Fetus Heart Rate Present Fetus Movement Comments Menstrual History Last Menstrual Date Menses Monthly On Bcp Conception Prior Menses Frequency Hcg Plus Date Menarche Onset Age 1205/26/2024 false Genetic Screening And Infection History Question Response Note Patient's Age Will Be 35 Yea rs Or Older At Estimated Date of Delivery false Thalassemia (Palauan, Hungarian, Mediterranean, Or Background): MCV < 80 false Neural Tube Defect (Meningom yelocele, Spina Bifida, Or Anencephaly) false Congenital Heart Defect false Down Syndrome false Lyndon-Sachs (eg, Jehovah'S Witness, Cajun, Bulgarian-Miner) f alse Andrei Disease false Sickle Cell [...] By Post Complications Tubal Sterilization Discharge Date 5 39.2 false Discharge Information Feeding Method Contraceptive Method Maternal HG B and HCT Levels
--- OUTSIDE RECORDS SUMMARY | 2025-05-04 05:14 | XMS_ITS | Data Portability ---
Author Organization DANTE Manish De La Rosa [facility], [facility] Address [address] [facility] [address] [place] [address] Care Team Providers Care Supervisor [facility] Name Role Phone JONI ZHOU Primary Care Provider Unavailabl e Assessment No assessment recorded. Plan of Treatment Reminders Order Date Submit Date Provider Last Modified By Organization Details Last Modified Time Details Appointments None recorded. Lab streptococc us group A Ag screen 2024 025 LUCY [facility] ([facility]), [address] [place], [address], 12:43:48 Referral None recorded. Procedures None recorded. Surgeries None recorded. Imaging None recorded. Medication Orders None recorded. Patient TargetsNo targets recorded. Patient Instructions Encounter Date Encounter Id Patient Instructions Last Modified By Organization Details Last Modified Time 04/02/2025 [id number] - Follow up with the results of the strep test. - Use [id number] medicine to ease symptoms if needed. - Stay hydrated and get plenty of rest. - If you feel worse or start to feel ear pain, call us right away. [email or web address] Not available 04/02/2025 11:22:45 [email or web address] Not available 2024 11:39:56 Reason for Referral None Reported. Results Created Date Observation Date Name Description Value Unit Range Abnormal Flag Note LastModifiedBy Organization Detail LastModifiedTime 04/02/2004/02/2025 strep tococ cus group A Ag scree n Strep negati ve Not Available [facility] ([facility]) [address] [place], [address], 04/02/2025 11:30:43 02/10/2002/09/2025 lab* No observ ation record ed. [email or web address] [facility] [address] [place], [address], 02/11/2025 14:01:59 02/12/2002/04/2025 US, obste tric, follo w-up No observ ation record ed. [email or web address] [facility] ([facility] [address] [place], [address], 02/11/2025 14:29:29 Result Notes None recorded. Problems Name Problem SNOMED Code Status Onset Date Resolution Date Notes Provider Name and Address Organization Details Recorded Time Irregular periods 68031863 Active 2022 BRADLEY teague [facility] 15:06:25 [id number] Completed 202403/03/2025 PAUL MONZON [facility] 11:18:12 Mixed anxiety and depressive disorder 571921097 Active 2024 PAUL teague [facility] 09:56:54 Problem Notes None recorded. Procedures Surgical History Date Name Laterality Status Provider Name and Address Organization Details Recorded Time section completed PAUL MONZON [facility] 03/03/2025 11:20:58 open reduction of fracture of radius and ulna completed PAUL MONZON [facility] 07/02/2024 09:55:43 Imaging Results None recorded. Procedure [...] completed DM/sd; Recorded 04/26/20 11:42AM by Joni Zhou DO, Office Visit; Refill Quantity : 84; Tablet; Not Available Not Available Not Available Rexulti 1 mg tablet 07/11 completed Not Available Not Available Not Available Vitals Date Recorded Body height Body mass index (BMI) Body weight Body temperature Oxygen saturation Heart rate Systolic And Diastolic Provider Name and Address Organization Details Last Updated DateTime 5 170.18 cm 31.8 kg/m2 24412.2 5 g 98.1 [degF] 98 % 70 /min 130/83 mm[Hg] PAUL MONZON [facility] 5 11:19:41 Date Recorded Body height Body mass index (BMI) Body weight Body temperature Oxygen saturation Heart rate Systolic And Diastolic Provider Name and Address Organization Details Last Updated DateTime 5 170.18 cm 31.8 kg/m2 85688.2 5 g 97.8 [degF] 98 % 82 /min 132/78 mm[Hg] BRADLEY LINO [facility] 5 15:51:12 Date Recorded Body height Body mass index (BMI) Body weight Body temperature Oxygen saturation Heart rate Systolic And Diastolic Provider Name and Address Organization Details Last Updated DateTime 5 170.18 cm 29.4 kg/m2 60028.3 7 g 98.4 [degF] 98 % 73 /min 122/72 mm[Hg] [facility] 5 15:21:32 Date Recorded Body height Body mass index (BMI) Body weight Body temperature Oxygen saturation Heart rate Systolic And Diastolic Provider Name and Address Organization Details Last Updated DateTime 5 170.18 cm 29.4 kg/m2 30127.3 7 g 97.8 [degF] 97 % 114 /min 120/68 mm[Hg] [facility] 5 10:53:23 Date Recorded Body height Body mass index (BMI) Body weight Body temperature Oxygen saturation Heart rate Systolic And Diastolic Provider Name and Address Organization Details Last Updated DateTime 5 170.18 cm 29.1 kg/m2 40437.1 8 g 98.2 [degF] 96 % 103 /min 90/60 mm[Hg] PAUL MAYFIELDH NA [facility] 5 16:59:06 Social History None recorded. Functional Status None recorded. Mental Status None recorded. Family History Relationship Description Onset Age of this Age Resolved Age Notes LastModified by Organization Details LastModified Time Mother Diabetes mellitus [email or web address] Not available 06/13 09:52:41 Mother Hypertensive disorder [email or web address] Not available 06/13 09:52:51 Sister Gestational diabetes mellitus [email or web address] Not available 06/13 09:53:03 Medical History Condition Response Coronary Artery Disease N Other N Gout N Kidney Stones N Blood Diseases N Hyperthyroidism N Breast Cancer N Blood Transfusion N Hypothyroidism N Depression Y COPD N Lung Disease N Defects or Inherited Disease N Developmental or [...] Recorded Time HPV9 8 completed Gunjan teague [facility] 02/03/2023 13:00:05 HPV9 7 completed Gunjan teague [facility] 02/03/2023 13:00:05 [facility]V 5 [facility] 13:00:05 IPV 4 [facility] 02/03/2023 13:00:05 IPV 9 completed Gunjan teague [facility] 02/03/2023 13:00:05 IPV 4 completed Gunjan teague [facility] 02/03/2023 13:00:05 MMR 5 completed Gunjan teague [facility] 02/03/2023 13:00:05 MMR 9 completed Gunjan teague [facility] 02/03/2023 13:00:05 pneumococcal conjugate PCV 7 5 completed Gunjan teague [facility] 02/03/2023 13:00:05 pneumococcal conjugate PCV 7 4 completed Gunjan teague, [facility] 02/03/2023 13:00:05 pneumococcal conjugate PCV 7 4 completed Gunjan Vu null, [facility] 02/03/2023 13:00:06 Tdap 7 completed Gunjan Vu null, [facility] 02/03/2023 13:00:06 varicella 5 completed Gunjan teague, [facility] 02/03/2023 13:00:06 varicella 9 completed Gunjan teague, [facility] 02/03/2023 13:00:06 Hep B, adolescent or pediatric 5 completed Gunjan Vu null, [facility] 02/03/2023 13:00:06 Hep B, adolescent or pediatric 4 completed Gunjan teague, [facility] 02/03/2023 13:00:06 Hep B, adolescent or pediatric 4 completed Gunjan teague, [facility] 02/03/2023 13:00:06 Hep A, ped/adol, 2 dose 8 completed Gunjan Mirella null, [facility] 02/03/2023 13:00:06 Hep A, ped/adol, 2 dose 7 completed Gunjan Vu null, [facility] 02/03/2023 13:00:06 Hib (PRP-T) 5 completed Gunjan teague, [facility] 02/03/2023 13:00:06 Hib (PRP-T) 4 completed Gunjan Mirella teague, [facility] 02/03/2023 13:00:06 Hib (PRP-T) 4 completed Gunjan Mirella null, [facility] 02/03/2023 13:00:06 meningococcal MCV4P 7 completed Gunjancuate teague, [facility] 02/03/2023 13:00:06 DTaP 5 completed Gunjan Mirella null, [facility] 02/03/2023 13:00:06 DTaP 4 completed Gunjancuate teague, [facility] 02/03/2023 13:00:06 DTaP 9 completed Gunjancuate teague, [facility] 02/03/2023 13:00:06 DTaP 4 completed Gunjancuate teague, [facility] 02/03/2023 13:00:06 meningococcal conjugate quadrivalent, MenACWY-TT (MCV4) 3 completed Not Available [facility] 04/28/2025 16:52:51 meningococcal B, OMV 3 completed Not Available [facility] 04/28/2025 16:52:51 meningococcal B, OMV 4 completed Not Available [facility] 04/28/2025 16:52:51 RSV, bivalent, protein subunit RSVpreF, diluent reconstituted, 0.5 mL, PF 5 completed Not Available [facility] 04/28/2025 16:52:51 Tdap 5 completed Not Available [facility] 04/28/2025 16:52:51 Past Encounters Encounter ID Performer Location Encounter Start Date Encounter Closed Date Diagnosis/Indication Diagnosis SNOMED-CT Code Diagnosis ICD10 Code Diagnosis IMO Codes Diagnosis Note [id number] Charlene Murray MD [facility] ([facility]) [address] [place] [id number] 5 11/21/2022 11:30:48 11/21/2022 12:21:22 Infected insect bite 770170874 L08.9 pt called back to say she is . d/c bactrim. change to cephalexin [id number] Joni Zhou DO [facility] ([facility]) [address] [place] [address] [id number] 12/06/2022 15:32:27 12/06/2022 16:49:36 Missed period 68570377 N92.5 We will obtain beta-hCG and thyroid labs. Counseled patient extensivel y on risks of without contracept ion as well as risk of STDs without barrier methods. She states she does not want any contracept ion and understand s the risk of . [id number] Joni Zhou DO [facility] ([facility]) [address] [place] [address] [id number] 5 01/03/2023 14:19:39 01/03/2023 15:43:24 Irregular periods 73462855 N92.6 Intermitte nt but now for more than 3 months beta-hCG negative recently. Repeat thyroid labs showed normalizat ion of TSH. We will get pelvic ultrasound and send to [facility] for further evaluation . Possible PCOS. Moderate m ajor depression, single episode 03153546 F32.1 New. Counseled patient. We will start sertraline . She will follow-up with me in 1 month. Consider counselor referral. Morbid obesity 896258936 E66.01 I counseled pt on obesity. We discussed risks and ways to loose weight. Pt will work on diet, exercise. Dyslipidemia 397250553 E 78.5 Hyperlipid emia with stage. Counseled patient on weight loss and diet. Repeat labs 1 year. Adult [facility] th examination 512868244 Z00.00 I counseled patient on diet, exercise, weight, and mental health. All questions were addressed. we reviewed recent labs. [id number] Joni Zhou DO [facility] ([facility]) [address] [place] [address] [id number] 01/30/2023 15:09:33 01/30/2023 19:45:24 [id number] Joni Zhou DO [facility] ([facility]) [address] [place] [address] [id number] 5 02/02/2023 09:57:34 02/02/2023 13:10:57 Irregular periods 13393753 N92.6 Possible PCOS. She had gone 3 to 4 months without. Earlier this spring and summer. Last period was 2 weeks ago very heavy cramping. Ultrasound was normal. Patient did not like her experience with the women's clinic in [place]. We will send her to [facility] in [place] per her request. Moderate m ajor depression, single episode 48150023 F32.1 Somewhat improved with low-dose sertraline . Tolerating medication well. Will increase to 50 mg daily. Follow-up 2 months. [id number] YOLIE CARLSON [facility] ([facility]) [address] [place] [address] [id number] 5 02/03/2023 12:45:52 02/03/2023 15:58:35 Cough 45484105 R05.9 COVID-19 555067185 U07.1 Discussed risks and benefits of Paxlovid. Patient verbalized that she understand s this medication is still under emergency use authorizat ion. Declines Paxlovid today. Can take tylenol/ib uprofen as needed for pain. Encouraged to push fluids and quarantine at least 5 days and until feeling better. If severe SOB or chest pain occurs, should go to ED. Patient verbalizes understand ing. If no improvemen t in 10-14 days, should be re-evaluat ed by PCP. [id number] Joni Zhou DO [facility] ([facility]) [address] [place] [address] [id number] 5 04/17/2023 15:51:28 04/17/2023 19:06:50 Moderate major depression, single episode 16420171 F32.1 not well controlled , will add rexulti to sertraline 50mg. starter pk given. f/u 1 mt, sooner with problems. [id number] Joni Zhou DO [facility] ([facility]) [address] [place] [address] [id number] 5 05/16/2023 15:58:27 05/16/2023 17:59:13 Irregular periods 10406688 N92.6 Possible PCOS. Patient not able to establish with Dr. Gildardo Ma in [place] due to insurance. She will call [facility] and see about getting in with a another [employer] other than Dr. Boles. Moderate m ajor depression, single episode 62822832 F32.1 Somewhat improved but not optimal. We will increase sertraline to 100 mg daily she will continue Rexulti at 1 mg daily. Consider increasing Rexulti. Follow-up 6 weeks. [id number] Joni Zhou DO [facility] ([facility]) [address] [place] [address] [id number] 5 06/26/2023 15:28:21 06/26/2023 16:27:25 Moderate major depression, single episode 92773216 F32.1 She has been stable without the Rexulti recently. We will keep her off of it and continue the sertraline 50 mg daily. Patient to follow-up in 6 months. Sooner if problems. At that point we would consider either increasing sertraline or trying a second medicine like Seroquel or aripiprazo le [id number] Joni Zhou DO [facility] ([facility]) [address] [place] [address] [id number] 08/07/2023 16:24:34 08/07/2023 17:05:13 Cellulitis of skin 472075430 L03.90 b/l LE, worst on left posterior thigh. counseled on skin care. return with any abscess. [id number] Charlene Murray MD [facility] ([facility]) [address] [place] [address] [id number] 5 07/02/2024 09:40:24 07/02/2024 12:16:18 Urine test positive 038824685 Z32.01 Gestation period, 5 weeks 07358708 Z3A.01 I reviewed what to avoid in and the plan of care. Nicotine-f illed electronic cigarette user 958834858 Z72.89 I discussed the risks of smoking in , including but not limited to: LBW, premature delivery and increased risk of miscarriag e and SIDS. I advised complete cessation Past pregn gila history of miscarriage 231857550 Z87.59 7 wk and 13 wk [id number] Charlene Murray MD [facility] ([facility]) [address] [place] [address] [id number] 5 07/22/2024 08:52:38 07/23/2024 14:48:51 [id number] Charlene Murray MD [facility] ([facility]) [address] [place] [address] [id number] 5 08/06/2024 13:47:08 08/07/2024 10:06:24 Gestation period, 10 weeks 97111174 Z3A.10 Normal pre gnancy in multigravida 4542023539 26907 Z34.81 Nausea and vomiting in 9089069560 O21.9 [id number] Charlene Murray MD [facility] ([facility]) [address] [place] [address] [id number] 5 09/02/2024 10:50:52 09/02/2024 15:44:15 Gestation period, 14 weeks 38331519 Z3A.14 Normal pre gnancy in multigravida 1303306737 89483 Z34.81 [id number] Charlene Murray MD [facility] ([facility]) [address] [place] [address] [id number] 5 10/03/2024 10:09:53 10/03/2024 11:16:49 Gestation period, 18 weeks 09569337 Z3A.18 6984269 Multigravida 320313606 Z 34.82 76761277 [id number] Charlene Murray MD [facility] ([facility]) [address] [place] [address] [id number] 5 10/14/2024 08:53:23 10/19/2024 23:31:58 [id number] Charlene Murray MD [facility] ([facility]) [address] [place] [address] [id number] 5 10/28/2024 11:12:37 10/28/2024 15:41:43 Gestation period, 22 weeks 10190481 Z3A.22 2857356 Multigravida 804999152 Z 34.82 98268777 [id number] Charlene Murray MD [facility] ([facility]) [address] [place] [address] [id number] 5 12/09/2024 12:38:36 12/11/2024 12:13:28 Gestation period, 28 weeks 10580615 Z3A.28 [id number] Multigravida 055079838 Z 34.83 91032647 [id number] Charlene Murray MD [facility] ([facility]) [address] [place] [address] [id number] 5 12/30/2024 13:57:59 01/01/2025 10:28:58 Multigravida 511985730 Z34.83 98162830 Gestation period, 31 weeks 70306319 Z3A.31 8900581 [id number] Charlene Murray MD [facility] ([facility]) [address] [place] [address] [id number] 5 12/24/2024 13:41:14 12/26/2024 04:04:41 [id number] Charlene Murray MD [facility] ([facility]) [address] [place] [address] [id number] 5 01/13/2025 11:52:37 01/13/2025 14:19:23 Gestation period, 33 weeks 71855502 Z3A.33 7304979 Multigravida 491012232 Z 34.83 95236506 [id number] Charlene Murray MD [facility] ([facility]) [address] [place] [address] [id number] 5 01/27/2025 10:53:40 01/28/2025 10:38:27 Gestation period, 35 weeks 85319071 Z3A.35 6969768 Multigravida 418452461 Z 34.83 70692758 Fundal hei ght high for dates 443795587 Z34.90 58909224 [id number] Charlene Murray MD [facility] ([facility]) [address] [place] [address] [id number] 5 02/04/2025 11:45:55 02/04/2025 13:19:34 [id number] Charlene Murray MD [facility] ([facility]) [address] [place] [address] [id number] 5 02/06/2025 13:49:17 02/11/2025 16:26:33 Gestation period, 36 weeks 89488739 Z3A.36 4970699 Multigravida 221673394 Z 34.83 37865367 [id number] Charlene Murray MD [facility] ([facility]) [address] [place] [address] [id number] 5 02/13/2025 11:06:50 02/17/2025 14:59:19 Gestation period, 37 weeks 62189819 Z3A.37 [id number] Multigravida 975360175 Z 34.83 14032454 [id number] Charlene Murray MD [facility] ([facility]) [address] [place] [address] [id number] 5 02/19/2025 13:52:41 03/03/2025 09:50:47 Gestation period, 38 weeks 32788897 Z3A.38 7429667 Multigravida 897742070 Z 34.83 08680504 [id number] Charlene Murray MD [facility]) [address] [place] [address] [id number] 5 03/03/2025 11:08:49 03/06/2025 04:08:56 state 21241999 Z39.2 031099 [id number] Charlene Murray MD [facility]) [address] [place] [address] [id number] 5 03/13/2025 15:39:59 03/17/2025 16:15:58 Skin lesion 12201968 L98.9 66558 The patient's incision is healing as expected. She has a 2 mm raw spot on the left aspect that does not appear to have any signs of infection. She was advised to run hydrogen peroxide over the area twice daily and follow-up if worsening or not improved [id number] Charlene Murray MD [facility] ([facility]) [address] [place] [address] [id number] 5 03/24/2025 15:17:36 03/26/2025 09:19:37 care status 230308062 Z39.2 0009105 4392666 declines control Disorder of skin 1839329 5 L76.82 8991572316 despite pt report it appears improved to me, no drainge expressed, pinpoint opening. [id number] Charlene Murray MD [facility] ([facility]) [address] [place] [address] 5 04/02/2025 10:48:29 04/07/2025 13:52:54 Viral upper respiratory tract infection 224686415 J06.9 [id number] Health Concerns Section Related Observation LastModified by Organization Detai ls LastModified Time None Recorded Concern Status LastModified by Organization Details LastModified Time None Recorded Advance Directives Directive None Recorded Payers Insurance Date Sequence Insurance Name Policy Number Policy Eason Covered Member ID Eason Member ID Guarantor Name 12/10/2024 1 [employer] [place]MED[place]AC[place] - HMO) [id number] Humphrey Alvarenga [id number] Humphrey Alvarenga 12/10/2024 1 [place] Humphrey Alvarenga [id number] Humphrey Alvarenga 12/10/2024 [place] [facility] (INSTITUTIONAL ) Humphrey Alvarenga [id number] Humphrey Alvarenga 12/10/2024 [place] Humphrey Alvarenga [id number] Humphrey Alvarenga 07/02/2024 2 *SELF PAY* Michael Alvarenga 04/25/[address] [facility]) [facility] Humphrey Alvarenga [id number] Humphrey Alvarenga Notes Date Note Type Note Provider Name and Address Organization Details Recorded Time 5 text/html VisitReported by PatientHPIFor associated symptoms, patient reportspelvic painbut reportsno abnormal bleeding,no constipation,no problems, andnormal mood. For quality, patient reportsprimary c/s. For context, patient reportsno complicationsandgood support from partner/family. For contraception plan, patient reportsdeclines contraception.ROS as noted in the HPI doing well, no issues Charlene Murray MD [address] [place] [address], [phone], [facility] 03/03/2025 11:44:44 5 text/html started last eveningShe noticed there was a little opening on 1 edge of the incisionIt is not more painful Charlene Murray MD [address] [place] [address], [phone], [facility] 03/13/2025 16:22:34 5 text/html VisitReported by PatientHPIFor onset/timing, patient reportsdate [...] think it is infected Charlene Murray MD [address] [place] [address], [phone], [facility] 03/24/2025 17:15:30 5 text/html Sore ThroatReported by PatientHPIFor associated symptoms, patient reportsfever,cough, andheadachebut [...] sought for these symptoms. Charlene Murray MD [address] [place] [address], [phone], [facility] 04/07/2025 11:40:29 5 text/html VisitReported by PatientHPIFor context, patient reportsno complications. For associated symptoms, patient reportsno abnormal bleedingandno pelvic pain. For contraception plan, patient reportsdeclines contraception.ROS as noted in the HPI The patient is a 19-year-old female presenting for a routine follow-up. She reports that her section incision has healed, is closed, and is no longer leaking, though she notes it has scarred and appears darker. The patient reports experiencing occasional dizziness, which usually occurs in the mornings. She acknowledges that her fluid intake is inconsistent. She is not interested in control at this time. Not Available Not Available Not Available OBGyn Episode Ob Episode Information Episode Created Date Number of Fetuses Patient Bloodtype Patient rh Status Prepregnancy Weight lbs Domestic Partner Domestic Partner Phone Father Name Machine Candle Molder Status 07/02/19 1 A Positive Leroy Christiano [...] Weight in lbs Pre/Post Dialysis Refused Weight 194.358207711807 BP Diastolic BP Location Tested BP Systolic [...] in lbs Pre/Post Dialysis Refused With clothes 191.721863995340 BP Diastolic BP Location Tested BP Systolic BP Type 76 L arm 118 sitting Fetus Heart Rate Present Fetus Movement Comments Flowsheet Date 09/02/2024 Blank Score Blood Edema Fundus Height Fundus Units Glucose Ketones Leukocytes Nitrite Labor Signs Protein Cervic Dilation Cervic Effacement Cervic Station none trace trace Type Weight in lbs Pre/Post Dialysis Refused Weight 192.892083941962 BP Diastolic BP Location Tested BP Systolic [...] Weight in lbs Pre/Post Dialysis Refused Weight 196.682538758780 BP Diastolic BP Location Tested BP Systolic [...] Weight in lbs Pre/Post Dialysis Refused Weight 202.917524771105 BP Diastolic BP Location Tested BP Systolic [...] in lbs Pre/Post Dialysis Refused With clothes 208.590021485791 BP Diastolic BP Location Tested BP Systolic [...] Weight in lbs Pre/Post Dialysis Refused Weight 212.794249547367 BP Diastolic BP Location Tested BP Systolic [...] Weight in lbs Pre/Post Dialysis Refused Weight 216.602199802710 BP Diastolic BP Location Tested BP Systolic [...] Weight in lbs Pre/Post Dialysis Refused Weight [id number] BP Diastolic BP Location Tested BP Systolic [...] Weight in lbs Pre/Post Dialysis Refused Weight 224.910537868305 BP Diastolic BP Location Tested BP Systolic [...] Weight in lbs Pre/Post Dialysis Refused Weight 228.303178366746 BP Diastolic BP Location Tested BP Systolic [...] in lbs Pre/Post Dialysis Refused With clothes 219.416104857782 BP Diastolic BP Location Tested BP Systolic [...] Weight in lbs Pre/Post Dialysis Refused Weight 203.239559784435 BP Diastolic BP Location Tested BP Systolic BP Type 83 130 Fetus Heart Rate Present Fetus Movement Comments Menstrual History Last Menstrual Date Menses Monthly On Bcp Conception Prior Menses Frequency Hcg Plus Date Menarche Onset Age 1205/26/2024 false Genetic Screening And Infection History Question Response Note Patient's Age Will Be 35 Yea rs Or Older At Estimated Date of Delivery false Thalassemia (French, Ukrainian, Mediterranean, Or Background): MCV < 80 false Neural Tube Defect (Meningom yelocele, Spina Bifida, Or Anencephaly) false Congenital Heart Defect false Down Syndrome false Lyndon-Sachs (eg, Confucianism, Cajun, Ethiopian-[place]) f alse Andrei Disease false Sickle Cell Disease Or Trait () false Hemophilia Or Other Blood Disorders false Muscular Dystrophy false Cystic Fibrosis false Strafford's Chorea false Intellectual Disability/Autism false If Yes, [...]
--- NOTE | 2025-05-04 05:15 | USR_ITS ---
PROCEDURE INFORMATION: Exam: US Abdomen, Limited; Right Upper Quadrant Exam date and time: 05/04/2025 6:18 AM Age: 19 years old Clinical indication: Abdominal pain; Localized; Right upper quadrant (ruq); Additional info: Ruq spasms TECHNIQUE: Imaging protocol: Real time ultrasound of the abdomen with image documentation. Limited exam focused on the right upper quadrant. COMPARISON: US gall bladder [id number] 02/09/2025 5:10 AM FINDINGS: Liver: Normal. No masses. Liver measures 16.5 cm in length. Gallbladder: Gallstones within the gallbladder lumen. There is no gallbladder wall thickening. Biliary ducts: No stones visualized on the given images. No intrahepatic biliary ductal dilation. Common bile duct measures 0.9 cm, previously 0.6 cm. Pancreas: Visualized pancreas is unremarkable. Right kidney: Normal. No mass. No hydronephrosis. Right kidney measures 10.3 cm in length. Aorta: Mid aorta measures 1.3 cm in diameter. Inferior vena cava: IVC measures 2.0 cm in diameter. US/US gall bladder [id number] IMPRESSION: 1. Cholelithiasis without sonographic evidence of acute cholecystitis. 2. Mildly dilated common bile duct, nonspecific. No obstructing process identified on this examination. MRCP could be considered for further evaluation if warranted.
[2025-05-04 05:16] VITALS: BP 127/71; PULSE 50; RESP 18; O2SAT 100; BMI 29.8
[2025-05-04 05:21] VITALS: TEMP 36.3
[2025-05-04 05:28] LABS: Hematocrit 43.5 % (36-47); Hemoglobin 13.50 g/dL (11.27-16.99); Mean Corpuscular HGB Conc 31.0 g/dL (30-55); Mean Corpuscular Hemoglobin 25.4 pg (27-33); Mean Corpuscular Volume 81.8 fl (85-98); Nucleated Red Blood Cells % 0 %; Platelet Count 336 10^3/cmm (157-399); Red Blood Count 5.32 10^6/uL (3.85-5.65); White Blood Count 6.50 10^3/uL (3.29-11.43)
[2025-05-04] MEDS: ondansetron 2 mg/ML SDV 2 mL 4 MG IVP ×2 (05:30→05:58)
[2025-05-04 05:42] LABS: HCG, Serum Qual Negative (Negative)
[2025-05-04 05:44] LABS: Glucose Urine UA Negative (Normal); Nitrate Urine Negative (Negative); Specific Gravity, Urine 1.027 (1.005-1.030)
[2025-05-04 05:49] LABS: Add Urine Microscopic? YES
[2025-05-04 05:49] LABS: Albumin Level 4.4 g/dL (3.5-5.2); Alkaline Phosphatase 351 U/L (35-105); Blood Urea Nitrogen 12 mg/dL (6-20); Calcium 9.7 mg/dL (8.5-10.5); Carbon Dioxide 27 mmol/L (22-29); Chloride 100 mmol/L (98-107); Globulin 3.9 g/dL (1.3-4.6); Glucose 148 mg/dL (65-115); Lipase 23 U/L (13-60); Magnesium 2.3 mg/dL (1.7-2.3); Osmolality Calculated 293 mOsm/kg (285-295); Sodium 140 mmol/L (136-145); Total Protein 8.3 g/dL (6.6-8.7)
[2025-05-04 05:56] LABS: Anion Gap 17.1 (5-19); Potassium 4.1 mmol/L (3.5-5.1)
--- NOTE | 2025-05-04 05:56 | ED_ITS ---
HPI - Abdominal Pain 2 General: Chief Complaint: Abdominal Pain Stated Complaint: Thinks might be having a gallbladder attack Time Seen by Provider: 05/04/25 05:19 History of Present Illness: 19-year-old female who presents to the e mergency room with right upper quadrant pain with nausea and vomiting. This started this morning. She says she has had issues with this when she was but they resolved after she gave . Came back overnight. Severe pain. No diarrhea. No dysuria. No fever. No altered mental status. Related Data Home Medications ?Medication ?Instructions ?Recorded ?Confirmed acetaminophen 325 mg tablet 650 mg PO QID PRN Fever Or Pain 05/04/25 05/04/25 (Tylenol) ibuprofen 200 mg tablet (Advil) 600 mg PO Q6H PRN Feve r Or Pain 05/04/25 05/04/25 Allergies Allergy/AdvReac Type Severity Reaction Status Date / Time adhesive Allergy ALGY-Rash Verified 02/24/25 20:18 latex Allergy ALGY-Rash Verified 02/24/25 20:18 Review of Systems 2 Narrative: Constitutional symptoms: Negative except as documented in HPI. Skin symptoms: Negative except as documented in HPI. Eye symptoms: Negative except as documented in HPI. ENMT symptoms: Negative except as documented in HPI. Respiratory symptoms: Negative except as documented in HPI. Cardiovascular symptoms: Negative except as documented in HPI. Gastrointestinal symptoms: Negative except as documented in HPI. Genitourinary symptoms: Negative except as documented in HPI. Musculoskeletal symptoms: Negative except as documented in HPI. Neurologic symptoms: Negative except as documented in HPI. Psychiatric symptoms: Negative except as documented in HPI. Endocrine symptoms: Negative except as documented in HPI. PFSH ED 2 PFSH: Medical History (Updated 05/04/25 @ 07:37 by Olive Shelby MD) No pertinent family history Painful orthopaedic hardware Family History Father Colon cancer Mother Hyperlipidemia Hypertension Diabetes Denies family history of Ovarian cancer Heart disease Breast cancer Uterine cancer Thyroid disease Stroke Social History Smoking and tobacco/nicotine status: never used tobacco/nicotine Female Reproductive History: Para: 0 Spontaneous abortions: Yes Physical Exam 2 Narrative: EXAM NARRATIVE: General: Alert, patient is writhing in pain. Skin: Warm, dry. Head: Normocephalic, atraumatic. Neck: Supple, trachea midline. Eye: Extraocular movements are intact. Ears, nose, mouth and throat: mucosa moist. Cardiovascular: Regular, Normal peripheral perfusion. Respiratory: Lungs are clear to auscultation, respirations are non-labored, breath sounds are equal, Symmetrical chest wall expansion. Gastrointestinal: Soft, very tender in the right upper quadrant, Non distended Musculoskeletal: Normal ROM, no deformity. Neurological: Alert and oriented, No focal neurological deficit observed. Psychiatric: Cooperative, appropriate mood & affect. Course 2 Vital Signs: Vital signs: Vital Signs Temperature 97.3 F L 05/04/25 05:21 Pulse Rate 43 L 05/04/25 07:16 Respiratory Rate 18 05/04/25 06:00 Blood Pressure 98/47 05/04/25 07:16 Pulse Oximetry 99 05/04/25 07:16 Oxygen Delivery Me thod Room Air 05/04/25 07:16 MDM - Abdominal Pain Medical Decision Making Medical decision making Patient's reason for coming to the emergency room: Right upper quadrant abdominal pain Social determinants: Patient is . Unemployed. Gave to a child 2 months ago I reviewed the patient's medical record. Patient follows with Charlene Aguirre. Most recent visit was April 08 this is after being discharged for section for follow-up I reviewed the patient's current home meds No chronic medications Alternate historians: None Differential diagnosis for patient presenting with right upper quadrant abdominal pain including but not limited to and based on the above HPI, review of systems and physical exam: Cholelithiasis or cholecystitis. Hepatitis. Diverticulitis. Constipation. Ureterolithiasis. Urinary tract infection. Appendicitis. colitis. small bowel obstruction. crohn's flare. pancreatitis. gastritis. peptic ulcer. Aortic disection. Workup including imaging and lab work replaced based on the above differential, history and exam to evaluate differential diagnosis Lab Review: Laboratory results were reviewed and interpreted by myself the emergency room physician. No leukocytosis. No anemia. No renal failure. Liver enzymes are elevated, bilirubin is elevated. Alk phos is elevated. These all would indicate biliary obstruction. hCG negative. No urinary tract infection. Ultrasound gallbladder: Stones in the gallbladder. No evidence of cholecystitis. Mild dilatation of the biliary duct. This was reviewed and interpreted by myself the emergency room physician. I also reviewed the radiology report. Assessment of risk: Level of risk: Patient is low risk. Hospitalization considerations: Patient has likely a choledocholithiasis and needs ERCP. Transfer to hospital with gastroenterology Reexamination: Patient's pain has improved some with Dilaudid. She is continue have some nausea and has required multiple doses of Zofran. No altered mental status. No focal motor deficits. Consultation: I spoke with Dr. Bains who is on-call for the hospitalist service at [facility] in [place]. She is excepting the patient in transfer. Assessment and plan: Choledocholithiasis Hyperbilirubinemia Transaminitis Nausea and vomiting Dehydration Right upper quadrant abdominal pain ?IV Dilaudid, multiple doses of IV Zofran, normal saline bolus. -I discussed the patient with the accepting physician on-call. - Discussed findings and plan with patient. Answered any questions. - All laboratory values were reviewed and interpreted personally by myself, the ER physician - All imaging was reviewed and interpreted personally by myself, the ER physician. - Evaluation and treatment of this problem were appropriate in the emergency setting Lab Data 05/04/25 05:23 05/04/25 05:23 Labs/Radiology: Radiology Impressions Gallbladder Ultrasound 05/04/25 05:15 IMPRESSION: 1. Cholelithiasis without sonographic evidence of acute cholecystitis. 2. Mildly dilated common bile duct, nonspecific. No obstructing process identified on this examination. MRCP could be considered for further evaluation if warranted. Laboratory Results WBC 6.50 10^3/uL (3.29-11.43) 05/04/25 05:23 RBC 5.32 10^6/uL (3.85-5.65) 05/04/25 05:23 Hgb 13.50 g/dL (11.27-16.99) 05/04/25 05:23 Hct 43.5 % (36-47) 05/04/25 05:23 MCV 81.8 fl (85-98) L 05/04/25 05:23 MCH 25.4 pg (27-33) L 05/04/25 05:23 MCHC 31.0 g/dL (30-55) 05/04/25 05:23 RDW 16.1 % (12.1-15.1) H 05/04/25 05:23 Plt Count 336 10^3/cmm (157-399) 05/04/25 05:23 MPV 9.6 fL (7.4-10.4) 05/04/25 05:23 Neut % (Auto) 59.8 % 05/04/25 05:23 Lymph % (Auto) 34.2 % 05/04/25 05:23 [place] % (Auto) 5.2 % 05/04/25 05:23 Eos % (Auto) 0.2 % 05/04/25 05:23 Baso % (Auto) 0.3 % 05/04/25 05:23 Neut # (Auto) 3.89 10^3/uL (1.8-7.7) 05/04/25 05:23 Lymph # (Auto) 2.2 10^3/uL (0.8-4.8) 05/04/25 05:23 [place] # (Auto) 0.3 10^3/uL (0.2-0.9) 05/04/25 05:23 Eos # (Auto) 0.0 10^3/uL (0.0-0.8) 05/04/25 05:23 Baso # (Auto) 0.0 10^3/uL (0.0-0.1) 05/04/25 05:23 Nucleated RBC % (auto) 0 % 05/04/25 05:23 Nucleated RBCs # 0.0 /100WBC 05/04/25 05:23 Sodium 140 mmol/L (136-145) 05/04/25 05:23 Potassium 4.1 mmol/L (3.5-5.1) 05/04/25 05:23 Chloride 100 mmol/L (98-107) 05/04/25 05:23 Carbon Dioxide 27 mmol/L (22-29) 05/04/25 05:23 Anion Gap 17.1 (5-19) 05/04/25 05:23 BUN 12 mg/dL (6-20) 05/04/25 05:23 Creatinine 0.7 mg/dL (0.5-0.9) 05/04/25 05:23 GFR Calculation 105.6 mL/min (90-130) 05/04/25 05:23 Glucose 148 mg/dL (65-115) H 05/04/25 05:23 Calculated Osmolality 293 mOsm/kg (285-295) 05/04/25 05:23 Calcium 9.7 mg/dL (8.5-10.5) 05/04/25 05:23 Phosphorus 2.7 mg/dL (2.5-4.5) 05/04/25 05:23 Magnesium 2.3 mg/dL (1.7-2.3) 05/04/25 05:23 Total Bilirubin 2.1 mg/dL (0.15-1.2) H 05/04/25 05:23 AST 737 U/L (0-32) H 05/04/25 05:23 ALT 1243 U/L (0-33) H 05/04/25 05:23 Alkaline Phosphatase 351 U/L (35-105) H 05/04/25 05:23 C-React Prot High Sens 0.340 mg/dL (0.0-0.3) H 05/04/25 05:23 Total Protein 8.3 g/dL (6.6-8.7) 05/04/25 05:23 Albumin 4.4 g/dL (3.5-5.2) 05/04/25 05:23 Globulin 3.9 g/dL (1.3-4.6) 05/04/25 05:23 Lipase 23 U/L (13-60) 05/04/25 05:23 HCG, Qual Negative (Negative) 05/04/25 05:23 Urine Color Dark yellow (Yellow) A 05/04/25 05:27 Urine Appearance Clear (CLEAR) 05/04/25 05:27 Urine pH 7.0 (5-7) 05/04/25 05:27 Ur Specific [place] 1.027 (1.005-1.030) 05/04/25 05:27 Urine Protein 1+ (Negative) A 05/04/25 05:27 Urine Glucose (UA) Negative (Normal) 05/04/25 05: Urine Ketones Trace (Negative) 05/04/25 05: Urine Blood 2+ (Negative) A 05/04/25 05:27 Urine Nitrate Negative (Negative) 05/04/25 05:27 Urine Bilirubin 1+ (Negative) H 05/04/25 05:27 Urine Urobilinogen 1.0 mg/dL (Negative) 05/04/25 05:27 Ur Leukocyte Esterase Trace (Negative) A 05/04/25 05:27 Urine RBC 0-2 /hpf (0-2) 05/04/25 05:27 Urine WBC 0-5 /hpf (0-5) 05/04/25 05:27 Ur Squamous Epith Cells 0-5 /hpf (0-5) 05/04/25 05:27 Amorphous Sediment Not Reportable 05/04/25 05:27 Urine Bacteria None seen /hpf (NONE) 05/04/25 05:27 Hyaline Casts 2.46 /lpf 05/04/25 05:27 Urine Opiates Screen Negative ng/mL (Negative) 05/04/25 05:27 Ur Barbiturates Screen Negative ng/mL (Negative) 05/04/25 05:27 Ur Phencyclidine Scrn Negative ng/mL (Negative) 05/04/25 05:27 Ur Amphetamines Screen Negative ng/mL (Negative) 05/04/25 05:27 U Benzodiazepines Scrn Negative ng/mL (Negative) 05/04/25 05:27 Urine Cocaine Screen Negative ng/mL (Negative) 05/04/25 05:27 U Marijuana (THC) Screen Positive ng/mL (Negative) H 05/04/25 05:27 All radiology interpretation(s) finalized by discharge Discharge Plan Discharge Patient Disposition: Xfer Short-Term Hosp Clinical Impression: Choledocholithiasis, Cholelithiasis, Right upper quadrant abdominal pain, Nausea & vomiting, Transaminitis, Hyperbilirubinemia, Dehydration Condition: Stable Referrals: David Zhou DO [Primary Care Provider, [facility]] Patient Instructions: Abdominal Pain (ED) Print Language: B[place]ian Coding Level of Care Code ED [employer] for Edy Reeves
[2025-05-04] MEDS: HYDROmorphone 0.5 MG/0.5 ML INJ 1 MG IVP (05:58)
[2025-05-04 06:00] VITALS: BP 127/71; PULSE 52; RESP 18; O2SAT 96
[2025-05-04 06:14] LABS: CRP High Sensitivity Cardiac 0.340 mg/dL (0.0-0.3)
[2025-05-04 06:21] LABS: PCP Screen Urine Negative (Negative)
[2025-05-04 07:05] LABS: Alanine Aminotransferase 1243 U/L (0-33); Aspartate Amino Transferase 737 U/L (0-32)
[2025-05-04] MEDS: ondansetron 2 mg/ML SDV 2 mL 8 MG IVP (07:07)
--- NOTE | 2025-05-04 07:14 | PC.NURSE ---
Assumed care of patient at 0700. Rounding with patient and she is still nauseated and requesting medications. Dr Shelby gave verbal for zofran 8mg ivp. RBVO and placed. Meds given to patient and assisted her to bathroom. Dr Shelby in room with patient and provided update and need for transfer for ERCP. Pt denies questions at this time. Her pain level is managed at this time.
[2025-05-04 07:16] VITALS: BP 98/47; PULSE 43; O2SAT 99
--- NOTE | 2025-05-04 07:43 | PC.NURSE ---
Nausea improved per pt at this time.
[2025-05-04 08:34] VITALS: BP 101/54; PULSE 50; O2SAT 97
== END 2025-05-04 08:37 | disposition short-term general hospital (02) ==
PROVIDERS: Student in an Organized Health Care Education/Training Program; Emergency Provider Emergency Medicine; PCP Electrodiagnostic Medicine
DX: K80.70 Calculus of gallbladder and bile duct without cholecystitis without obstruction (principal); E80.6 Other disorders of bilirubin metabolism; E86.0 Dehydration; R11.2 Nausea with vomiting, unspecified; R10.11 Right upper quadrant pain; R74.01 Elevation of levels of liver transaminase levels
CPT/HCPCS: 76705; 80053; 80306; 81001; 83690; 83735; 84100; 84703; 85025; 86141; 96361; 96374; 96375; 96376; 99285; J1171; J2405; J3490; J7030